=== PATIENT | female | born 1940 | race Caucasian/White ===

== ENCOUNTER → 2016-08-15 | Outpatient (CLI) | payer BC ==
[~2016-08-15] MED LIST: ASPI81TA28 PO; ATOR10TA82 PO; LEVO50TA PO; MAGN400T6 PO; MULT-190 PO; MULT-208 PO; OXYC-106 PO; RANI150T3 PO; SPIR50TA PO
--- NOTE | 2016-08-16 08:27 | MAMMOGRAPHY REPORT ---
BILATERAL DIGITAL SCREENING MAMMOGRAM WITH CAD: 08/15/2016 CLINICAL HISTORY: Routine screening. Patient has no complaints. TECHNIQUE: Bilateral CC and MLO views were obtained. Current study was also evaluated with a Comput er Aided Detection (CAD) system. COMPARISON: Comparison is made to exams dated: 08/10/2015 mammogram, 08/20/2014 ultrasound, 08/20/2014 m ammogram, 08/04/2014 mammogram, 07/30/2013 mammogram, and 07/29/2012 mammogram - [facility]. BREAST COMPOSITION: There are scattered areas of fibroglandular density in both breasts. FINDINGS: There are scattered and grouped stable round and punctate microcalcifications in the breas ts. Mild vascular calcification bilaterally. No new suspicious mass, architectural distortion or c luster of microcalcifications is seen. IMPRESSION: ACR BI-RADS CATEGORY 1: NEGATIVE There is no mammographic evidence of malignancy. A 1 year screening mammogram is recommended. The p atient will receive written notification of the results. Approximately 10% of breast cancers are not detected with mammography. A negative mammographic repor t should not delay biopsy if a clinically suggestive mass is present. Roxana Conklin M.D. ay/:08/15/2016 15:22:59 Company Driver: Heavenly DAMON(R)(M), [facility] letter sent: Normal 1/2 BI-RADS Code: ACR BI-RADS Category 1: Negative
== END | disposition home or self-care (01) ==
LOC: C.MAMM 09:59
PROVIDERS: ATTEND Internal Medicine Pulmonary Disease
DX: Z12.31 Encounter for screening mammogram for malignant neoplasm of breast (principal)

== ENCOUNTER → 2016-09-06 | Outpatient (CLI) | payer BC ==
[2016-09-06 16:01] LABS: URINE APPEARANCE CLEAR (CLEAR); URINE BILIRUBIN NEG (NEG); URINE COLOR YELLOW; URINE EPITHELIAL CELL AUTO >30 /lpf (0-5); URINE NITRITE NEG (NEG); URINE SPECIFIC GRAVITY 1.012 (1.000-1.030); UROBILINOGEN NEG (NEG); ZZUR CULT IF INDIC CLEAN CATCH YES
[2016-09-06 16:04] LABS: MANUAL MICROSCOPIC REQUIRED? NO; REVIEW REQ? NO
== END | disposition home or self-care (01) ==
LOC: C.LABSPEC 14:50
PROVIDERS: ATTEND Obstetrics & Gynecology
DX: R39.15 Urgency of urination (principal)

== ENCOUNTER → 2016-09-26 | Outpatient (CLI) | payer BC ==
[2016-09-26 12:44] LABS: URINE APPEARANCE CLEAR (CLEAR); URINE BILIRUBIN NEG (NEG); URINE COLOR YELLOW; URINE EPITHELIAL CELL AUTO >30 /lpf (0-5); URINE NITRITE NEG (NEG); URINE PH 7.5 (4.5-7.5); URINE SPECIFIC GRAVITY 1.007 (1.000-1.030); UROBILINOGEN NEG (NEG)
[2016-09-26 12:45] LABS: MANUAL MICROSCOPIC REQUIRED? NO; REVIEW REQ? YES
== END | disposition home or self-care (01) ==
LOC: C.LABBFT 10:01
PROVIDERS: ATTEND Obstetrics & Gynecology
DX: R39.15 Urgency of urination (principal)

== ENCOUNTER → 2016-12-07 | Outpatient (CLI) | payer BC ==
[~2016-12-07] MED LIST changes: -ATOR10TA82 PO; +ATOR10TA88 PO
--- NOTE | 2016-12-07 10:23 | DIAGNOSTIC IMAGING REPORT ---
CHEST 2 VIEWS ROUTINE HISTORY: 76 years-old Female R05 Cough COMPARISON: None available TECHNIQUE: Frontal and lateral views of the chest FINDINGS: Cardiac silhouette is within normal limits. There is atherosclerosis of the aorta. There is no pneumothorax. There is mild blunting of the bilateral posterior costophrenic angles. No focal airspace consolidation identified. Bones are grossly intact. IMPRESSION: Mild blunting of the bilateral posterior costophrenic angles suggests atelectasis or scarring versus trace pleural effusions. Lung alford are clear. The above report was generated using voice recognition software. It may contain grammatical, syntax or spelling errors. Electronically signed by: Young Gaitan M.D. 12/07/2016 10:22 AM Dictated Date/Time: 12/07/2016 10:21 AM
== END ==
LOC: C.RAD1850 10:09
PROVIDERS: ATTEND Physician Assistant Medical
DX: R05 Cough (principal)

== ENCOUNTER → 2017-01-16 | Outpatient (CLI) | payer BC ==
[2017-01-16 12:27] LABS: BASO % 1.5 %; BASO ABS # 0.07 K/uL (0-0.2); COMPLETE YES; EOS % 7.6 %; HEMATOCRIT 41.5 % (37-47); LYMPH % 41.5 %; LYMPH ABS # 1.92 K/uL (1.2-3.4); MEAN CELL VOLUME 98.6 fL (80-100); MEAN CORPUSCULAR HEMOGLOBIN 32.3 pg (25-34); MEAN CORPUSCULAR HGB CONC 32.8 g/dl (32-36); MONO % 11.9 %; NEUT % 37.5 %; PLATELET COUNT 296 K/uL (130-400); RED BLOOD COUNT 4.21 M/uL (4.2-5.4); WHITE BLOOD COUNT 4.63 K/uL (4.8-10.8)
[2017-01-16 12:50] LABS: ALT/SGPT 18 U/L (12-78); AST/SGOT 16 U/L (15-37); BLOOD UREA NITROGEN 10 mg/dl (7-18); BUN/CREATININE RATIO 9.9 (10-20); CALCIUM 9.6 mg/dl (8.5-10.1); CARBON DIOXIDE 29 mmol/L (21-32); CHLORIDE 99 mmol/L (98-107); CHOLESTEROL 205 mg/dl (0-200); GLUCOSE 99 mg/dl (70-99); POTASSIUM 4.3 mmol/L (3.5-5.1); SODIUM 135 mmol/L (136-145); TRIGLYCERIDES 99 mg/dl (0-150); VERY LOW DENSITY LIPOPROT CALC 20 mg/dl
[2017-01-16 13:00] LABS: ALKALINE PHOSPHATASE 87 U/L (45-117); CHOLESTEROL/HDL RATIO 2.9; HDL CHOLESTEROL 71 mg/dl; LDL CHOLESTEROL CALCULATED 114 mg/dl
== END | disposition home or self-care (01) ==
LOC: C.LABBFT 08:58
PROVIDERS: ATTEND Internal Medicine Pulmonary Disease
DX: E78.5 Hyperlipidemia, unspecified (principal); I10 Essential (primary) hypertension; R35.1 Nocturia; R73.9 Hyperglycemia, unspecified; I65.29 Occlusion and stenosis of unspecified carotid artery

== ENCOUNTER 2017-06-24 10:59 | Inpatient (IN) | payer BC, OTHER ==
[~2017-06-24] VITALS: Ht 153.7 cm; Wt 90.7 kg
[~2017-06-24 10:59] MED LIST changes: +ATOR10TA82 PO; -ATOR10TA88 PO
[2017-06-24] MEDS ORDERED: ASPIRIN 324 MG CHEW ONE (11:14)
[2017-06-24] MEDS ORDERED: COEN30CA8 PO (11:33)
[2017-06-24] MEDS ORDERED: SODIUM CHLORIDE 0.9% 1000ML 1,000 ML IV STA ×2 (11:51→18:08)
[2017-06-24 12:00] LABS: BASO % 1.3 %; BASO ABS # 0.08 K/uL (0-0.2); EOS % 2.6 %; EOS ABS # 0.16 K/uL (0-0.5); HEMATOCRIT 42.5 % (37-47); HEMOGLOBIN 14.4 g/dL (12.0-16.0); IG# 0.01 K/uL (0.00-0.02); LYMPH % 47.9 %; LYMPH ABS # 2.92 K/uL (1.2-3.4); MEAN CELL VOLUME 97.9 fL (80-100); MEAN CORPUSCULAR HEMOGLOBIN 33.2 pg (25-34); MEAN CORPUSCULAR HGB CONC 33.9 g/dl (32-36); MEAN PLATELET VOLUME 9.6 fL (7.4-10.4); MONO % 12.3 %; MONO ABS # 0.75 K/uL (0.11-0.59); NEUT % 35.7 %; NEUT ABS # 2.17 K/uL (1.4-6.5); PLATELET COUNT 275 K/uL (130-400); RED CELL DISTRIBUTION WIDTH CV 12.1 % (11.5-14.5); RED CELL DISTRIBUTION WIDTH SD 43.7 fL (36.4-46.3); WHITE BLOOD COUNT 6.09 K/uL (4.8-10.8)
--- NOTE | 2017-06-24 12:07 | EMERGENCY ROOM VISIT NOTE ---
History Report prepared by Micheal: Pratima Cortes Under the Supervision of: Dr. Darryl Haley M.D. First contact with patient: 11:28 Chief Complaint: CHEST PAIN Stated Complaint: DIZZINESS/CHEST PAIN/BLURRED VISION Nursing Triage Summary: Patient arrived via EMS. EMS reports pt had eaten breakfast at [facility] and she experienced blurred vision, lightheadedness and chest pressure in center of chest 1/10. Pt reports she was sitting having a cup of coffee and she looked up and felt vision get blurry, when she went to pick pack worker her her coffee her right arm started to shake and she had to use two hands to pick pack worker her coffee. She felt "Lightheaded" and "I started to get up and I couldn't, I couldn't keep my balance, my legs didn't want to work for me. The Right leg." Pt reports she was always able to move her right arm and leg but they felt very week. Pt was taking Lisinopril daily but it was making her have a cough, so they changed her to something else 5 months ago, has appt in August. BP 219/148 For EMS at it's highest EMS administered 324 of ASA and 2 sprays of Nitro. Pt reports chest pressure is "like someone sitting on my chest, it seems like it come and goes." Rates pain 0.5/10. Pt denies weakness on arrival to ED, denies dizziness, blurry vision, c/o only of 0.5/10 chest pressure in center of chest and has felt similar pressure on and off throughout the past week. History of Present Illness The patient is a 77 year old female who presents to the Emergency Room with complaints of an episode of lightheadedness occurring just prior to arrival. The patient states she was eating breakfast when she started to feel lightheaded and her hands started to shake. She also reports some chest tightness mild in nature but denies any headache, nausea, vomiting, diarrhea, dark or bloody stool, shortness of breath, or cough. The patient states she did not loose consciousness, did not fall or hit her head. The patient has a history of hypertension and high cholesterol. She denies any recent travel. The patient is not on any blood thinners. Source of History: patient Onset: just prior to arrival Position: other (generalized) Quality: other (lightheadedness) Timing: other (episode) Associated Symptoms: + chest pain, No LOC, No headache, No SOB, No nausea, No vomiting Review of Systems See HPI for pertinent positives and negatives. A total of ten systems were reviewed and were otherwise negative. Past Medical & Surgical Medical Problems: (1) High cholesterol (2) Hypertension Family History Patient reports no known family medical history. Social History Smoking Status: Former Smoker Marital Status: Housing Status: lives with significant other Current/Historical Medications Scheduled Aspirin (Aspirin Ec), 81 MG PO DAILY Atorvastatin (Lipitor), 10 MG PO DAILY Levothyroxine Sodium (Synthroid), 50 MCG PO DAILY Magnesium Oxide (Mag-Ox), 400 MG PO DAILY Multiple Vitamins W/ Minerals (Daily Multi), 1 TAB PO DAILY Ocuvite Preservision (Ocuvite Preservision), 1 TAB PO DAILY Ranitidine Hcl (Zantac), 150 MG PO BID Scheduled PRN Hctz/Spironolactone 25MG/25MG (Aldactazide 25MG/25MG), 1 TAB PO DAILY PRN for URINARY RETENTION Miscellaneous Medications Coenzyme Q10 (Ubidecarenone) (Coq-10) Allergies Coded Allergies: Codeine (Verified Adverse Reaction, Mild, HALLUCINATIONS, 06/24/17) Physical Exam Vital Signs Date Time Temp Pulse Resp B/P (MAP) Pulse Ox O2 Delivery O2 Flow Rate FiO2 06/24/17 16:18 108 18 176/74 95 Room Air 06/24/17 14:54 113 18 180/84 94 Room Air 06/24/17 14:00 114 06/24/17 13:14 107 17 171/77 97 Room Air 06/24/17 12:23 107 21 149/73 98 Room Air 06/24/17 11:50 115 19 162/76 98 Room Air 06/24/17 11:23 112 18 176/92 96 Room Air 06/24/17 11:08 122 06/24/17 11:00 95 Room Air 06/24/17 11:00 95 Room Air 06/24/17 11:00 36.7 115 21 179/79 96 Room Air Physical Exam Physical Exam GENERAL: She is oriented to person, place, and time. She appears well- developed and well-nourished. She does not appear distressed. ____ HENT: Exam performed. Head: Normocephalic and atraumatic. Right Ear: External ear normal. No mastoid tenderness. Left Ear: External ear normal. No mastoid tenderness. Mouth/Throat: The oropharynx is clear and moist. No trismus in the jaw. No dental abscesses or uvula swelling. No oropharyngeal exudate or tonsillar abscesses. ____ EYES: Conjunctivae and EOM are normal. Pupils are equal, round, and reactive to light. Right eye exhibits no discharge. Left eye exhibits no discharge. No scleral icterus. ____ NECK: Normal range of motion. Neck supple. No JVD present. No spinous process tenderness present. No carotid bruit present. No rigidity. No tracheal deviation and normal range of motion present. No Brudzinski's sign and no Kernig 's sign noted. ____ CV: Tachycardic rate, regular rhythm, normal heart sounds and intact distal pulses. There is no peripheral edema. Palpable radial pulses bue. ____ PULM/CHEST: Effort normal and breath sounds normal. No respiratory distress. No stridor. She has no wheezes. She has no rales. Chest Wall: She exhibits no tenderness. ____ ABD: The abdomen is soft. Bowel sounds are normal. She has no distension. No mass is present. There is no tenderness. There is no rebound, no guarding, no Chin's sign and no tenderness at McBurney's point. Rovsig negative MUSC/SKEL: Normal range of motion. There is no peripheral edema, tenderness or deformity. LYMPH: No cervical adenopathy. ____ NEURO: She is alert and oriented to person, place, and time. She has normal strength. No cranial nerve deficit or sensory deficit. Coordination and gait normal. GCS eye subscore is 4. GCS verbal subscore is 5. GCS motor subscore is 6. Cerebellar tests wnl. ____ SKIN: Skin is warm and dry. She is not diaphoretic. ____ PSYCH: She has a normal mood and affect. Her behavior is normal. Judgment and thought content normal. ____ Medical Decision & Procedures ER Provider Diagnostic Interpretation: Radiology results as stated below per my review and radiologist interpretation: CT ANGIOGRAM OF THE CHEST FINDINGS: No pathologically enlarged axillary mediastinal or hilar lymph nodes were visualized. There was no evidence of thoracic aortic dilatation. There were no pulmonary artery filling defects to indicate acute pulmonary embolism. No pleural effusions are visualized. There are mild dependent atelectatic changes. There is no focal pulmonary consolidation. There are few scattered tiny calcified and noncalcified pulmonary nodules. IMPRESSION: 1. Scattered tiny calcified and noncalcified pulmonary nodules statistically postinflammatory 2. No evidence of focal pulmonary consolidation 3. No evidence of acute pulmonary embolism Electronically signed by: Bill Lui M.D. Laboratory Results 06/24/17 10:50 Red Blood Count 4.34, Mean Corpuscular Volume 97.9, Mean Corpuscular Hemoglobin 33.2, Mean Corpuscular Hemoglobin Concent 33.9, Mean Platelet Volume 9.6, Neutrophils (%) (Auto) 35.7, Lymphocytes (%) (Auto) 47.9, Monocytes (%) (Auto) 12.3, Eosinophils (%) (Auto) 2.6, Basophils (%) (Auto) 1.3, Neutrophils # (Auto ) 2.17, Lymphocytes # (Auto) 2.92, Monocytes # (Auto) 0.75, Eosinophils # (Auto ) 0.16, Basophils # (Auto) 0.08 06/24/17 10:50 Test 06/24/17 10:50 White Blood Count 6.09 K/uL (4.8-10.8) Red Blood Count 4.34 M/uL (4.2-5.4) Hemoglobin 14.4 g/dL (12.0-16.0) Hematocrit 42.5 % (37-47) Mean Corpuscular Volume 97.9 fL (80-100) Mean Corpuscular Hemoglobin 33.2 pg (25-34) Mean Corpuscular Hemoglobin Concent 33.9 g/dl (32-36) Platelet Count 275 K/uL (130-400) Mean Platelet Volume 9.6 fL (7.4-10.4) Neutrophils (%) (Auto) 35.7 % Lymphocytes (%) (Auto) 47.9 % Monocytes (%) (Auto) 12.3 % Eosinophils (%) (Auto) 2.6 % Basophils (%) (Auto) 1.3 % Neutrophils # (Auto) 2.17 K/uL (1.4-6.5) Lymphocytes # (Auto) 2.92 K/uL (1.2-3.4) Monocytes # (Auto) 0.75 K/uL (0.11-0.59) Eosinophils # (Auto) 0.16 K/uL (0-0.5) Basophils # (Auto) 0.08 K/uL (0-0.2) RDW Standard Deviation 43.7 fL (36.4-46.3) RDW Coefficient of Variation 12.1 % (11.5-14.5) Immature Granulocyte % (Auto) 0.2 % Immature Granulocyte # (Auto) 0.01 K/uL (0.00-0.02) Prothrombin Time 10.3 SECONDS (9.0-12.0) Prothromb Time International Ratio 1.0 (0.9-1.1) Activated Partial Thromboplast Time 25.3 SECONDS (21.0-31.0) Partial Thromboplastin Ratio 1.0 D-Dimer 1000 ug/L FEU (0-500) Anion Gap 10.0 mmol/L (3-11) Est Creatinine Clear Calc Drug Dose 49.6 ml/min Estimated GFR () 60.9 Estimated GFR (Non- 52.5 BUN/Creatinine Ratio 11.7 (10-20) Calcium Level 9.3 mg/dl (8.5-10.1) Troponin I < 0.015 ng/ml (0-0.045) Laboratory results reviewed by me Medications Administered Medications (Trade) Dose Ordered Sig/João Route Start Time Stop Time Status Last Admin Dose Admin Sodium Chloride 1,000 ml @ 999 mls/hr Q1H1M STAT IV 06/24/17 11:51 06/24/17 12:51 DC 06/24/17 12:22 999 MLS/HR ECG Per My Interpretation Indication: chest pain Rate (beats per minute): 124 Rhythm: sinus tachycardia Findings: other (UT,QRS, QTC within normal limits, no ST elevation or ST depression) ED Course 1150: The patient was evaluated in room C6. A complete history and physical exam was performed. 1151: Ordered Sodium Chloride 1000 ml @ 999 mls/hr IV. 1623: Patient remains tachycardic. Labs within normal limits with the exception of positive d-dimer. CT of the chest negative. I discussed with the patient that we could repeat troponin and if negative she could follow-up outpatient with cardiology for stress test. She was also given the option to be admitted to the hospital for chest pain rule out ACS and possible stress test in the a.m. 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 She opted to stay for inpatient observation for rule out ACS. discussed the patient's case with Dr. Larissa Tom. The patient will be evaluated for further treatment and disposition. Medical Decision Patient remains tachycardic. Labs within normal limits with the exception of positive d-dimer. CT of the chest negative. I discussed with the patient that we could repeat troponin and if negative she could follow-up outpatient with cardiology for stress test. She was also given the option to be admitted to the hospital for chest pain rule out ACS and possible stress test in the a.m. 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 She opted to stay for inpatient observation for rule out ACS. discussed the patient' s case with Dr. Larissa Tom. The patient will be evaluated for further treatment and disposition. Medication Reconcilliation Current Medication List: was personally reviewed by me Blood Pressure Screening Patient's blood pressure: Elevated blood pressure Blood pressure disposition: Referred to PCP (referred to hospitalist) Consults Time Called: 1600 Consulting Physician: Dr. Larissa Tom Returned Call: 1623 Discussed the patient's case with Dr. Larissa Tom. The patient will be evaluated for further treatment and disposition. Impression Primary Impression: Chest pain Additional Impression: Hypertension Scribe Attestation The scribe's documentation has been prepared under my direction and personally reviewed by me in its entirety. I confirm that the note above accurately reflects all work, treatment, procedures, and medical decision making performed by me. Departure Information Dispostion Being Evaluated By Hospitalist Stanislav Duarte M.D. (PCP) Patient Instructions My [facility] Problem Qualifiers Primary Impression: Chest pain Chest pain type: unspecified Qualified Codes: R07.9 - Chest pain, unspecified Additional Impression: Hypertension Hypertension type: unspecified Qualified Codes: I10 - Essential (primary) hypertension
[2017-06-24 12:08] LABS: BLOOD UREA NITROGEN 12 mg/dl (7-18); CALCIUM 9.3 mg/dl (8.5-10.1); CARBON DIOXIDE 25 mmol/L (21-32); CREATININE 1.04 mg/dl (0.60-1.20); GLUCOSE 144 mg/dl (70-99); POTASSIUM 4.2 mmol/L (3.5-5.1); SODIUM 133 mmol/L (136-145)
[2017-06-24 12:14] LABS: PTT PATIENT 25.3 SECONDS (21.0-31.0)
[2017-06-24] MEDS ORDERED: OPTIRAY 320 IV PRN (12:30)
--- NOTE | 2017-06-24 13:42 | DIAGNOSTIC IMAGING REPORT ---
CT ANGIOGRAM OF THE CHEST CLINICAL HISTORY: Atypical chest pain. Dizziness. Blurred vision. COMPARISON STUDY: No previous studies for comparison. TECHNIQUE: Following the IV administration of 91 mL of Optiray-320, CT angiogram of the thorax was performed from the thoracic inlet to the lung bases utilizing the pulmonary embolus protocol. Images are reviewed in the axial, sagittal, and coronal planes. IV contrast was administered without complication. MIP imaging was performed. A dose lowering technique was utilized adhering to the principles of ALARA. CT DOSE: 573.36 mGy.cm FINDINGS: No pathologically enlarged axillary mediastinal or hilar lymph nodes were visualized. There was no evidence of thoracic aortic dilatation. There were no pulmonary artery filling defects to indicate acute pulmonary embolism. No pleural effusions are visualized. There are mild dependent atelectatic changes. There is no focal pulmonary consolidation. There are few scattered tiny calcified and noncalcified pulmonary nodules. IMPRESSION: 1. Scattered tiny calcified and noncalcified pulmonary nodules statistically postinflammatory 2. No evidence of focal pulmonary consolidation 3. No evidence of acute pulmonary embolism Electronically signed by: Bill Lui M.D. 06/24/2017 1:41 PM Dictated Date/Time: 06/24/2017 1:37 PM
[2017-06-24] MEDS ORDERED: NITROGLYCERIN 0.4 MG SL PER TAB CHARGE SL STA (18:08)
[2017-06-24] MEDS ORDERED: ACETAMINOPHEN 500 MG TAB PO STA (18:08)
[2017-06-24] MEDS ORDERED: ONDANSETRON INJ 2 MG/ML 2 ML VIAL IV PRN (20:00)
[2017-06-24] MEDS ORDERED: PHARMACIST DISCHARGE MED REC CONSULT PRN (20:00)
[2017-06-24] MEDS ORDERED: MAGNESIUM HYDROXIDE SUSP 30 ML UDC PO PRN (20:00)
[2017-06-24] MEDS ORDERED: ZOLPIDEM TARTRATE 5 MG TAB PO PRN ×2 (20:00)
[2017-06-24] MEDS ORDERED: POLYETHYLENE (MIRALAX) 17 GM PACK PO PRN (20:00)
[2017-06-24] MEDS ORDERED: ACETAMINOPHEN 325 MG TAB PO PRN (20:00)
[2017-06-24] MEDS ORDERED: NITROGLYCERIN 0.4 MG SL PER TAB CHARGE SL PRN (20:00)
[2017-06-24] MEDS ORDERED: ALUMINUM/MAGNESIUM/SIMETH (MAALOX MAX) 30 ML UDC PO PRN (20:00)
[2017-06-24] MEDS ORDERED: ATORVASTATIN 40 MG TAB PO STA (20:08)
--- NOTE | 2017-06-24 20:28 | DIAGNOSTIC IMAGING REPORT ---
CT HEAD WITHOUT CONTRAST (CT) CLINICAL HISTORY: Stroke DIZZINESS, BLURRED VISION COMPARISON STUDY: No previous studies for comparison. TECHNIQUE: Axial CT of the brain is performed from the vertex to the skull base. IV contrast was not administered for this examination. A dose lowering technique was utilized adhering to the principles of ALARA. CT DOSE: 537.48 mGy.cm FINDINGS: No intra or extra-axial mass lesions are visualized. There is no CT evidence of acute cortical infarction. There is no evidence of midline shift. There is no acute hemorrhage. No calvarial fractures are visualized. There are patchy white minimal hypodensities likely on a small vessel basis. There is a tiny right frontal cortical calcification. There is no evidence of pathologic ventricular dilatation. There is no evidence of acute sinusitis IMPRESSION: No acute intracranial findings Electronically signed by: Bill Lui M.D. 06/24/2017 8:27 PM Dictated Date/Time: 06/24/2017 8:26 PM
[2017-06-24] MEDS ORDERED: IV FLUIDS COMPLETED PRN (20:45)
[2017-06-24] MEDS ORDERED: CLOPIDOGREL BISULFATE 75 MG TAB PO STA (20:49)
[2017-06-24 20:56] VITALS: BP 197/83; PULSE 115; TEMP 37.1; O2SAT 96; Ht 153.7 cm; Wt 90.7 kg
--- NOTE | 2017-06-24 21:07 | History and Physical ---
History & Physical Date & Time of Service: Jun 24, 2017 at 21:01 Chief Complaint: Tia (Transient Ischemic Attack) Primary Care Physician: Stanislav Velez M.D. History of Present Illness Source: patient, family 77-year-old female with past medical history of hypothyroidism, glaucoma, hypertension, dyslipidemia and morbid obesity presented to the ED with right- sided weakness and chest tightness. Patient was in her regular state of health until this morning when she was having breakfast with her . Patient said that suddenly she got blurry vision and she put her head down to rest. She raised her head and try to reach for a cup of coffee but she could not move her hand her right hand was weak. She was scared and told her that she may need to go to the hospital and she tried to stand up she could not move her right lower extremity. Patient stayed like this for a few minutes her called paramedics. When paramedics arrived patient said that she remembers trying to think to answer their question. She also experienced substernal chest pressure that lasted for a few minutes referred to the left side of the chest. Said that she gets this pain on and off and it is very mild. Currently all her symptoms resolved. Upon arrival to ED they ordered a d-dimer which was mildly elevated, they did a CT angiogram ruled out pulmonary embolism. Family History Patient reports no known family medical history. Social History Smoking Status: Former Smoker Marital Status: Allergies Coded Allergies: Codeine (Verified Adverse Reaction, Mild, HALLUCINATIONS, 06/24/17) Home Medications Scheduled Aspirin (Aspirin Ec), 81 MG PO DAILY Atorvastatin (Lipitor), 10 MG PO DAILY Levothyroxine Sodium (Synthroid), 50 MCG PO DAILY Magnesium Oxide (Mag-Ox), 400 MG PO DAILY Multiple Vitamins W/ Minerals (Daily Multi), 1 TAB PO DAILY Ocuvite Preservision (Ocuvite Preservision), 1 TAB PO DAILY Ranitidine Hcl (Zantac), 150 MG PO BID Scheduled PRN Hctz/Spironolactone 25MG/25MG (Aldactazide 25MG/25MG), 1 TAB PO DAILY PRN for URINARY RETENTION Miscellaneous Medications Coenzyme Q10 (Ubidecarenone) (Coq-10) Review of Systems Review of system Constitutional: No fever / no chills / no sweats / no weakness / no fatigue Eyes: no blurring of vision / no eye pain / no discharge / no redness ENT: no hearing loss / no epistaxis /no swallowing problems Respiratory: no cough / no wheezing / no SOB / no hemoptysis Cardiovascular: Substernal tightness as mentioned in HPI/ no lower extremity edema / no palpitation Abdomen: no pain / no nausea / no vomiting / no constipation Musculoskeletal: no joint pain / no muscle pain / no joint swelling Genitourinary: no dysuria / no incontinence / no urinary retention Neurologic: As mentioned in HPI Psychiatric: no depression symptoms / no anxiety / no insomnia Endocrine: no excessive thirst / no excessive urination Hematologic: no abnormal bleeding / no bruising / no LN swelling Skin: No rash / no pallor Physical Exam Vital Signs Date Time Temp Pulse Resp B/P (MAP) Pulse Ox O2 Delivery O2 Flow Rate FiO2 06/24/17 20:36 106 18 174/100 95 06/24/17 20:13 106 18 174/100 95 Room Air 06/24/17 19:50 112 18 181/88 95 Room Air 06/24/17 19:10 115 18 180/93 94 Room Air 06/24/17 19:02 119 18 198/91 95 Room Air 06/24/17 18:57 110 18 94 Room Air 06/24/17 18:31 128 21 150/86 95 Room Air 06/24/17 18:20 116 22 194/122 95 Room Air 06/24/17 18:04 117 12 198/109 95 Room Air 06/24/17 18:01 112 06/24/17 16:18 108 18 176/74 95 Room Air 06/24/17 14:54 113 18 180/84 94 Room Air 06/24/17 14:00 114 06/24/17 13:14 107 17 171/77 97 Room Air 06/24/17 12:23 107 21 149/73 98 Room Air 06/24/17 11:50 115 19 162/76 98 Room Air 06/24/17 11:23 112 18 176/92 96 Room Air 06/24/17 11:08 122 06/24/17 11:00 95 Room Air 06/24/17 11:00 95 Room Air 06/24/17 11:00 36.7 115 21 179/79 96 Room Air Physical examination General patient appears to be comfortable, not in acute distress HEENT: Atraumatic , normocephalic /no jaundice /no pallor /anicteric /no dry mucous membrane /normal external ear inspection Neck: Supple /no swelling /central trach Heart: S1/S2 normal/regular rate and rhythm/no gallop /no rub /no murmur Lungs: Clear to auscultation bilaterally/normal chest with expansion/no rhonchi/ no rales/no wheezing/no use of accessory muscles of respiration Abdomen: Soft/nontender/no guarding/no rebound/no organomegaly/no pulsatile mass Musculoskeletal: No swelling/no edema/no tenderness/normal range of motion Neuro exam: Awake alert oriented 3/cranial nerves II through XII appear to be intact/sensation intact/moves all extremities/no abnormal movements Psychiatric evaluation: No depressed mood/normal affect Skin: No rash on exposed skin area/no erythema Extremity: Normal pulse/no pitting edema/no clubbing or cyanosis Endocrine/lymphatic: No obvious lymphadenopathy /no lymphedema Diagnostics Laboratory Results Results Past 24 Hours Test 06/24/17 10:50 Range/Units White Blood Count 6.09 4.8-10.8 K/uL Red Blood Count 4.34 4.2-5.4 M/uL Hemoglobin 14.4 12.0-16.0 g/dL Hematocrit 42.5 37-47 % Mean Corpuscular Volume 97.9 80-100 fL Mean Corpuscular Hemoglobin 33.2 25-34 pg Mean Corpuscular Hemoglobin Concent 33.9 32-36 g/dl Platelet Count 275 130-400 K/uL Mean Platelet Volume 9.6 7.4-10.4 fL Neutrophils (%) (Auto) 35.7 % Lymphocytes (%) (Auto) 47.9 % Monocytes (%) (Auto) 12.3 % Eosinophils (%) (Auto) 2.6 % Basophils (%) (Auto) 1.3 % Neutrophils # (Auto) 2.17 1.4-6.5 K/uL Lymphocytes # (Auto) 2.92 1.2-3.4 K/uL Monocytes # (Auto) 0.75 0.11-0.59 K/uL Eosinophils # (Auto) 0.16 0-0.5 K/uL Basophils # (Auto) 0.08 0-0.2 K/uL RDW Standard Deviation 43.7 36.4-46.3 fL RDW Coefficient of Variation 12.1 11.5-14.5 % Immature Granulocyte % (Auto) 0.2 % Immature Granulocyte # (Auto) 0.01 0.00-0.02 K/uL Prothrombin Time 10.3 9.0-12.0 SECONDS Prothromb Time International Ratio 1.0 0.9-1.1 Activated Partial Thromboplast Time 25.3 21.0-31.0 SECONDS Partial Thromboplastin Ratio 1.0 D-Dimer 1000 0-500 ug/L FEU Sodium Level 133 136-145 mmol/L Potassium Level 4.2 3.5-5.1 mmol/L Chloride Level 98 98-107 mmol/L Carbon Dioxide Level 25 21-32 mmol/L Anion Gap 10.0 3-11 mmol/L Blood Urea Nitrogen 12 7-18 mg/dl Creatinine 1.04 0.60-1.20 mg/dl Est Creatinine Clear Calc Drug Dose 49.6 ml/min Estimated GFR () 60.9 Estimated GFR (Non- 52.5 BUN/Creatinine Ratio 11.7 10-20 Random Glucose 144 70-99 mg/dl Calcium Level 9.3 8.5-10.1 mg/dl Troponin I < 0.015 0-0.045 ng/ml Thyroid Stimulating Hormone (TSH) 2.040 0.300-4.500 uIu/ml Diagnostic Radiology EKG showed sinus tachycardia no significant ST-T wave changes indicative of ischemia Impression Assessment and Plan 77-year-old female with past medical history of hypothyroidism, glaucoma, hypertension, dyslipidemia and morbid obesity presented to the ED with right- sided weakness and chest tightness. Presented to the ED with transient right- sided weakness and substernal chest tightness. Assessment Right-sided weakness in both upper and lower extremities, currently resolved, most likely TIA Substernal chest tightness rule out ACS Hypertension Dyslipidemia Glaucoma Hypothyroidism Morbid obesity Clinically suspected obstructive sleep apnea Plan Admit patient to telemetry Continue home meds except blood pressure medications for permissive hypertension , hold blood pressure medications Ultrasound carotid 2D echo with bubble study Empiric increase of statin dose and switch it to Lipitor CT head showed no bleed, discussed case with who recommended switching the aspirin to Plavix MRI/MRA of the brain Consult photogrammetric technician for her chest pain, trend cardiac enzymes We will also check sed rate and CRP to rule out giant cell arteritis/vasculitis Heparin for DVT prophylaxis Resuscitation Status VTE Prophylaxis Will order VTE Prophylaxis: Yes
[2017-06-24] MEDS: RANITIDINE HCL 150 MG TAB PO SCH (21:24)
[2017-06-24] MEDS: SODIUM CHLORIDE 0.9% 1000ML 1,000 ML IV SCH (21:25)
[2017-06-24] MEDS: HEPARIN SOD 5000 UNIT/0.5 ML CARP SQ SCH (21:28)
[2017-06-24] MEDS ORDERED: NURSING VERBAL MED ORDER ONE ×2 (22:00→22:30)
[2017-06-24 22:15] VITALS: BP 192/100
[2017-06-24] MEDS ORDERED: HydrALAZINE HCL 20 MG/ML VIAL IV. PRN (22:45)
[2017-06-24 23:59] VITALS: O2SAT 95
[2017-06-25] VITALS (8 sets, daily range): BP systolic 144–182; BP diastolic 72–89; PULSE 67–107; TEMP 36.6–37.1; O2SAT 94–97
[2017-06-25] MEDS ORDERED: GADAVIST IV PRN
[2017-06-25 02:50] LABS: BASO % 1.2 %; BASO ABS # 0.06 K/uL (0-0.2); EOS % 0.2 %; EOS ABS # 0.01 K/uL (0-0.5); HEMATOCRIT 36.3 % (37-47); HEMOGLOBIN 12.7 g/dL (12.0-16.0); IG# 0.01 K/uL (0.00-0.02); LYMPH % 13.3 %; LYMPH ABS # 0.65 K/uL (1.2-3.4); MEAN CELL VOLUME 96.5 fL (80-100); MEAN CORPUSCULAR HEMOGLOBIN 33.8 pg (25-34); MEAN PLATELET VOLUME 9.1 fL (7.4-10.4); MONO % 12.9 %; MONO ABS # 0.63 K/uL (0.11-0.59); NEUT % 72.2 %; NEUT ABS # 3.51 K/uL (1.4-6.5); PLATELET COUNT 238 K/uL (130-400); RED CELL DISTRIBUTION WIDTH CV 12.5 % (11.5-14.5); RED CELL DISTRIBUTION WIDTH SD 43.7 fL (36.4-46.3); WHITE BLOOD COUNT 4.87 K/uL (4.8-10.8)
[2017-06-25 03:09] LABS: CALCIUM 8.5 mg/dl (8.5-10.1); CREATININE 0.93 mg/dl (0.60-1.20); POTASSIUM 3.8 mmol/L (3.5-5.1)
[2017-06-25] MEDS: LEVOTHYROXINE 50 MCG TAB PO SCH (06:00)
[2017-06-25] MEDS: HEPARIN SOD 5000 UNIT/0.5 ML CARP SQ SCH ×3 (06:18→21:02)
--- NOTE | 2017-06-25 06:42 | DIAGNOSTIC IMAGING REPORT ---
MRA NECK COMBO HISTORY: Stroke Stroke TECHNIQUE: [id number] and gadolinium-enhanced MRA of the neck was performed both before and after the intravenous administration of contrast. All measurements were calculated based on NASCET criteria. COMPARISON STUDY: None. FINDINGS: Very limited study technically due to severe patient motion. The study is near nondiagnostic. The right vertebral artery appears unremarkable. Is dominant. 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 Potential significant stenosis right carotid bifurcation and origin right internal carotid artery. No major stenosis of the left carotid system.. IMPRESSION: 1. Essentially nondiagnostic study. 2. Suspicion of a significant stenosis of the right carotid bifurcation and/or internal right carotid artery. 3. Carotid Doppler ultrasound is suggested as follow-up. 4. 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 The above report was generated using voice recognition software. It may contain grammatical, syntax or spelling errors. Electronically signed by: Mateus Goetz M.D. 06/25/2017 6:41 AM Dictated Date/Time: 06/25/2017 6:38 AM
--- NOTE | 2017-06-25 07:08 | DIAGNOSTIC IMAGING REPORT ---
MR ANGIOGRAM OF THE BRAIN CLINICAL HISTORY: Strokelike symptoms. COMPARISON STUDY: MRI of the brain performed concurrently on 06/24/2017. TECHNIQUE: 3-D [id number] MR angiography of the intracranial circulation is performed. 3-D tumble views are created and assessed. IV contrast was not administered for this examination. The examination is modestly degraded by motion artifact. FINDINGS: The internal carotid arteries are widely patent bilaterally, as are the anterior and middle cerebral arteries. The vertebrobasilar system and posterior cerebral arteries are widely patent. The right vertebral artery is dominant. There is no aneurysm, high-grade stenosis, or focal vessel cutoff seen throughout the intracranial circulation. The brain parenchyma is normal as visualized. IMPRESSION: Unremarkable MR angiogram of the brain. Electronically signed by: Jack Romero M.D. 06/25/2017 7:06 AM Dictated Date/Time: 06/25/2017 7:04 AM
--- NOTE | 2017-06-25 07:27 | DIAGNOSTIC IMAGING REPORT ---
MRI OF THE BRAIN WITHOUT CONTRAST CLINICAL HISTORY: Stroke. Blurred vision. Right hand and right leg weakness. COMPARISON STUDY: Head CT June 24, 2017. TECHNIQUE: Utilizing a 1.5 Jewels magnet and dedicated coil, multiplanar, multiecho imaging of the brain was performed without IV contrast. FINDINGS: Note is made of a linear 1.4 x 0.2 cm focus of restricted diffusion within the posterior left nichols radiata shown on axial diffusion-weighted sequence image 14 of 48. There is no associated mass effect. There may be subtle corresponding increased T2 signal on the T2-weighted sequence. No additional sites of restricted diffusion are present. Ventricular system is normal. Basilar cisterns are patent. There are no extra-axial collections. Flow-voids for the major intracranial vessels are present. Calvarial signal is maintained. Additional matter T2 hyperintense foci suggest small vessel disease. IMPRESSION: 1.4 x 0.2 cm linear focus of restricted diffusion within the posterior left nichols radiata which is suggestive of a small acute infarct. Minimal corresponding T2 signal abnormality. No mass effect. No hemorrhage. Electronically signed by: Sean Schulte M.D. 06/25/2017 7:25 AM Dictated Date/Time: 06/25/2017 7:20 AM
[2017-06-25 07:50] LABS: HEMOGLOBIN A1C 5.4 % (4.5-5.6)
--- NOTE | 2017-06-25 08:59 | Neurology Consultation ---
Neurology Consultation Date of Consultation: Jun 25, 2017. Attending Physician: Johana Han MD Primary Care Physician: Stanislav Velez M.D. Reason for Consultation: Stroke History of Present Illness Source: patient, hospital records The patient is a 77-year-old female with a chief complaint of [id number] right-sided weakness that began acutely yesterday morning while eating breakfast. She was sitting up at the time of symptom onset and recalls experiencing a feeling of lightheadedness, chest pressure, and some blurry vision. She began to notice that her right arm and leg felt heavy or weak. She has some difficulty holding a cup of coffee and standing to walk at that time and noted that her balance was poor. She continues to report some mild right-sided weakness at this time. She denies headache, vision loss, vertigo, change in speech, or difficulty swallowing. Electrocardiogram revealed sinus tachycardia 124 beats per minute. A CT angiogram of the chest was unremarkable. A CT of the head was unremarkable as well as an MRA of the head. An MRI of the brain did reveal a small acute infarct measuring 1.4 x 0.2 cm within the posterior left nichols radiata. I reviewed the images as well as a radiologist's interpretation of this test and agree. An MRA of the neck was nondiagnostic. A follow-up carotid ultrasound has been recommended. The patient had been taking daily aspirin although this medication was switched to Plavix during this hospitalization. Past medical history also notable for hypertension and hyperlipidemia. She is also prescribed a statin. Past Medical/Surgical History Medical Problems: (1) Chest pain Status: Acute (2) Hypertension Status: Chronic (3) Lumbar radiculopathy Status: Acute Family History Family history is noncontributory Social History Marital Status: Housing Status: lives with significant other Allergies Coded Allergies: Codeine (Verified Adverse Reaction, Mild, HALLUCINATIONS, 06/24/17) Current Inpatient Medications Current Inpatient Medications Medications (Trade) Dose Ordered Sig/João Route Start Time Stop Time Status Last Admin Dose Admin Ioversol (Optiray 320) 100 ml UD PRN IV 06/24/17 12:30 06/28/17 12:29 Heparin Sodium (Porcine) (Heparin Sq 5000 Unit/0.5ml) 5,000 unit Q8 SQ 06/24/17 22:00 07/24/17 21:59 06/25/17 06:18 5,000 UNIT Sodium Chloride 1,000 ml @ 50 mls/hr Q20H IV 06/24/17 21:04 07/24/17 21:03 06/24/17 21:25 50 MLS/HR Acetaminophen (Tylenol Tab) 650 mg Q4H PRN PO 06/24/17 20:00 07/24/17 19:59 Al Hydrox/Mg Hydrox/Simethicone (Maalox Max Susp) 15 ml Q4H PRN PO 06/24/17 20:00 07/24/17 19:59 Magnesium Hydroxide (Milk Of Magnesia Susp) 30 ml Q12H PRN PO 06/24/17 20:00 07/24/17 19:59 Zolpidem Tartrate (Ambien Tab) 5 mg HSZ PRN PO 06/24/17 20:00 07/24/17 19:59 Ondansetron HCl (Zofran Inj) 4 mg Q6H PRN IV 06/24/17 20:00 07/24/17 19:59 Nitroglycerin (Nitrostat Tab) 0.4 mg UD PRN SL 06/24/17 20:00 07/24/17 19:59 Polyethylene (Miralax Powder Packet) 17 gm DAILY PRN PO 06/24/17 20:00 07/24/17 19:59 Atorvastatin Calcium (Lipitor Tab) 80 mg QAM PO 06/25/17 09:00 07/25/17 08:59 Miscellaneous Information (Pharmacist Discharge Med Rec Consult) 1 ea UD PRN N/A 06/24/17 20:00 07/24/17 19:59 Levothyroxine Sodium (Synthroid Tab) 50 mcg DAILYBB PO 06/25/17 06:00 07/25/17 06:59 Magnesium Oxide (Mag-Ox Tab) 400 mg DAILY PO 06/25/17 09:00 07/25/17 08:59 Multivitamins/ Minerals (Multivitamin W/ Minerals Tab) 1 tab DAILY PO 06/25/17 09:00 07/25/17 08:59 Ranitidine HCl (zANTac TAB) 150 mg BID PO 06/24/17 21:00 07/24/17 20:59 06/24/17 21:24 150 MG Miscellaneous (Iv Fluids Completed) 1 ea PRN PRN N/A 06/24/17 20:45 06/24/18 20:44 Clopidogrel Bisulfate (plAVix TAB) 75 mg DAILY PO 06/25/17 09:00 07/25/17 08:59 Hydralazine HCl (HydrALAZINE INJ) 10 mg Q6H PRN IV. 06/24/17 22:45 07/24/17 22:44 06/24/17 22:50 10 MG Gadobutrol (Gadavist) 9.3 mmol UD PRN IV 06/25/17 00:00 06/29/17 00:00 Review of Systems Constitutional: No fever chills Eyes: No vision loss or diplopia ENT: No hearing loss or vertigo Cardiovascular: See history of present illness Respiratory: No coughing wheezing or shortness of breath Neurological: See history of present illness Psychiatric: No depression or anxiety Hematologic: No bruising bleeding or swollen glands A full 10 point review of systems was obtained from this patient with pertinent positives and negatives described in the history of present illness and otherwise listed above. All remaining systems were reviewed and are negative Physical Exam Vital Signs (Past 24 Hrs): Date Time Temp Pulse Resp B/P (MAP) Pulse Ox O2 Delivery O2 Flow Rate FiO2 06/25/17 07:50 37.1 107 20 159/82 (107) 97 06/25/17 04:00 96 Room Air 06/25/17 03:31 36.9 106 18 182/89 (120) 96 06/25/17 00:30 36.6 100 20 155/72 (99) 95 Room Air 06/24/17 23:59 95 Room Air 06/24/17 22:15 192/100 (130) 06/24/17 20:56 37.1 115 20 197/83 96 Room Air 06/24/17 20:36 106 18 174/100 95 06/24/17 20:13 106 18 174/100 95 Room Air 06/24/17 19:50 112 18 181/88 95 Room Air 06/24/17 19:10 115 18 180/93 94 Room Air 06/24/17 19:02 119 18 198/91 95 Room Air 06/24/17 18:57 110 18 94 Room Air 06/24/17 18:31 128 21 150/86 95 Room Air 06/24/17 18:20 116 22 194/122 95 Room Air 06/24/17 18:04 117 12 198/109 95 Room Air 06/24/17 18:01 112 06/24/17 16:18 108 18 176/74 95 Room Air 06/24/17 14:54 113 18 180/84 94 Room Air 06/24/17 14:00 114 06/24/17 13:14 107 17 171/77 97 Room Air 06/24/17 12:23 107 21 149/73 98 Room Air 06/24/17 11:50 115 19 162/76 98 Room Air 06/24/17 11:23 112 18 176/92 96 Room Air 06/24/17 11:08 122 06/24/17 11:00 95 Room Air 06/24/17 11:00 95 Room Air 06/24/17 11:00 36.7 115 21 179/79 96 Room Air The patient is a well-developed, well-nourished elderly female. She is lying comfortably in bed. The patient is alert and fully oriented. Recent and remote memory intact. Attention and concentration normal. Patient is able to name objects and repeat phrases and exhibits a normal spontaneous speech pattern. Patient exhibits an age-appropriate fund of knowledge a normal vocabulary. Visual alford full to confrontation. Visual acuity normal. Pupils equal round react to light and accommodation. Eye movements normal. Facial sensation intact. There is mild flattening of the right nasolabial fold although no gross facial droop. Hearing intact to finger rub bilaterally. Palate elevates to midline. Shoulder shrug intact. Tongue protrudes to midline. Sensation intact to light touch, temperature, vibration, and proprioception for all 4 limbs. Deep tendon reflexes are intact and symmetrical for the arms and legs. Plantar responses downgoing bilaterally. There is mild dysmetria with finger to nose and heel to cat on the right. Ophthalmoscopic examination reveals normal-appearing optic nerves and posterior segments. No papilledema or hemorrhages. Carotid pulses normal bilaterally, no bruits to auscultation. Gait and station not tested due to safety concerns. Muscle strength is grossly normal for the arms and legs. There is a slight pronator drift for the right upper extremity. Muscle tone normal throughout. No atrophy. No abnormal movements observed. Laboratory Results Past 24 Hours: 06/25/17 02:23 Red Blood Count 3.76, Mean Corpuscular Volume 96.5, Mean Corpuscular Hemoglobin 33.8, Mean Corpuscular Hemoglobin Concent 35.0, Mean Platelet Volume 9.1, Neutrophils (%) (Auto) 72.2, Lymphocytes (%) (Auto) 13.3, Monocytes (%) (Auto) 12.9, Eosinophils (%) (Auto) 0.2, Basophils (%) (Auto) 1.2, Neutrophils # (Auto ) 3.51, Lymphocytes # (Auto) 0.65, Monocytes # (Auto) 0.63, Eosinophils # (Auto ) 0.01, Basophils # (Auto) 0.06 06/25/17 02:23 Test 06/24/17 10:50 06/25/17 02:23 Erythrocyte Sedimentation Rate 22 mm/hr (0-21) Prothrombin Time 10.3 SECONDS (9.0-12.0) Prothromb Time International Ratio 1.0 (0.9-1.1) Activated Partial Thromboplast Time 25.3 SECONDS (21.0-31.0) Partial Thromboplastin Ratio 1.0 D-Dimer 1000 ug/L FEU (0-500) Estimated Average Glucose 108 mg/dl Hemoglobin A1c 5.4 % (4.5-5.6) C-Reactive Protein < 0.29 mg/dl (0-0.29) Thyroid Stimulating Hormone (TSH) 2.040 uIu/ml (0.300-4.500) White Blood Count 4.87 K/uL (4.8-10.8) Red Blood Count 3.76 M/uL (4.2-5.4) Hemoglobin 12.7 g/dL (12.0-16.0) Hematocrit 36.3 % (37-47) Mean Corpuscular Volume 96.5 fL (80-100) Mean Corpuscular Hemoglobin 33.8 pg (25-34) Mean Corpuscular Hemoglobin Concent 35.0 g/dl (32-36) Platelet Count 238 K/uL (130-400) Mean Platelet Volume 9.1 fL (7.4-10.4) Neutrophils (%) (Auto) 72.2 % Lymphocytes (%) (Auto) 13.3 % Monocytes (%) (Auto) 12.9 % Eosinophils (%) (Auto) 0.2 % Basophils (%) (Auto) 1.2 % Neutrophils # (Auto) 3.51 K/uL (1.4-6.5) Lymphocytes # (Auto) 0.65 K/uL (1.2-3.4) Monocytes # (Auto) 0.63 K/uL (0.11-0.59) Eosinophils # (Auto) 0.01 K/uL (0-0.5) Basophils # (Auto) 0.06 K/uL (0-0.2) RDW Standard Deviation 43.7 fL (36.4-46.3) RDW Coefficient of Variation 12.5 % (11.5-14.5) Immature Granulocyte % (Auto) 0.2 % Immature Granulocyte # (Auto) 0.01 K/uL (0.00-0.02) Anion Gap 8.0 mmol/L (3-11) Est Creatinine Clear Calc Drug Dose 54.0 ml/min Estimated GFR () 69.7 Estimated GFR (Non- 60.1 BUN/Creatinine Ratio 13.0 (10-20) Calcium Level 8.5 mg/dl (8.5-10.1) Total Creatine Kinase 81 U/L (26-192) Troponin I 0.017 ng/ml (0-0.045) Triglycerides Level 62 mg/dl (0-150) Cholesterol Level 177 mg/dl (0-200) HDL Cholesterol 80 mg/dl LDL Cholesterol, Calculated 85 mg/dl VLDL Cholesterol, Calculated 12 mg/dl Cholesterol/HDL Ratio 2.2 Impression Small acute ischemic stroke within the subcortical left cerebral hemisphere resulting in a very mild right hemiparesis, without aphasia, vision loss, or sensory dysfunction. Stroke etiology presumed small vessel ischemic based on infarct size and location. Risk factors include age, hypertension, and hyperlipidemia.Patient's blood pressure has been significantly elevated during this hospitalization. Plan Agree with Plavix 75 mg per day Agree with statin therapy Gradually reduce patient's blood pressure as medically appropriate. Reasonable goal for systolic blood pressure today 140-160. Patient will need a follow-up carotid ultrasound given that her MRA of the neck was nondiagnostic. PT/OT/speech therapy No further immediate recommendations
[2017-06-25] MEDS ORDERED: CEROVITE ADV FORMULA TAB PO SCH (09:00)
[2017-06-25] MEDS: CEROVITE ADV FORMULA TAB PO SCH (09:45)
[2017-06-25] MEDS: RANITIDINE HCL 150 MG TAB PO SCH ×2 (09:45→20:57)
[2017-06-25] MEDS: MAGNESIUM OXIDE 400 MG TAB PO SCH (09:45)
[2017-06-25] MEDS: ATORVASTATIN 40 MG TAB PO SCH (09:46)
--- NOTE | 2017-06-25 12:06 | DIAGNOSTIC IMAGING REPORT ---
CAROTID DOPPLER NECK ART HISTORY: Stroke stroke COMPARISON: MRA of the neck 06/24/2017 carotid Doppler 01/16/2013 TECHNIQUE: Real-time, grayscale, and color Doppler sonography of the carotid arteries was performed. Imaging reviewed in the transverse and longitudinal planes. All measurements were calculated based on NASCET criteria. FINDINGS: Antegrade flow is seen in the bilateral vertebral arteries. The brachial pressures are hemodynamically similar. Moderate plaque formation bilaterally antegrade flow right vertebral artery. Retrograde flow left vertebral artery. This is unchanged from the prior study. The peak systolic velocity within the right ICA is 161. The right systolic ratio is 1.6. The peak systolic velocity within the left ICA is 208. The left systolic ratio is 1.8. IMPRESSION: 1. Moderate to significant plaque formation bilaterally. 2. 50-60% stenosis right internal carotid artery. 3. 60-70% stenosis left internal carotid artery. 4. High-grade stenosis of the external carotid arteries bilaterally. 5. A retrograde flow within the left vertebral artery suggestive of a left subclavian steal. This is unchanged from the prior study as well. The above report was generated using voice recognition software. It may contain grammatical, syntax or spelling errors. Electronically signed by: Mateus Goetz M.D. 06/25/2017 12:05 PM Dictated Date/Time: 06/25/2017 12:00 PM
[2017-06-25] MEDS: CLOPIDOGREL BISULFATE 75 MG TAB PO SCH (12:10)
--- NOTE | 2017-06-25 14:24 | Cardiology Consultation ---
Cardiology Consultation Date of Consultation: Jun 25, 2017. Requesting Physician: Dr. Camargo Reason for Consultation: Chest pain Pt evaluation today including: conversation w/ patient, conversation w/ family , physical exam, lab review, review of studies, review of inpatient medication list History of Present Illness This is a very pleasant 77-year-old woman who has a history of hypothyroidism, hypertension and hyperlipidemia as well as obesity who presented with right sided weakness and chest discomfort. The weakness affected her arm and her leg , evaluation so far I believe is consistent with a left cerebral CVA. This was felt to be due to small vessel ischemic disease rather than embolization. Her weakness has essentially resolved now. She also had symptoms of substernal chest discomfort, she had never had that discomfort before. She describes it as though it felt like someone sitting on her chest. Her and her think it lasted about 10 minutes before her presentation to the emergency room on June 24, 2017, and then last evening she had another episode lasting several minutes. She has had none today. She is not very active due to knee discomfort, she says that she cannot walk on a treadmill. She does not have significant dyspnea on exertion or shortness of breath and no orthopnea or PND. She denies palpitations. Past Medical/Surgical History (1) Hypertension (2) High cholesterol (3) Lumbar radiculopathy Family History Patient reports no known family medical history. Social History Smoking Status: Never Smoker History of Alcohol Use: Yes (1 beer/day) Review of Systems Constitutional: No fever, No weight loss, No weakness Respiratory: No cough, No wheezing, No shortness of breath, No dyspnea on exertion Cardiac: + see HPI, + chest pain, No orthopnea, No PND, No edema, No palpitations Abdomen: No pain, No nausea, No vomiting, No diarrhea, No GI bleeding Female : No problem reported Neurologic: + see HPI, + weakness, No paralysis, No numbness/tingling, No balance problems Heme: No abnormal bleeding/bruising, No clotting problems Endo: No fatigue Skin: No problem reported All Other Systems: Reviewed and Negative Allergies Coded Allergies: Codeine (Verified Adverse Reaction, Mild, HALLUCINATIONS, 06/24/17) Medications Current Inpatient Medications Medications (Trade) Dose Ordered Sig/João Route Start Time Stop Time Status Last Admin Dose Admin Ioversol (Optiray 320) 100 ml UD PRN IV 06/24/17 12:30 06/28/17 12:29 Heparin Sodium (Porcine) (Heparin Sq 5000 Unit/0.5ml) 5,000 unit Q8 SQ 06/24/17 22:00 07/24/17 21:59 06/25/17 06:18 5,000 UNIT Sodium Chloride 1,000 ml @ 50 mls/hr Q20H IV 06/24/17 21:04 07/24/17 21:03 06/24/17 21:25 50 MLS/HR Acetaminophen (Tylenol Tab) 650 mg Q4H PRN PO 06/24/17 20:00 07/24/17 19:59 Al Hydrox/Mg Hydrox/Simethicone (Maalox Max Susp) 15 ml Q4H PRN PO 06/24/17 20:00 07/24/17 19:59 Magnesium Hydroxide (Milk Of Magnesia Susp) 30 ml Q12H PRN PO 06/24/17 20:00 07/24/17 19:59 Zolpidem Tartrate (Ambien Tab) 5 mg HSZ PRN PO 06/24/17 20:00 07/24/17 19:59 Ondansetron HCl (Zofran Inj) 4 mg Q6H PRN IV 06/24/17 20:00 07/24/17 19:59 Nitroglycerin (Nitrostat Tab) 0.4 mg UD PRN SL 06/24/17 20:00 07/24/17 19:59 Polyethylene (Miralax Powder Packet) 17 gm DAILY PRN PO 06/24/17 20:00 07/24/17 19:59 Atorvastatin Calcium (Lipitor Tab) 80 mg QAM PO 06/25/17 09:00 07/25/17 08:59 06/25/17 09:46 80 MG Miscellaneous Information (Pharmacist Discharge Med Rec Consult) 1 ea UD PRN N/A 06/24/17 20:00 07/24/17 19:59 Levothyroxine Sodium (Synthroid Tab) 50 mcg DAILYBB PO 06/25/17 06:00 07/25/17 06:59 Magnesium Oxide (Mag-Ox Tab) 400 mg DAILY PO 06/25/17 09:00 07/25/17 08:59 06/25/17 09:45 400 MG Multivitamins/ Minerals (Multivitamin W/ Minerals Tab) 1 tab DAILY PO 06/25/17 09:00 07/25/17 08:59 06/25/17 09:45 1 TAB Ranitidine HCl (zANTac TAB) 150 mg BID PO 06/24/17 21:00 07/24/17 20:59 06/25/17 09:45 150 MG Miscellaneous (Iv Fluids Completed) 1 ea PRN PRN N/A 06/24/17 20:45 06/24/18 20:44 Clopidogrel Bisulfate (plAVix TAB) 75 mg DAILY PO 06/25/17 09:00 07/25/17 08:59 Hydralazine HCl (HydrALAZINE INJ) 10 mg Q6H PRN IV. 06/24/17 22:45 07/24/17 22:44 06/24/17 22:50 10 MG Gadobutrol (Gadavist) 9.3 mmol UD PRN IV 06/25/17 00:00 06/29/17 00:00 Physical Exam Vital Signs Past 12 Hours Date Time Temp Pulse Resp B/P (MAP) Pulse Ox O2 Delivery O2 Flow Rate FiO2 06/25/17 07:50 37.1 107 20 159/82 (107) 97 06/25/17 04:00 96 Room Air 06/25/17 03:31 36.9 106 18 182/89 (120) 96 06/25/17 00:30 36.6 100 20 155/72 (99) 95 Room Air 06/24/17 23:59 95 Room Air Constitutional: General Apperance: heathly-appearing Level of Distress: NAD Psychiatric: Mental Status: active & alert Head: normocephalic Eyes: EOM: EOMI ENMT: normal ENT inspection, hearing grossly normal Neck: supple, no masses Lungs: Respiratory effort: no dyspnea, good air movement Auscultation: breath sounds normal, no wheezing Cardiovascular: Heart Auscultation: RRR, no murmurs, no rubs, no gallops Peripheral Pulses: Bruits: none appreciated Abdomen: Bowel Sounds: normal Inspection & Palpation: soft, no tenderness, guarding & rebound, no masses Musculoskeletal: normal strength (5/5 throughout) Extremities: no edema Neurologic: Cranial Nerves: grossly intact Sensation: grossly intact Data Laboratory Results: Last 24 Hours Test 06/24/17 10:50 06/25/17 02:23 06/25/17 09:56 White Blood Count 6.09 K/uL 4.87 K/uL Red Blood Count 4.34 M/uL 3.76 M/uL Hemoglobin 14.4 g/dL 12.7 g/dL Hematocrit 42.5 % 36.3 % Mean Corpuscular Volume 97.9 fL 96.5 fL Mean Corpuscular Hemoglobin 33.2 pg 33.8 pg Mean Corpuscular Hemoglobin Concent 33.9 g/dl 35.0 g/dl Platelet Count 275 K/uL 238 K/uL Mean Platelet Volume 9.6 fL 9.1 fL Neutrophils (%) (Auto) 35.7 % 72.2 % Lymphocytes (%) (Auto) 47.9 % 13.3 % Monocytes (%) (Auto) 12.3 % 12.9 % Eosinophils (%) (Auto) 2.6 % 0.2 % Basophils (%) (Auto) 1.3 % 1.2 % Neutrophils # (Auto) 2.17 K/uL 3.51 K/uL Lymphocytes # (Auto) 2.92 K/uL 0.65 K/uL Monocytes # (Auto) 0.75 K/uL 0.63 K/uL Eosinophils # (Auto) 0.16 K/uL 0.01 K/uL Basophils # (Auto) 0.08 K/uL 0.06 K/uL RDW Standard Deviation 43.7 fL 43.7 fL RDW Coefficient of Variation 12.1 % 12.5 % Immature Granulocyte % (Auto) 0.2 % 0.2 % Immature Granulocyte # (Auto) 0.01 K/uL 0.01 K/uL Erythrocyte Sedimentation Rate 22 mm/hr Prothrombin Time 10.3 SECONDS Prothromb Time International Ratio 1.0 Activated Partial Thromboplast Time 25.3 SECONDS Partial Thromboplastin Ratio 1.0 D-Dimer 1000 ug/L FEU Sodium Level 133 mmol/L 137 mmol/L Potassium Level 4.2 mmol/L 3.8 mmol/L Chloride Level 98 mmol/L 105 mmol/L Carbon Dioxide Level 25 mmol/L 24 mmol/L Anion Gap 10.0 mmol/L 8.0 mmol/L Blood Urea Nitrogen 12 mg/dl 12 mg/dl Creatinine 1.04 mg/dl 0.93 mg/dl Est Creatinine Clear Calc Drug Dose 49.6 ml/min 54.0 ml/min Estimated GFR () 60.9 69.7 Estimated GFR (Non- 52.5 60.1 BUN/Creatinine Ratio 11.7 13.0 Random Glucose 144 mg/dl 114 mg/dl Estimated Average Glucose 108 mg/dl Hemoglobin A1c 5.4 % Calcium Level 9.3 mg/dl 8.5 mg/dl Troponin I < 0.015 ng/ml 0.017 ng/ml C-Reactive Protein < 0.29 mg/dl Thyroid Stimulating Hormone (TSH) 2.040 uIu/ml Total Creatine Kinase 81 U/L Triglycerides Level 62 mg/dl Cholesterol Level 177 mg/dl HDL Cholesterol 80 mg/dl LDL Cholesterol, Calculated 85 mg/dl VLDL Cholesterol, Calculated 12 mg/dl Cholesterol/HDL Ratio 2.2 Imaging: MRI showed a small CVA. Carotid ultrasound does show bilateral carotid disease. EKG: Her admission electrocardiogram shows sinus tachycardia at 124 bpm. Telemetry reviewed: Sinus rhythm and sinus tach in the low 100 bpm range. Assessment & Plan 1. Chest discomfort: There are no objective findings to suggest that this is myocardial ischemia but she does have risk factors. Her cardiac enzymes are negative, her initial electrocardiogram did not show acute changes and she has not had exertional symptoms in the past. The description however is consistent with angina (chest pressure of a few minutes duration) and with brief duration may not show up as enzyme or electrocardiographic abnormalities. She has other vascular disease and certainly could have coronary disease. I think we need to pursue this further, I would like to do a stress test. She tells me that she cannot walk on a treadmill so I will schedule her for a pharmacologic echo tomorrow. 2. CVA: I believe this is felt to be due to small vessel disease and not embolization, if it is felt to be due to embolization (possibly from atrial fibrillation) further monitoring may be necessary. She does not feel palpitations and it would not be uncommon to have unrecognized atrial fibrillation but diagnosis can be difficult and may require long-term monitoring. I do not think I would do that unless there is no other explanation for the CVA. 3. Hypertension: Her blood pressure is significantly elevated, agree with gradual control of her blood pressure. Since she is also tachycardic I think a beta-cassius would be a good choice. I will start low-dose metoprolol today but leave titration of her blood pressure medication up to the primary service. 4. Tachycardia: Her heart rate has been higher than normal since admission, this may be due to the stress of the situation but she may also have an abnormally fast heart rate. Beta-blockade may help with this and also help control her blood pressure. Thank you for allowing me to participate in her care.
[2017-06-25] MEDS ORDERED: METOPROLOL TARTRATE 25 MG TAB PO STA (14:27)
--- NOTE | 2017-06-25 16:23 | Hospitalist Progress Note ---
Hospitalist Progress Note Date of Service Jun 25, 2017. (Elise Marie .TOBI) Subjective Pt evaluation today including: conversation w/ patient, physical exam, chart review, lab review, review of inpatient medication list Voiding: no voiding problems Ms. Lehman reports feeling "off" and a bit dizzy with standing but otherwise has no further stroke like symptoms. She had some chest tightness earlier in the day but it was gone at the time of my examination. ROS Constitutional: no chills, aches, sweats or fever Respiratory: no sob,cough, sputum, or wheezing Cardiac: see HPI GI: no abdominal pain, nausea, vomiting, diarrhea or constipation : no dysuria or hesitancy Extremities: no joint pain or weakness Skin: no rash All other systems reviewed and negative (Elise Marie CRNP) Medications Medications Administered Medications (Trade) Dose Ordered Sig/João Route Start Time Stop Time Status Last Admin Dose Admin Sodium Chloride 1,000 ml @ 999 mls/hr Q1H1M STAT IV 06/24/17 11:51 06/24/17 12:51 DC 06/24/17 12:22 999 MLS/HR Nitroglycerin (Nitrostat Tab) 0.4 mg ONE STAT SL 06/24/17 18:08 06/24/17 18:10 DC 06/24/17 18:25 0.4 MG Acetaminophen (Tylenol Tab) 1,000 mg NOW STAT PO 06/24/17 18:08 06/24/17 18:10 DC 06/24/17 18:25 1,000 MG Sodium Chloride 1,000 ml @ 125 mls/hr Q8H STAT IV 06/24/17 18:08 06/24/17 20:41 DC 06/24/17 18:25 125 MLS/HR Heparin Sodium (Porcine) (Heparin Sq 5000 Unit/0.5ml) 5,000 unit Q8 SQ 06/24/17 22:00 07/24/17 21:59 06/25/17 14:38 5,000 UNIT Sodium Chloride 1,000 ml @ 50 mls/hr Q20H IV 06/24/17 21:04 07/24/17 21:03 06/24/17 21:25 50 MLS/HR Acetaminophen (Tylenol Tab) 650 mg Q4H PRN PO 06/24/17 20:00 07/24/17 19:59 06/25/17 14:38 650 MG Atorvastatin Calcium (Lipitor Tab) 80 mg QAM PO 06/25/17 09:00 07/25/17 08:59 06/25/17 09:46 80 MG Magnesium Oxide (Mag-Ox Tab) 400 mg DAILY PO 06/25/17 09:00 07/25/17 08:59 06/25/17 09:45 400 MG Multivitamins/ Minerals (Multivitamin W/ Minerals Tab) 1 tab DAILY PO 06/25/17 09:00 07/25/17 08:59 06/25/17 09:45 1 TAB Ranitidine HCl (zANTac TAB) 150 mg BID PO 06/24/17 21:00 07/24/17 20:59 06/25/17 09:45 150 MG Atorvastatin Calcium (Lipitor Tab) 80 mg ONE STAT PO 06/24/17 20:08 06/24/17 20:09 DC 06/24/17 20:40 80 MG Clopidogrel Bisulfate (plAVix TAB) 75 mg DAILY PO 06/25/17 09:00 07/25/17 08:59 06/25/17 12:10 75 MG Clopidogrel Bisulfate (plAVix TAB) 75 mg ONE STAT PO 06/24/17 20:49 06/24/17 20:50 DC 06/24/17 21:24 75 MG Hydralazine HCl (HydrALAZINE INJ) 10 mg Q6H PRN IV. 06/24/17 22:45 07/24/17 22:44 06/24/17 22:50 10 MG Metoprolol Tartrate (Lopressor Tab) 25 mg NOW STAT PO 06/25/17 14:27 06/25/17 14:36 DC 06/25/17 15:21 25 MG (Elise Marie, TOBI) Objective Vital Signs Date Time Temp Pulse Resp B/P (MAP) Pulse Ox O2 Delivery O2 Flow Rate FiO2 06/25/17 15:22 36.9 101 20 150/85 (106) 96 Room Air 06/25/17 12:53 37.1 98 17 173/80 (111) 94 Room Air 06/25/17 12:00 Room Air 06/25/17 08:00 Room Air 06/25/17 07:50 37.1 107 20 159/82 (107) 97 06/25/17 04:00 96 Room Air 06/25/17 03:31 36.9 106 18 182/89 (120) 96 06/25/17 00:30 36.6 100 20 155/72 (99) 95 Room Air 06/24/17 23:59 95 Room Air 06/24/17 22:15 192/100 (130) 06/24/17 20:56 37.1 115 20 197/83 96 Room Air 06/24/17 20:36 106 18 174/100 95 06/24/17 20:13 106 18 174/100 95 Room Air 06/24/17 19:50 112 18 181/88 95 Room Air 06/24/17 19:10 115 18 180/93 94 Room Air 06/24/17 19:02 119 18 198/91 95 Room Air 06/24/17 18:57 110 18 94 Room Air 06/24/17 18:31 128 21 150/86 95 Room Air 06/24/17 18:20 116 22 194/122 95 Room Air 06/24/17 18:04 117 12 198/109 95 Room Air 06/24/17 18:01 112 06/24/17 16:18 108 18 176/74 95 Room Air (Elise Marie, TOBI) Physical Exam Notes: General: no distress Eyes: normal inspection, PERLL Respiratory: chest non tender, clear to auscultation, normal breath sounds, no respiratory distress, no accessory muscle use Cardiac: regular rate and rhythm, no rub or gallop, no murmur, no edema, no jvd GI/: active bowel sounds, no abd pain or tenderness, soft, non distended Extremities: normal range of motion, normal strength, non tender Neuro/Psych: alert and oriented x 3, normal mood and affect Skin: normal color, dry (Elise Marie, [employer]) Laboratory Results Last 24 Hours Test 06/25/17 02:23 06/25/17 12:04 White Blood Count 4.87 K/uL Red Blood Count 3.76 M/uL Hemoglobin 12.7 g/dL Hematocrit 36.3 % Mean Corpuscular Volume 96.5 fL Mean Corpuscular Hemoglobin 33.8 pg Mean Corpuscular Hemoglobin Concent 35.0 g/dl Platelet Count 238 K/uL Mean Platelet Volume 9.1 fL Neutrophils (%) (Auto) 72.2 % Lymphocytes (%) (Auto) 13.3 % Monocytes (%) (Auto) 12.9 % Eosinophils (%) (Auto) 0.2 % Basophils (%) (Auto) 1.2 % Neutrophils # (Auto) 3.51 K/uL Lymphocytes # (Auto) 0.65 K/uL Monocytes # (Auto) 0.63 K/uL Eosinophils # (Auto) 0.01 K/uL Basophils # (Auto) 0.06 K/uL RDW Standard Deviation 43.7 fL RDW Coefficient of Variation 12.5 % Immature Granulocyte % (Auto) 0.2 % Immature Granulocyte # (Auto) 0.01 K/uL Sodium Level 137 mmol/L Potassium Level 3.8 mmol/L Chloride Level 105 mmol/L Carbon Dioxide Level 24 mmol/L Anion Gap 8.0 mmol/L Blood Urea Nitrogen 12 mg/dl Creatinine 0.93 mg/dl Est Creatinine Clear Calc Drug Dose 54.0 ml/min Estimated GFR () 69.7 Estimated GFR (Non- 60.1 BUN/Creatinine Ratio 13.0 Random Glucose 114 mg/dl Calcium Level 8.5 mg/dl Total Creatine Kinase 81 U/L 102 U/L Troponin I 0.017 ng/ml 0.017 ng/ml Triglycerides Level 62 mg/dl Cholesterol Level 177 mg/dl HDL Cholesterol 80 mg/dl LDL Cholesterol, Calculated 85 mg/dl VLDL Cholesterol, Calculated 12 mg/dl Cholesterol/HDL Ratio 2.2 (Elise Marie ., TOBI) Assessment and Plan 77-year-old female with past medical history of hypothyroidism, glaucoma, hypertension, dyslipidemia and morbid obesity presented to the ED with right- sided weakness and chest tightness. Presented to the ED with transient right- sided weakness and substernal chest tightness. Stroke - continue telemetry monitoring - MRI/MRA showed small left side acute infarct - Carotid ultrasound showed significant external carotid stenosis and left subclavian steal - consulted vascular surgery - PT/OT, speech evaluation - awaiting echo - neurology consulted - continue aspirin, plavix and statin Chest pain - cardiology consulted - stress test tomorrow. - EKG with chest pain - troponins normal HTN - metoprolol started by cardiology - restarted home losartan and chlorthalidone - per neurology ok to lower bp HLD - started high dose atorvastatin Glaucoma - unsure what kind of drops she takes, asked nursing to have her family bring them in Hypothyroidism - continue levothyroxine 50 mcg Full code Heparin subq (Elise Marie ., TOBI) Supervising Note Dr. Farris I performed a history and physical examination on the patient. I reviewed above note and agree with it. I discussed plan with APC and patient. During my face to face encounter with the patient, I answered all of the patient's questions. Patient is diagnosed with stroke. Thankfully she does not have significant residual weakness and appears to be back to baseline. Will continue to monitor. Awaiting input from vascular surgery. (Nish Farris M.D.)
--- NOTE | 2017-06-25 18:05 | ECHOCARDIOGRAM REPORT ---
*NOTICE TO RECEIVING DEMOCRAT AGENCY This information is strictly Confidential and protected under [place] law. [place] law prohibits you from making any further disclosure of this information unless further disclosure is expressly permitted by the written consent of the person to whom it pertains or is authorized by law. A general authorization for the release of medical or other information is not sufficient for this purpose. Hospital accepts no responsibility if the information is made available to any other person, INCLUDING THE PATIENT. Interpretation Summary * Conclusions -- * There is borderline concentric left ventricular hypertrophy. * Left ventricular systolic function is normal. * Grade I diastolic dysfunction, (abnormal relaxation pattern). * Borderline left atrial enlargement. * Injection of contrast documented no interatrial shunt. Procedure Details * A complete two-dimensional transthoracic echocardiogram was performed (2D, M-mode, Doppler and color flow Doppler). * A saline contrast injection was performed to assess for cardiac shunting. * The injection was performed through an intravenous line in the left arm. * The attending nurse who injected the saline contrast was Madonna Mattson RN. * A total of 20 cc of agitated saline was given. Left Ventricle * The left ventricle is normal in size. * There is borderline concentric left ventricular hypertrophy. * Ejection Fraction = 55-60%. * Left ventricular systolic function is normal. * Grade I diastolic dysfunction, (abnormal relaxation pattern). * The left ventricular wall motion is normal. Right Ventricle * The right ventricle is normal in size and function. * The right ventricular systolic function is normal as assessed by tricuspid annular plane systolic excursion (TAPSE) (normal >1.5 cm). Atria * Borderline left atrial enlargement. * Right atrial size is normal. * Injection of contrast documented no interatrial shunt. Mitral Valve * The mitral valve is grossly normal. * Significant mitral regurgitation is absent. Tricuspid Valve * The tricuspid valve anatomy is normal. * Significant tricuspid regurgitation is absent. Aortic Valve * The aortic valve is not well visualized. * No hemodynamically significant valvular aortic stenosis. * There is no significant aortic regurgitation. Great Vessels * The aortic root is normal size. Pericardium/Pleural * There is no pericardial effusion. Great Vessels * Normal inferior vena cava diameter and respiratory variation suggests normal central venous pressure. MMode 2D Measurements and Calculations IVSd 1.1 cm IVSs 1.5 cm LVIDd 3.9 cm LVIDs 2.7 cm LVPWd 1.5 cm LVPWs 1.6 cm IVS/LVPW 0.73 FS 31.0 % EDV(Teich) 65.7 ml ESV(Teich) 26.7 ml EF(Teich) 59.4 % EDV(cubed) 59.1 ml ESV(cubed) 19.4 ml EF(cubed) 67.2 % % IVS thick 37.1 % % LVPW thick 10.3 % LV mass(C)d 172.9 grams LV mass(C)dI 90.3 grams/m\S\2 LV mass(C)s 144.5 grams LV mass(C)sI 75.5 grams/m\S\2 SV(Teich) 39.0 ml SI(Teich) 20.4 ml/m\S\2 SV(cubed) 39.7 ml SI(cubed) 20.8 ml/m\S\2 Ao root diam 3.1 cm Ao root area 7.6 cm\S\2 ACS 1.4 cm LA dimension 4.0 cm LA/Ao 1.3 LVAd ap4 21.4 cm\S\2 LVLd ap4 7.0 cm EDV(MOD-sp4) 57.1 ml EDV(sp4-el) 54.9 ml LVAs ap4 12.9 cm\S\2 LVLs ap4 6.3 cm ESV(MOD-sp4) 25.1 ml ESV(sp4-el) 22.4 ml EF(MOD-sp4) 56.0 % EF(sp4-el) 59.1 % LVAd ap2 19.8 cm\S\2 LVLd ap2 7.2 cm EDV(MOD-sp2) 48.2 ml EDV(sp2-el) 46.4 ml LVAs ap2 9.9 cm\S\2 LVLs ap2 5.5 cm ESV(MOD-sp2) 16.1 ml ESV(sp2-el) 14.9 ml EF(MOD-sp2) 66.5 % EF(sp2-el) 67.8 % LVLd %diff 1.6 % EDV(MOD-bp) 52.1 ml LVLs %diff -13.86 % ESV(MOD-bp) 21.5 ml EF(MOD-bp) 58.8 % SV(MOD-sp4) 32.0 ml SI(MOD-sp4) 16.7 ml/m\S\2 SV(MOD-sp2) 32.0 ml SI(MOD-sp2) 16.7 ml/m\S\2 SV(MOD-bp) 30.6 ml SI(MOD-bp) 16.0 ml/m\S\2 SV(sp4-el) 32.5 ml SI(sp4-el) 17.0 ml/m\S\2 SV(sp2-el) 31.5 ml SI(sp2-el) 16.5 ml/m\S\2 Doppler Measurements and Calculations MV E max kitty 52.7 cm/sec MV A max kitty 102.4 cm/sec MV E/A 0.51 MV dec time 0.28 sec Ao V2 max 147.5 cm/sec Ao max PG 8.7 mmHg Ao max PG (full) -0.41 mmHg LV V1 max PG 9.1 mmHg LV V1 max 151.0 cm/sec PA V2 max 119.9 cm/sec PA max PG 5.8 mmHg
[2017-06-25] MEDS: METOPROLOL TARTRATE 25 MG TAB PO SCH (20:57)
[2017-06-25] MEDS ORDERED: METOPROLOL TARTRATE 25 MG TAB PO SCH (21:00)
[2017-06-25] MEDS: SODIUM CHLORIDE 0.9% 1000ML 1,000 ML IV SCH (21:02)
[2017-06-26 03:54] VITALS: BP_SYST 176; BP_SYST 177; BP_DIAS 69; BP_DIAS 78; PULSE 79; TEMP 36.7; O2SAT 96
[2017-06-26] MEDS: LEVOTHYROXINE 50 MCG TAB PO SCH (05:38)
[2017-06-26] MEDS: HEPARIN SOD 5000 UNIT/0.5 ML CARP SQ SCH ×2 (05:42→13:08)
[2017-06-26 06:45] LABS: BASO % 2.1 %; BASO ABS # 0.08 K/uL (0-0.2); EOS % 6.4 %; EOS ABS # 0.25 K/uL (0-0.5); HEMATOCRIT 37.9 % (37-47); LYMPH ABS # 1.71 K/uL (1.2-3.4); MEAN CELL VOLUME 97.9 fL (80-100); MEAN CORPUSCULAR HEMOGLOBIN 33.6 pg (25-34); MEAN CORPUSCULAR HGB CONC 34.3 g/dl (32-36); MEAN PLATELET VOLUME 9.2 fL (7.4-10.4); MONO % 15.2 %; MONO ABS # 0.59 K/uL (0.11-0.59); NEUT % 32.3 %; NEUT ABS # 1.26 K/uL (1.4-6.5); PLATELET COUNT 234 K/uL (130-400); RED CELL DISTRIBUTION WIDTH CV 12.6 % (11.5-14.5); RED CELL DISTRIBUTION WIDTH SD 45.2 fL (36.4-46.3); WHITE BLOOD COUNT 3.89 K/uL (4.8-10.8)
[2017-06-26 07:10] VITALS: BP 133/84; PULSE 67; TEMP 36.8; O2SAT 96
[2017-06-26 07:15] LABS: CALCIUM 8.7 mg/dl (8.5-10.1); CREATININE 0.91 mg/dl (0.60-1.20); POTASSIUM 3.8 mmol/L (3.5-5.1)
[2017-06-26] MEDS: ATORVASTATIN 40 MG TAB PO SCH (08:24)
[2017-06-26] MEDS: CLOPIDOGREL BISULFATE 75 MG TAB PO SCH (08:24)
[2017-06-26] MEDS: RANITIDINE HCL 150 MG TAB PO SCH (08:24)
[2017-06-26] MEDS: CEROVITE ADV FORMULA TAB PO SCH (08:24)
[2017-06-26] MEDS: METOPROLOL TARTRATE 25 MG TAB PO SCH (08:25)
[2017-06-26] MEDS: MAGNESIUM OXIDE 400 MG TAB PO SCH (08:25)
[2017-06-26] MEDS ORDERED: ATROPINE SULFATE 0.1 MG/ML 5ML SYR ONE ×2 (08:26)
[2017-06-26] MEDS ORDERED: DOBUTamine HCL 12.5 MG/ML 20 ML VIAL ONE (08:26)
[2017-06-26] MEDS ORDERED: METOPROLOL TARTRATE 1 MG/ML VIAL ONE ×2 (08:26)
[2017-06-26] MEDS ORDERED: LOSARTAN POTASSIUM 50 MG TAB PO SCH (09:00)
[2017-06-26] MEDS ORDERED: CHLORTHALIDONE 25 MG TAB PO SCH (09:00)
[2017-06-26] MEDS ORDERED: PERFLUTREN LIPID MICROSPHERE (DEFINITY) IV ONE (10:18)
[2017-06-26 11:13] VITALS: BP 127/81; PULSE 74; TEMP 36.9; O2SAT 94
--- NOTE | 2017-06-26 11:50 | DOBUTAMINE ECHO ---
*NOTICE TO RECEIVING REPUBLICAN AGENCY This information is strictly Confidential and protected under [place] law. [place] law prohibits you from making any further disclosure of this information unless further disclosure is expressly permitted by the written consent of the person to whom it pertains or is authorized by law. A general authorization for the release of medical or other information is not sufficient for this purpose. Hospital accepts no responsibility if the information is made available to any other person, INCLUDING THE PATIENT. Interpretation Summary * Name: KIMBERLEE DUVAL Study Date: 06/26/2017 07:34 AM BP: 153/74 mmHg * Patient Location: C.2T\S\S242\S\1 HR: 66 * : 1940 (M/d/yyyy) Gender: Female Height: 61 in * Age: 77 yrs Ethnicity: CA Weight: 204 lb * Ordering Physician: Johana Han * Referring Physician: Self, Referred * Performed By: rKisti Rodas RDCS * * Reason For Study: CHEST PAIN * BSA: 1.9 m2 * -- Conclusions -- * Normal dobutamine echocardiogram without evidence of inducible ischemia Procedure Details * DOBUTAMINE ECHO, CPT#01111 * A contrast injection of Definity was performed to improve assessment of LV function. * Contrast was injected into an intravenous site in the left arm. * One vial of Definity ultrasound contrast was diluted in normal saline to a total volume of 10 ml. A total of '5' ml of solution was administered during imaging. * Lot # [id number] of Definity utilized for procedure. * Expiration date JUN 04. * The attending nurse who injected the contrast agent was HARSHAL CLIFFORD CPL, RN. Left Ventricular Findings with Stress * Normal dobutamine echocardiogram without evidence of inducible ischemia Stress Parameters * Normal baseline electrocardiogram. * The stress ECG response was normal * The stress portion of this study was personally supervised by the undersigned interpreting physician. * Rest heart rate was '66' BPM. * Rest blood pressure was '153/74' * Maximum heart rate achieved was 123 bpm. * Maximum heart rate was 84 % of maximum age-predicted heart rate. * Maximum blood pressure was '174/87' * Maximum Dobutamine infusion rate was '50' mcg/kg/min. * A total of 0.5 mg of intravenous Atropine was used to supplement Dobutamine for heart rate response. * Dobutamine infusion was terminated due to end of protocol/maximum medication doses * A total of 5 mg of IV Metoprolol was administered to reverse Dobutamine-induced tachycardia. Left Ventricular Findings with Stress * Baseline echocardiogram demonstrated normal LV systolic function without wall motion abnormalities At peak dobutamine infusion there was normal augmentation of all segments without development of regional wall motion abnormalities Baseline EKG was normal There were no significant EKG changes during dobutamine infusion No symptoms reported during the test
[2017-06-26] MEDS ORDERED: LPR25 PO ×2 (14:04→16:58)
[2017-06-26] MEDS ORDERED: PLV75 PO ×2 (14:04→16:58)
[2017-06-26] MEDS ORDERED: LPT40 PO ×2 (14:04→16:58)
[2017-06-26] MEDS ORDERED: CZR50 PO (14:04)
--- NOTE | 2017-06-26 14:22 | Discharge Instructions ---
Discharge Instructions Date of Service Jun 26, 2017. Admission Reason for Admission: Tia (Transient Ischemic Attack) Discharge Discharge Diagnosis / Problem: Stroke Discharge Goals Goal(s): Improve disease control Activity Recommendations Activity Limitations: resume your previous activity . Instructions / Follow-Up Instructions / Follow-Up Please follow up with your primary care provider, neurology, cardiology, and vascular surgery within about a week Risk Factors for Stroke: You can reduce your chances of stroke by working with your medical provider to adopt a healthy lifestyle. Some specific ways to lower your chance of stroke are: * If you are a smoker, now is the time to stop smoking cigarettes * If you are diabetic, improve the control of your blood sugars * Avoid excessive amounts of alcohol * Control high blood pressure * Lose weight if you are overweight * Be sure to lead an active lifestyle * Eat a healthy diet low in salt, cholesterol and fat You should know about other risk factors for stroke that you are unable to control. These include: * Age 55 years or older * Male gender * Certain racial groups: , or / * Family History of Stroke, Mini stroke or Heart Attack * Sickle Cell Disease Follow Up: It is important for you to keep your follow up appointments with your medical provider. Current Hospital Diet Patient's current hospital diet: AHA Diet (Heart Healthy) Discharge Diet Recommended Diet: Regular Diet Procedures Procedures Performed: Brain MRI/MRA Neck MRA Carotid ultrasound Chest CT Pending Studies Studies pending at discharge: no Laboratory Results Hemoglobin A1c Test 06/24/17 10:50 Range/Units Estimated Average Glucose 108 mg/dl Hemoglobin A1c 5.4 4.5-5.6 % Lipid Panel Test 06/25/17 02:23 Range/Units Triglycerides Level 62 0-150 mg/dl Cholesterol Level 177 0-200 mg/dl HDL Cholesterol 80 mg/dl Cholesterol/HDL Ratio 2.2 LDL Cholesterol, Calculated 85 mg/dl Medical Emergencies . Who to Call and When: Medical Emergencies: Call 911 immediately if you experience any of the following warning signs and symptoms of Stroke: * Sudden numbness or weakness of the face, arm or leg, especially on one side of the body * Sudden confusion, trouble speaking or understanding * Sudden trouble seeing in one or both eyes * Sudden trouble walking, dizziness, loss of balance or coordination * Sudden severe headache with no cause Do not delay calling 911 if you experience any warning signs or symptoms of a stroke. Delay in seeking medical attention may affect what treatments can be given to you. . Non-Emergent Contact Non-Emergency issues call your: Primary Care Provider Call Non-Emergent contact if: you have any medication questions . . "Provider Documentation" section prepared by Elise Marie. . Stroke Core Measures Reason no t-PA for Stroke: Treatment not indicated Reason no antithrom by day 2: Treatment not indicated Reason no antithrom at D/C: Treatment not indicated Reason no statin at D/C: Treatment provided - N/A Reason no anticoag w/a fib: Treatment not indicated
--- NOTE | 2017-06-26 14:35 | Surgery Consultation ---
Consultation Date of Service Jun 26, 2017. Chief Complaint LICAS, L hemispheric CVA History of Present Illness The patient is a 77 year old female with hx of HTN, hypothyroidism, hypercholesterolemia, admitted with L hemispheric TIA vs CVA after noting R hand and leg weakness yesterday lasting approximately 10 minutes, seen in consultation today for LICAS noted on MRA and US. Pt states sx completely resolved. Was sitting at table eating breakfast when sx occurred, she asked to call 911. Denies RUSSO, fever, chills, chest pain, SOB recent illness , abd pain, N/V, rest pain, claudication, other complaints. MRA demonstrates 60-70% LICAS, US demonstrates velocities consistent with this range. MRI brain demonstrates small L hemispheric CVA. Vitals Vital Signs Past 12 Hours Date Time Temp Pulse Resp B/P (MAP) Pulse Ox O2 Delivery O2 Flow Rate FiO2 06/26/17 12:00 Room Air 06/26/17 11:13 36.9 74 16 127/81 (96) 94 Room Air 06/26/17 08:00 Room Air 06/26/17 07:10 36.8 67 18 133/84 (100) 96 Room Air 06/26/17 04:00 Room Air 06/26/17 03:54 36.7 79 18 176/78 (110) 96 177/69 (105) Allergies Coded Allergies: Codeine (Verified Adverse Reaction, Mild, HALLUCINATIONS, 06/24/17) Home Medications Scheduled Aspirin (Aspirin Ec), 81 MG PO DAILY Atorvastatin (Lipitor), 10 MG PO DAILY Atorvastatin (Lipitor), 80 MG PO QAM Clopidogrel Bisulfate (Clopidogrel), 75 MG PO DAILY Levothyroxine Sodium (Synthroid), 50 MCG PO DAILY Losartan Potassium (Losartan Potassium), 50 MG PO QAM Magnesium Oxide (Mag-Ox), 400 MG PO DAILY Metoprolol Tartrate (Lopressor), 25 MG PO BID Multiple Vitamins W/ Minerals (Daily Multi), 1 TAB PO DAILY Ocuvite Preservision (Ocuvite Preservision), 1 TAB PO DAILY Ranitidine Hcl (Zantac), 150 MG PO BID Scheduled PRN Hctz/Spironolactone 25MG/25MG (Aldactazide 25MG/25MG), 1 TAB PO DAILY PRN for URINARY RETENTION Miscellaneous Medications Coenzyme Q10 (Ubidecarenone) (Coq-10) Problem List Medical Problems: (1) High cholesterol (2) Hypertension (3) Lumbar radiculopathy (4) Stroke (5) TIA (transient ischemic attack) Surgical / Medical History Hx Cardiac Surgery: No Hx Abdominal Surgery: Yes (tubal ligation) Hx Cancer Surgery: No Hx Thoracic Surgery: No Hx Orthopedic: No Hx Urinary Tract Surgery: Yes (bladder tacking) HX Other Surgery: No Past Medical/Surgical History: Hypertension Family History Patient reports no known family medical history. + HTN, CAD Social History Smoking Status: Never Smoker Hx Tobacco Use In Past Year?: No Hx Alcohol Use - Type & Amnt: Yes (1 beer/day) Hx Substance Use -Type & Amnt: No Review of Systems Constitutional: No chills, No fever, No malaise Skin: No change in color Eyes: + blurred vision (yestrerday, resolved) ENMT: No sore throat Respiratory: No cough, No DOYLE, No hemoptysis, No short of breath Cardiovascular: No chest pain, No palpitations, No syncope, No edema, No intermittent claudication Gastrointestinal: No abdominal pain, No nausea, No vomiting Genitourinary - Female: No dysuria, No hematuria Physical Exam Constitutional: General Apperance: heathly-appearing Level of Distress: NAD Ambulation: ambulating normally Psychiatric: Mental Status: active & alert, normal mood, normal affect Orientation: oriented except where noted, to time, to place, to person Memory: recent memory normal, remote memory normal Head: normocephalic, atraumatic Eyes: EOM: EOMI ENMT: normal ENT inspection, hearing grossly normal Neck: supple, trachea midline Lungs: Respiratory effort: no dyspnea, good air movement Auscultation: breath sounds normal, no wheezing Cardiovascular: Apical Impulse: not displaced Heart Auscultation: RRR, no murmurs, no rubs, no gallops Peripheral Pulses: Pulses: full and equal, in all extremities except if noted Bruits: none appreciated Carotid Pulse: normal on the left, normal on the right Brachial Pulses: normal on the left, normal on the right Radial Pulse: normal on the left, normal on the right Femoral Pulse: normal on the left, normal on the right Posterior Tibialis Pulse: decreased on the left, decreased on the right Dorsalis Pedis Pulse: decreased on the left, decreased on the right Abdomen: Bowel Sounds: normal Inspection & Palpation: soft, non-distended Musculoskeletal: normal strength (5/5 throughout), normal tone Extremities: Upper Right: no cyanosis, no edema, no varicosities Upper Left: no cyanosis, no edema, no varicosities Lower Right: no cyanosis, no edema, no varicosities Lower Left: no cyanosis, no edema, no varicosities Neurologic: Cranial Nerves: grossly intact Sensation: grossly intact Assessment and Plan ASSESSMENT and PLAN: LICAS, symptomatic L hemispheric CVA Pt sx resolved. Discussed with Dr Rojas, recommends pt undergo CTA eval and reeval in office in 2 weeks to discuss possible L CEA. Pt and family aware. Please call if needed.
--- NOTE | 2017-06-26 14:42 | Discharge Summary ---
Discharge Summary Date of Service Jun 26, 2017. Discharge Summary Admission Date: Jun 25, 2017 at 15:46 Discharge Date: Jun 26, 2017 Discharge Disposition: Home Principal Diagnosis: Stroke Problems/Secondary Diagnoses: Chest pain, HTN, HLD, Glaucoma, Hypothyroidism Procedures: CAROTID DOPPLER NECK ART HISTORY: Stroke stroke COMPARISON: MRA of the neck 06/24/2017 carotid Doppler 01/16/2013 TECHNIQUE: Real-time, grayscale, and color Doppler sonography of the carotid arteries was performed. Imaging reviewed in the transverse and longitudinal planes. All measurements were calculated based on NASCET criteria. FINDINGS: Antegrade flow is seen in the bilateral vertebral arteries. The brachial pressures are hemodynamically similar. Moderate plaque formation bilaterally antegrade flow right vertebral artery. Retrograde flow left vertebral artery. This is unchanged from the prior study. The peak systolic velocity within the right ICA is 161. The right systolic ratio is 1.6. The peak systolic velocity within the left ICA is 208. The left systolic ratio is 1.8. IMPRESSION: 1. Moderate to significant plaque formation bilaterally. 2. 50-60% stenosis right internal carotid artery. 3. 60-70% stenosis left internal carotid artery. 4. High-grade stenosis of the external carotid arteries bilaterally. 5. A retrograde flow within the left vertebral artery suggestive of a left subclavian steal. This is unchanged from the prior study as well. MRA NECK COMBO HISTORY: Stroke Stroke TECHNIQUE: Nuai-fe-gwamtn and gadolinium-enhanced MRA of the neck was performed both before and after the intravenous administration of contrast. All measurements were calculated based on NASCET criteria. COMPARISON STUDY: None. FINDINGS: Very limited study technically due to severe patient motion. The study is near nondiagnostic. The right vertebral artery appears unremarkable. Is dominant. 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 Potential significant stenosis right carotid bifurcation and origin right internal carotid artery. No major stenosis of the left carotid system.. IMPRESSION: 1. Essentially nondiagnostic study. 2. Suspicion of a significant stenosis of the right carotid bifurcation and/or internal right carotid artery. 3. Carotid Doppler ultrasound is suggested as follow-up. 4. 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 Electronically signed by: Mateus Goetz M.D. 06/25/2017 6:41 AM MRI OF THE BRAIN WITHOUT CONTRAST CLINICAL HISTORY: Stroke. Blurred vision. Right hand and right leg weakness. COMPARISON STUDY: Head CT June 24, 2017. TECHNIQUE: Utilizing a 1.5 Jewels magnet and dedicated coil, multiplanar, multiecho imaging of the brain was performed without IV contrast. FINDINGS: Note is made of a linear 1.4 x 0.2 cm focus of restricted diffusion within the posterior left nichols radiata shown on axial diffusion-weighted sequence image 14 of 48. There is no associated mass effect. There may be subtle corresponding increased T2 signal on the T2-weighted sequence. No additional sites of restricted diffusion are present. Ventricular system is normal. Basilar cisterns are patent. There are no extra-axial collections. Flow-voids for the major intracranial vessels are present. Calvarial signal is maintained. Additional matter T2 hyperintense foci suggest small vessel disease. IMPRESSION: 1.4 x 0.2 cm linear focus of restricted diffusion within the posterior left nichols radiata which is suggestive of a small acute infarct. Minimal corresponding T2 signal abnormality. No mass effect. No hemorrhage. Electronically signed by: Sean Schulte M.D. 06/25/2017 7:[address] HEAD WITHOUT CONTRAST (CT) CLINICAL HISTORY: Stroke DIZZINESS, BLURRED VISION COMPARISON STUDY: No previous studies for comparison. TECHNIQUE: Axial CT of the brain is performed from the vertex to the skull base. IV contrast was not administered for this examination. A dose lowering technique was utilized adhering to the principles of ALARA. CT DOSE: 537.48 mGy.cm FINDINGS: No intra or extra-axial mass lesions are visualized. There is no CT evidence of acute cortical infarction. There is no evidence of midline shift. There is no acute hemorrhage. No calvarial fractures are visualized. There are patchy white minimal hypodensities likely on a small vessel basis. There is a tiny right frontal cortical calcification. There is no evidence of pathologic ventricular dilatation. There is no evidence of acute sinusitis IMPRESSION: No acute intracranial findings Electronically signed by: Bill Lui M.D. 06/24/2017 8:27 PM MR ANGIOGRAM OF THE BRAIN CLINICAL HISTORY: Strokelike symptoms. COMPARISON STUDY: MRI of the brain performed concurrently on 06/24/2017. TECHNIQUE: 3-D [id number] MR angiography of the intracranial circulation is performed. 3-D tumble views are created and assessed. IV contrast was not administered for this examination. The examination is modestly degraded by motion artifact. FINDINGS: The internal carotid arteries are widely patent bilaterally, as are the anterior and middle cerebral arteries. The vertebrobasilar system and posterior cerebral arteries are widely patent. The right vertebral artery is dominant. There is no aneurysm, high-grade stenosis, or focal vessel cutoff seen throughout the intracranial circulation. The brain parenchyma is normal as visualized. IMPRESSION: Unremarkable MR angiogram of the brain. Electronically signed by: Jack Romero M.D. 06/25/2017 7:[address] ANGIOGRAM OF THE CHEST CLINICAL HISTORY: Atypical chest pain. Dizziness. Blurred vision. COMPARISON STUDY: No previous studies for comparison. TECHNIQUE: Following the IV administration of 91 mL of Optiray-320, CT angiogram of the thorax was performed from the thoracic inlet to the lung bases utilizing the pulmonary embolus protocol. Images are reviewed in the axial, sagittal, and coronal planes. IV contrast was administered without complication. MIP imaging was performed. A dose lowering technique was utilized adhering to the principles of ALARA. CT DOSE: 573.36 mGy.cm FINDINGS: No pathologically enlarged axillary mediastinal or hilar lymph nodes were visualized. There was no evidence of thoracic aortic dilatation. There were no pulmonary artery filling defects to indicate acute pulmonary embolism. No pleural effusions are visualized. There are mild dependent atelectatic changes. There is no focal pulmonary consolidation. There are few scattered tiny calcified and noncalcified pulmonary nodules. IMPRESSION: 1. Scattered tiny calcified and noncalcified pulmonary nodules statistically postinflammatory 2. No evidence of focal pulmonary consolidation 3. No evidence of acute pulmonary embolism Electronically signed by: Bill Lui M.D. 06/24/2017 1:41 PM Consultations: Dr. Gonzales neurology Dr. Michaud cardiology Dr. Zepeda vascular surgery Medication Reconciliation New Medications: Atorvastatin (Lipitor) 40 Mg Tab 80 MG PO QAM for 30 Days, #60 TAB Clopidogrel Bisulfate (Clopidogrel) 75 Mg Tab 75 MG PO DAILY for 30 Days, #30 TAB Losartan Potassium (Losartan Potassium) 50 Mg Tab 50 MG PO QAM for 30 Days, #30 TAB Metoprolol Tartrate (Lopressor) 25 Mg Tab 25 MG PO BID for 30 Days, #60 TAB Continued Medications: Coenzyme Q10 (Ubidecarenone) (Coq-10) 30 Mg Cap Hctz/Spironolactone 25MG/25MG (Aldactazide 25MG/25MG) 1 Tab Tab 1 TAB PO DAILY PRN for URINARY RETENTION, TAB Levothyroxine Sodium (Synthroid) 50 Mcg Tab 50 MCG PO DAILY, TAB Magnesium Oxide (Mag-Ox) 400 Mg Tab 400 MG PO DAILY, TAB Multiple Vitamins W/ Minerals (Daily Multi) 1 Tab Tab 1 TAB PO DAILY Ocuvite Preservision (Ocuvite Preservision) 1 Tab Tab 1 TAB PO DAILY, TAB Ranitidine Hcl (Zantac) 150 Mg Tab 150 MG PO BID, TAB Discontinued Medications: Aspirin (Aspirin Ec) 81 Mg Tab 81 MG PO DAILY Atorvastatin (Lipitor) 10 Mg Tab 10 MG PO DAILY, TAB Discharge Exam ROS Constitutional: no chills, aches, sweats or fever Respiratory: no sob,cough, sputum, or wheezing Cardiac: no chest pain, palpitations, edema, orthopnea or lightheadedness GI: no abdominal pain, nausea, vomiting, diarrhea or constipation : no dysuria or hesitancy Extremities: no joint pain or weakness Skin: no rash All other systems reviewed and negative PE General: no distress Eyes: normal inspection, PERLL Respiratory: chest non tender, clear to auscultation, normal breath sounds, no respiratory distress, no accessory muscle use Cardiac: regular rate and rhythm, no rub or gallop, systolic murmur, no edema, no jvd GI/: active bowel sounds, no abd pain or tenderness, soft, non distended Extremities: normal range of motion, normal strength, non tender Neuro/Psych: alert and oriented x 3, normal mood and affect Skin: normal color, dry Hospital Course 77-year-old female with past medical history of hypothyroidism, glaucoma, hypertension, dyslipidemia and morbid obesity presented to the ED with right- sided weakness and chest tightness. Patient was in her regular state of health until the morning of admission when she was having breakfast with her . Patient said that suddenly she got blurry vision and she put her head down to rest. She raised her head and try to reach for a cup of coffee but she could not move her hand her right hand was weak. She was scared and told her that she may need to go to the hospital and she tried to stand up she could not move her right lower extremity. Patient stayed like this for a few minutes her called paramedics. When paramedics arrived patient said that she remembers trying to think to answer their question. She also experienced substernal chest pressure that lasted for a few minutes referred to the left side of the chest. Said that she gets this pain on and off and it is very mild. Currently all her symptoms resolved. Upon arrival to ED they ordered a d-dimer which was mildly elevated, they did a CT angiogram ruled out pulmonary embolism. Stroke - MRI/MRA showed small left side acute infarct - Carotid ultrasound showed significant external carotid stenosis and left subclavian steal - consulted vascular surgery - patient will follow up outpatient - PT/OT, speech evaluation - echo showed grade I diastolic dysfunction and EF 55% - neurology consulted - continue plavix and statin - symptoms resolved, PT recommended patient return home Chest pain - cardiology consulted - stress test did not show inducible ischemia - troponins normal - no further chest pain today - patient did have two brief runs of asymptomatic SVT overnight that broke on their own - no further events on telemetry - electrolytes wnl - cardiology aware HTN - metoprolol started by cardiology - continue losartan and spironolactone/chlorthalidone for home - per neurology ok to lower bp HLD - started high dose atorvastatin Glaucoma - continue home glaucoma drops Supervising Note Dr. Farris I performed a history and physical examination on the patient. I reviewed above note and agree with it. I discussed plan with APC and patient. During my face to face encounter with the patient, I answered all of the patient's questions. MRI confirmed stroke. Patient however improved and had no lingering symptoms and patient was able to be discharged home after seeing Physical therapy. Total Time Spent: Greater than 30 minutes This includes examination of the patient, discharge planning, medication reconciliation, and communication with other providers. Discharge Instructions Please refer to the electronic Patient Visit Report (Discharge Instructions) for additional information. Follow-Up primary care physician gisselle reddy on Sundayjuly 03 at 10:00 AM neurology appointment with Dr. gonzales on Sundayjuly 11 at 10:00AM. cardiology appointment with Alton Montano on sundayJuly 16 at 2:15PM. vascular surgeon Dr. Zepeda on SundayJuly 10 at 2:15. Additional Copies To Stanislav Velez M.D.
[2017-06-26 15:50] VITALS: BP 132/85; PULSE 76; TEMP 36.8; O2SAT 98
--- NOTE | 2017-06-26 16:47 | Pharmacy Progress Note ---
Pharmacist Stroke Counseling Date of Service Jun 26, 2017. Scope Pharmacy has been consulted to provide medication discharge counseling for this patient admitted with ischemic stroke as per the Pharmacist Discharge Counseling for Stroke Patients Protocol. Medications on Discharge New Medications: Potassium Chloride (K-Tabs) 10 Meq Tab 2 TAB PO DAILY for 30 Days, #30 TABS 1 Refill Solifenacin Succinate (Vesicare) 5 Mg Tab 1 TAB PO DAILY for 30 Days, #30 TAB 11 Refills Atorvastatin (Lipitor) 40 Mg Tab 80 MG PO QAM for 30 Days, #60 TAB Try this dose. If muscle aches occur, then take one half tablet daily Clopidogrel Bisulfate (Clopidogrel) 75 Mg Tab 75 MG PO DAILY for 30 Days, #30 TAB Losartan Potassium (Losartan Potassium) 50 Mg Tab 50 MG PO QAM for 30 Days, #30 TAB Metoprolol Tartrate (Lopressor) 25 Mg Tab 25 MG PO BID for 30 Days, #60 TAB Continued Medications: Coenzyme Q10 (Ubidecarenone) (Coq-10) 30 Mg Cap Hctz/Spironolactone 25MG/25MG (Aldactazide 25MG/25MG) 1 Tab Tab 1 TAB PO DAILY PRN for URINARY RETENTION, TAB Multiple Vitamins W/ Minerals (Daily Multi) 1 Tab Tab 1 TAB PO DAILY Ocuvite Preservision (Ocuvite Preservision) 1 Tab Tab 1 TAB PO DAILY, TAB Discontinued Medications: Aspirin (Aspirin Ec) 81 Mg Tab 81 MG PO DAILY Atorvastatin (Lipitor) 10 Mg Tab 10 MG PO DAILY, TAB Levothyroxine Sodium (Synthroid) 50 Mcg Tab 50 MCG PO DAILY, TAB Magnesium Oxide (Mag-Ox) 400 Mg Tab 400 MG PO DAILY, TAB Ranitidine Hcl (Zantac) 150 Mg Tab 150 MG PO BID, TAB Action The above medications, specifically ones for stroke treatment/prophylaxis, have been reviewed in detail with the patient and/or patient sales representative publications(s) prior to discharge. This includes indication, common adverse reactions, drug interactions, and medication administration. Medication counseling has been employed using the teach-back method to ensure understanding. Outcome The patient and/or patient sales representative publications(s) have demonstrated understanding of the medications. Please note, they are aware that the pharmacist will call them within 72 hours post-discharge to confirm that the appropriate medications are being taken and answer any further medication related questions the patient might have at that time. Contact information Individual to be contacted: Patient Relationship to patient (if applicable): Phone number: [phone] Best time to call: anytime Additional comments: * Spoke with patient and at the bedside today * We reviewed her med list extensively and discovered that her home med list had multiple errors versus what she reported to be on at home * These were all clarified and updated after I spoke with Dr. Farris - the only one he did not add to the list is Xalatan eye drops, which the patient reports taking at home but he did not see on her outpatient med list * Patient was already taking losartan, even though this is listed as something new on her med list - patient is aware * When reviewing her statin, she reports that she took atorvastatin in the past but had issues with some elbow/muscle pain and was switched to Crestor 2x/wk a few months ago. She will try the atorvastatin again and f/u with her PCP next week regarding which statin to continue. * New prescriptions were sent to [facility], which will not be ready for a few days so patient asked that these be sent to [facility] in [place]. I had Dr. Farris send these there. * Of note, over an hour was spent between counseling the patient and updating her med list Thank you for allowing pharmacy to be involved in the care of this patient. Please call [phone] or [phone] with any additional questions Discharge Information Xalatan eye drops were not added to your medication list because the discharging doctor did not see this on your outpatient list. Please check with your primary care physician to see if this needs to be on your list.
[2017-06-26] MEDS ORDERED: SOLI5TAB2 PO (16:50)
[2017-06-26] MEDS ORDERED: POTA10TA PO (16:53)
--- NOTE | 2017-06-28 14:43 | Pharmacy Progress Note ---
Pharmacist Post D/C Phone Note Date of phone call: Jun 28, 2017. Individual with whom pharmacist spoke to: Patient The following questions were reviewed during the phone call with responses listed below each: Can you tell me the medications that you are currently taking as well as when and how you take each medication? - Patient was able to tell me how she takes all of her medications, including keeping them in her kitchen. She does want to discuss Lipitor with her PCP, as she feels that she may have had a muscle ache reaction to it previously, but will continue taking until her appointment on Sunday. When have you missed any doses of your medications? - No What side effects are you having from your medications? - None - reviewed common side effects of statins What questions do you have about your medications? - No questions What problems are you having obtaining your medications? - No problems When is your next appointment with your primary care doctor? - Sunday with Dr Velez's PA Additional comments: - Patient was concerned that Xalatan was not on her medication list here at the hospital, she is taking it again at home, and states shes been using the eye drops for years for glaucoma. As per the Pharmacist Discharge Counseling for Stroke Patients Protocol, this phone call has been completed within 72 hours of discharge. Thank you for allowing us to be involved in the care of this patient.
[2017-07-12] MEDS ORDERED: LOSA100T65 PO (10:37)
[2017-07-12] MEDS ORDERED: CLOP1TAB15 PO (10:37)
[2017-07-12] MEDS ORDERED: POTA10TA PO (10:37)
[2017-07-12] MEDS ORDERED: ATOR-26 PO (10:37)
[2017-07-12] MEDS ORDERED: AMLO-110 PO (10:37)
[2017-07-12] MEDS ORDERED: VSC/5 PO (10:37)
[2017-07-12] MEDS ORDERED: METO25TA56 PO (10:37)
[2017-07-25] MEDS ORDERED: OXYC-57 PO (13:20)
== END 2017-06-26 17:33 | disposition home or self-care (01) | DRG 66 ==
LOC: EDBD 10:59 → C.EDC 11:00 → C.2T 20:06 → ENRESERV 20:22 → OBSVTOIN 06-25 15:46
PROVIDERS: ADMIT Internal Medicine; ATTEND Internal Medicine Sports Medicine
DX: I63.8 Other cerebral infarction (principal); I10 Essential (primary) hypertension; E78.00 Pure hypercholesterolemia, unspecified; H40.9 Unspecified glaucoma; R00.0 Tachycardia, unspecified; E66.01 Morbid (severe) obesity due to excess calories; E03.9 Hypothyroidism, unspecified; Z68.38 Body mass index [BMI] 38.0-38.9, adult; Z87.891 Personal history of nicotine dependence; Z79.82 Long term (current) use of aspirin; Z88.5 Allergy status to narcotic agent

== ENCOUNTER → 2017-07-05 | Outpatient (CLI) | payer BC ==
[~2017-07-05] MED LIST changes: +AMLO-110 PO; -ASPI81TA28 PO; +ATOR-26 PO; -ATOR10TA82 PO; +CLOP1TAB15 PO; +COEN30CA8 PO; +CZR50 PO; -LEVO50TA PO; +LOSA100T65 PO; +LPR25 PO; +LPT40 PO; -MAGN400T6 PO; +METO25TA56 PO; +OPTIRAY 320 IV PRN; -OXYC-106 PO; +PLV75 PO; +POTA10TA PO; -RANI150T3 PO; +SOLI5TAB2 PO; +VSC/5 PO
--- NOTE | 2017-07-05 16:05 | DIAGNOSTIC IMAGING REPORT ---
NECK ANGIO WITH CONTRAST CLINICAL HISTORY: 77 years-old Female presents with left internal carotid artery stenosis COMPARISON STUDY: Carotid Doppler 06/25/2017, MRA of the neck 06/24/2017 TECHNIQUE: Following the IV administration of 116 of Optiray 320, CT angiogram of the neck was performed from the aortic arch to the skull base. Images are reviewed in the axial, sagittal, and coronal planes. 3-D MIPS images are created and assessed. IV contrast was administered without complication. All measurements were calculated based on NASCET criteria. A dose lowering technique was utilized adhering to the principles of ALARA. CT DOSE: 552.63 mGy.cm FINDINGS: Moderate atherosclerosis of the thoracic aortic arch. Three-vessel arch morphology is noted. There is approximately 70% luminal narrowing of the proximal left subclavian artery secondary to atheromatous plaquing, nicely seen on image 129 of series 2 which is proximal to the left vertebral artery origin. No high-grade stenosis identified involving the right subclavian artery. Moderate atherosclerosis of the common carotid artery on the left. There is prominent mixed plaquing of the left carotid bulb which results in less than 50% luminal narrowing. Moderate atherosclerotic plaquing involves the distal petrous, cavernous and clinoid portions of the left internal carotid artery without high-grade stenosis. There is moderate atherosclerosis of the right common carotid artery, notably within the distal portion of the vessel causing less than 50% luminal narrowing. Prominent Atherosclerotic plaquing of the left carotid bulb results in 70% luminal narrowing, image 227 series 2. Moderate atherosclerotic plaquing involves the cavernous and clinoid portions of the right internal carotid artery without high-grade narrowing identified. The middle and anterior cerebral arteries appear widely patent. 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 Anterior communicating artery is unremarkable. 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 Areas of high-grade luminal narrowing are seen within several places throughout the vessel with no flow appreciated. The V3 portion demonstrates increased luminal caliber with diminutive the 4 segment. Prominent mixed plaquing the origin of the right vertebral artery without high-grade narrowing. The right vertebral artery is dominant. The basilar artery is patent and within normal limits. The imaged bilateral posterior cerebral arteries appear unremarkable. The imaged pulmonary arterial tree is unremarkable. Mild emphysema of the imaged lung apices. 2 mm solid nodule of the right lung apex. Mild bilateral bronchial wall thickening suggests bronchitis. Thyroid and soft tissues are unremarkable. No pathologic adenopathy identified. Orbits appear symmetric. No acute intracranial abnormality identified. Bones appear intact. Mastoid air cells and middle ear cavities are clear. Mild mucosal thickening of the maxillary sinuses and ethmoid air cells. Multilevel degenerative changes about the cervical spine. IMPRESSION: 1. Mixed plaquing of the bilateral carotid bulbs results in 70% stenosis of the proximal right internal carotid artery and 50% stenosis within the proximal left internal carotid artery. 2. 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 Additionally, there are multiple areas of diminished to no flow throughout the V2 segment on the left. 3. 70% luminal narrowing involves the proximal left subclavian artery secondary to atheromatous plaquing, proximal to the origin of the left vertebral artery. 4. Additional findings as above. The above report was generated using voice recognition software. It may contain grammatical, syntax or spelling errors. Electronically signed by: Young Gaitan M.D. 07/05/2017 4:04 PM Dictated Date/Time: 07/05/2017 3:50 PM
== END | disposition home or self-care (01) ==
LOC: C.CTS 15:27
PROVIDERS: ATTEND Physician Assistant
DX: I65.23 Occlusion and stenosis of bilateral carotid arteries (principal); I65.02 Occlusion and stenosis of left vertebral artery; I70.8 Atherosclerosis of other arteries

== ENCOUNTER 2017-07-24 06:07 | Inpatient (IN) | payer BC, OTHER ==
[2017-07-12 10:38] VITALS: BMI 39.0
[2017-07-24] VITALS (9 sets, daily range): BP systolic 111–182; BP diastolic 51–81; PULSE 59–94; TEMP 36.4–37; O2SAT 92–100; Ht 152.4 cm; Wt 92.8 kg
[~2017-07-24] VITALS: Ht 152.4 cm; Wt 92.8 kg
--- NOTE | 2017-07-24 05:41 | History and Physical ---
History & Physical Date of Service Jul 24, 2017. History & Physical Jun 26, 2017. Chief Complaint LICAS, L hemispheric CVA History of Present Illness The patient is a 77 year old female with hx of HTN, hypothyroidism, hypercholesterolemia, admitted with L hemispheric TIA vs CVA after noting R hand and leg weakness yesterday lasting approximately 10 minutes, seen in consultation today for LICAS noted on MRA and US. Pt states sx completely resolved. Was sitting at table eating breakfast when sx occurred, she asked to call 911. Denies RUSSO, fever, chills, chest pain, SOB recent illness , abd pain, N/V, rest pain, claudication, other complaints. MRA demonstrates 60-70% LICAS, US demonstrates velocities consistent with this range. MRI brain demonstrates small L hemispheric CVA. Allergies Coded Allergies: Codeine (Verified Adverse Reaction, Mild, HALLUCINATIONS, 06/24/17) Home Medications Scheduled Aspirin (Aspirin Ec), 81 MG PO DAILY Atorvastatin (Lipitor), 10 MG PO DAILY Atorvastatin (Lipitor), 80 MG PO QAM Clopidogrel Bisulfate (Clopidogrel), 75 MG PO DAILY Levothyroxine Sodium (Synthroid), 50 MCG PO DAILY Losartan Potassium (Losartan Potassium), 50 MG PO QAM Magnesium Oxide (Mag-Ox), 400 MG PO DAILY Metoprolol Tartrate (Lopressor), 25 MG PO BID Multiple Vitamins W/ Minerals (Daily Multi), 1 TAB PO DAILY Ocuvite Preservision (Ocuvite Preservision), 1 TAB PO DAILY Ranitidine Hcl (Zantac), 150 MG PO BID Scheduled PRN Hctz/Spironolactone 25MG/25MG (Aldactazide 25MG/25MG), 1 TAB PO DAILY PRN for URINARY RETENTION Miscellaneous Medications Coenzyme Q10 (Ubidecarenone) (Coq-10) Problem List Medical Problems: (1) High cholesterol (2) Hypertension (3) Lumbar radiculopathy (4) Stroke (5) TIA (transient ischemic attack) Surgical / Medical History Hx Cardiac Surgery: No Hx Abdominal Surgery: Yes (tubal ligation) Hx Cancer Surgery: No Hx Thoracic Surgery: No Hx Orthopedic: No Hx Urinary Tract Surgery: Yes (bladder tacking) HX Other Surgery: No Past Medical/Surgical History: Hypertension Family History Patient reports no known family medical history. + HTN, CAD Social History Smoking Status: Never Smoker Hx Tobacco Use In Past Year?: No Hx Alcohol Use - Type & Amnt: Yes (1 beer/day) Hx Substance Use -Type & Amnt: No ROS: Vascular Con v2 Review of Systems Constitutional: No chills, No fever, No malaise Skin: No change in color Eyes: + blurred vision (yestrerday, resolved) ENMT: No sore throat Respiratory: No cough, No DOYLE, No hemoptysis, No short of breath Cardiovascular: No chest pain, No palpitations, No syncope, No edema, No intermittent claudication Gastrointestinal: No abdominal pain, No nausea, No vomiting Genitourinary - Female: No dysuria, No hematuria Exam: Vascular Con v2 Physical Exam Constitutional: General Apperance: heathly-appearing Level of Distress: NAD Ambulation: ambulating normally Psychiatric: Mental Status: active & alert, normal mood, normal affect Orientation: oriented except where noted, to time, to place, to person Memory: recent memory normal, remote memory normal Head: normocephalic, atraumatic Eyes: EOM: EOMI ENMT: normal ENT inspection, hearing grossly normal Neck: supple, trachea midline Lungs: Respiratory effort: no dyspnea, good air movement Auscultation: breath sounds normal, no wheezing Cardiovascular: Apical Impulse: not displaced Heart Auscultation: RRR, no murmurs, no rubs, no gallops Peripheral Pulses: Pulses: full and equal, in all extremities except if noted Bruits: none appreciated Carotid Pulse: normal on the left, normal on the right Brachial Pulses: normal on the left, normal on the right Radial Pulse: normal on the left, normal on the right Femoral Pulse: normal on the left, normal on the right Posterior Tibialis Pulse: decreased on the left, decreased on the right Dorsalis Pedis Pulse: decreased on the left, decreased on the right Abdomen: Bowel Sounds: normal Inspection & Palpation: soft, non-distended Musculoskeletal: normal strength (5/5 throughout), normal tone Extremities: Upper Right: no cyanosis, no edema, no varicosities Upper Left: no cyanosis, no edema, no varicosities Lower Right: no cyanosis, no edema, no varicosities Lower Left: no cyanosis, no edema, no varicosities Neurologic: Cranial Nerves: grossly intact Sensation: grossly intact A&P: Vascular Con v2 Assessment and Plan ASSESSMENT and PLAN: LICAS, symptomatic L hemispheric CVA Pt sx resolved. Discussed with Dr Rojas, recommends pt undergo CTA eval and reeval in office in 2 weeks to discuss possible L CEA. Pt and family aware. Please call if needed. H&P by Yocasta Carballo,TAMAR Patient with symptomatic LICAS confirmed by CTA. Admitted at this time for Left CEA. I have discussed the risks options and benefits of the procedure with the patient. The patient understands the risks options and benefits and agrees to the procedure.
[~2017-07-24 06:07] MED LIST changes: +CEFAZOLIN 2000MG IV PUSH 15 ML IV SCH; -CZR50 PO; +LACTATED RINGER'S 1000ML 1,000 ML IV SCH; -LPR25 PO; -LPT40 PO; -MULT-190 PO; -OPTIRAY 320 IV PRN; -PLV75 PO; +SODIUM CHLORIDE 0.9% 1000ML 1,000 ML IV SCH; -SOLI5TAB2 PO; -SPIR50TA PO
[2017-07-24] MEDS ORDERED: CRS/10 PO (06:51)
[2017-07-24] MEDS ORDERED: LATA0.5S OP (06:53)
--- NOTE | 2017-07-24 07:20 | History & Physical Bridge Note ---
H&P Re-Evaluation Bridge Note: I have examined the patient, reviewed the History & Physical and in the interval since the performance of the History & Physical I have noted the following changes of clinical significance: No changes noted
[2017-07-24 07:31] LABS: CALCIUM 9.7 mg/dl (8.5-10.1); CREATININE 1.05 mg/dl (0.60-1.20)
[2017-07-24] MEDS ORDERED: MIDAZOLAM HCL 1 MG/ML 2ML VIAL ONE (08:08)
[2017-07-24] MEDS ORDERED: FENTANYL CITRATE INJ 50 MCG/1 ML 2 ML VIAL ONE ×2 (08:08→08:34)
[2017-07-24] MEDS ORDERED: LABETALOL HCL IV 5 MG/ML 20ML IV ONE (08:14)
[2017-07-24] MEDS ORDERED: PHENYLEPHRINE HCL INJ 10 MG/ML VIAL ONE ×2 (08:14→09:58)
[2017-07-24] MEDS ORDERED: PROTAMINE SULFATE 10 MG/ML 5 ML VIAL IV ONE (08:14)
[2017-07-24] MEDS ORDERED: LARYING-O-JET KIT (LTA) ONE (08:14)
[2017-07-24] MEDS ORDERED: EpHEDrine SULFATE 50MG/5ML SYR ONE ×2 (08:14→09:58)
[2017-07-24] MEDS ORDERED: ROCURONIUM BROMIDE 10 MG/ML 5 ML VIAL IV ONE (08:14)
[2017-07-24] MEDS ORDERED: LIDOCAINE HCL 2% 2 ML VIAL (20MG/ML) ONE (08:14)
[2017-07-24] MEDS ORDERED: HEPARIN SOD (PORCINE) 1000 UNIT/ML 10 ML VIAL ONE ×2 (08:14→08:48)
[2017-07-24] MEDS ORDERED: PROPOFOL IV EMULSION 10 MG/ML 20 ML VIAL IV ONE (08:14)
[2017-07-24] MEDS ORDERED: ONDANSETRON INJ 2 MG/ML 2 ML VIAL ONE (08:14)
[2017-07-24] MEDS ORDERED: DEXAMETHASONE SOD INJ 4 MG/ML VIAL ONE (08:14)
[2017-07-24] MEDS ORDERED: GLYCOPYRROLATE INJ 0.2 MG/ML VIAL ONE (08:14)
[2017-07-24] MEDS ORDERED: NEOSTIGMINE METHYLSULFATE 5 MG/5 ML SYR ONE (08:14)
[2017-07-24] MEDS ORDERED: GELATIN SPONGE SZ 100 ONE (08:47)
[2017-07-24] MEDS ORDERED: CEFAZOLIN SOD 1 GM VIAL ONE (08:48)
[2017-07-24] MEDS ORDERED: THROMBIN FOR SOLN 20000 UNIT KIT ONE (08:48)
[2017-07-24] MEDS ORDERED: LIDOCAINE HCL 1% 20 ML VIAL ONE (08:48)
[2017-07-24] MEDS ORDERED: BUPIVACAINE/EPINEPHRINE 0.5% MPF 1:200,000 30 ML VIAL ONE (08:48)
[2017-07-24] MEDS ORDERED: ONDANSETRON INJ 2 MG/ML 2 ML VIAL IV PRN ×2 (09:45→10:45)
[2017-07-24] MEDS ORDERED: PHENYLEPHRINE 100MCG/ML 5ML SYR IV PRN (09:45)
[2017-07-24] MEDS ORDERED: EpHEDrine SULFATE INJ 50 MG/ML AMP IV PRN (09:45)
[2017-07-24] MEDS ORDERED: ATROPINE SULFATE 0.1 MG/ML 5ML SYR IV PRN (09:45)
[2017-07-24] MEDS ORDERED: HYDROmorphone INJ 2 MG/ML SYR/VIAL IV PRN (09:45)
--- NOTE | 2017-07-24 10:42 | [facility] Operative Report ---
Operative Report Operative Date Jul 24, 2017. Pre-Operative Diagnosis Symptomatic Left Internal Catotid Artery Stenosis Post-Operative Diagnosis Symptomatic Left Internal Catotid Artery Stenosis Procedure(s) Performed Left Carotid Endarterectomy with Patch Surgeon Dr. Yobani Zepeda Construction Person Surgeon(s) Yocasta Carballo PA-c Estimated Blood Loss 120 ml Findings Severe plaque of internal carotid artery origin Specimens A: Left cervical lymph node B: left carotid artery plaque Drains None Anesthesia Type General Disposition no Recovery Room / PACU Indications This is a 77 y/o female with a symptomatic left internal carotid artery stenosis. CEA was recommended. I have discussed the risks options and benefits of the procedure with the patient. The patient understands the risks options and benefits and agrees to the procedure. Description of Procedure The patient was taken to the operating room and placed in supine position. After general anesthesia was accomplished the left-side of the neck was prepped and draped in a sterile manner. A longitudinal neck incision was then made coursing along the medial border of the sternocleidomastoid muscle. The incision was taken down through the platysmal layer. Several lymph nodes were seen and one sent for pathology. The facial vein was identified, ligated, and divided. The common carotid artery was then seen. It was dissected free down to the omohyoid muscle. The dissection was carried upward until the external carotid artery and superior thyroid artery was seen. The superior thyroid artery was slung with a 2-0 silk suture. The external carotid was slung with a red rubber vessel loop. Next the dissection was carried up along the internal carotid artery. This was carried upward to beyond the area of narrowing. The hypoglossal nerve was seen and preserved. The patient was heparinized. After adequate heparinization was accomplished, the internal, external, and common carotid arteries were clamped. A longitudinal arteriotomy was started on the common carotid artery and extended upward along the internal carotid artery to a point beyond the area of narrowing. There was calcified plaque of the internal carotid artery origin causing approximately 90% narrowing. A Doppler shunt was then placed in the internal, followed by the common carotid artery and held in place with Tonny clamps. There was good back bleeding seen from the internal carotid artery. The endarterectomy was then started in the appropriate plane on the common carotid artery. This was carried upward and the external carotid was everted and endarterectomized. The endarterectomy was then carried up along the internal carotid artery till a nice feathering breakoff point was accomplished beyond the end of the plaque. The endarterectomy was then carried down further on the common carotid artery. At end of the arteriotomy, the plaque was then transected. Under loop magnification, all loose debris and flaps were removed. There is no distal flap seen at the end of the endarterectomy site. The arteriotomy then closed using an Accuseal patch and a running CV 6 Danielson-Zion suture. This was done in the usual vascular fashion. Prior to completing the closure, the doppler shunt was removed and the internal and common carotid arteries were reclamped. Backbleeding and forward bleeding was allowed to occur. The flow surface was irrigated with heparinized saline. The final few sutures were then placed and securely tied. Clamps were then removed off the external and common carotid arteries. The clamp was then removed the internal carotid artery. Good distal flow was seen. Adequate hemostasis was obtained of the patch with three interrupted 6-0 prolene sutures. The wound was inspected and adequate hemostasis was obtained. The wound was irrigated with antibiotic solution. It was then closed with a running 3-0 Vicryl suture for the platysmal layer and a 4 -0 subcuticular Vicryl suture for the skin edges. Dermabond was used for dressing. The patient left the operating room in satisfactory condition and tolerated the procedure well. Yocasta Carballo Pac assisted due to lack of resident availability and was necessary for prepping, draping, retraction, wound closure defects, subQ and skin closure and was necessary for the case. I attest to the content of the Intraoperative Record and any orders documented therein. Any exceptions are noted below.
[2017-07-24] MEDS ORDERED: MoRPHine SULFATE 4 MG/ML 1 ML CARP\\VIAL IV PRN (10:45)
[2017-07-24] MEDS ORDERED: OXYCODONE/ACETAMINOPHEN 5-325 TAB PO PRN (10:45)
--- NOTE | 2017-07-24 11:51 | Progress Note ---
Progress Note Date of Service Jul 24, 2017. Progress Note I assisted Dr Zepeda with Marlin Fallon' Left Carotid Endarterectomy with Patch on 07/24/17, d/t lack of resident availability.
--- NOTE | 2017-07-24 13:38 | Anesthesiology Progress Note ---
Anesthesia Post Op Note Date & Time Jul 24, 2017 at 13:35 Vital Signs Pain Intensity: 0.0 Vital Signs Past 12 Hours Date Time Temp Pulse Resp B/P (MAP) Pulse Ox O2 Delivery O2 Flow Rate FiO2 07/24/17 12:30 Nasal Cannula 2.0 07/24/17 12:30 36.4 62 14 123/54 (77) 100 Nasal Cannula 2.0 07/24/17 12:15 58 14 110/55 100 Nasal Cannula 3 07/24/17 12:00 59 16 117/69 100 Nasal Cannula 3 Arterial Line 07/24/17 11:50 36.4 60 16 107/54 97 Nasal Cannula 3 96/49 (60) 07/24/17 11:40 60 16 103/67 99 Nasal Cannula 3 108/42 (62) 07/24/17 11:30 63 16 118/59 99 Oxymask 3 107/58 (70) 07/24/17 11:20 60 16 106/60 99 Oxymask 5 99/56 (67) 07/24/17 11:10 74 18 97/59 97 Oxymask 5 86/42 (58) 07/24/17 11:04 36.4 83 18 114/83 95 Oxymask 5 99/43 07/24/17 06:56 36.6 69 20 182/81 98 Room Air Notes Mental Status: alert / awake / arousable, participated in evaluation Pt Amnestic to Procedure: Yes Nausea / Vomiting: adequately controlled Pain: adequately controlled Airway Patency, RR, SpO2: stable & adequate BP & HR: stable & adequate Hydration State: stable & adequate Anesthetic Complications: no major complications apparent The patient was discharged with a systolic blood pressure of 120. Dr. Zepeda was ok with that.
[2017-07-24] MEDS: CEFAZOLIN IV 2,000 MG in SYRINGE 0 ML IV SCH ×2 (14:00→21:37)
[2017-07-24] MEDS: D5W AND 1/2NSS 1,000 ML IV SCH ×2 (14:40→22:03)
[2017-07-24] MEDS ORDERED: LATANOPROST 0.005% OP SOLN 2.5 ML BTL OP SCH (21:00)
[2017-07-24] MEDS: METOPROLOL TARTRATE 25 MG TAB PO SCH (21:36)
[2017-07-25 03:11] VITALS: BP 146/70; PULSE 78; TEMP 37.1; O2SAT 95
[2017-07-25] MEDS: D5W AND 1/2NSS 1,000 ML IV SCH (03:50)
[2017-07-25 06:58] VITALS: BP 156/72; PULSE 81; TEMP 36.5; O2SAT 95
[2017-07-25] MEDS: METOPROLOL TARTRATE 25 MG TAB PO SCH (08:27)
[2017-07-25] MEDS ORDERED: NURSING VERBAL MED ORDER ONE (08:30)
[2017-07-25] MEDS ORDERED: AMLODIPINE BESYLATE 5 MG TAB PO SCH (09:00)
[2017-07-25] MEDS ORDERED: NON-FORMULARY MEDICATION (Coenzyme Q10 (Ubidecarenone) (Coq-10) 1 CAP) PO SCH (09:00)
[2017-07-25] MEDS ORDERED: LOSARTAN POTASSIUM 50 MG TAB PO SCH (09:00)
[2017-07-25] MEDS ORDERED: CLOPIDOGREL BISULFATE 75 MG TAB PO SCH (09:00)
[2017-07-25] MEDS ORDERED: POTASSIUM CHLORIDE 10 MEQ TABCR PO SCH (09:00)
[2017-07-25] MEDS ORDERED: ROSUVASTATIN CALCIUM 10 MG TAB PO SCH (09:00)
[2017-07-25] MEDS ORDERED: ENOXAPARIN 30 MG/0.3 ML SYR SQ SCH (09:00)
[2017-07-25] MEDS ORDERED: CEROVITE ADV FORMULA TAB PO SCH (09:00)
--- NOTE | 2017-07-25 10:41 | Anesthesiology Progress Note ---
Anesthesia Post Op Note Date & Time Jul 25, 2017 at 10:41 Vital Signs Pain Intensity: 0.0 Vital Signs Past 12 Hours Date Time Temp Pulse Resp B/P (MAP) Pulse Ox O2 Delivery O2 Flow Rate FiO2 07/25/17 08:00 Room Air 07/25/17 06:58 36.5 81 20 156/72 (100) 95 Room Air 07/25/17 04:00 Room Air 07/25/17 03:11 37.1 78 18 146/70 (95) 95 Room Air 07/25/17 00:01 Room Air 07/24/17 23:39 36.6 91 18 149/79 (102) 92 Room Air Notes Mental Status: alert / awake / arousable, participated in evaluation Pt Amnestic to Procedure: Yes Nausea / Vomiting: adequately controlled Pain: adequately controlled Airway Patency, RR, SpO2: stable & adequate BP & HR: stable & adequate Hydration State: stable & adequate Anesthetic Complications: no major complications apparent
[2017-07-25 11:24] VITALS: BP 125/74; PULSE 68; TEMP 36.7; O2SAT 95
--- NOTE | 2017-07-25 13:18 | Progress Note ---
Progress Note Date of Service: Jul 25, 2017. Subjective No complaints. No pain. No problems with swallowing Problem List Medical Problems: (1) Chest pain Status: Acute Objective Vital Signs Vital Signs Past 12 Hours Date Time Temp Pulse Resp B/P (MAP) Pulse Ox O2 Delivery O2 Flow Rate FiO2 07/25/17 12:00 Room Air 07/25/17 11:24 36.7 68 20 125/74 (91) 95 Room Air 07/25/17 08:00 Room Air 07/25/17 06:58 36.5 81 20 156/72 (100) 95 Room Air 07/25/17 04:00 Room Air 07/25/17 03:11 37.1 78 18 146/70 (95) 95 Room Air Exam VSS Afebrile Awake and alert Incision dry and clean No neuro deficits. Imp: Post CEA Plan: D/C today
[2017-07-25] MEDS ORDERED: OXYC-57 PO (13:20)
--- NOTE | 2017-07-25 13:23 | Discharge Instructions ---
Discharge Instructions Date of Service Jul 25, 2017. Admission Reason for Admission: Left Internal Carotid Artery Stenosis W/Cva Discharge Discharge Diagnosis / Problem: Left carotid endarterectomy Discharge Goals Goal(s): Therapeutic intervention Activity Recommendations Activity Limitations: per Instructions/Follow-up section . Instructions / Follow-Up Instructions / Follow-Up Call [phone] to schedule a follow up appointment if one not already scheduled. SPECIAL CARE INSTRUCTIONS: Medications: * Continue to take Aspirin as directed. Incision Care: * You may shower, but do not rub incision. You may let the warm soapy water run over it. Be sure to dry the incision well after bathing. * Do not shave directly over the incision until it is healed. * DO NOT IMMERSE THE INCISION IN A TUB/POOL/etc. UNTIL HEALED. Restrictions: * Do not drive for at least one week or if you are still taking any narcotic pain medication. * Do not lift anything heavier than a gallon of milk for one week after going home. Possible Complications: * Numbness - It is normal to have some numbness around the incision. Numbness can extend beyond the incision to areas of the neck, ear and face. The numbness is due to bruising of nerves during the surgery and will gradually improve over a period of months. * Hoarseness/Difficulty Speaking and Swallowing - The bruising of nerves in the neck can also cause a hoarse voice, difficulty speaking or swallowing. This may improve over time, HOWEVER, if it continues for more than a few days please contact our office ([phone]). * Excessive Swelling - There will be some swelling immediately after surgery which usually resolves within one week. If you notice that the swelling is getting worse, notify your surgeon ([phone]). * Drainage/Bleeding - If there is any drainage or bleeding, it should be a very small amount (less than a teaspoon per day). If you have excessive bleeding or drainage from the incision, call your surgeon ([phone]) right away. ACTIVATION OF EMERGENCY MEDICAL SYSTEM: Call [phone], immediately, if you experience any of the following: Warning Signs and Symptoms of Stroke: * Sudden numbness or weakness of the face, arm or leg, especially on one side of the body * Sudden confusion, trouble speaking or understanding * Sudden trouble seeing in one or both eyes * Sudden trouble walking, dizziness, loss of balance or coordination * Sudden severe headache with no cause Do not delay calling 911 if you experience any warning signs or symptoms of a stroke. Delay in seeking medical attention may affect what treatments can be given to you. Risk Factors for Stroke: You can reduce your chances of stroke by working with your medical provider to adopt a healthy lifestyle. Some specific ways to lower your chance of stroke are: * If you are a smoker, now is the time to stop smoking cigarettes * If you are diabetic, improve the control of your blood sugars * Avoid excessive amounts of alcohol * Control high blood pressure * Lose weight if you are overweight * Be sure to lead an active lifestyle * Eat a healthy diet low in salt, cholesterol and fat You should know about other risk factors for stroke that you are unable to control. These include: * Age 55 years or older * Male gender * Certain racial groups: , or / * Family History of Stroke, Mini stroke or Heart Attack * Sickle Cell Disease You will be receiving a call from the Vascular Surgery Nurse after you are discharged. FOLLOW UP VISIT: It is important for you to keep your follow up appointments with your medical provider. Keep any scheduled doctor appointments. Current Hospital Diet Patient's current hospital diet: AHA Diet (Heart Healthy) Discharge Diet Recommended Diet: AHA Diet (Heart Healthy) Procedures Procedures Performed: Left Carotid Endarterectomy with Patch Pending Studies Studies pending at discharge: no Laboratory Results Hemoglobin A1c Test 06/24/17 10:50 Range/Units Estimated Average Glucose 108 mg/dl Hemoglobin A1c 5.4 4.5-5.6 % Lipid Panel Test 06/25/17 02:23 Range/Units Triglycerides Level 62 0-150 mg/dl Cholesterol Level 177 0-200 mg/dl HDL Cholesterol 80 mg/dl Cholesterol/HDL Ratio 2.2 LDL Cholesterol, Calculated 85 mg/dl Medical Emergencies . Who to Call and When: Medical Emergencies: If at any time you feel your situation is an emergency, please call 911 immediately. . Non-Emergent Contact Non-Emergency issues call your: Surgeon . "Provider Documentation" section prepared by Yobani Zepeda. . [place] Drug Monitoring Program Search Results: no issues identified
[2017-07-25 13:32] VITALS: BP 125/74; PULSE 68; TEMP 36.7; O2SAT 95
--- NOTE | 2017-07-27 13:20 | DISCHARGE SUMMARY ---
ADMISSION DIAGNOSES: Left internal carotid artery stenosis with left hemispheric cerebrovascular accident. DISCHARGE DIAGNOSES: 1. Status post left internal carotid artery endarterectomy with patch. 2. Left internal carotid artery stenosis with left hemispheric cerebrovascular accident. DISCHARGE CONDITION: Stable. CONSULTATIONS IN THE HOSPITAL: Included none. PROCEDURES WHILE IN THE HOSPITAL: Included her left carotid endarterectomy with patch which was performed on 07/24/2017 with an EBL of 120 mL and no significant complication. HISTORY OF PRESENT ILLNESS: Ms. Lehman is a 77-year-old female who was initially seen by Dr. Zepeda and myself during a recent hospital stay where she had the symptoms of right hand and leg weakness that lasted approximately 10 minutes. Patient was admitted to the hospital and evaluated and found to have had a left hemispheric completed CVA. She was also noted to have approximately 70% stenosis of her left internal carotid artery which was concerning for possible future events. Patient was recommended to consider undergoing a left carotid endarterectomy due to her CVA and degree of stenosis and the risks, benefits and alternatives of the procedure were discussed with the patient by Dr. Zepeda and patient expressed understanding and agreement to proceed. HOSPITAL COURSE: Patient was admitted after undergoing her left carotid endarterectomy with patch. The procedure was performed without significant complication. She did have an EBL of 120 mL, but no other complications. Patient did very well postoperatively. She remained stable and was ambulating, talking, eating and moving around without significant difficulty. Her pain is under good control. Vital signs and labs remained stable. She was felt to be stable enough for discharge on postop day 1. PHYSICAL EXAMINATION: VITAL SIGNS: On day of discharge, her vital signs were as follows: A temperature of 36.7, pulse of 68, respiratory rate was 20 and blood pressure 125/74, pulse oximetry of 95% on room air. CONSTITUTIONAL: In general, patient is a healthy for age appearing, well-nourished, well-developed elderly female in no acute distress. She ambulated without assistance and is active, alert and oriented x4 with normal recent and remote memory. HEAD: Normocephalic and atraumatic. EYES: EOMI. ENT: Demonstrates no hearing loss, rhinorrhea or pharyngeal erythema. NECK: Right neck is supple, nontender. Her left neck surgical incision is well approximated and healing appropriately. There is some mild edema and ecchymosis and tenderness. However, there is no large firm hematoma. Her trachea remains midline. HEART: Demonstrates a regular rate and rhythm. LUNGS: Decreased but clear. EXTREMITIES: Peripheral pulses are full and equal in all extremities unless otherwise noted, specifically they are normal in her carotid, brachial, radial and femoral pulses. Lower extremity distal pulses are +2. She has brisk capillary refill and no sign of distal ischemia. ABDOMEN: Soft, nontender with normoactive bowel sounds in all 4 quadrants. No guarding, rebound. There is no flank or CVA tenderness. MUSCULOSKELETAL: Demonstrates normal tone and strength for age. Bilateral upper extremities demonstrate no cyanosis, edema, clubbing, varicosities or ulcers. Bilateral lower extremities demonstrate no cyanosis, edema, clubbing, varicosities or ulcers. NEUROLOGIC: Patient has grossly intact cranial nerves and grossly intact sensation and is without any new focal deficits. DIET UPON DISCHARGE: Should be a low-cholesterol AHA diet. MEDICATIONS UPON DISCHARGE: Were reconciled in the chart and are as per her discharge instructions. FOLLOWUP: Should be with Dr. Zepeda or his PA Yocasta Carballo within 2 weeks for reevaluation. She was advised to call the office with any other questions or concerns.
== END 2017-07-25 13:50 | disposition home or self-care (01) | DRG 39 ==
LOC: C.ACU 06:07 → C.2E 10:46 → ENRESERV 11:50
PROVIDERS: ADMIT Surgery Vascular Surgery; ATTEND Surgery Vascular Surgery
PROC: 03UJ0JZ Supplement Left Common Carotid Artery with Synthetic Substitute, Open Approach (ICD-10-PCS; principal; 2017-07-24 08:30)
PROC: 03CJ0ZZ Extirpation of Matter from Left Common Carotid Artery, Open Approach (ICD-10-PCS; principal; 2017-07-24 08:30)
DX: I63.232 Cerebral infarction due to unspecified occlusion or stenosis of left carotid arteries (principal); I10 Essential (primary) hypertension; E03.9 Hypothyroidism, unspecified; E78.5 Hyperlipidemia, unspecified; Z82.49 Family history of ischemic heart disease and other diseases of the circulatory system

== ENCOUNTER → 2017-08-17 | Outpatient (CLI) | payer BC ==
[~2017-08-17] MED LIST changes: -ATOR-26 PO; -CEFAZOLIN 2000MG IV PUSH 15 ML IV SCH; +CRS/10 PO; -LACTATED RINGER'S 1000ML 1,000 ML IV SCH; +LATA0.5S OP; +OXYC-57 PO; -SODIUM CHLORIDE 0.9% 1000ML 1,000 ML IV SCH
--- NOTE | 2017-08-17 14:20 | MAMMOGRAPHY REPORT ---
BILATERAL DIGITAL SCREENING MAMMOGRAM TOMOSYNTHESIS WITH CAD: 08/17/2017 CLINICAL HISTORY: Routine screening. Patient has no complaints. TECHNIQUE: Breast tomosynthesis in addition to standard 2D mammography was performed. Current study was also evaluated with a Computer Aided Detection (CAD) system. COMPARISON: Comparison is made to exams dated: 08/15/2016 mammogram, 08/10/2015 mammogram, 08/20/2014 ult rasound, 08/20/2014 mammogram, 08/04/2014 mammogram, and 07/30/2013 mammogram - [facility]. BREAST COMPOSITION: There are scattered areas of fibroglandular density in both breasts. FINDINGS: No suspicious masses, calcifications, or areas of architectural distortion are noted in ei ther breast. There has been no significant interval change compared to prior exams. Scattered bilater al benign-appearing calcifications are not significantly changed. IMPRESSION: ACR BI-RADS CATEGORY 2: BENIGN There is no mammographic evidence of malignancy. A 1 year screening mammogram is recommended. The pa tient will receive written notification of the results. Approximately 10% of breast cancers are not detected with mammography. A negative mammographic report should not delay biopsy if a clinically suggestive mass is present. Alisia Montanez M.D. /:08/17/2017 12:16:50 Signal Repairer: Katiana Sanchez, [facility] letter sent: Normal 1/2 BI-RADS Code: ACR BI-RADS Category 2: Benign
== END | disposition home or self-care (01) ==
LOC: C.MAMM 09:00
PROVIDERS: ATTEND Obstetrics & Gynecology
DX: Z12.31 Encounter for screening mammogram for malignant neoplasm of breast (principal)

== ENCOUNTER 2017-10-23 05:21 | Inpatient (IN) | payer BC, OTHER ==
[2017-10-03 14:36] VITALS: BMI 39.0
--- NOTE | 2017-10-04 15:00 | PAT Medication Instructions ---
Service Date Oct 04, 2017. Current Home Medication List Clopidogrel (Plavix), 75 MG PO QAM Coenzyme Q10 (Ubidecarenone) (Coq-10), 1 CAP PO QAM Indapamide (Lozol), 1.25 MG PO QAM Latanoprost (Xalatan 0.005% Oph Rachelle), 1 DROPS OP HS Losartan Potassium (Cozaar), 100 MG PO QAM Metoprolol Tartrate (Lopressor) (Lopressor), 25 MG PO HS Metoprolol Tartrate (Lopressor) (Lopressor), 50 MG PO QAM Multiple Vitamins W/ Minerals (Daily Multi), 1 TAB PO QDL Rosuvastatin Calcium (Crestor), 1 TAB PO HS Solifenacin (Vesicare), 5 MG PO QAM Medication Instructions For Your Scheduled Surgery - Hold the following medications 2 weeks prior to surgery: Coenzyme Q10 (Ubidecarenone) (Coq-10), 1 CAP PO QAM - Hold the following medications the morning of surgery: Indapamide (Lozol), 1.25 MG PO QAM Losartan Potassium (Cozaar), 100 MG PO QAM Multiple Vitamins W/ Minerals (Daily Multi), 1 TAB PO QDL Solifenacin (Vesicare), 5 MG PO QAM - Take the following medications the morning of surgery with a sip of water: Clopidogrel (Plavix), 75 MG PO QAM (per surgeon) Metoprolol Tartrate (Lopressor) (Lopressor), 50 MG PO QAM - Take the following medications as scheduled the night before surgery: Latanoprost (Xalatan 0.005% Oph Rachelle), 1 DROPS OP HS Metoprolol Tartrate (Lopressor) (Lopressor), 25 MG PO HS Rosuvastatin Calcium (Crestor), 1 TAB PO HS If you have any questions please call us at [phone] or [phone] or [phone]
[2017-10-04 15:33] LABS: BASO % 0.8 %; BASO ABS # 0.04 K/uL (0-0.2); EOS % 2.9 %; EOS ABS # 0.14 K/uL (0-0.5); HEMATOCRIT 37.1 % (37-47); HEMOGLOBIN 12.8 g/dL (12.0-16.0); LYMPH % 47.4 %; LYMPH ABS # 2.25 K/uL (1.2-3.4); MEAN CELL VOLUME 98.4 fL (80-100); MEAN CORPUSCULAR HGB CONC 34.5 g/dl (32-36); MEAN PLATELET VOLUME 9.6 fL (7.4-10.4); MONO % 17.9 %; MONO ABS # 0.85 K/uL (0.11-0.59); NEUT ABS # 1.47 K/uL (1.4-6.5); PLATELET COUNT 226 K/uL (130-400); RED CELL DISTRIBUTION WIDTH CV 12.9 % (11.5-14.5); RED CELL DISTRIBUTION WIDTH SD 46.1 fL (36.4-46.3); WHITE BLOOD COUNT 4.75 K/uL (4.8-10.8)
[2017-10-04 15:39] LABS: CALCIUM 9.1 mg/dl (8.5-10.1); CREATININE 1.17 mg/dl (0.60-1.20); POTASSIUM 4.4 mmol/L (3.5-5.1)
[2017-10-04 15:44] LABS: PTT PATIENT 24.5 SECONDS (21.0-31.0)
[2017-10-23] VITALS (15 sets, daily range): BP systolic 103–214; BP diastolic 35–91; PULSE 52–67; TEMP 36.5–36.7; O2SAT 93–100; Ht 152.4 cm; Wt 94.8 kg
[~2017-10-23] VITALS: Ht 152.4 cm; Wt 94.8 kg
[~2017-10-23 05:21] MED LIST changes: -AMLO-110 PO; +INDA1TAB3 PO; +METO50TA16 PO; -OXYC-57 PO; -POTA10TA PO
[2017-10-23] MEDS ORDERED: LACTATED RINGER'S 1000ML 1,000 ML IV SCH (06:00)
[2017-10-23] MEDS ORDERED: CEFAZOLIN 2000MG IV PUSH 15 ML IV SCH (06:00)
[2017-10-23] MEDS ORDERED: SODIUM CHLORIDE 0.9% 1000ML 1,000 ML IV SCH (06:00)
--- NOTE | 2017-10-23 06:02 | History and Physical ---
History & Physical Date of Service Oct 23, 2017. History & Physical Chief Complaint Right internal carotid artery stenosis History of Present Illness The patient is a 77 year old female with hx of HTN, hypothyroidism, hypercholesterolemia, admitted with L hemispheric TIA vs CVA after noting R hand and leg weakness. She was found to have bilateral severe ICA stenosis. She underwent an uneventful left CEA about 3 months ago. She is now admitted for a right CEA. Denies RUSSO, fever, chills, chest pain, SOB recent illness, abd pain, N/V, rest pain, claudication, other complaints. Allergies Coded Allergies: Codeine (Verified Adverse Reaction, Mild, HALLUCINATIONS, 06/24/17) Home Medications Scheduled Aspirin (Aspirin Ec), 81 MG PO DAILY Atorvastatin (Lipitor), 10 MG PO DAILY Atorvastatin (Lipitor), 80 MG PO QAM Clopidogrel Bisulfate (Clopidogrel), 75 MG PO DAILY Levothyroxine Sodium (Synthroid), 50 MCG PO DAILY Losartan Potassium (Losartan Potassium), 50 MG PO QAM Magnesium Oxide (Mag-Ox), 400 MG PO DAILY Metoprolol Tartrate (Lopressor), 25 MG PO BID Multiple Vitamins W/ Minerals (Daily Multi), 1 TAB PO DAILY Ocuvite Preservision (Ocuvite Preservision), 1 TAB PO DAILY Ranitidine Hcl (Zantac), 150 MG PO BID Scheduled PRN Hctz/Spironolactone 25MG/25MG (Aldactazide 25MG/25MG), 1 TAB PO DAILY PRN for URINARY RETENTION Miscellaneous Medications Coenzyme Q10 (Ubidecarenone) (Coq-10) Problem List Medical Problems: (1) High cholesterol (2) Hypertension (3) Lumbar radiculopathy (4) Stroke (5) TIA (transient ischemic attack) Surgical / Medical History Hx Cardiac Surgery: No Hx Abdominal Surgery: Yes (tubal ligation) Hx Cancer Surgery: No Hx Thoracic Surgery: No Hx Orthopedic: No Hx Urinary Tract Surgery: Yes (bladder tacking) HX Other Surgery: No Past Medical/Surgical History: Hypertension Family History Patient reports no known family medical history. + HTN, CAD Social History Smoking Status: Never Smoker Hx Tobacco Use In Past Year?: No Hx Alcohol Use - Type & Amnt: Yes (1 beer/day) Hx Substance Use -Type & Amnt: No Review of Systems Constitutional: No chills, No fever, No malaise Skin: No change in color Eyes: + blurred vision (yestrerday, resolved) ENMT: No sore throat Respiratory: No cough, No DOYLE, No hemoptysis, No short of breath Cardiovascular: No chest pain, No palpitations, No syncope, No edema, No intermittent claudication Gastrointestinal: No abdominal pain, No nausea, No vomiting Genitourinary - Female: No dysuria, No hematuria Physical Exam Constitutional: General Apperance: heathly-appearing Level of Distress: NAD Ambulation: ambulating normally Psychiatric: Mental Status: active & alert, normal mood, normal affect Orientation: oriented except where noted, to time, to place, to person Memory: recent memory normal, remote memory normal Head: normocephalic, atraumatic Eyes: EOM: EOMI ENMT: normal ENT inspection, hearing grossly normal Neck: supple, trachea midline, healed left cea incision Lungs: Respiratory effort: no dyspnea, good air movement Auscultation: breath sounds normal, no wheezing Cardiovascular: Apical Impulse: not displaced Heart Auscultation: RRR, no murmurs, no rubs, no gallops Peripheral Pulses: Pulses: full and equal, in all extremities except if noted Bruits: none appreciated Carotid Pulse: normal on the left, normal on the right Brachial Pulses: normal on the left, normal on the right Radial Pulse: normal on the left, normal on the right Femoral Pulse: normal on the left, normal on the right Posterior Tibialis Pulse: decreased on the left, decreased on the right Dorsalis Pedis Pulse: decreased on the left, decreased on the right Abdomen: Bowel Sounds: normal Inspection & Palpation: soft, non-distended Musculoskeletal: normal strength (5/5 throughout), normal tone Extremities: Upper Right: no cyanosis, no edema, no varicosities Upper Left: no cyanosis, no edema, no varicosities Lower Right: no cyanosis, no edema, no varicosities Lower Left: no cyanosis, no edema, no varicosities Neurologic: Cranial Nerves: grossly intact Sensation: grossly intact Assessment and Plan ASSESSMENT and PLAN: Right internal carotid artery stenosis, severe Plan: Patient is admitted for a right CEA. I have discussed the risks options and benefits of the procedure with the patient. The patient understands the risks options and benefits and agrees to the procedure.
[2017-10-23] MEDS ORDERED: FENTANYL CITRATE INJ 50 MCG/1 ML 2 ML VIAL ONE ×2 (06:39→11:20)
[2017-10-23] MEDS ORDERED: LIDOCAINE HCL 2% 2 ML VIAL (20MG/ML) ONE ×3 (06:39→10:31)
[2017-10-23] MEDS ORDERED: PROPOFOL IV EMULSION 10 MG/ML 20 ML VIAL ONE (06:39)
[2017-10-23] MEDS ORDERED: ROCURONIUM BROMIDE 10 MG/ML 5 ML VIAL ONE ×2 (06:39→10:40)
[2017-10-23] MEDS ORDERED: DEXAMETHASONE SOD INJ 4 MG/ML VIAL ONE (06:39)
[2017-10-23] MEDS ORDERED: MIDAZOLAM HCL 1 MG/ML 2ML VIAL ONE (06:39)
[2017-10-23] MEDS ORDERED: ONDANSETRON INJ 2 MG/ML 2 ML VIAL ONE ×2 (06:39→11:06)
[2017-10-23] MEDS ORDERED: GELATIN SPONGE SZ 100 ONE ×3 (07:04→10:48)
[2017-10-23] MEDS ORDERED: LIDOCAINE HCL 1% 20 ML VIAL ONE (07:04)
[2017-10-23] MEDS ORDERED: BUPIVACAINE/EPINEPHRINE 0.5% MPF 1:200,000 30 ML VIAL ONE (07:04)
[2017-10-23] MEDS ORDERED: THROMBIN FOR SOLN 20000 UNIT KIT ONE ×3 (07:04→10:48)
[2017-10-23] MEDS ORDERED: HEPARIN SOD (PORCINE) 1000 UNIT/ML 10 ML VIAL ONE ×2 (07:05→09:08)
[2017-10-23] MEDS ORDERED: CEFAZOLIN SOD 1 GM VIAL ONE ×3 (07:05→10:41)
[2017-10-23] MEDS ORDERED: EpHEDrine SULFATE INJ 50 MG/ML AMP IV PRN (08:30)
[2017-10-23] MEDS ORDERED: FENTANYL CITRATE INJ 50 MCG/1 ML 2 ML VIAL IV PRN (08:30)
[2017-10-23] MEDS ORDERED: ONDANSETRON INJ 2 MG/ML 2 ML VIAL IV PRN ×2 (08:30→11:30)
[2017-10-23] MEDS ORDERED: ATROPINE SULFATE 0.1 MG/ML 5ML SYR IV PRN (08:30)
[2017-10-23] MEDS ORDERED: PROMETHAZINE HCL INJ 6.25 MG in SODIUM CHLORIDE 0.9% 50ML 50 ML IV PRN (08:30)
[2017-10-23] MEDS ORDERED: EpHEDrine SULFATE 50MG/5ML SYR ONE (09:16)
[2017-10-23] MEDS ORDERED: NITROGLYCERIN/D5W 100 MCG/ML BTL ONE (09:43)
[2017-10-23 10:19] LABS: HEMATOCRIT 32.4 % (37-47); HEMOGLOBIN 10.7 g/dL (12.0-16.0)
[2017-10-23] MEDS ORDERED: ALBUMIN HUMAN 5% 12.5 GM/250 ML VIAL IV ONE (10:20)
[2017-10-23] MEDS ORDERED: PROTAMINE SULFATE 10 MG/ML 5 ML VIAL IV ONE (10:25)
[2017-10-23] MEDS ORDERED: EpHEDrine SULFATE INJ 50 MG/ML AMP ONE (10:31)
--- NOTE | 2017-10-23 11:19 | [facility] Post Operative Brief Note ---
Immediate Operative Summary Operative Date Oct 23, 2017. Pre-Operative Diagnosis Right internal carotid artery stenosis Post-Operative Diagnosis Right internal carotid artery stenosis Procedure(s) Performed Right carotid endarterectomy with patch Surgeon Dr. Yobani Zepeda MD Auto Body Service Mechanic Surgeon(s) Earlene Oseguera MD, Yocasta Carballo PA-c Estimated Blood Loss 250ml Findings Consistent with Post-Op Diagnosis Specimens A. Plaque from right carotid Drains None Anesthesia Type General Complication(s) none Disposition Accompanied Pt To Recover: no Disposition: Recovery Room / PACU
--- NOTE | 2017-10-23 11:23 | [facility] Operative Report ---
Operative Report Operative Date Oct 23, 2017. Pre-Operative Diagnosis Right internal carotid artery stenosis Post-Operative Diagnosis Right internal carotid artery stenosis Procedure(s) Performed Right carotid endarterectomy with patch Surgeon Dr. Yobani Zepeda MD Tank Operator Surgeon(s) Earlene Oseguera MD, Yocasta Carballo PA-c Estimated Blood Loss 250ml Specimens A. Plaque from right carotid Drains None Anesthesia Type General Complication(s) none Disposition no Recovery Room / PACU Indications Patient is a 77yo white female with right internal carotid stenosis which was severe. RCEA was recommended. I have discussed the risks options and benefits of the procedure with the patient. The patient understands the risks options and benefits and agrees to the procedure. Description of Procedure The patient was taken to the operating room and placed in supine position. After general anesthesia was accomplished the right-side of the neck was prepped and draped in a sterile manner. A longitudinal neck incision was then made coursing along the medial border of the sternocleidomastoid muscle. The incision was taken down through the platysmal layer. The facial vein was identified, ligated, and divided. The common carotid artery was then seen. It was dissected free down to the omohyoid muscle. The dissection was carried upward until the external carotid artery and superior thyroid artery was seen. The superior thyroid artery was slung with a 2-0 silk suture. The external carotid was slung with a red rubber vessel loop. Next the dissection was carried up along the internal carotid artery. This was carried upward to beyond the area of narrowing. The hypoglossal nerve was seen and preserved as well as a large branch which coarsed medially over the carotid bifurcation. The patient was heparinized. After adequate heparinization was accomplished, the internal, external, and common carotid arteries were clamped. A longitudinal arteriotomy was started on the common carotid artery and extended upward along the internal carotid artery to a point beyond the area of narrowing. There was calcified plaque of the internal carotid artery origin causing approximately 85-90% narrowing. A Doppler shunt was then placed in the internal, followed by the common carotid artery and held in place with Tonny clamps. There was good back bleeding seen from the internal carotid artery. The endarterectomy was then started in the appropriate plane on the common carotid artery. This was carried upward and the external carotid was everted and endarterectomized. The endarterectomy was then carried up along the internal carotid artery till a nice feathering breakoff point was accomplished beyond the end of the plaque. The endarterectomy was then carried down further on the common carotid artery. At end of the arteriotomy, the plaque was then transected. Under loop magnification, all loose debris and flaps werer removed. There is no distal flap seen at the end of the endarterectomy site. The arteriotomy then closed using an Accuseal patch and a running CV 6 [place] suture. This was done in the usual vascular fashion. Prior to completing the closure, the doppler shunt was removed and the internal and common carotid arteries were reclamped. Backbleeding and forward bleeding was allowed to occur. The flow surface was irrigated with heparinized saline. The final few sutures were then placed and securely tied. Clamps were then removed off the external and common carotid arteries. The clamp was then removed the internal carotid artery. Good distal flow was seen. Bleeding sites were controlled with interrupted prolene sutures. Adequate hemostasis was seen of the patch. The wound was inspected and adequate hemostasis was obtained. The wound was irrigated with antibiotic solution. It was then closed with a running 3-0 Vicryl suture for the platysmal layer and a 4-0 subcuticular Vicryl suture for the skin edges. Dermabond was used for dressing. The patient left the operating room in satisfactory condition and tolerated the procedure well. I attest to the content of the Intraoperative Record and any orders documented therein. Any exceptions are noted below.
[2017-10-23] MEDS ORDERED: OXYCODONE/ACETAMINOPHEN 5-325 TAB PO PRN (11:30)
[2017-10-23] MEDS ORDERED: MoRPHine SULFATE 4 MG/ML 1 ML CARP\\VIAL IV PRN (11:30)
[2017-10-23] MEDS ORDERED: PHENYLEPHRINE HCL INJ 20 MG in DEXTROSE 5% 500ML 500 ML IV PRN ×2 (12:00→15:12)
[2017-10-23] MEDS ORDERED: NURSING VERBAL MED ORDER ONE ×2 (12:00→13:45)
[2017-10-23 12:11] LABS: ISTAT CREATININE 0.8 mg/dl (0.6-1.3); ISTAT IONIZED CALCIUM 1.19 mmol/l (1.12-1.32); ISTAT POTASSIUM 4.1 mEq/L (3.3-5.0)
[2017-10-23 12:22] LABS: HEMOGLOBIN 8.8 g/dL (12.0-16.0)
[2017-10-23] MEDS ORDERED: CEFAZOLIN SOD 1000MG/7.5 ML IV PUSH ONE (12:32)
--- NOTE | 2017-10-23 13:38 | Anesthesiology Progress Note ---
Anesthesia Post Op Note Date & Time Oct 23, 2017 at 13:35 Vital Signs Pain Intensity: 3 Vital Signs Past 12 Hours Date Time Temp Pulse Resp B/P (MAP) Pulse Ox O2 Delivery O2 Flow Rate FiO2 10/23/17 13:07 36.8 100 Nasal Cannula 2 10/23/17 13:03 51 20 10/23/17 13:03 51 20 134/44 99 10/23/17 13:01 136/56 10/23/17 12:58 50 19 149/49 100 10/23/17 12:58 50 19 10/23/17 12:56 139/61 10/23/17 12:53 46 14 10/23/17 12:53 46 14 155/50 100 10/23/17 12:51 125/59 10/23/17 12:48 55 14 10/23/17 12:48 55 14 115/41 100 10/23/17 12:46 108/49 10/23/17 12:43 51 19 10/23/17 12:43 51 19 128/41 100 10/23/17 12:41 107/66 10/23/17 12:38 50 18 142/46 100 10/23/17 12:38 50 18 10/23/17 12:37 49 17 10/23/17 12:37 49 17 143/45 100 10/23/17 12:36 138/55 10/23/17 12:32 49 19 144/46 100 10/23/17 12:32 49 19 10/23/17 12:31 138/51 10/23/17 12:27 49 13 148/47 100 10/23/17 12:27 49 13 10/23/17 12:26 147/60 10/23/17 12:22 49 16 10/23/17 12:22 49 16 152/49 100 10/23/17 12:21 149/61 10/23/17 12:19 50 13 10/23/17 12:19 49 13 133/45 100 10/23/17 12:16 116/51 10/23/17 12:14 51 24 112/41 100 10/23/17 12:14 51 24 10/23/17 12:11 109/50 10/23/17 12:09 57 17 10/23/17 12:09 57 17 100 10/23/17 12:06 104/46 10/23/17 12:04 54 21 125/44 99 10/23/17 12:04 54 21 10/23/17 12:01 115/52 10/23/17 11:59 54 18 127/43 100 10/23/17 11:59 55 18 10/23/17 11:56 106/49 10/23/17 11:54 59 19 10/23/17 11:54 60 19 119/49 100 10/23/17 11:51 60/36 10/23/17 11:50 51/35 10/23/17 11:49 68 20 10/23/17 11:49 68 20 100 10/23/17 11:49 36.0 68 20 121/32 99 Oxymask 10 10/23/17 05:54 97 Room Air 10/23/17 05:46 36.5 64 20 214/91 Notes Mental Status: alert / awake / arousable, participated in evaluation Pt Amnestic to Procedure: Yes Nausea / Vomiting: adequately controlled Pain: adequately controlled Airway Patency, RR, SpO2: stable & adequate BP & HR: stable & adequate Hydration State: stable & adequate Anesthetic Complications: no major complications apparent Patient had some intraoperative blood loss d/t dual antiplatelet therapy after removing carotid cross clamp. She remained hemodynamically stable with fluid replacement via crystalloid and albumin. In recovery, patient MAP sagging to the high 50s, low 60s, although she was neurologically intact. H/H checked during procedure was ~10, and in recovery was 8.8. She was treated with additional crystalloid and a phenylephrine drip which improved her BP transiently, but again began to sag when these were weaned. Her phenylephrine at the time of pacu discharge to ICU was at a modest 0.4mg/kg/min to keep map > 70. This can be weaned in the ICU as her fluid status is optimized more slowly. I have given full report to the ICU team.
[2017-10-23] MEDS: D5W AND 1/2NSS 1,000 ML IV SCH ×2 (13:59→21:53)
[2017-10-23] MEDS ORDERED: CEFAZOLIN IV 1,000 MG in SYRINGE 0 ML IV SCH (19:00)
[2017-10-23] MEDS: METOPROLOL TARTRATE 25 MG TAB PO SCH (21:00)
[2017-10-23] MEDS: LATANOPROST 0.005% OP SOLN 2.5 ML BTL OP SCH (21:03)
[2017-10-23] MEDS: ROSUVASTATIN CALCIUM 10 MG TAB PO SCH (21:04)
[2017-10-23] MEDS: ACETAMINOPHEN 325 MG TAB PO PRN (23:55)
[2017-10-24] VITALS (21 sets, daily range): BP systolic 97–139; BP diastolic 32–79; PULSE 54–76; TEMP 36.7–37; O2SAT 94–99
[2017-10-24 04:53] LABS: HEMATOCRIT 21.1 % (37-47); HEMOGLOBIN 7.2 g/dL (12.0-16.0)
[2017-10-24] MEDS: D5W AND 1/2NSS 1,000 ML IV SCH (05:29)
[2017-10-24] MEDS: METOPROLOL TARTRATE 25 MG TAB PO SCH (07:52)
[2017-10-24] MEDS: LOSARTAN POTASSIUM 50 MG TAB PO SCH (07:52)
[2017-10-24] MEDS: METOPROLOL TARTRATE 50 MG TAB PO SCH (07:53)
[2017-10-24] MEDS: INDAPAMIDE 1.25 MG TAB PO SCH (07:53)
--- NOTE | 2017-10-24 08:13 | Anesthesiology Progress Note ---
Anesthesia Post Op Note Date & Time Oct 24, 2017 at 08:11 Vital Signs Pain Intensity: 5.0 Vital Signs Past 12 Hours Date Time Temp Pulse Resp B/P (MAP) Pulse Ox O2 Delivery O2 Flow Rate FiO2 10/24/17 07:09 36.8 71 15 116/32 97 10/24/17 06:49 36.9 72 20 131/35 97 10/24/17 04:01 36.9 63 20 136/49 (78) 96 Room Air 10/24/17 03:00 63 17 128/35 (66) 94 Room Air 10/24/17 02:01 60 19 123/32 (62) 96 Room Air 10/24/17 01:00 59 19 122/33 (62) 96 Room Air 10/24/17 00:00 36.9 58 14 109/48 (68) 98 Room Air 10/23/17 23:00 57 16 121/35 (63) 98 Room Air 10/23/17 22:00 52 18 147/43 (77) 98 Room Air 10/23/17 21:42 60 23 138/56 (83) 10/23/17 21:00 67 21 107/42 (63) 100 Room Air Notes Mental Status: alert / awake / arousable, participated in evaluation Pt Amnestic to Procedure: Yes Nausea / Vomiting: adequately controlled Pain: adequately controlled, improving with treatment Airway Patency, RR, SpO2: stable & adequate BP & HR: stable & adequate (Arterial line in place, receiving blood) Hydration State: stable & adequate Anesthetic Complications: no major complications apparent
[2017-10-24] MEDS: VESICARE 5 MG PO SCH (08:49)
[2017-10-24] MEDS: ENOXAPARIN 30 MG/0.3 ML SYR SQ SCH ×2 (08:50→20:51)
[2017-10-24] MEDS ORDERED: NURSING VERBAL MED ORDER ONE ×2 (09:00→13:30)
[2017-10-24] MEDS ORDERED: NON-FORMULARY MEDICATION (Coenzyme Q10 (Ubidecarenone) (Coq-10) 1 CAP) PO SCH (09:00)
[2017-10-24] MEDS: ACETAMINOPHEN 325 MG TAB PO PRN ×2 (09:31→20:48)
[2017-10-24] MEDS: CEROVITE ADV FORMULA TAB PO SCH (11:29)
--- NOTE | 2017-10-24 14:04 | Progress Note ---
Progress Note Date of Service: Oct 24, 2017. Subjective 77 yo f with hx of HTN and CVA, POD #1 after R cea, seen in f/u today. Pt admits fatigue. Hgb 7.2 today, administered 2 U PRBC. Pt admits R lower lip lag. Denies any other complaints. Problem List Medical Problems: (1) Chest pain Status: Acute Objective Vital Signs Vital Signs Past 12 Hours Date Time Temp Pulse Resp B/P (MAP) Pulse Ox O2 Delivery O2 Flow Rate FiO2 10/24/17 13:20 55 22 117/49 (71) 98 Room Air 10/24/17 12:00 37.0 60 20 121/51 (74) 97 Room Air 10/24/17 10:34 58 22 127/54 98 10/24/17 10:02 56 18 135/53 99 10/24/17 09:35 59 18 139/54 98 10/24/17 09:25 36.7 10/24/17 09:24 58 18 130/61 99 10/24/17 08:58 36.7 67 20 121/50 97 10/24/17 08:00 71 18 120/56 96 10/24/17 08:00 Room Air 10/24/17 08:00 37.0 73 20 120/56 (77) 97 Room Air 128/37 (67) 10/24/17 07:30 76 18 120/44 96 10/24/17 07:16 73 20 97/79 96 10/24/17 07:09 36.8 71 15 116/32 97 10/24/17 06:49 36.9 72 20 131/35 97 10/24/17 04:01 36.9 63 20 136/49 (78) 96 Room Air 10/24/17 03:00 63 17 128/35 (66) 94 Room Air 10/24/17 02:01 60 19 123/32 (62) 96 Room Air Exam CONST: A&O x3, NAD, mildly chronically ill appearing femlae NECK: R neck wiht moderate soft hematoma and ecchymosis and tnederness. trachea mid line CHEST: RRR lungs decreased but ctab ABD: soft, nontender, + bs x 4 quad EXT: SANCHEZ, no focal deficits Intake & Output 8-Hour Column 10/24/17 10/25/17 10/25/17 16:00 00:00 08:00 Intake Total 620 ml Balance 620 ml 24-Hour Column 10/25/17 08:00 Intake Total 620 ml Balance 620 ml Laboratory and Microbiology Results Past 24 Hours Test 10/23/17 16:41 10/23/17 21:00 10/24/17 04:15 10/24/17 06:22 Range/Units Bedside Glucose 185 172 162 70-90 mg/dl Hemoglobin 7.2 12.0-16.0 g/dL Hematocrit 21.1 37-47 % ASSESSMENT and PLAN: s/p R CEA Expected post op anemia Pt doing generally well post op. Will observe another night postop. Transfer to floor. Probable D/C home tomorrow if continues to improve.
--- NOTE | 2017-10-24 17:30 | Critical Care Consultation ---
Critical Care Consultation Date of Consultation: Oct 24, 2017. Attending Physician: Yobani Zepeda M.D. Reason for Consultation: Postop carotid endarterectomy. History of Present Illness Dear Dr. Zepeda: Thank you for your kind referral of Mrs. wells to critical care service. This is a 77-year-old female with a history of peripheral arterial disease, status post carotid endarterectomy on the left done 3 months ago, history of hypertension hyperlipidemia in addition to spinal stenosis, the patient presented to the hospital for elective right-sided carotid endarterectomy. The patient underwent the procedure uneventful and was transferred to the ICU for further management. Due to the drop in her blood pressure the patient started briefly on Mateus-Synephrine and tolerated well. Today in the morning, the patient was off the pressors and she has been doing well. The patient denies any weakness or numbness in her upper or lower extremities. Minimal ecchymosis at the surgical site, tolerating oral intake, blood pressure has been well maintained off Mateus-Synephrine, a line has been discontinued. Family History Patient reports no known family medical history. Social History Smoking Status: Former Smoker Marital Status: Housing Status: lives with significant other Allergies Coded Allergies: Codeine (Verified Adverse Reaction, Mild, HALLUCINATIONS, 10/23/17) Home Medications Scheduled Clopidogrel (Plavix), 75 MG PO QAM Coenzyme Q10 (Ubidecarenone) (Coq-10), 1 CAP PO QAM Indapamide (Lozol), 1.25 MG PO QAM Latanoprost (Xalatan 0.005% Oph Rachelle), 1 DROPS OP HS Losartan Potassium (Cozaar), 100 MG PO QAM Metoprolol Tartrate (Lopressor) (Lopressor), 25 MG PO HS Metoprolol Tartrate (Lopressor) (Lopressor), 50 MG PO QAM Multiple Vitamins W/ Minerals (Daily Multi), 1 TAB PO QDL Rosuvastatin Calcium (Crestor), 1 TAB PO HS Solifenacin (Vesicare), 5 MG PO QAM Current Inpatient Medications Current Inpatient Medications Medications (Trade) Dose Ordered Sig/João Route Start Time Stop Time Status Last Admin Dose Admin Acetaminophen (Tylenol Tab) 650 mg Q4H PRN PO 10/23/17 11:30 11/22/17 11:29 10/24/17 09:31 650 MG Oxycodone/ Acetaminophen (Percocet 5-325mg Tab) FOR MODERATE PAIN ... Q4H PRN PO 10/23/17 11:30 11/06/17 11:29 Ondansetron HCl (Zofran Inj) 4 mg Q6H PRN IV 10/23/17 11:30 11/22/17 11:29 Enoxaparin Sodium (Lovenox Inj) 30 mg Q12H SQ 10/24/17 09:00 11/23/17 08:59 Indapamide (Lozol Tab) 1.25 mg QAM PO 10/24/17 09:00 11/23/17 08:59 10/24/17 07:53 1.25 MG Latanoprost (Xalatan Oph Soln) 1 drops HS OP 10/23/17 21:00 11/22/17 20:59 10/23/17 21:03 1 DROPS Losartan Potassium (coZAAR TAB) 100 mg QAM PO 10/24/17 09:00 11/23/17 08:59 10/24/17 07:52 100 MG Metoprolol Tartrate (Lopressor Tab) 25 mg HS PO 10/23/17 21:00 11/22/17 20:59 10/24/17 07:52 25 MG Metoprolol Tartrate (Lopressor Tab) 50 mg QAM PO 10/24/17 09:00 11/23/17 08:59 10/24/17 07:53 50 MG Multivitamins/ Minerals (Multivitamin W/ Minerals Tab) 1 tab QDL PO 10/24/17 11:30 11/23/17 11:29 10/24/17 11:29 1 TAB Rosuvastatin Calcium (Crestor Tab) 10 mg HS PO 10/23/17 21:00 11/22/17 20:59 10/23/17 21:04 10 MG Solifenacin (Vesicare) 5 mg QAM PO 10/24/17 09:00 11/23/17 08:59 10/24/17 08:49 5 MG Review of Systems Constitutional: No fever, No chills, No sweats, No weight loss, No weakness, No fatigue, No problem reported Eyes: No worsening of vision, No eye pain, No redness, No discharge, No diplopia, No problem reported ENT: + sore throat Respiratory: No cough, No sputum, No wheezing, No shortness of breath, No dyspnea on exertion, No dyspnea at rest, No hemoptysis, No problem reported Cardiovascular: No chest pain, No orthopnea, No PND, No edema, No claudication , No palpitations, No problem reported Abdomen: No pain, No nausea, No vomiting, No diarrhea, No constipation, No GI bleeding, No problem reported Musculoskeletal: No joint pain, No muscle pain, No swelling, No calf pain, No problem reported Neurologic: No memory loss, No paralysis, No weakness, No numbness/tingling, No vertigo, No balance problems, No problem reported Hematologic / Lymphatic: No abnormal bleeding/bruising, No clotting problems, No swollen lymph nodes, No night sweats, No problem reported Integumentary: No rash, No itch, No new/changing skin lesions, No color change , No bleeding, No problem reported Allergic / Immunologic: No environmental allergies, No seasonal allergies, No pet sensitivities, No food allergies, No hives, No frequent infections, No poor healing, No prolonged convalescence, No problem reported Physical Exam Date Time Temp Pulse Resp B/P (MAP) Pulse Ox O2 Delivery O2 Flow Rate FiO2 10/24/17 16:30 Room Air 10/24/17 15:02 37.0 54 16 121/66 (84) 97 Room Air 10/24/17 14:37 37.0 55 22 98 10/24/17 13:20 55 22 117/49 (71) 98 Room Air 10/24/17 12:00 37.0 60 20 121/51 (74) 97 Room Air 10/24/17 10:34 58 22 127/54 98 10/24/17 10:02 56 18 135/53 99 10/24/17 09:35 59 18 139/54 98 10/24/17 09:25 36.7 10/24/17 09:24 58 18 130/61 99 10/24/17 08:58 36.7 67 20 121/50 97 10/24/17 08:00 71 18 120/56 96 10/24/17 08:00 Room Air 10/24/17 08:00 37.0 73 20 120/56 (77) 97 Room Air 128/37 (67) 10/24/17 07:30 76 18 120/44 96 10/24/17 07:16 73 20 97/79 96 10/24/17 07:09 36.8 71 15 116/32 97 10/24/17 06:49 36.9 72 20 131/35 97 10/24/17 04:01 36.9 63 20 136/49 (78) 96 Room Air 10/24/17 03:00 63 17 128/35 (66) 94 Room Air 10/24/17 02:01 60 19 123/32 (62) 96 Room Air 10/24/17 01:00 59 19 122/33 (62) 96 Room Air 10/24/17 00:00 36.9 58 14 109/48 (68) 98 Room Air 10/23/17 23:00 57 16 121/35 (63) 98 Room Air 10/23/17 22:00 52 18 147/43 (77) 98 Room Air 10/23/17 21:42 60 23 138/56 (83) 10/23/17 21:00 67 21 107/42 (63) 100 Room Air 10/23/17 20:01 58 22 138/44 (75) 93 Room Air 10/23/17 20:00 Nasal Cannula 3.0 10/23/17 19:00 67 10 110/46 (67) 98 Nasal Cannula 3.0 10/23/17 18:00 62 16 136/45 (75) 100 Nasal Cannula 3.0 General Appearance: WD/WN Eyes: no discharge ENT: normal throat exam Neck: no tenderness (Surgical site appeared to be well maintained. Minimal ecchymotic area.), trachea midline Respiratory: breath sounds normal, clear to auscultation, clear to percussion Cardiovasular: regular rate/rhythm, normal S1S2, no M/G/R, no murmur Abdomen: no masses, no guarding Upper Extremities: no edema Lower Extremities: no edema Neuro: alert, oriented x 3, normal motor exam, normal sensation Psychiatric: normal affect Laboratory Results Last 24 Hours Test 10/23/17 21:00 10/24/17 04:15 10/24/17 06:22 Bedside Glucose 172 mg/dl 162 mg/dl Hemoglobin 7.2 g/dL Hematocrit 21.1 % Diagnostic Results Labs were reviewed, the patient received 2 units of blood transfusion, hematocrit is 21 and improving. Assessment & Plan 1. Peripheral arterial disease, carotid stenosis, status post right carotid endarterectomy. 2. Hypertension, currently well maintained off medications and has been off pressors as well. Blood pressure has been stable. 3. Hyperlipidemia. 4. History of smoking in the past quit 12 years ago. 5. Anemia, responding to blood transfusion. Plan: 1. Agree with blood transfusion. 2. Check hematocrit later. 3. Discontinue A-line. 4. Agree with disposition plan to the telemetry floor. 5. Oral intake. 6. Venodyne boots. 7. Discussed with the staff on rounds and details. CCT 35 minutes.
[2017-10-24] MEDS: ROSUVASTATIN CALCIUM 10 MG TAB PO SCH (20:49)
[2017-10-24] MEDS: LATANOPROST 0.005% OP SOLN 2.5 ML BTL OP SCH (20:49)
[2017-10-25 07:26] VITALS: BP 115/70; PULSE 57; TEMP 36.6; O2SAT 100
[2017-10-25 08:43] VITALS: BP 122/69; PULSE 60
[2017-10-25] MEDS: LOSARTAN POTASSIUM 50 MG TAB PO SCH (08:44)
[2017-10-25] MEDS: METOPROLOL TARTRATE 50 MG TAB PO SCH (08:44)
[2017-10-25] MEDS: INDAPAMIDE 1.25 MG TAB PO SCH (08:45)
[2017-10-25] MEDS: VESICARE 5 MG PO SCH (08:45)
[2017-10-25] MEDS: ENOXAPARIN 30 MG/0.3 ML SYR SQ SCH (08:45)
--- NOTE | 2017-10-25 11:37 | Clinical Documentation Query ---
CLINICAL DOCUMENTATION QUERY Dr. BAZZI, In your clinical opinion is this patient being managed for: ( x ) Acute blood loss anemia or postoperative anemia due to blood loss ( ) Not Agree ( ) Other explanation of clinical findings (No explanation is considered a No Response) ( ) Unable to determine ( ) Need to Discuss (Phone CDS or qliq) (No discussion is considered a No Response) The medical record reflects the following clinical findings, treatment, and risk factors. Clinical Indicators: Baseline Hgb 12.8/Hct 37.1, dropping to 7.2/21.1. EBL of 300 cc. Documentation in the progress note of 10/24 indicates expected post op anemia. Treatment: 2 U PRBC, monitor CBC Risk Factors: expected surgical blood loss Please clarify and document your clinical opinion in the progress notes and discharge summary. Terms such as "probable", "suspected", "likely", "questionable", "possible", or "still to be ruled out" are acceptable. IF IN AGREEMENT, YOU MUST DOCUMENT ABOVE DIAGNOSTIC STATEMENT IN DAILY PROGRESS NOTES AND DISCHARGE SUMMARY. This document is not part of the patient's record. Thank You, Modesta Arroyo, RN [phone]
[2017-10-25] MEDS: CEROVITE ADV FORMULA TAB PO SCH (12:03)
--- NOTE | 2017-10-25 13:36 | Discharge Instructions ---
Discharge Instructions Date of Service Oct 25, 2017. Admission Reason for Admission: Right Internal Carotid Artery Stenosis Discharge Discharge Diagnosis / Problem: Post Right Carotid Endarterectomy Discharge Goals Goal(s): Therapeutic intervention Activity Recommendations Activity Limitations: per Instructions/Follow-up section . Instructions / Follow-Up Instructions / Follow-Up SPECIAL CARE INSTRUCTIONS: Medications: * Continue to take Aspirin as directed. Incision Care: * You may shower, but do not rub incision. You may let the warm soapy water run over it. Be sure to dry the incision well after bathing. * Do not shave directly over the incision until it is healed. * DO NOT IMMERSE THE INCISION IN A TUB/POOL/etc. UNTIL HEALED. Restrictions: * Do not drive for at least one week or if you are still taking any narcotic pain medication. * Do not lift anything heavier than a gallon of milk for one week after going home. Possible Complications: * Numbness - It is normal to have some numbness around the incision. Numbness can extend beyond the incision to areas of the neck, ear and face. The numbness is due to bruising of nerves during the surgery and will gradually improve over a period of months. * Hoarseness/Difficulty Speaking and Swallowing - The bruising of nerves in the neck can also cause a hoarse voice, difficulty speaking or swallowing. This may improve over time, HOWEVER, if it continues for more than a few days please contact our office ([phone]). * Excessive Swelling - There will be some swelling immediately after surgery which usually resolves within one week. If you notice that the swelling is getting worse, notify your surgeon ([phone]). * Drainage/Bleeding - If there is any drainage or bleeding, it should be a very small amount (less than a teaspoon per day). If you have excessive bleeding or drainage from the incision, call your surgeon ([phone]) right away. ACTIVATION OF EMERGENCY MEDICAL SYSTEM: Call 911, immediately, if you experience any of the following: Warning Signs and Symptoms of Stroke: * Sudden numbness or weakness of the face, arm or leg, especially on one side of the body * Sudden confusion, trouble speaking or understanding * Sudden trouble seeing in one or both eyes * Sudden trouble walking, dizziness, loss of balance or coordination * Sudden severe headache with no cause Do not delay calling 911 if you experience any warning signs or symptoms of a stroke. Delay in seeking medical attention may affect what treatments can be given to you. Risk Factors for Stroke: You can reduce your chances of stroke by working with your medical provider to adopt a healthy lifestyle. Some specific ways to lower your chance of stroke are: * If you are a smoker, now is the time to stop smoking cigarettes * If you are diabetic, improve the control of your blood sugars * Avoid excessive amounts of alcohol * Control high blood pressure * Lose weight if you are overweight * Be sure to lead an active lifestyle * Eat a healthy diet low in salt, cholesterol and fat You should know about other risk factors for stroke that you are unable to control. These include: * Age 55 years or older * Male gender * Certain racial groups: , or / * Family History of Stroke, Mini stroke or Heart Attack * Sickle Cell Disease You will be receiving a call from the Vascular Surgery Nurse after you are discharged. FOLLOW UP VISIT: It is important for you to keep your follow up appointments with your medical provider. Keep any scheduled doctor appointments. Current Hospital Diet Patient's current hospital diet: AHA Diet (Heart Healthy) Discharge Diet Recommended Diet: AHA Diet (Heart Healthy) Procedures Procedures Performed: Right carotid endarterectomy with patch Pending Studies Studies pending at discharge: no Medical Emergencies . Who to Call and When: Medical Emergencies: If at any time you feel your situation is an emergency, please call 911 immediately. . Non-Emergent Contact Non-Emergency issues call your: Primary Care Provider, Surgeon . "Provider Documentation" section prepared by Yocasta Carballo. .
--- NOTE | 2017-10-25 13:50 | Progress Note ---
Progress Note Date of Service: Oct 25, 2017. Subjective 77 yo f POD #2 after R CEA, seen in f/u today. Pt doing well and wishes to go home. Denies any new complaints. R lower lip still lagging. Problem List Medical Problems: (1) Chest pain Status: Acute Objective Vital Signs Vital Signs Past 12 Hours Date Time Temp Pulse Resp B/P (MAP) Pulse Ox O2 Delivery O2 Flow Rate FiO2 10/25/17 08:43 60 122/69 (86) 10/25/17 08:10 Room Air 10/25/17 07:26 36.6 57 17 115/70 (85) 100 Room Air Exam CONST: A&O x3, NAD, obese, generally healthy appearing female NECK: R neck incision C/D/I. + local tenderness, edema, and soft ecchymosis. trachea midline CHEST: RRR lungs decreased but ctab ABD: soft nontender, + bs x 4 quad EXT: SANCHEZ NEURO: R lower lip lag consistent with marginal mandibular nerve dysfunction. Otherwise no focal deficits. Intake & Output 8-Hour Column 10/25/17 10/26/17 10/26/17 16:00 00:00 08:00 Intake Total 100 ml Balance 100 ml 24-Hour Column 10/26/17 08:00 Intake Total 100 ml Balance 100 ml ASSESSMENT and PLAN: s/p R CEA RICAS Pt doing well post op. D/C home today.
[2017-10-25 13:56] VITALS: BP 122/69; PULSE 60; TEMP 36.6; O2SAT 100
--- NOTE | 2017-10-31 12:24 | EDITING REQUIRED CODING QUERY ---
ANEMIA To promote full compliance with coding requirements relating to patient care, physician participation is requested in all cases of recreation therapy teacher uncertainty. Please assist us with the question(s) below: Coding Question(s): Anemia was documented in the consult and 10/24 PN; please clarify below to the best of your knowledge. Thank you so much for your help! Have a great day! ( ) Acute blood loss anemia, present on admission ( ) Acute blood loss anemia, NOT present on admission ( ) Anemia, unspecified or other, present on admission ( ) Anemia, unspecified, NOT present on admission ( ) Other: (please specify) ( ) Unable to determine Thank you! Raquel Jara
--- NOTE | 2017-11-02 08:45 | DISCHARGE SUMMARY ---
ADMISSION DIAGNOSIS: Severe right internal carotid artery stenosis. DISCHARGE DIAGNOSES: 1. Status post right carotid endarterectomy with patch. 2. Severe right internal carotid artery stenosis. DISCHARGE CONDITION: Stable. CONSULTATIONS IN THE HOSPITAL: Included critical care during her ICU stay. HISTORY OF PRESENT ILLNESS: Ms. Lehman is a 77-year-old female who was initially seen by Dr. Zepeda approximately 4 months ago when she was admitted to the hospital with a left hemispheric CVA. Due to her significant left internal carotid artery stenosis, the patient eventually underwent a left carotid endarterectomy to prevent future events. Her right internal carotid artery was also noted to be stenosed. However, she was asymptomatic on the right at that time. During one of her followup visits from her left carotid endarterectomy, she complained of some left-sided facial tingling which would last for a few minutes and go away. Due to her symptoms and over 80% stenosis noted on her neck CTA, she was recommended to undergo a right carotid endarterectomy for a CVA risk reduction. The procedure, risks, benefits, and alternatives were discussed with the patient by Dr. Zepeda. The patient expressed understanding and agreement to proceed. HOSPITAL COURSE: The patient was admitted on 10/23/2009, had undergone her right carotid endarterectomy. During the procedure, the patient's EBL was 250 mL She did generally well postoperatively. She did have a moderate right marginal mandibular nerve dysfunction which did improve somewhat prior to discharge. Additionally, she was noted to be significantly anemic with a hemoglobin of 7.2. On postop day 1, she was transfused 2 units due to her fatigue and concerns for her blood pressure, patient was kept in the hospital for 1 more night. Patient's right neck had a small hematoma without any tracheal deviation and some mild local ecchymosis as well. She was felt to be stable for discharge on postop day #2. PHYSICAL EXAMINATION: VITAL SIGNS: On day of discharge, her vital signs are as follows: Temperature of 36.6, pulse of 60, respiratory rate of 17 and blood pressure of 122/69, her pulse oximetry was 100% on room air. CONSTITUTIONAL/GENERAL: Patient is a mildly chronically ill appearing elderly female in no acute distress. She ambulated without assistance and was active, alert and oriented x4 with normal recent and remote memory. HEAD: Normocephalic and atraumatic. NECK: Her right neck surgical incision is well approximated and healing appropriately. There is tenderness and a small local hematoma. There was no tracheal deviation, should have some mild local ecchymosis as well. There was no erythema or drainage noted. Her old surgical incision in her left neck is well healed. Her carotid did demonstrate a slight bruit. HEART: Her heart is regular. LUNGS: Her lungs were clear but decreased somewhat throughout. NEUROLOGIC: She had no focal neurological deficits aside from the right lower lip marginal mandibular dysfunction. ABDOMEN: Soft, nontender with normal active bowel sounds in all 4 quadrants. EXTREMITIES: She moves all extremities equally. Her distal pulses are +1 in the lower extremities and +3 in her uppers. DIET UPON DISCHARGE: A low-cholesterol AHA diet. MEDICATIONS: Reconciled in the chart and are as per her discharge instructions. FOLLOWUP: Should be with Dr. Zepeda or his PA, Yocasta Carballo within 2 weeks for reevaluation. She is advised to call the office if any other questions.
== END 2017-10-25 14:15 | disposition home or self-care (01) | DRG 38 ==
LOC: C.ACU 05:21 → UNDOADMIN 07:09 → C.MSICU 07:09 → ENRESERV 12:32 → C.MSN 10-24 15:05
PROVIDERS: ADMIT Surgery Vascular Surgery; ATTEND Surgery Vascular Surgery
PROC: 03UK0JZ Supplement Right Internal Carotid Artery with Synthetic Substitute, Open Approach (ICD-10-PCS; principal; 2017-10-23 07:30)
PROC: 03CK0ZZ Extirpation of Matter from Right Internal Carotid Artery, Open Approach (ICD-10-PCS; principal; 2017-10-23 07:30)
DX: I65.21 Occlusion and stenosis of right carotid artery (principal); D64.9 Anemia, unspecified; E66.9 Obesity, unspecified; Z68.41 Body mass index [BMI] 40.0-44.9, adult; I10 Essential (primary) hypertension; E03.9 Hypothyroidism, unspecified; E78.00 Pure hypercholesterolemia, unspecified; Z79.02 Long term (current) use of antithrombotics/antiplatelets; Z79.82 Long term (current) use of aspirin; Z79.899 Other long term (current) drug therapy

== ENCOUNTER 2020-01-27 06:08 | Observation (INO) ==
[2020-01-27 06:37] LABS: Hematocrit (blood only) 37.6 % (37-47); Hemoglobin 13.3 g/dL (12.0-16.0); Mean Corpuscular Hemoglobin 35.7 pg (25-34); Mean Corpuscular Hgb Conc 35.4 g/dL (32-36); Mean Corpuscular Volume 100.8 fL (80-100); Mean Platelet Volume 9.6 fL (7.4-10.4); Platelet Count 239 K/uL (130-400); RDW Coefficient of Variation 12.4 % (11.5-14.5); Red Blood Count 3.73 M/uL (4.2-5.4); White Blood Count 5.78 K/uL (4.8-10.8)
--- NOTE | 2020-01-27 06:54 | XRay Report ---
XR chest 1V portable CLINICAL HISTORY: Atypical chest pain COMPARISON STUDY: December 07, 2016 FINDINGS: The cardiac and mediastinal contours remain stable. There is no focal pulmonary consolidati on. There is no failure. There are no pleural effusions. Slight increased density left lung base is f elt to be related to technical factors.[ IMPRESSION: No active disease in the chest. ACT 112: Negative or not required by law. Electronically signed by: Bill Lui M.D. 01/27/2020 6:53 AM
[2020-01-27 06:57] LABS: Alanine Aminotransferase 22 U/L (12-78); Albumin Level 3.9 gm/dl (3.4-5.0); Aspartate Aminotransferase 23 U/L (15-37); BUN Creatinine Ratio 13.6 (10-20); Blood Urea Nitrogen 12 mg/dl (7-18); Calcium 9.2 mg/dl (8.5-10.1); Carbon Dioxide 29 mmol/L (21-32); Chloride 94 mmol/L (98-107); Est GFR (African American) 73.5; Est GFR (Non-African American) 63.4; Glucose 140 mg/dl (70-99); Sodium 130 mmol/L (136-145)
[2020-01-27 06:59] LABS: Albumin Globulin Ratio 0.9 (0.9-2); Alkaline Phosphatase 141 U/L (45-117); Bilirubin,Total 0.5 mg/dl (0.2-1); Globulin 4.4 gm/dl (2.5-4.0); Total Protein 8.3 gm/dl (6.4-8.2); Troponin I < 0.015 ng/ml (0-0.045)
[2020-01-27] MEDS ORDERED: LOSARTAN POTASSIUM 50 MG TAB PO STA (07:08)
[2020-01-27] MEDS ORDERED: METOPROLOL TARTRATE 50 MG TAB PO STA (07:08)
[2020-01-27] MEDS ORDERED: CLOPIDOGREL BISULFATE 75 MG TAB PO ONE (07:08)
--- NOTE | 2020-01-27 07:08 | Emergency Department Note ---
History of Present Illness General Chief Complaint: Chest Pain Stated Complaint: CHEST PAIN/SHORT OF BREATH Time Seen by Provider: 01/27/20 06:34 Source: patient Mode of arrival: EMS Limitations: no limitations History of Present Illness Provider Complaint: chest pain Maximum Pain Intensity: 0 This is a 79-year-old female who presents to the ED with a chief complaint of chest pain. She reports it as a retrosternal pressure that radiates into her back that awoke her from sleep around 230 this morning associated with shortness of breath. She has not had recent exertional symptoms. She did not take her morning medications yet. She has not had any fevers or recent illness. She states that she had a similar episode last week. She does have history of carotid artery surgery in the past and peripheral artery disease. EMS provided 2 nitroglycerin sublingual and aspirin with resolution of her symptoms. Home Medications Home Medications Medication Instructions Recorded Confirmed Type latanoprost 0.005 % eye drops 1 drops OP DAILY ml 01/14/19 12/04/19 History solifenacin 5 mg tablet 5 mg PO DAILY #90 tab 02/10/19 12/04/19 Rx metoprolol tartrate 50 mg tablet See Rx Instructions PO .COMPLEX 03/26/19 Rx #135 tab clopidogrel 75 mg tablet 75 mg PO DAILY #90 tab 08/07/19 12/04/19 Rx losartan 100 mg tablet 100 mg PO DAILY #90 tab 08/19/19 12/04/19 Rx rosuvastatin 10 mg tablet 10 mg PO DAILY #90 tab 11/04/19 12/04/19 Rx indapamide 1.25 mg tablet 1.25 mg PO DAILY #90 tab 01/23/20 Rx Allergies Allergy/AdvReac Type Severity Reaction Status Date / Time atorvastatin Allergy Verified 09/05/19 08:49 codeine AdvReac Mild HALLUCINATI Verified 09/05/19 08:49 ONS Past Med/Surg History Medical History Left carotid artery stenosis Stenosis of right internal carotid artery Stroke TIA (transient ischemic attack) Surgical History History of bilateral carotid endarterectomy (2017) History of cataract surgery History of colonoscopy (2013) History of vaginal hysterectomy History of vaginal surgery Anterior colporrhaphy, repair of cystocele Family History Other Family history of deafness or hearing loss Hyperlipidemia Hypertension Social History Smoking Status: Never smoker Hx Alcohol Use: Yes marital status: Current Living Situation: Spouse current occupational status: retired Feels Safe at Home: Yes Review of Systems A total of 10 systems reviewed and were otherwise negative Physical Exam Vital Signs Vital Signs - 24 hr 01/27/20 06:16 01/27/20 06:22 01/27/20 06:45 Temperature 36.8 C Temperature Source Oral Pulse Rate 91 H Pulse Rate [Bilateral Apical] 77 Respiratory Rate 20 20 Respiratory Effort / Characteristics Non-Labored Non-Labored Respiratory Depth Normal Normal Blood Pressure 186/86 H Blood Pressure [Right Arm] 174/66 H Blood Pressure Mean 119 Blood Pressure Mean [Right Arm] 102 Pulse Oximetry 96 96 97 Oxygen Delivery Method Room Air Room Air Room Air Sepsis Recent Fever Within 48 Hours No Sepsis New/Unexplained Change in Mental Status N/A Sepsis Action Taken by Nursing No Action Required CONSTITUTIONAL/VITAL SIGNS: Reviewed / noted above. GENERAL: Non-toxic in appearance. INTEGUMENTARY: Warm, dry, and [place]. HEAD: Normocephalic. EYES: without scleral icterus or trauma. ENT/OROPHARYNX: clear and moist. LYMPHADENOPATHY/NECK: Is supple without lymphadenopathy or meningismus. RESPIRATORY: Lungs clear and equal. CARDIOVASCULAR: Regular rate and rhythm. GI/ABDOMEN: Soft and nontender. No organomegaly or pulsatile mass. No rebound or guarding. Normal bowel sounds. EXTREMITIES: Warm and well perfused. BACK: No CVA tenderness. NEUROLOGICAL: Intact without focal deficits. PSYCHIATRIC: normal affect. MUSCULOSKELETAL: Normally developed with good muscle tone. TRIAGE NURSING DOCUMENTATION REVIEWED. Medical Decision Making Differential Diagnosis The differential that was considered includes acute myocardial infarction, acute coronary syndrome, myocarditis, pericarditis, pericardial effusions /tamponade, esophageal perforation, thoracic aortic dissection, pulmonary embolism, pneumo marcia, pneumothorax, pancreatitis, shingles, acute cholecystitis, perforated abdominal viscus. Medical Records Attestation: I reviewed the patient's medical records. Home Medications Current Medication List: was personally reviewed by me Laboratory Data Attestation: I reviewed the patient's lab results. Result diagrams: 01/27/20 05:44 01/27/20 05:44 Labs: Lab Results 01/27/20 01/27/20 01/27/20 Range/Units 05:44 05:44 05:44 WBC 5.78 (4.8-10.8) K/uL RBC 3.73 L (4.2-5.4) M/uL Hgb 13.3 (12.0-16.0) g/dL Hct 37.6 (37-47) % MCV 100.8 H (80-100) fL MCH 35.7 H (25-34) pg MCHC 35.4 (32-36) g/dL RDW Std Deviation 45.0 (36.4-46.3) fL RDW Coeff of Denis 12.4 (11.5-14.5) % Plt Count 239 (130-400) K/uL MPV 9.6 (7.4-10.4) fL PT Cancelled INR Cancelled APTT Cancelled PTT Ratio Cancelled Sodium 130 L (136-145) mmol/L Potassium 4.0 (3.5-5.1) mmol/L Chloride 94 L (98-107) mmol/L Carbon Dioxide 29 (21-32) mmol/L Anion Gap 7.0 (3-11) BUN 12 (7-18) mg/dl Creatinine 0.88 (0.6-1.2) mg/dl Est Cr Clr Drug Dosing 56.0 ml/min Est GFR ( Amer) 73.5 Est GFR (Non-Af Amer) 63.4 BUN/Creatinine Ratio 13.6 (10-20) Glucose 140 H (70-99) mg/dl Calcium 9.2 (8.5-10.1) mg/dl Total Bilirubin 0.5 (0.2-1) mg/dl AST 23 (15-37) U/L ALT 22 (12-78) U/L Alkaline Phosphatase 141 H (45-117) U/L Troponin I < 0.015 (0-0.045) ng/ml Total Protein 8.3 H (6.4-8.2) gm/dl Albumin 3.9 (3.4-5.0) gm/dl Globulin 4.4 H (2.5-4.0) gm/dl Albumin/Globulin Ratio 0.9 (0.9-2) Specimen Hemolysis Imaging Data Chest x-ray: Radiologist's impression: XR chest 1V portable CLINICAL HISTORY: Atypical chest pain COMPARISON STUDY: December 07, 2016 FINDINGS: The cardiac and mediastinal contours remain stable. There is no focal pulmonary consolidation. There is no failure. There are no pleural effusions. Slight increased density left lung base is felt to be related to technical factors.[ IMPRESSION: No active disease in the chest ECG Data Attestation: I personally reviewed and interpreted this ECG as follows: Indication: chest pain Rate (beats per minute): 82 Rhythm: normal sinus Findings: no PVC and no ST elevation Prescription Drug Monitoring Prescription Drug Findings: XR chest 1V portable CLINICAL HISTORY: Atypical chest pain COMPARISON STUDY: December 07, 2016 FINDINGS: The cardiac and mediastinal contours remain stable. There is no focal pulmonary consolidation. There is no failure. There are no pleural effusions. Slight increased density left lung base is felt to be related to technical factors.[ IMPRESSION: No active disease in the chest MDM Narrative The patient presents with a chief complaint of chest pain that resolved after 2 nitroglycerin aspirin the provided by EMS. Her chest x-ray was clear. Her troponin is normal. Her EKG did not show any acute ischemic changes. Her exam was unremarkable. She was hypertensive. She was ordered her morning medication as she has not yet taken them. She will be seen by the hospitalist for further inpatient evaluation and care. Impression & Plan Retrosternal chest pain Discharge Plan Visit Data Chief Complaint: Chest Pain Stated Complaint: CHEST PAIN/SHORT OF BREATH ED Provider: David Morton Problem: Retrosternal chest pain Forms Stand Alone Forms: My [facility] [place] Prescriptions Prescriptions: No Action metoprolol tartrate 50 mg tablet See Rx Instructions PO .COMPLEX Qty: 135 RF: 3 clopidogrel 75 mg tablet 75 mg PO DAILY Qty: 90 RF: 3 losartan 100 mg tablet 100 mg PO DAILY Qty: 90 RF: 3 rosuvastatin 10 mg tablet 10 mg PO DAILY Qty: 90 RF: 3 indapamide 1.25 mg tablet 1.25 mg PO DAILY Qty: 90 RF: 3 latanoprost 0.005 % drops 1 drops OP DAILY RF: 0 solifenacin 5 mg tablet 5 mg PO DAILY Qty: 90 RF: 3 Referrals Referrals: Stanislav Velez MD [Primary Care Provider] -
[2020-01-27 07:24] LABS: ALC (manual) 3.64 K/uL (1.2-3.4); ANC (manual) 1.28 K/uL (1.4-6.5); Eosinophils # (manual) 0.36 K/uL (0-0.5); Eosinophils % (manual) 6.2 %; Large Granular Lymph # (manua 2.56 K/uL; Large Granular Lymph % (manual) 44.3 %; Lymphocytes # (manual) 1.08 K/uL (1.2-3.4); Lymphocytes % (manual) 18.6 %; Monocytes # (manual) 0.51 K/uL (0.11-0.59); Monocytes % (manual) 8.8 %; Neutrophils # (manual) 1.28 K/uL (1.4-6.5); Neutrophils % (manual) 22.1 %; RBC Morphology Unremarkable
[2020-01-27 07:43] LABS: Partial Thromboplastin Ratio 0.9; Prothrombin Time 10.6 Seconds (9.0-12.0)
[2020-01-27] MEDS ORDERED: LATANOPROST 0.005% OP SOLN 2.5 ML BTL OP SCH (09:37)
[2020-01-27] MEDS ORDERED: ACETAMINOPHEN 325 MG TAB PO PRN (09:37)
[2020-01-27] MEDS ORDERED: ONDANSETRON INJ 2 MG/ML 2 ML VIAL IV PRN (09:37)
[2020-01-27] MEDS ORDERED: NITROGLYCERIN SL 0.4 MG/TAB TAB SL PRN (09:37)
[2020-01-27] MEDS: CLOPIDOGREL BISULFATE 75 MG TAB PO SCH (09:50)
[2020-01-27] MEDS: ROSUVASTATIN CALCIUM 10 MG TAB PO SCH (10:18)
[2020-01-27] MEDS: INDAPAMIDE 1.25 MG TAB PO SCH (10:18)
--- NOTE | 2020-01-27 13:07 | History & Physical Report ---
Date of Service January 27, 2020 Assessment & Plan (1) Retrosternal chest pain: pain occurring at rest, started at 2am on 01/26 negative troponin initially, 2nd and 3rd troponin also negative EKG with NSR, no ischemic changes CXR normal discussed stress test with patient, she agrees plan for dobutamine stress echo tomorrow with [facility] cardiology (2) Hypertension: BP markedly elevated despite her Losartan and metoprolol this morning add Norvasc 5mg qAM with first dose this afternoon (3) PAD (peripheral artery disease): known h/o carotid atheroslcerosis on Plavix chronically (4) Dyslipidemia: continue Crestor Admission and Anticipated Discharge Date Admission Date: January 27, 2020 History of Present Illness Primary Care Provider: Stanislav Velez MD 79 yo female with history of stroke and carotid artery stenosis s/p bilateral CEA, presented to the ED this morning with complaints of chest pressure that started in the morning around 2am. The pain was substernal and constant, rated as 6 out of 10. It was relieved with baby aspirin and a dose of Nitro SL in the ambulance. She reports having this pain once last week. 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 The pain did not radiate to her shoulder or jaw, no diaphoresis, no dyspnea, no nausea. Her bloo d pressure was markedly elevated in the ED, she says this is unusual. Initial EKG did not show ischemia and troponin was negative. CXR was normal. Admission requested for chest pain. Patient says she had a dobutamine stress echo three years ago that was negative, she had this as pre-operative clearance prior to her carotid endarterectomy. She has no personal history of coronary disease. No significant family history, both parents lived into their 90's with no serious problems. She has a sister who has hypertension but no heart disease. Discussed getting a stress test tomorrow, she agrees with tentative plan. Allergies Allergy/AdvReac Type Severity Reaction Status Date / Time atorvastatin Allergy Verified 01/27/20 07:22 codeine AdvReac Mild HALLUCINATI Verified 01/27/20 07:22 ONS Home Medications Home Medications Medication Instructions Recorded Confirmed Type latanoprost 0.005 % eye drops 1 drops OP HS ml 01/14/19 01/27/20 History metoprolol tartrate 50 mg tablet See Rx Instructions PO .COMPLEX 03/26/19 01/27/20 Rx #135 tab clopidogrel 75 mg PO QAM 01/27/20 01/27/20 History coQ10 (ubiquinol) 400 mg PO QAM 01/27/20 01/27/20 History indapamide 1.25 mg PO QAM 01/27/20 01/27/20 History losartan 100 mg PO QAM 01/27/20 01/27/20 History multivitamin 1 tab PO QAM 01/27/20 01/27/20 History rosuvastatin 10 mg PO HS 01/27/20 01/27/20 History solifenacin 5 mg PO QAM 01/27/20 01/27/20 History timolol maleate 1 drp OPB QAM 01/27/20 01/27/20 History Past Med/Surg History Medical History Left carotid artery stenosis Stenosis of right internal carotid artery Stroke TIA (transient ischemic attack) Surgical History History of bilateral carotid endarterectomy (2017) History of cataract surgery History of colonoscopy (2013) History of vaginal hysterectomy History of vaginal surgery Anterior colporrhaphy, repair of cystocele Family History Other Family history of deafness or hearing loss Hyperlipidemia Hypertension Social History Smoking Status: Former smoker Smoking End Date: 1989; Second Hand Exposure: No; Do You Dip or Chew Tobacco: No; Tobacco Cessation Education Requested by Patient: No Hx Alcohol Use: Yes Hx Substance Use: No Preferred Language: Swazi Communication Ability: Effective Business Project Manager Required: No Beliefs That Will Affect Care: None marital status: Current Living Situation: Spouse current occupational status: retired Other Information That Helps Us Care for You: No Feels Safe at Home: Yes Safety Concerns: Feels Safe At This Time Assistive Devices: None Review of Systems Review of Systems: All systems reviewed & are unremarkable except as noted in Subjective Physical Exam Constitutional: WD/WN, vitals as above Eyes: PERRL, conjunctivae normal, anicteric sclerae ENMT: external ear and nose normal, oropharynx normal Neck: trachea midline, no thyromegaly Respiratory: normal respiratory effort, lungs clear to auscultation Cardiovascular: RRR, no murmur, no edema Gastrointestinal (Abdomen): normal bowel sounds, soft, nontender, no hepatosplenomegaly Musculoskeletal: no cyanosis or clubbing, extremities motor strength 5/5 Skin: no rashes, warm and dry Neurologic: patellar DTR's 2+ bilat, sensation intact and PERRL, EOMI, accommodation nl, no face palsy, no dysarthria Psychiatric: A+Ox3, euthymic affect Lymphatic: no cervical or axillary lymphadenopathy Results & Data Results & Data ([facility]) Vital Signs (Past 12 Hours) Vital Signs Temp Pulse Pulse Resp BP BP Pulse Ox 01/27/20 11:57 37.0 C 65 18 194/78 H 97 01/27/20 11:10 36.8 C 70 18 190/88 H 96 01/27/20 11:00 36.8 C 70 18 190/88 H 96 01/27/20 10:30 69 21 196/81 H 96 01/27/20 10:18 71 19 209/84 H 96 01/27/20 10:00 71 21 202/99 H 96 01/27/20 09:47 70 23 97 01/27/20 09:46 36.8 C 71 71 19 223/88 H 223/88 H 97 01/27/20 09:44 72 21 01/27/20 08:30 66 24 182/83 H 96 01/27/20 08:00 66 24 154/80 H 96 01/27/20 07:32 71 24 140/78 96 01/27/20 07:14 76 22 168/87 H 96 01/27/20 06:45 75 77 22 174/66 H 174/66 H 97 01/27/20 06:22 96 01/27/20 06:16 36.8 C 91 H 20 186/86 H 96 01/27/20 06:15 91 H 22 186/86 H 96 Pulse Ox 01/27/20 11:57 01/27/20 11:10 01/27/20 11:00 01/27/20 10:30 01/27/20 10:18 01/27/20 10:00 01/27/20 09:47 01/27/20 09:46 97 01/27/20 09:44 01/27/20 08:30 01/27/20 08:00 01/27/20 07:32 01/27/20 07:14 01/27/20 06:45 01/27/20 06:22 01/27/20 06:16 01/27/20 06:15 Laboratory Results Laboratory Results - last 24 hr 01/27/20 01/27/20 01/27/20 05:44 05:44 05:44 WBC 5.78 RBC 3.73 L Hgb 13.3 Hct 37.6 MCV 100.8 H MCH 35.7 H MCHC 35.4 RDW Std Deviation 45.0 RDW Coeff of Denis 12.4 Plt Count 239 MPV 9.6 Neutrophils % (Manual) 22.1 Lymphocytes % (Manual) 18.6 Monocytes % (Manual) 8.8 Eosinophils % (Manual) 6.2 Neutrophils # (Manual) 1.28 L Total Absolute Neuts 1.28 L Lymphocytes # (Manual) 1.08 L Total Abs Lymphocytes 3.64 H Monocytes # (Manual) 0.51 Eosinophils # (Manual) 0.36 Large Granular Lymphs 44.3 # Lrg Granular Lymphs 2.56 RBC Morphology Unremarkable PT Cancelled INR Cancelled APTT Cancelled PTT Ratio Cancelled Sodium 130 L Potassium 4.0 Chloride 94 L Carbon Dioxide 29 Anion Gap 7.0 BUN 12 Creatinine 0.88 Est Cr Clr Drug Dosing 56.0 Est GFR ( Amer) 73.5 Est GFR (Non-Af Amer) 63.4 BUN/Creatinine Ratio 13.6 Glucose 140 H Calcium 9.2 Total Bilirubin 0.5 AST 23 ALT 22 Alkaline Phosphatase 141 H Troponin I < 0.015 Total Protein 8.3 H Albumin 3.9 Globulin 4.4 H Albumin/Globulin Ratio 0.9 Specimen Hemolysis 01/27/20 01/27/20 01/27/20 07:15 11:48 17:39 WBC RBC Hgb Hct MCV MCH MCHC RDW Std Deviation RDW Coeff of Denis Plt Count MPV Neutrophils % (Manual) Lymphocytes % (Manual) Monocytes % (Manual) Eosinophils % (Manual) Neutrophils # (Manual) Total Absolute Neuts Lymphocytes # (Manual) Total Abs Lymphocytes Monocytes # (Manual) Eosinophils # (Manual) Large Granular Lymphs # Lrg Granular Lymphs RBC Morphology PT 10.6 INR 1.0 APTT 25.0 PTT Ratio 0.9 Sodium Potassium Chloride Carbon Dioxide Anion Gap BUN Creatinine Est Cr Clr Drug Dosing Est GFR ( Amer) Est GFR (Non-Af Amer) BUN/Creatinine Ratio Glucose Calcium Total Bilirubin AST ALT Alkaline Phosphatase Troponin I < 0.015 < 0.015 Total Protein Albumin Globulin Albumin/Globulin Ratio Specimen Hemolysis Diagnostic Findings XR chest 1V portable CLINICAL HISTORY: Atypical chest pain COMPARISON STUDY: December 07, 2016 FINDINGS: The cardiac and mediastinal contours remain stable. There is no focal pulmonary consolidation. There is no failure. There are no pleural effusions. Slight increased density left lung base is felt to be related to technical factors.[ IMPRESSION: No active disease in the chest. ECG Indication: chest pain Rhythm: normal sinus Findings: no ST depression, no T-wave inversion and no ST elevation Code Status & VTE Plan VTE Prophylaxis Plan VTE Prophylaxis will be ordered: Yes PG Care Time/CCT Total # of Minutes Spent Total Time Spent with Patient: Total time spent is greater than 50% in coordination of care (as documented) at patient's floor/unit and/or counseling patient: Coding Level of Care Code 65041 OBS Care - Level 3 Diagnoses Retrosternal chest pain R07.2 Hypertension I10 PAD (peripheral artery disease) I73.9 Dyslipidemia E78.5
--- NOTE | 2020-01-27 14:10 | Electrocardiogram Report ---
Test Reason : Blood Pressure : / mmHG Vent. Rate : 082 BPM Atrial Rate : 082 BPM P-R Int : 124 ms QRS Dur : 082 ms QT Int : 350 ms P-R-T Axes : 046 075 050 degrees QTc Int : 408 ms Normal sinus rhythm Normal ECG When compared with ECG of 25-JUN-2017 15:28, No significant change was found Confirmed by Heber Martinez ([id number]) on 01/27/2020 2:09:37 PM Referred By: REFERRED SELF Confirmed By:Heber Martinez
[2020-01-27] MEDS: HEPARIN SOD 5,000 UNIT/0.5 ML VIAL SQ SCH ×2 (14:22→21:17)
[2020-01-27] MEDS ORDERED: AMLODIPINE BESYLATE 5 MG TAB PO SCH (14:45)
[2020-01-27] MEDS ORDERED: ALBUT/IPRATROP 3MG/0.5MG NEB 3 ML VIAL NEB PRN (20:19)
[2020-01-27] MEDS: LATANOPROST 0.005% OP SOLN 2.5 ML BTL OP SCH (21:18)
[2020-01-28] MEDS: HEPARIN SOD 5,000 UNIT/0.5 ML VIAL SQ SCH ×3 (06:20→21:37)
[2020-01-28] MEDS: ROSUVASTATIN CALCIUM 10 MG TAB PO SCH (08:07)
[2020-01-28] MEDS: CLOPIDOGREL BISULFATE 75 MG TAB PO SCH (08:07)
[2020-01-28] MEDS: INDAPAMIDE 1.25 MG TAB PO SCH (08:07)
[2020-01-28] MEDS: AMLODIPINE BESYLATE 5 MG TAB PO SCH (08:14)
[2020-01-28] MEDS ORDERED: METOPROLOL TARTRATE 50 MG TAB PO SCH (09:00)
[2020-01-28] MEDS: LOSARTAN POTASSIUM 50 MG TAB PO SCH (11:31)
[2020-01-28] MEDS: TIMOLOL MALEATE 0.5% OP SOLN 5 ML BTL OPB SCH (11:31)
--- NOTE | 2020-01-28 12:26 | XCELERA ---
[id number] \\[id number]
[2020-01-28] MEDS ORDERED: DOBUTamine HCL 12.5 MG/ML 20 ML VIAL IV ONE (13:02)
[2020-01-28] MEDS ORDERED: ATROPINE SULFATE 0.1 MG/ML 10ML SYR IV ONE (13:02)
[2020-01-28] MEDS ORDERED: METOPROLOL TARTRATE 1 MG/ML VIAL IV ONE (13:02)
--- NOTE | 2020-01-28 13:18 | Electrocardiogram Report ---
Test Reason : Blood Pressure : / mmHG Vent. Rate : 085 BPM Atrial Rate : 085 BPM P-R Int : 132 ms QRS Dur : 080 ms QT Int : 366 ms P-R-T Axes : 079 073 063 degrees QTc Int : 435 ms Normal sinus rhythm Nonspecific ST abnormality Abnormal ECG When compared with ECG of 27-JAN-2020 06:13, No significant change was found Confirmed by Heber Martinez ([id number]) on 01/28/2020 1:18:04 PM Referred By: REFERRED SELF Confirmed By:Heber Martinez
--- NOTE | 2020-01-28 14:48 | XCELERA ---
[id number] \\[id number]
--- NOTE | 2020-01-28 17:26 | Hospitalist Progress Note ---
Date of Service January 28, 2020 Assessment & Plan (1) Retrosternal chest pain: pain occurring at rest, started at 2am on 01/26 negative troponin initially, 2nd and 3rd troponin also negative EKG with NSR, no ischemic changes CXR normal dobutamine stress echo on 01/27 negative for ischemia at 90% max HR LV is hyperdynamic, EF 70%, no wall motion changes no further chest pain today (2) Hypertension: would classify her as having hypertensive urgency today all her systolic pressures in 190's for past 24 hours increased norvasc to 10mg daily continue Losartan 100mg increase lopressor to 50mg BID NPO after midnight, plan for renal artery doppler tomorrow (3) PAD (peripheral artery disease): known h/o carotid atheroslcerosis on Plavix chronically (4) Dyslipidemia: continue Crestor Admission and Anticipated Discharge Date Admission Date: January 27, 2020 Subjective BP elevated this morning and all last night, 190's systolic no chest pain today, no nausea, no dyspnea BP improved to 150's systolic this afternoon after she got Norvasc 10mg, metoprolol 50mg and Losartan 100mg dobutamine stress echo showed no signs of ischemia at 90% max heart rate echo with EF of 70%, hyperdynamic, no wall motion changes, normal valves patient very concerned about her BP in the 190's systolic she says in the office her BP is typically 140's systolic she is nervous, discussed working up BP in 190's with renal artery duplex, she agreed Review of Systems Review of Systems: All systems reviewed & are unremarkable except as noted in Subjective Constitutional: no fever, no fatigue and no weakness Respiratory: no cough and no dyspnea Cardiovascular: no chest pain, no palpitations, no syncope and no edema Gastrointestinal: no abdominal pain, no nausea, no vomiting, no constipation and no diarrhea/loose stools Psychiatric: + anxiety Physical Exam Constitutional: WD/WN, vitals as above Eyes: PERRL, conjunctivae normal, anicteric sclerae ENMT: external ear and nose normal, oropharynx normal Neck: trachea midline, no thyromegaly Respiratory: normal respiratory effort, lungs clear to auscultation Cardiovascular: RRR, no murmur, no edema Gastrointestinal (Abdomen): normal bowel sounds, soft, nontender, no hepatosplenomegaly Musculoskeletal: no cyanosis or clubbing, extremities motor strength 5/5 Skin: no rashes, warm and dry Neurologic: patellar DTR's 2+ bilat, sensation intact and PERRL, EOMI, accommodation nl, no face palsy, no dysarthria Psychiatric: A+Ox3, euthymic affect Lymphatic: no cervical or axillary lymphadenopathy Results & Data Results & Data ([facility]) Vital Signs (Past 12 Hours) Vital Signs Temp Pulse Pulse Resp BP Pulse Ox 01/28/20 15:44 36.6 C 75 18 158/79 H 99 01/28/20 12:37 154/77 H 01/28/20 11:21 36.8 C 68 18 152/74 H 95 01/28/20 08:00 75 01/28/20 07:47 36.6 C 92 H 18 193/79 H 95 Medications Administered Current Inpatient Medications Acetaminophen (Acetaminophen 325 Mg Tab) 650 mg PO Q4H PRN PRN Reason: Pain or Fever Stop: 02/26/20 09:36 Albuterol (Albut/Ipratrop 3mg/0.5mg Neb 3 Ml Vial) 3 ml NEB Q4R PRN PRN Reason: shortness of breath Stop: 02/26/20 22:59 Amlodipine Besylate (Amlodipine Besylate 5 Mg Tab) 10 mg PO QAM TERRY Stop: 02/27/20 08:59 Last Admin: 01/28/20 08:14 Dose: 10 mg Documented by: Clopidogrel Bisulfate (Clopidogrel Bisulfate 75 Mg Tab) 75 mg PO DAILY TERRY Stop: 02/26/20 09:36 Last Admin: 01/28/20 08:07 Dose: 75 mg Documented by: Heparin Sodium (Porcine) (Heparin Sod 5,000 Unit/0.5 Ml Vial) 7,500 units SQ Q8 TERRY Stop: 02/26/20 13:59 Last Admin: 01/28/20 21:37 Dose: Not Given Documented by: Indapamide (Indapamide 1.25 Mg Tab) 1.25 mg PO DAILY TERRY Stop: 02/26/20 09:36 Last Admin: 01/28/20 08:07 Dose: 1.25 mg Documented by: Latanoprost (Latanoprost 0.005% Op Soln 2.5 Ml Btl) 1 drops OP HS TERRY Stop: 02/26/20 20:59 Last Admin: 01/28/20 20:24 Dose: 1 drops Documented by: Losartan Potassium (Losartan Potassium 50 Mg Tab) 100 mg PO QAM [facility] Stop: 02/27/20 10:29 Last Admin: 01/28/20 11:31 Dose: 100 mg Documented by: Metoprolol Tartrate (Metoprolol Tartrate 50 Mg Tab) 50 mg PO BID [facility] Stop: 02/27/20 20:59 Last Admin: 01/28/20 20:22 Dose: 50 mg Documented by: Nitroglycerin (Nitroglycerin Sl 0.4 Mg/Tab Tab) 0.4 mg SL UD PRN PRN Reason: Chest Pain Stop: 02/26/20 09:36 Ondansetron HCl (Ondansetron Inj 2 Mg/Ml 2 Ml Vial) 4 mg IV Q6H PRN PRN Reason: Nausea Stop: 02/26/20 09:36 Rosuvastatin Calcium (Rosuvastatin Calcium 10 Mg Tab) 10 mg PO DAILY [facility] Stop: 02/26/20 09:36 Last Admin: 01/28/20 08:07 Dose: 10 mg Documented by: Timolol Maleate (Timolol Maleate 0.5% Op Soln 5 Ml Btl) 1 drops OPB QAM [facility] Stop: 02/27/20 10:29 Last Admin: 01/28/20 11:31 Dose: 1 drops Documented by: PG Care Time/CCT Total # of Minutes Spent Total Time Spent with Patient: Total time spent is greater than 50% in coordination of care (as documented) at patient's floor/unit and/or counseling patient: Coding Level of Care Code 79983 Subseq Obs Care Lvl 2 Diagnoses Retrosternal chest pain R07.2 Hypertension I10 PAD (peripheral artery disease) I73.9 Dyslipidemia E78.5
[2020-01-28] MEDS: METOPROLOL TARTRATE 50 MG TAB PO SCH (20:22)
[2020-01-28] MEDS: LATANOPROST 0.005% OP SOLN 2.5 ML BTL OP SCH (20:24)
[2020-01-29] MEDS: HEPARIN SOD 5,000 UNIT/0.5 ML VIAL SQ SCH (05:57)
[2020-01-29] MEDS: AMLODIPINE BESYLATE 5 MG TAB PO SCH (08:33)
[2020-01-29] MEDS: LOSARTAN POTASSIUM 50 MG TAB PO SCH (08:33)
[2020-01-29] MEDS: ROSUVASTATIN CALCIUM 10 MG TAB PO SCH (08:33)
[2020-01-29] MEDS: METOPROLOL TARTRATE 50 MG TAB PO SCH (08:33)
[2020-01-29] MEDS: INDAPAMIDE 1.25 MG TAB PO SCH (08:33)
[2020-01-29] MEDS: TIMOLOL MALEATE 0.5% OP SOLN 5 ML BTL OPB SCH (08:34)
[2020-01-29] MEDS: CLOPIDOGREL BISULFATE 75 MG TAB PO SCH (08:34)
--- NOTE | 2020-01-29 08:35 | Ultrasound Report ---
US duplex renal artery HISTORY: 79 years-old Female Hypertensive urgency COMPARISON: None TECHNIQUE: Multiple real-time sonographic images of the bilateral renal vascular structures were obta ined assessing grayscale appearance, color and spectral flow FINDINGS: Study is limited secondary to patient body habitus and obscuring bowel gas. Normal plug flow is noted within the aorta, peak systolic velocity measuring up to 103 cm/s. The right kidney measures 9.2 cm in length. Patent right renal vein. Proximal right renal artery is s uboptimally visualized, peak systolic velocity measuring up to 93.5 cm/s. Peak systolic velocities me asure up to 118.3 cm/s within the distal right renal artery. The left kidney measures 9.8 cm in length. Patent left renal vein. Proximal left renal artery is subo ptimally visualized, peak systolic velocity measuring up to 9.5 cm/s. Peak systolic velocities measur e up to 109.2 cm/s within the mid left renal artery. IMPRESSION: No evidence of renal artery stenosis. ACT 112: Negative or not required by law. The above report was generated using voice recognition software. It may contain grammatical, syntax o r spelling errors. Electronically signed by: Young Gaitan M.D. 01/29/2020 8:34 AM
--- NOTE | 2020-01-29 09:59 | Discharge Summary ---
Date of Service January 29, 2020 Admission HPI Per Admitting Provider 79 yo female with history of stroke and carotid artery stenosis s/p bilateral CEA, presented to the ED this morning with complaints of chest pressure that started in the morning around 2am. The pain was substernal and constant, rated as 6 out of 10. It was relieved with baby aspirin and a dose of Nitro SL in the ambulance. She reports having this pain once last week. 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 The pain did not radiate to her shoulder or jaw, no diaphoresis, no dyspnea, no nausea. Her blood pressure was markedly elevated in the ED, she says this is unusual. Initial EKG did not show ischemia and troponin was negative. CXR was normal. Admission requested for chest pain. Patient says she had a dobutamine stress echo three years ago that was negative, she had this as pre-operative clearance prior to her carotid endarterectomy. She has no personal history of coronary disease. No significant family history, both parents lived into their 90's with no serious problems. She has a sister who has hypertension but no heart disease. Discussed getting a stress test to [facility], she agrees with tentative plan. Discharge Exam Constitutional WD/WN, vitals as above Eyes PERRL, conjunctivae normal, anicteric sclerae ENMT external ear and nose normal, oropharynx normal Neck trachea midline, no thyromegaly Respiratory normal respiratory effort, lungs clear to auscultation Cardiovascular RRR, no murmur, no edema Gastrointestinal (Abdomen) normal bowel sounds, soft, nontender, no hepatosplenomegaly Musculoskeletal no cyanosis or clubbing, extremities motor strength 5/5 Skin no rashes, warm and dry Neurologic patellar DTR's 2+ bilat, sensation intact and PERRL, EOMI, accommodation nl, no face palsy, no dysarthria Psychiatric A+Ox3, euthymic affect Lymphatic no cervical or axillary lymphadenopathy Discharge Data Allergies Allergy/AdvReac Type Severity Reaction Status Date / Time atorvastatin Allergy Verified 01/27/20 07:22 codeine AdvReac Mild HALLUCINATI Verified 01/27/20 07:22 ONS Consultations 01/27/20 07:12 ED Decision to Admit Stat Ordered Studies 01/29/20 08:00 duplex renal artery Routine Hospital Course (1) Retrosternal chest pain: pain occurring at rest, started at 2am on 01/26 negative troponin initially, 2nd and 3rd troponin also negative EKG with NSR, no ischemic changes CXR normal dobutamine stress echo on 01/27 negative for ischemia at 90% max HR LV is hyperdynamic, EF 70%, no wall motion changes no further chest pain today (2) Hypertension: would classify her as having hypertensive urgency today all her systolic pressures in 190's for past 24 hours increased norvasc to 10mg daily continue Losartan 100mg increase lopressor to 50mg BID NPO after midnight, plan for renal artery doppler tomorrow (3) PAD (peripheral artery disease): known h/o carotid atheroslcerosis on Plavix chronically (4) Dyslipidemia: continue Crestor Discharge Plan Discharge Items Patient Disposition: Home - Self-Care Reason For Visit: CHEST PAIN, HYPERTENSIVE URGENCY Discharge Diagnosis: Chest pain Hypertensive urgency Condition on Discharge: Good Activity: Resume your previous activity Non-emergency contact: Primary Care Provider Call non-emergency contact if: you have any medication questions Follow-up/Referrals: Stanislav Velez MD [Primary Care Provider] - (one week for blood pressure check) Diet: Heart Healthy and Low Sodium (2gm) Addtl Attending Provider Instructions: Medications: note the changes/additions below - METOPROLOL: changed to 50mg both morning and evening, this is change from 50mg in morning and 25mg in evening - NORVASC: 10mg every morning, new blood pressure medication added due to pressures in 190's systolic Chest pain: no evidence of heart attack or ischemia, heart enzymes and EKG normal resting echocardiogram was normal, EF of 70%, no valve disease, no wall motion abnormalities no ischemic changes at 90% max heart rate Hypertensive urgency: pressures markedly elevated on admission, greater than 200 systolic this could have been cause of chest pain pressures improved with addition of Norvasc and increasing Lopressor to 50mg twice a day please follow a low sodium diet, less than 2gm a day please follow up with Dr. Velez in one week for blood pressure check due to your history of vascular disease, renal artery doppler was checked - NEGATIVE for renal artery stenosis Pending Studies at Discharge: No Stand-Alone Forms: My [place], Smoking Cessation Medications and DC Order Prescriptions: New amlodipine 10 mg tablet 10 mg PO QAM 30 Days Qty: 30 RF: 3 metoprolol tartrate 50 mg Tablet 50 mg PO BID 30 Days Qty: 60 RF: 3 Continued latanoprost 0.005 % drops 1 drops OP HS RF: 0 multivitamin Tablet 1 tab PO QAM RF: 0 timolol maleate 0.5 % drops 1 drp OPB QAM RF: 0 coQ10 (ubiquinol) 200 mg Capsule 400 mg PO QAM RF: 0 clopidogrel 75 mg tablet 75 mg PO QAM RF: 0 indapamide 1.25 mg tablet 1.25 mg PO QAM RF: 0 losartan 100 mg tablet 100 mg PO QAM RF: 0 rosuvastatin 10 mg tablet 10 mg PO HS RF: 0 solifenacin 5 mg tablet 5 mg PO QAM RF: 0 Discontinued metoprolol tartrate 50 mg tablet See Rx Instructions PO .COMPLEX Qty: 135 RF: 3 Discharge Orders: Discharge Order (Routine); Ordered 01/29/20 Ordered By: Dino Cueto Admission Data Admit Date/Time: 01/28/20 23:09 Attending Provider: Dino Cueto Admit Provider: Dino Cueto Primary Care Provider: Stanislav Velez Other Providers: Dino Cueto Coding Diagnoses Retrosternal chest pain R07.2 Hypertension I10 PAD (peripheral artery disease) I73.9 Dyslipidemia E78.5
--- NOTE | 2020-01-29 23:40 | Electrocardiogram Report ---
Test Reason : Blood Pressure : / mmHG Vent. Rate : 066 BPM Atrial Rate : 066 BPM P-R Int : 146 ms QRS Dur : 076 ms QT Int : 400 ms P-R-T Axes : 047 064 059 degrees QTc Int : 419 ms Normal sinus rhythm Normal ECG When compared with ECG of 28-JAN-2020 07:06, No significant change was found Confirmed by Eris Fernandez ([id number]) on 01/29/2020 11:40:19 PM Referred By: REFERRED SELF Confirmed By:Eris Fernandez
== END 2020-01-29 10:44 | disposition home or self-care (01) ==
LOC: EDINP 06:08 → ED 06:08 → 2N 10:28

== ENCOUNTER 2022-07-07 10:28 | Inpatient (IN) ==
[2022-07-07] MEDS ORDERED: SODIUM CHLORIDE 0.9% 500 ML IV ONE (11:11)
[2022-07-07] MEDS ORDERED: NITROGLYCERIN SL 0.4 MG/TAB TAB SL STA (12:00)
[2022-07-07] MEDS ORDERED: methylPREDNISolone 125 MG/2 ML VIAL IV STA (12:00)
[2022-07-07] MEDS ORDERED: guaiFENesin 600 MG TABCR PO STA (12:00)
[2022-07-07] MEDS ORDERED: ALBUT/IPRATROP 3MG/0.5MG NEB 3 ML VIAL NEB STA (12:00)
--- NOTE | 2022-07-07 12:27 | XRay Report ---
XR chest 1V portable HISTORY: Chest pain, nonspecific COMPARISON: Chest 01/27/2020. FINDINGS: There are low lung volumes. No pneumothorax. No pleural effusions. The heart remains border line enlarged. There are calcifications within the aortic knob. Mild chronic interstitial thickening persists. No new focal lung consolidations to suggest a pneumonia. No evidence for pulmonary edema. IMPRESSION: No significant change compared to the prior study. No acute process. ACT 112: Negative or not required by law. Electronically signed by: Jose Shaikh M.D. 07/07/2022 12:26 PM
[2022-07-07 12:35] LABS: Basophils # (auto) 0.04 K/uL (0-0.2); Basophils % (auto) 1.4 %; Eosinophils # (auto) 0.02 K/uL (0-0.50); Eosinophils % (auto) 0.7 %; Hematocrit (blood only) 37.9 % (37.0-47.0); Hemoglobin 13.6 g/dl (12.0-16.0); Immature Granulocytes # (auto) 0.01 K/uL (0.01-0.20); Immature Granulocytes % (auto) 0.4 %; Lymphocytes # (auto) 0.92 K/uL (1.2-3.4); Lymphocytes % (auto) 32.7 %; Mean Corpuscular Hgb Conc 35.9 g/dL (32.0-36.0); Mean Corpuscular Volume 100.3 fL (80.0-100.0); Mean Platelet Volume 10.1 fL (9.4-12.4); Monocytes # (auto) 0.51 K/uL (0.11-0.59); Monocytes % (auto) 18.1 %; Neutrophils # (auto) 1.31 K/uL (1.40-6.50); Neutrophils % (auto) 46.7 %; Platelet Count 192 K/uL (130-400); RDW Coefficient of Variation 11.6 % (11.5-14.5); RDW Standard Deviation 42.2 fL (36.4-46.3); Red Blood Count 3.78 M/uL (4.20-5.40); White Blood Count 2.81 K/ul (4.8-10.8)
[2022-07-07 12:41] LABS: Albumin Globulin Ratio 1.2 (0.9-2); Albumin Level 4.5 gm/dl (3.4-5.0); BUN Creatinine Ratio 15.2 (10-20); Bilirubin,Total 1.1 mg/dl (0.2-1.0); Creatinine Clr Calc Pharmacy 40.6 ml/min; Est GFR (African American) 62.4 ml/min; Est GFR (Non-African American) 53.8 ml/min; Globulin 3.8 gm/dl (2.5-4.0); Magnesium 1.3 mg/dl (1.7-2.4); Potassium 3.7 mmol/L (3.5-5.1); Total Protein 8.3 gm/dl (6.0-8.3)
[2022-07-07 12:45] LABS: Troponin I High Sensitivity 25.3 pg/ml (0-14)
[2022-07-07 12:59] LABS: Prothrombin Time 10.9 Seconds (9.0-12.0)
[2022-07-07 13:06] LABS: Adenovirus PCR Not Detected (NotDetected); Bordetella parapertussis PCR Not Detected (NotDetected); Bordetella pertussis PCR Not Detected (NotDetected); Chlamydia pneumoniae PCR Not Detected (NotDetected); Coronavirus 229E PCR Not Detected (NotDetected); Coronavirus CoV-2 (COVID19)PCR Not Detected (NotDetected); Coronavirus HKU1 PCR Not Detected (NotDetected); Coronavirus NL63 PCR Not Detected (NotDetected); Coronavirus OC43PCR Not Detected (NotDetected); Human Metapneumovirus PCR Not Detected (NotDetected); Influenza A PCR Not Detected (NotDetected); Influenza B PCR Not Detected (NotDetected); Mycoplasma pneumoniae PCR Not Detected (NotDetected); Parainfluenza Virus 1 PCR Not Detected (NotDetected); Parainfluenza Virus 2 PCR Not Detected (NotDetected); Parainfluenza Virus 4 PCR Not Detected (NotDetected); Respiratory Syncytial VirusPCR Not Detected (NotDetected); Rhinovirus/Enterovirus PCR Not Detected (NotDetected)
[2022-07-07 14:13] LABS: Parainfluenza Virus 3 PCR DETECTED (NotDetected)
[2022-07-07] MEDS ORDERED: OPTIRAY 320 500ml IV ONE (14:52)
[2022-07-07] MEDS: MAGNESIUM SULFATE / D5W 1 GM/100 ML BAG IV SCH ×2 (15:00→16:00)
--- NOTE | 2022-07-07 15:33 | CT Scan Report ---
CHEST CTA for PULMONARY ARTERIES CT DOSE: 553.89 mGy.cm HISTORY: Shortness of breath, elevated troponin, r/o PE TECHNIQUE: Multiaxial CT images of the chest were performed following the intravenous administration of contrast to evaluate the pulmonary arteries. Maximal intensity projection images were also obtaine d. A dose lowering technique was utilized adhering to the principles of ALARA. COMPARISON STUDY: Chest CTA 06/24/2017. FINDINGS: Limited views of the upper abdomen demonstrate normal liver, spleen, and adrenal glands. No rmal thyroid gland. Postoperative changes noted within the left breast. No pleural or pericardial eff usions. The heart is borderline enlarged. Normal esophagus. No mediastinal or hilar lymphadenopathy. Moderate calcified plaque within the coronary arteries. Normal caliber thoracic aorta with no evidenc e for a dissection. Mild to moderate calcified plaque within the thoracic aorta and proximal great ve ssels. 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 This is similar to the prior study. No filling defects within the pulmonary arteries to suggest a pulmonary embolus. No suspicious lytic or blastic osseous lesions. No pneumothorax. Diffuse bronchial wall thickening h as progressed. Mild emphysema. Scattered subcentimeter pulmonary nodules are not significantly change d. There is a punctate calcified granuloma within the right middle lobe. Patchy groundglass and nodul ar airspace opacities within the base of the right lower lobe are new from the prior study. This favo rs a pneumonia and could be due to prior aspiration. The dominant nodular density within the right lo wer lobe measures 5 mm. This is best seen image 83. IMPRESSION: 1. No evidence for a pulmonary embolus. 2. Patchy groundglass and nodular airspace opacities within the base of the right lower lobe consiste nt with a pneumonia. This could be due to prior aspiration. 3. A dominant nodular density within the base of the right lower lobe measures 5 mm[address] follow-up recommended to ensure resolution of the suspected inflammatory/infectious change. 4. Bronchial wall thickening which has progressed. 5. Mild emphysema. 6. Additional findings as described above. ACT 112: Negative or not required by law. Electronically signed by: Jose Shaikh M.D. 07/07/2022 3:31 PM
[2022-07-07] MEDS ORDERED: FUROSEMIDE INJ 20 MG/2 ML VIAL IV ONE (16:53)
--- NOTE | 2022-07-07 17:21 | History & Physical Report ---
Date of Service July 07, 2022 Assessment & Plan (1) Acute respiratory failure with hypoxia: Plan: -Admit to the PCU on tele -The patient is currently afebrile, hemodynamically stable, and stable on 3L NC -At this time her acute hypoxic resp failure is likely due to viral pneumonia from acute Parainfluenza virus infection -CT of the chest with PE protocol was negative for PE, did show a possible RLL consolidation but her procal is negative, will hold abx for now -S/P 125 mg IV Solu-medrol, hour long Duon-Neb, 500 mL NSS bolus, and 20 mg IV lasix in the ED -Will hold additional systemic steroids at this time, continue DuoNebs QID, incentive spirometer, flutter therapy, prn O2 to keep SpO2 at or above 95%, scheduled robitussin -BL SCD's and Sub-Q Lovenox for DVT PPX -AM CBC, BMP, Mag (2) Hypertensive urgency: Plan: -Initial found to be hypertensive with BP of 229/133 in the ED -BP now stable S/P 20 mg IV lasix and 0.4 mg SL Nitro -Likely due to her acute respiratory failure and stress from her acute illness -Continue home Losartan, indapamide, and metoprolol -Continue to monitor on tele (3) Elevated troponin: Plan: -Initial high sen trop elevated at 25.3 -Patient is asymptomatic and without acute ST segment or T-wave changes -Likely due to demand from hypoxic and HTN -Repeat 2 hour trop in process -Continue to monitor on tele for now (4) Hypomagnesemia: Plan: -Noted to be 1.3 in the ED -Likely due to poor oral intake over the past week and continued diuretic use -S/P 2 bags 1gm IV mag in the ED -Monitor AM mag and replete as needed (5) PAD (peripheral artery disease): Plan: -Continue plavix (6) Hypertension: Plan: -See hypertensive urgency (7) Hyperlipidemia: Plan: -Conitnue statin (8) Malignant neoplasm of lower-inner quadrant of left breast in female, estrogen receptor positive: Plan: -Continue letrozole Plan The patient was discussed with Dr. Asher at the time of the admission History of Present Illness Chief Complaint: Hypoxia Primary Care Provider: Stanislav Velez MD Marlin is an 82 year old female with a PMH significant for TN, HLD, glaucoma, carotid stenosis/peripheral vascular disease s/p bilateral carotid endarterectomies, DJD, GI reflux, hyperglycemia, anemia, and breast CA s/p left lumpectomy w/sentinel lymph node biopsy and XRT now on treatment w/Letrozole x10 yrs who was sent to the [facility] ED today, from her PCP's office due to acute hypoxic respiratory failure. Per chart review, the patient presented to her PCP's office earlier today for approximately 5 days of URI symptoms and DOYLE. While at the office her SpO2 was noted to be in the low 80's on RA, she is not typically on oxygen therapy. In the ED today she was found to be afebrile hypertensive at 229/133, and hypoxic in the mid 80's on RA. Labs were remarkable for a WBC of 2.81, stable Hgb and platelets, neutrophil count of 1.31 with lymphocyte count of 0.92, stable Cr, glucose of 123, chloride of 95, sodium of 134, mag of 1.3, total bili of 1.1 otherwise LFT's WNL, BNP of 372 with initial high sen trop of 25.3, procal < 0.05, and full respiratory biofire positive for parainfluenza virus. Chest xray was read as "No significant change compared to the prior study. No acute process.". CTA of the chest with PE protocol was read as "1. No evidence for a pulmonary embolus. 2. Patchy groundglass and nodular airspace opacities within the base of the right lower lobe consistent with a pneumonia. This could be due to prior aspiration. 3. A dominant nodular density within the base of the right lower lobe measures 5 mm[address] follow- up recommended to ensure resolution of the suspected inflammatory/infectious change. 4. Bronchial wall thickening which has progressed. 5. Mild emphysema. 6. Additional findings as described above." Prior to admission the patient was given a 500 mL NSS bolus, 20 mg IV lasix and 0.4 mg SL nitroglycerine, 2 bags of IV magnesium, a DuoNeb treatment, and 125 mg IV Solu-Medrol. At the time of the exam the patient was resting in bed in no acute distress, currently saturating at 97% on 3L NC with her sitting bedside, history was obtained from both. They state that she started to develop URI symptoms at the beginning of the week. She has been having congestion, runny nose, a productive cough with yellow sputum, and DOYLE. She denies recent fevers or chills and had one episode of non-bloody emesis 2 days ago. When asked, she states that she did not choke or aspirate on her vomit. Her symptoms continued to progress so she went to her PCP today. She confirmed that she took all of her am medications prior to her arrival in the ED. At her PCP's office she was found to be hypoxic and was sent to the ED. She and her state that she has a long history of HTN, she states that it can rise quickly for unknown reasons. They did confirm that she was having significant SOB and respiratory distress when she was hypertensive earlier in the ED. She currently feels much improved prior to arrival in the ED. She denies any recent chest pain, abd pain, nausea/vomiting today, dysuria, hematuria, diarrhea, melena, LE swelling and recent trauma. We discussed code status, she wishes to be a full code and for her to make medical decisions for her if she cannot make them herself. Please refer to Dr. Asher's attestation for any changes to the treatment plan Allergies Allergy/AdvReac Type Severity Reaction Status Date / Time atorvastatin Allergy Unknown MUSCLE Verified 07/07/22 17:09 ACHES codeine AdvReac Mild HALLUCINATI Verified 07/07/22 17:09 ONS Home Medications Medication Instructions Recorded Confirmed Type latanoprost 0.005 % eye drops 1 drops ophthalmic (eye) HS 01/14/19 07/07/22 History multivitamin 1 tab PO QAM 01/27/20 07/07/22 History timolol maleate 0.5 % eye drops 1 drp OPB QAM 01/27/20 07/07/22 History ascorbic acid (vitamin C) 500 mg 1,000 mg PO DAILY 05/04/20 07/07/22 History capsule cholecalciferol (vitamin D3) 25 25 mcg PO DAILY 05/04/20 07/07/22 History mcg (1,000 unit) capsule letrozole 2.5 mg tablet 2.5 mg PO DAILY 10/12/20 07/07/22 History calcium carbonate 600 mg-vitamin 1 tab PO DAILY 06/10/21 07/07/22 History D3 20 mcg (800 unit) chewable tablet (Caltrate 600 plus D) clopidogrel 75 mg tablet 75 mg PO QAM #90 tabs 08/08/21 07/07/22 Rx losartan 100 mg tablet 100 mg PO QAM #90 tabs 08/08/21 07/07/22 Rx rosuvastatin 10 mg tablet 10 mg PO HS #90 tabs 10/28/21 07/07/22 Rx metoprolol tartrate 50 mg tablet 50 mg PO BID #180 tabs 02/23/22 07/07/22 Rx mecobalamin (vitamin B12) 1,000 1,000 mcg PO .3 times/week 03/23/22 07/07/22 History mcg chewable tablet indapamide 2.5 mg tablet 2.5 mg PO QAM #90 tabs 05/11/22 07/07/22 Rx Past Med/Surg History Medical History Arthritis Carotid artery stenosis s/p bilateral CEA (2017) GERD (gastroesophageal reflux disease) Glaucoma Hyperglycemia Hyperlipidemia Hypertension ADMITTED [facility] FOR CARDIAC WORK UP-01/2020 DUE TO ELEVATED BP- HTN MED ADJUSTMENTS MADE Hyponatremia Mammogram abnormal PAD (peripheral artery disease) Retrosternal chest pain Admitted to [facility] 01/27/20-01/29/20- had full work up that was negative Stress incontinence in female Stroke CVA per vascular note in 2018- found to have bilateral carotid stenosis - subsequently had bilateral CEAs Subclavian artery stenosis, left Surgical History History of bilateral carotid endarterectomy (2017) Dr. Zepeda History of cataract surgery (2011) History of colonoscopy (2013) History of left breast biopsy (02/04/20) History of vaginal hysterectomy (1984) History of vaginal surgery (1994) Anterior colporrhaphy, repair of cystocele S/P lumpectomy, left breast (03/17/20) Left Breast Lumpectomy with Maricel Senior Sales Director Localization and Left [place] Lymph Node Biopsy Dr. Dickinson 03/17/2020 Family History Mother , Passed age 93 of fall No problems noted. Father , Passed age 94 of natural causes No problems noted. Aunt Breast cancer, Onset Age: 70 Maternal Aunt - Alive and well Sister No problems noted. Son No problems noted. Daughter No problems noted. Daughter No problems noted. 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 [employer] How many Children do You have: 3 Other Information That Helps Us Care for You: No Feels Safe at Home: Yes Safety Concerns: Feels Safe At This Time Childhood Exposure to Second-Hand Smoke: Yes caffeine: Yes (2 cups of coffee/day ) during the past year weight has: remained stable Dental Care, Regularly: No Assistive Devices: Denture - Upper and Glasses Review of Systems Review of Systems: Physical Exam: General: In no acute distress, stated age, well-nourished, non-toxic lashawn earing HEENT: Normocephalic, atraumatic, no scleral icterus, pupils around round, symmetrical, and reactive to light, NC currently in place, moist mucus membranes, trachea midline, no thyromegaly Chest/Pulm: No respiratory distress, symmetrical chest expansion, expiratory wheezing and rhonchi noted throughout Cardiac: RRR, systolic murmur noted Abdomen: Negative for ascites and bruising, normoactive bowel sounds, soft, non-tender to palpation throughout Musculoskeletal: Symmetrical and without signs of acute trauma, upper and lower extremities with full ROM, no atrophy, spasticity, or flaccidity Extremities: Radial, dorsalis pedis, and posterior tibial pulses are intact and symmetrical, no edema noted in the BL LE's Skin: Warm, dry, no rashes , lesions, or scars noted Neuro: Alert and oriented to person, place, month, year, and president, no focal defects, CN II-XII tested and intact, no tremors noted Psych: No acute distress, calm and cooperative during the exam Results & Data Results & Data Vital Signs (Past 12 Hours) Vital Signs Temp Pulse Pulse Resp BP BP Pulse Ox 07/07/22 16:31 85 15 96 07/07/22 16:31 165/91 H 07/07/22 16:30 89 21 96 07/07/22 16:00 93 H 16 95 07/07/22 16:00 175/106 H 07/07/22 15:30 90 24 95 07/07/22 15:30 156/71 H 07/07/22 15:00 115 H 24 85 L 07/07/22 14:31 96 H 20 92 07/07/22 14:31 137/105 H 07/07/22 14:30 97 H 18 92 07/07/22 14:01 77 21 91 07/07/22 14:01 189/104 H 07/07/22 14:00 73 24 92 07/07/22 13:30 89 30 H 90 07/07/22 13:30 179/124 H 07/07/22 13:08 88 26 H 91 07/07/22 12:31 81 27 H 93 07/07/22 12:31 184/97 H 07/07/22 12:30 81 28 H 93 07/07/22 12:01 81 26 H 95 07/07/22 12:01 197/117 H 07/07/22 12:00 81 28 H 95 07/07/22 11:55 82 34 H 95 07/07/22 11:55 229/133 H 07/07/22 11:39 202/106 H 07/07/22 11:39 90 33 H 92 07/07/22 11:37 90 22 90 07/07/22 16:42 90 07/07/22 13:00 89 25 H 179/124 H 92 07/07/22 14:31 85 L 07/07/22 13:21 97 07/07/22 11:11 88 L 07/07/22 12:31 73 07/07/22 12:25 75 20 197/117 H 94 07/07/22 10:33 36.5 C 76 18 160/101 H 92 O2 Del Method O2 Flow Rate 07/07/22 16:31 07/07/22 16:31 07/07/22 16:30 07/07/22 16:00 07/07/22 16:00 07/07/22 15:30 07/07/22 15:30 07/07/22 15:00 07/07/22 14:31 07/07/22 14:31 07/07/22 14:30 07/07/22 14:01 07/07/22 14:01 07/07/22 14:00 07/07/22 13:30 07/07/22 13:30 07/07/22 13:08 07/07/22 12:31 07/07/22 12:31 07/07/22 12:30 07/07/22 12:01 07/07/22 12:01 07/07/22 12:00 07/07/22 11:55 07/07/22 11:55 07/07/22 11:39 07/07/22 11:39 07/07/22 11:37 07/07/22 16:42 07/07/22 13:00 Nasal Cannula 2 07/07/22 14:31 Nasal Cannula 0 07/07/22 13:21 Room Air 2 07/07/22 11:11 Room Air 07/07/22 12:31 07/07/22 12:25 Nasal Cannula 2 07/07/22 10:33 Room Air Laboratory Results Abnormal lab results 07/07/22 07/07/22 07/07/22 Range/Units 11:34 11:36 11:36 WBC 2.81 L (4.8-10.8) K/ul RBC 3.78 L (4.20-5.40) M/uL MCV 100.3 H (80.0-100.0) fL MCH 36.0 H (25.0-34.0) pg Neut # (Auto) 1.31 L (1.40-6.50) K/uL Lymph # (Auto) 0.92 L (1.2-3.4) K/uL Sodium 134 L (136-145) mmol/L Chloride 95 L (98-107) mmol/L Glucose 123 H (70-99(Fasting)) mg/dl Magnesium 1.3 L (1.7-2.4) mg/dl Total Bilirubin 1.1 H (0.2-1.0) mg/dl Troponin I High Sens 25.3 H (0-14) pg/ml B-Natriuretic Peptide (0-100) pg/ml Parainfluenza 3 (PCR) DETECTED A* (NotDetected) 07/07/22 Range/Units 15:58 WBC (4.8-10.8) K/ul RBC (4.20-5.40) M/uL MCV (80.0-100.0) fL MCH (25.0-34.0) pg Neut # (Auto) (1.40-6.50) K/uL Lymph # (Auto) (1.2-3.4) K/uL Sodium (136-145) mmol/L Chloride (98-107) mmol/L Glucose (70-99(Fasting)) mg/dl Magnesium (1.7-2.4) mg/dl Total Bilirubin (0.2-1.0) mg/dl Troponin I High Sens (0-14) pg/ml B-Natriuretic Peptide 372 H (0-100) pg/ml Parainfluenza 3 (PCR) (NotDetected) Diagnostic Findings Chest X-Ray 07/07/22 11:11 XR chest 1V portable HISTORY: Chest pain, nonspecific COMPARISON: Chest 01/27/2020. FINDINGS: There are low lung volumes. No pneumothorax. No pleural effusions. The heart remains borderline enlarged. There are calcifications within the aortic knob. Mild chronic interstitial thickening persists. No new focal lung consolidations to suggest a pneumonia. No evidence for pulmonary edema. IMPRESSION: No significant change compared to the prior study. No acute process. ACT 112: Negative or not required by law. Electronically signed by: Jose Shaikh M.D. 07/07/2022 12:26 PM Chest CTA 07/07/22 14:26 CHEST CTA for PULMONARY ARTERIES CT DOSE: 553.89 mGy.cm HISTORY: Shortness of breath, elevated troponin, r/o PE TECHNIQUE: Multiaxial CT images of the chest were performed following the intravenous administration of contrast to evaluate the pulmonary arteries. Maximal intensity projection images were also obtained. A dose lowering technique was utilized adhering to the principles of ALARA. COMPARISON STUDY: Chest CTA 06/24/2017. FINDINGS: Limited views of the upper abdomen demonstrate normal liver, spleen, and adrenal glands. Normal thyroid gland. Postoperative changes noted within the left breast. No pleural or pericardial effusions. The heart is borderline enlarged. Normal esophagus. No mediastinal or hilar lymphadenopathy. Moderate calcified plaque within the coronary arteries. Normal caliber thoracic aorta with no evidence for a dissection. Mild to moderate calcified plaque within the thoracic aorta and proximal great vessels. 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 This is similar to the prior study. No filling defects within the pulmonary arteries to suggest a pulmonary embolus. No suspicious lytic or blastic osseous lesions. No pneumothorax. Diffuse bronchial wall thickening has progressed. Mild emphysema. Scattered subcentimeter pulmonary nodules are not significantly changed. There is a punctate calcified granuloma within the right middle lobe. Patchy groundglass and nodular airspace opacities within the base of the right lower lobe are new from the prior study. This favors a pneumonia and could be due to prior aspira tion. The dominant nodular density within the right lower lobe measures 5 mm. This is best seen image 83. IMPRESSION: 1. No evidence for a pulmonary embolus. 2. Patchy groundglass and nodular airspace opacities within the base of the right lower lobe consistent with a pneumonia. This could be due to prior aspiration. 3. A dominant nodular density within the base of the right lower lobe measures 5 mm[address] follow-up recommended to ensure resolution of the suspected inflammatory/infectious change. 4. Bronchial wall thickening which has progressed. 5. Mild emphysema. 6. Additional findings as described above. ACT 112: Negative or not required by law. Electronically signed by: Jose Shaikh M.D. 07/07/2022 3:31 PM ECG Additional Comments: Poor data quality, interpretation may be adversely affected Normal sinus rhythm Nonspecific ST abnormality Abnormal ECG When compared with ECG of 29-JAN-2020 06:49, No significant change was found Code Status & VTE Plan Code Status FUll code VTE Prophylaxis Plan VTE Prophylaxis will be ordered: Yes Supervising Physician Co-Signing Physician Notes I personally saw and examined the patient. I verified all zaragoza points and agree with David Myers PA-C with the following exceptions and/or additions: 82 year old female presents with URI symptoms since the beginning of the week with nasal congestion and shortness of breath. O/E A&Ox3, HS RRR, no murmurs, Chest mild end expiratory wheeze, no crackles, Abdo SNT, trace pedal edema A/P Parainfluenza virus - procalcitonin negative, antibiotics deferred. Given subjective improvement with nebulizers will continue this. Aim O2 sats > 90%. PG Care Time/CCT Total # of Minutes Spent Total Time Spent with Patient: Total time spent is greater than 50% in coordination of care (as documented) at patient's floor/unit and/or counseling patient: Coding [place] [address] INT INP/OBS CARE 2/55MIN Patient Type Established Medical Decision Making Moderate Complexity Diagnoses Acute respiratory failure with hypoxia J96.01 Hypertensive urgency I16.0 Elevated troponin R77.8 Hypomagnesemia E83.42 PAD (peripheral artery disease) I73.9 Hypertension I10 Hyperlipidemia E78.5 Malignant neoplasm of lower-inner quadrant of left breast in female, estrogen receptor positive C50.312; Z17.0
[2022-07-07] MEDS ORDERED: COUGH DROP (SUGAR FREE) LOZ 24 LOZ/1 BOX BUCCAL PRN (17:38)
[2022-07-07] MEDS ORDERED: guaiFENesin SUGAR FREE 200 MG/10 ML UDC PO SCH (17:40)
[2022-07-07] MEDS ORDERED: ALBUTEROL 0.5% NEB SOLN 2.5 MG/0.5 ML VIAL NEB PRN (17:43)
[2022-07-07] MEDS: ALBUT/IPRATROP 3MG/0.5MG NEB 3 ML VIAL NEB SCH (19:03)
--- NOTE | 2022-07-07 20:15 | Electrocardiogram Report ---
Test Reason : Blood Pressure : / mmHG Vent. Rate : 087 BPM Atrial Rate : 087 BPM P-R Int : 156 ms QRS Dur : 070 ms QT Int : 352 ms P-R-T Axes : 086 073 054 degrees QTc Int : 423 ms Poor data quality, interpretation may be adversely affected Normal sinus rhythm Nonspecific ST abnormality Abnormal ECG When compared with ECG of 29-JAN-2020 06:49, No significant change was found Confirmed by Duke Billy ([id number]) on 07/07/2022 8:15:34 PM Referred By: REFERRED SELF Confirmed By:Freddy Billy
[2022-07-07] MEDS: METOPROLOL TARTRATE 50 MG TAB PO SCH (20:59)
[2022-07-07] MEDS: ROSUVASTATIN CALCIUM 10 MG TAB PO SCH (20:59)
--- NOTE | 2022-07-07 20:59 | Emergency Department Note ---
Impression & Plan Acute respiratory failure with hypoxia, Hypertensive urgency, Hypomagnesemia, Elevated troponin, Pneumonia due to parainfluenza virus ED Provider Note NAME: KIMBERLEE DUVAL AGE: 82 SEX: F ARRIVES VIA: Walk-In INFORMANT: Patient ED PROVIDER(S): Robert Motta MD CHIEF COMPLAINT: Cough, sob. PLAN: Disposition: Admit MEDICAL DECISION MAKING: The patient is a pleasant 82-year-old woman with a past medical history of hypertension, hyperlipidemia, PAD who presents emergency department via walk-in accompanied by her for evaluation of cough, congestion for the past several days which she reports worsened today. She was seen by her PCPs office and referred to the emergency department for evaluation. She denies nausea, vomiting, diarrhea or urinary symptoms. On arrival the patient is uncomfortable but no acute distress, afebrile with blood pressure initially 200/100s with respiratory rate in the mid 30s with O2 saturation down to 88% on room air with increased work of breathing. On exam the patient has wheezes and subtle rhonchi of bilateral lung alford. She appears mildly hypervolemic. EKG without overt acute ischemia. CXR negative for acute cardiopulmonary process. WBC 2.8K nonspecific. H/H and platelets within normal limits. Chemistry without metabolic acidosis. Magnesium 1.3 with repletion initiated. LFTs without significant abnormality. Initial high-sensitivity troponin 24 and BNP 372, nonspecific and suspected to be related to hypertensive urgency/emergency and hypervolemia. Lipase not elevated. Procalcitonin is undetectable. Respiratory viral panel was performed and was positive for parainfluenza 3. Given the patient's elevated troponin CT of the chest was performed. CTA of the chest was negative for PE. However note is made of patchy groundglass airspace opacities in the right lower lobe that is suggestive of pneumonia. Additional bronchial wall thickening is noted which has progressed. Incidental pulmonary nodules also seen. Upon reevaluation patient did report feeling improved following treatment with Solu-Medrol, guaifenesin, DuoNeb for component of bronchospasm in addition to sublingual nitroglycerin for afterload reduction for suspected component of hypertensive urgency/emergency. She was additionally given IV Lasix for diuresis. Patient and agree with plan for admission for further management of acute respiratory failure with hypoxia. Case was discussed with David Myers [facility] PAC with Dr. Asher [facility] hospitalist, who will evaluate the patient for admission. Further management per admitting team. Triage Nursing notes reviewed and agree them. Prior/outside medical records reviewed Vital Signs: reviewed Differential diagnosis: Reactive airway disease, pneumonia, pneumothorax, COPD, CHF, infections, cardiac ischemia, pulmonary embolism, musculoskeletal, gastrointestinal, as well as other pathologies. ER treatment provided: See below. Diagnostics interpreted by me: ECG: Normal sinus rhythm, 87 bpm, no ectopy, nonspecific ST abnormality, no overt ST ovation or depression, QTc 43, QRS 70. Cardiac Monitoring: An order for continuous cardiac monitoring was placed and demonstrated Normal sinus rhythm, 87 bpm, no ectopy. Laboratory studies: See below Imaging studies: See below Consultation(s): Case was discussed with David Myers [facility] with Dr. Asher [facility] hospitalist, who will evaluate the patient for admission. HPI: The patient is a pleasant 82-year-old woman with a past medical history of hypertension, hyperlipidemia, PAD who presents emergency department via walk-in accompanied by her for evaluation of cough, congestion for the past several days which she reports worsened today. She was seen by her PCPs office and referred to the emergency department for evaluation. She denies nausea, vomiting, diarrhea or urinary symptoms. ROS: See above HPI for pertinent positives & negatives. A total of 10 systems reviewed and were otherwise negative. VITALS:See Below PHYSICAL EXAMINATION: GENERAL: Awake, alert, uncomfortable-appearing, in no acute distress HENT: Normocephalic, atraumatic. Oropharynx unremarkable. EYES: Normal conjunctiva. Sclera non-icteric. NECK: Supple. No nuchal rigidity. FROM. No JVD. RESPIRATORY: Wheezes and subtle rhonchi of bilateral lung alford with mild increased WOB. CARDIAC: Regular rate, normal rhythm. Extremities warm and well perfused. Pulses equal. ABDOMEN: Soft, non-distended. No tenderness to palpation. No rebound or guarding. No masses. RECTAL: Deferred. MUSCULOSKELETAL: Chest examination reveals no tenderness. The back is symmetrical on inspection without obvious abnormality. There is no CVA tenderness to palpation. No joint edema. LOWER EXTREMITIES: Calves are equal size bilaterally and non-tender. Scant BLE edema. No discoloration. NEURO: Normal sensorium. No sensory or motor deficits noted. SKIN: No rash or jaundice noted. ED COURSE: Critical Care: I have personally spent greater than 45 minutes of critical care time in the direct management of this patient. This includes bedside care, interpretation of diagnostic studies, and testing, discussion with consultants, patient, and family members, and other required patient management activities. This 45 minutes is in excess of all separately billable procedures. Robert Motta MD Past Med/Surg History Medical History Arthritis Carotid artery stenosis s/p bilateral CEA (2017) GERD (gastroesophageal reflux disease) Glaucoma Hyperglycemia Hyperlipidemia Hypertension ADMITTED [facility] FOR CARDIAC WORK UP-01/2020 DUE TO ELEVATED BP- HTN MED ADJUSTMENTS MADE Hyponatremia Mammogram abnormal PAD (peripheral artery disease) Retrosternal chest pain Admitted to [facility] 01/27/20-01/29/20- had full work up that was negative Stress incontinence in female Stroke CVA per vascular note in 2018- found to have bilateral carotid stenosis - subsequently had bilateral CEAs Subclavian artery stenosis, left Surgical History History of bilateral carotid endarterectomy (2017) Dr. Zepeda History of cataract surgery (2011) History of colonoscopy (2013) History of left breast biopsy (02/04/20) History of vaginal hysterectomy (1984) History of vaginal surgery (1994) Anterior colporrhaphy, repair of cystocele S/P lumpectomy, left breast (03/17/20) Left Breast Lumpectomy with Maricel Floral Decorator Localization and Left [place] Lymph Node Biopsy Dr. Dickinson 03/17/2020 Family History Mother , Passed age 93 of fall No problems noted. Father , Passed age 94 of natural causes No problems noted. Aunt Breast cancer, Onset Age: 70 Maternal Aunt - Alive and well Sister No problems noted. Son No problems noted. Daughter No problems noted. Daughter No problems noted. 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 [employer] How many Children do You have: 3 Other Information That Helps Us Care for You: No Feels Safe at Home: Yes Safety Concerns: Feels Safe At This Time Childhood Exposure to Second-Hand Smoke: Yes caffeine: Yes (2 cups of coffee/day ) during the past year weight has: remained stable Dental Care, Regularly: No Assistive Devices: Denture - Upper and Glasses Allergies Allergies Allergy/AdvReac Type Severity Reaction Status Date / Time atorvastatin Allergy Unknown MUSCLE Verified 07/07/22 17:09 ACHES codeine AdvReac Mild HALLUCINATI Verified 07/07/22 17:09 ONS Home Meds Home Medications Medication Instructions Recorded Confirmed latanoprost 0.005 % eye drops 1 drops ophthalmic (eye) HS 01/14/19 07/07/22 multivitamin 1 tab PO QAM 01/27/20 07/07/22 timolol maleate 0.5 % eye drops 1 drp OPB QAM 01/27/20 07/07/22 ascorbic acid (vitamin C) 500 mg 1,000 mg PO DAILY 05/04/20 07/07/22 capsule cholecalciferol (vitamin D3) 25 25 mcg PO DAILY 05/04/20 07/07/22 mcg (1,000 unit) capsule letrozole 2.5 mg tablet 2.5 mg PO DAILY 10/12/20 07/07/22 calcium carbonate 600 mg-vitamin 1 tab PO DAILY 06/10/21 07/07/22 D3 20 mcg (800 unit) chewable tablet (Caltrate 600 plus D) mecobalamin (vitamin B12) 1,000 1,000 mcg PO .3 times/week 03/23/22 07/07/22 mcg chewable tablet Previous Rx's Medication Instructions Recorded clopidogrel 75 mg tablet 75 mg PO QAM #90 tabs 08/08/21 losartan 100 mg tablet 100 mg PO QAM #90 tabs 08/08/21 rosuvastatin 10 mg tablet 10 mg PO HS #90 tabs 10/28/21 metoprolol tartrate 50 mg tablet 50 mg PO BID #180 tabs 02/23/22 indapamide 2.5 mg tablet 2.5 mg PO QAM #90 tabs 05/11/22 Results & Data (ED) Vital Signs Vital Signs - 24 hr 07/07/22 10:33 07/07/22 12:25 07/07/22 12:31 Temperature 36.5 C Temperature Source Temporal Artery Scan Pulse Rate 76 73 Pulse Rate [Apical] 75 Pulse Rate from SpO2 Sensor Pulse Rhythm [Apical] Regular Respiratory Rate 18 20 Respiratory Effort / Characteristics Non-Labored Spontaneous Non-Labored Spontaneous Respiratory Depth Normal Respiratory Pattern Regular Blood Pressure 160/101 H Blood Pressure [Left Arm] 197/117 H Blood Pressure Mean 120 Blood Pressure Mean [Left Arm] 143 Blood Pressure Position Sitting Blood Pressure Position [Left Arm] Semi-fowlers Pulse Oximetry 92 94 Oxygen Delivery Method Room Air Nasal Cannula Oxygen Flow Rate 2 Sepsis Recent Fever Within 48 Hours No Sepsis New/Unexplained Change in Mental Status No Sepsis Action Taken by Nursing No Action Required Oxygen Flow Rate - Titration Pulse Oximetry Post Tiitration 07/07/22 11:11 07/07/22 13:21 07/07/22 14:31 Temperature Temperature Source Pulse Rate Pulse Rate [Apical] Pulse Rate from SpO2 Sensor Pulse Rhythm [Apical] Respiratory Rate Respiratory Effort / Characteristics Respiratory Depth Respiratory Pattern Blood Pressure Blood Pressure [Left Arm] Blood Pressure Mean Blood Pressure Mean [Left Arm] Blood Pressure Position Blood Pressure Position [Left Arm] Pulse Oximetry 88 L 97 85 L Oxygen Delivery Method Room Air Room Air Nasal Cannula Oxygen Flow Rate 2 0 Sepsis Recent Fever Within 48 Hours Sepsis New/Unexplained Change in Mental Status Sepsis Action Taken by Nursing Oxygen Flow Rate - Titration 0 2 Pulse Oximetry Post Tiitration 93 92 07/07/22 13:00 07/07/22 16:42 07/07/22 11:37 Temperature Temperature Source Pulse Rate 90 90 Pulse Rate [Apical] 89 Pulse Rate from SpO2 Sensor 90 Pulse Rhythm [Apical] Respiratory Rate 25 H 22 Respiratory Effort / Characteristics Non-Labored Spontaneous Respiratory Depth Normal Respiratory Pattern Blood Pressure Blood Pressure [Left Arm] 179/124 H Blood Pressure Mean Blood Pressure Mean [Left Arm] 142 Blood Pressure Position Blood Pressure Position [Left Arm] Pulse Oximetry 92 90 Oxygen Delivery Method Nasal Cannula Oxygen Flow Rate 2 Sepsis Recent Fever Within 48 Hours Sepsis New/Unexplained Change in Mental Status Sepsis Action Taken by Nursing Oxygen Flow Rate - Titration Pulse Oximetry Post Tiitration 07/07/22 11:39 07/07/22 11:39 07/07/22 11:55 Temperature Temperature Source Pulse Rate 90 Pulse Rate [Apical] Pulse Rate from SpO2 Sensor 89 Pulse Rhythm [Apical] Respiratory Rate 33 H Respiratory Effort / Characteristics Respiratory Depth Respiratory Pattern Blood Pressure 202/106 H 229/133 H Blood Pressure [Left Arm] Blood Pressure Mean 138 165 Blood Pressure Mean [Left Arm] Blood Pressure Position Blood Pressure Position [Left Arm] Pulse Oximetry 92 Oxygen Delivery Method Oxygen Flow Rate Sepsis Recent Fever Within 48 Hours Sepsis New/Unexplained Change in Mental Status Sepsis Action Taken by Nursing Oxygen Flow Rate - Titration Pulse Oximetry Post Tiitration 07/07/22 11:55 07/07/22 12:00 07/07/22 12:01 Temperature Temperature Source Pulse Rate 82 81 Pulse Rate [Apical] Pulse Rate from SpO2 Sensor 83 81 Pulse Rhythm [Apical] Respiratory Rate 34 H 28 H Respiratory Effort / Characteristics Respiratory Depth Respiratory Pattern Blood Pressure 197/117 H Blood Pressure [Left Arm] Blood Pressure Mean 143 Blood Pressure Mean [Left Arm] Blood Pressure Position Blood Pressure Position [Left Arm] Pulse Oximetry 95 95 Oxygen Delivery Method Oxygen Flow Rate Sepsis Recent Fever Within 48 Hours Sepsis New/Unexplained Change in Mental Status Sepsis Action Taken by Nursing Oxygen Flow Rate - Titration Pulse Oximetry Post Tiitration 07/07/22 12:01 07/07/22 12:30 07/07/22 12:31 Temperature Temperature Source Pulse Rate 81 81 Pulse Rate [Apical] Pulse Rate from SpO2 Sensor 81 81 Pulse Rhythm [Apical] Respiratory Rate 26 H 28 H Respiratory Effort / Characteristics Respiratory Depth Respiratory Pattern Blood Pressure 184/97 H Blood Pressure [Left Arm] Blood Pressure Mean 126 Blood Pressure Mean [Left Arm] Blood Pressure Position Blood Pressure Position [Left Arm] Pulse Oximetry 95 93 Oxygen Delivery Method Oxygen Flow Rate Sepsis Recent Fever Within 48 Hours Sepsis New/Unexplained Change in Mental Status Sepsis Action Taken by Nursing Oxygen Flow Rate - Titration Pulse Oximetry Post Tiitration 07/07/22 12:31 07/07/22 13:08 07/07/22 13:30 Temperature Temperature Source Pulse Rate 81 88 Pulse Rate [Apical] Pulse Rate from SpO2 Sensor 80 88 Pulse Rhythm [Apical] Respiratory Rate 27 H 26 H Respiratory Effort / Characteristics Respiratory Depth Respiratory Pattern Blood Pressure 179/124 H Blood Pressure [Left Arm] Blood Pressure Mean 142 Blood Pressure Mean [Left Arm] Blood Pressure Position Blood Pressure Position [Left Arm] Pulse Oximetry 93 91 Oxygen Delivery Method Oxygen Flow Rate Sepsis Recent Fever Within 48 Hours Sepsis New/Unexplained Change in Mental Status Sepsis Action Taken by Nursing Oxygen Flow Rate - Titration Pulse Oximetry Post Tiitration 07/07/22 13:30 07/07/22 14:00 07/07/22 14:01 Temperature Temperature Source Pulse Rate 89 73 Pulse Rate [Apical] Pulse Rate from SpO2 Sensor 90 74 Pulse Rhythm [Apical] Respiratory Rate 30 H 24 Respiratory Effort / Characteristics Respiratory Depth Respiratory Pattern Blood Pressure 189/104 H Blood Pressure [Left Arm] Blood Pressure Mean 132 Blood Pressure Mean [Left Arm] Blood Pressure Position Blood Pressure Position [Left Arm] Pulse Oximetry 90 92 Oxygen Delivery Method Oxygen Flow Rate Sepsis Recent Fever Within 48 Hours Sepsis New/Unexplained Change in Mental Status Sepsis Action Taken by Nursing Oxygen Flow Rate - Titration Pulse Oximetry Post Tiitration 07/07/22 14:01 07/07/22 14:30 07/07/22 14:31 Temperature Temperature Source Pulse Rate 77 97 H Pulse Rate [Apical] Pulse Rate from SpO2 Sensor 76 98 H Pulse Rhythm [Apical] Respiratory Rate 21 18 Respiratory Effort / Characteristics Respiratory Depth Respiratory Pattern Blood Pressure 137/105 H Blood Pressure [Left Arm] Blood Pressure Mean 115 Blood Pressure Mean [Left Arm] Blood Pressure Position Blood Pressure Position [Left Arm] Pulse Oximetry 91 92 Oxygen Delivery Method Oxygen Flow Rate Sepsis Recent Fever Within 48 Hours Sepsis New/Unexplained Change in Mental Status Sepsis Action Taken by Nursing Oxygen Flow Rate - Titration Pulse Oximetry Post Tiitration 07/07/22 14:31 07/07/22 15:00 07/07/22 15:30 Temperature Temperature Source Pulse Rate 96 H 115 H Pulse Rate [Apical] Pulse Rate from SpO2 Sensor 95 H 112 H Pulse Rhythm [Apical] Respiratory Rate 20 24 Respiratory Effort / Characteristics Respiratory Depth Respiratory Pattern Blood Pressure 156/71 H Blood Pressure [Left Arm] Blood Pressure Mean 99 Blood Pressure Mean [Left Arm] Blood Pressure Position Blood Pressure Position [Left Arm] Pulse Oximetry 92 85 L Oxygen Delivery Method Oxygen Flow Rate Sepsis Recent Fever Within 48 Hours Sepsis New/Unexplained Change in Mental Status Sepsis Action Taken by Nursing Oxygen Flow Rate - Titration Pulse Oximetry Post Tiitration 07/07/22 15:30 07/07/22 16:00 07/07/22 16:00 Temperature Temperature Source Pulse Rate 90 93 H Pulse Rate [Apical] Pulse Rate from SpO2 Sensor 90 94 H Pulse Rhythm [Apical] Respiratory Rate 24 16 Respiratory Effort / Characteristics Respiratory Depth Respiratory Pattern Blood Pressure 175/106 H Blood Pressure [Left Arm] Blood Pressure Mean 129 Blood Pressure Mean [Left Arm] Blood Pressure Position Blood Pressure Position [Left Arm] Pulse Oximetry 95 95 Oxygen Delivery Method Oxygen Flow Rate Sepsis Recent Fever Within 48 Hours Sepsis New/Unexplained Change in Mental Status Sepsis Action Taken by Nursing Oxygen Flow Rate - Titration Pulse Oximetry Post Tiitration 07/07/22 16:30 07/07/22 16:31 07/07/22 16:31 Temperature Temperature Source Pulse Rate 89 85 Pulse Rate [Apical] Pulse Rate from SpO2 Sensor 89 87 Pulse Rhythm [Apical] Respiratory Rate 21 15 Respiratory Effort / Characteristics Respiratory Depth Respiratory Pattern Blood Pressure 165/91 H Blood Pressure [Left Arm] Blood Pressure Mean 115 Blood Pressure Mean [Left Arm] Blood Pressure Position Blood Pressure Position [Left Arm] Pulse Oximetry 96 96 Oxygen Delivery Method Oxygen Flow Rate Sepsis Recent Fever Within 48 Hours Sepsis New/Unexplained Change in Mental Status Sepsis Action Taken by Nursing Oxygen Flow Rate - Titration Pulse Oximetry Post Tiitration 07/07/22 16:40 07/07/22 16:50 07/07/22 17:00 Temperature Temperature Source Pulse Rate 89 92 H 85 Pulse Rate [Apical] Pulse Rate from SpO2 Sensor 88 92 H 84 Pulse Rhythm [Apical] Respiratory Rate 17 18 26 H Respiratory Effort / Characteristics Respiratory Depth Respiratory Pattern Blood Pressure Blood Pressure [Left Arm] Blood Pressure Mean Blood Pressure Mean [Left Arm] Blood Pressure Position Blood Pressure Position [Left Arm] Pulse Oximetry 96 95 95 Oxygen Delivery Method Oxygen Flow Rate Sepsis Recent Fever Within 48 Hours Sepsis New/Unexplained Change in Mental Status Sepsis Action Taken by Nursing Oxygen Flow Rate - Titration Pulse Oximetry Post Tiitration 07/07/22 17:01 07/07/22 17:01 07/07/22 17:10 Temperature Temperature Source Pulse Rate 86 89 Pulse Rate [Apical] Pulse Rate from SpO2 Sensor 88 90 Pulse Rhythm [Apical] Respiratory Rate 18 24 Respiratory Effort / Characteristics Respiratory Depth Respiratory Pattern Blood Pressure 141/71 H Blood Pressure [Left Arm] Blood Pressure Mean 94 Blood Pressure Mean [Left Arm] Blood Pressure Position Blood Pressure Position [Left Arm] Pulse Oximetry 96 95 Oxygen Delivery Method Oxygen Flow Rate Sepsis Recent Fever Within 48 Hours Sepsis New/Unexplained Change in Mental Status Sepsis Action Taken by Nursing Oxygen Flow Rate - Titration Pulse Oximetry Post Tiitration 07/07/22 17:20 Temperature Temperature Source Pulse Rate 87 Pulse Rate [Apical] Pulse Rate from SpO2 Sensor 88 Pulse Rhythm [Apical] Respiratory Rate 21 Respiratory Effort / Characteristics Respiratory Depth Respiratory Pattern Blood Pressure Blood Pressure [Left Arm] Blood Pressure Mean Blood Pressure Mean [Left Arm] Blood Pressure Position Blood Pressure Position [Left Arm] Pulse Oximetry 96 Oxygen Delivery Method Oxygen Flow Rate Sepsis Recent Fever Within 48 Hours Sepsis New/Unexplained Change in Mental Status Sepsis Action Taken by Nursing Oxygen Flow Rate - Titration Pulse Oximetry Post Tiitration Laboratory Data Attestation: I reviewed the patient's lab results. 07/07/22 11:36 07/07/22 11:36 Lab Results 07/07/22 07/07/22 07/07/22 Range/Units 11:34 11:36 11:36 WBC 2.81 L (4.8-10.8) K/ul RBC 3.78 L (4.20-5.40) M/uL Hgb 13.6 (12.0-16.0) g/dl Hct 37.9 (37.0-47.0) % MCV 100.3 H (80.0-100.0) fL MCH 36.0 H (25.0-34.0) pg MCHC 35.9 (32.0-36.0) g/dL RDW Std Deviation 42.2 (36.4-46.3) fL RDW Coeff of Denis 11.6 (11.5-14.5) % Plt Count 192 (130-400) K/uL MPV 10.1 (9.4-12.4) fL Immature Gran % (Auto) 0.4 % Neut % (Auto) 46.7 % Lymph % (Auto) 32.7 % [place] % (Auto) 18.1 % Eos % (Auto) 0.7 % Baso % (Auto) 1.4 % Neut # (Auto) 1.31 L (1.40-6.50) K/uL Lymph # (Auto) 0.92 L (1.2-3.4) K/uL [place] # (Auto) 0.51 (0.11-0.59) K/uL Eos # (Auto) 0.02 (0-0.50) K/uL Baso # (Auto) 0.04 (0-0.2) K/uL Immature Gran # (Auto) 0.01 (0.01-0.20) K/uL PT 10.9 (9.0-12.0) Seconds INR 1.0 (0.9-1.1) Sodium (136-145) mmol/L Potassium (3.5-5.1) mmol/L Chloride (98-107) mmol/L Carbon Dioxide (21-32) mmol/L Anion Gap (3-11) BUN (6-23) mg/dl Creatinine (0.6-1.2) mg/dl Est Cr Clr Drug Dosing ml/min Est GFR ( Amer) ml/min Est GFR (Non-Af Amer) ml/min BUN/Creatinine Ratio (10-20) Glucose (70-99(Fasting)) mg/dl Calcium (8.6-10.3) mg/dl Magnesium (1.7-2.4) mg/dl Total Bilirubin (0.2-1.0) mg/dl AST (13-39) U/L ALT (7-52) U/L Alkaline Phosphatase (34-104) U/L Troponin I High Sens (0-14) pg/ml B-Natriuretic Peptide (0-100) pg/ml Total Protein (6.0-8.3) gm/dl Albumin (3.4-5.0) gm/dl Globulin (2.5-4.0) gm/dl Albumin/Globulin Ratio (0.9-2) Lipase (11-82) U/L Procalcitonin (0-0.5) ng/ml Adenovirus (PCR) Not Detected (NotDetected) B. pertussis DNA (PCR) Not Detected (NotDetected) B.parapertussis DNA PCR Not Detected (NotDetected) C. pneumoniae DNA (PCR) Not Detected (NotDetected) Coronavirus OC43 (PCR) Not Detected (NotDetected) Coronavirus HKU1 (PCR) Not Detected (NotDetected) Coronavirus 229E (PCR) Not Detected (NotDetected) SARS-CoV-2 (PCR) Not Detected (NotDetected) Coronavirus NL63 (PCR) Not Detected (NotDetected) Human Metapneumovir PCR Not Detected (NotDetected) Influenza Type A (PCR) Not Detected (NotDetected) Influenza Type B (PCR) Not Detected (NotDetected) M. pneumoniae (PCR) Not Detected (NotDetected) Parainfluenza 1 (PCR) Not Detected (NotDetected) Parainfluenza 2 (PCR) Not Detected (NotDetected) Parainfluenza 3 (PCR) DETECTED A* (NotDetected) Parainfluenza 4 (PCR) Not Detected (NotDetected) RSV (PCR) Not Detected (NotDetected) Entero/Rhino (PCR) Not Detected (NotDetected) 07/07/22 07/07/22 07/07/22 Range/Units 11:36 11:36 15:58 WBC (4.8-10.8) K/ul RBC (4.20-5.40) M/uL Hgb (12.0-16.0) g/dl Hct (37.0-47.0) % MCV (80.0-100.0) fL MCH (25.0-34.0) pg MCHC (32.0-36.0) g/dL RDW Std Deviation (36.4-46.3) fL RDW Coeff of Denis (11.5-14.5) % Plt Count (130-400) K/uL MPV (9.4-12.4) fL Immature Gran % (Auto) % Neut % (Auto) % Lymph % (Auto) % [place] % (Auto) % Eos % (Auto) % Baso % (Auto) % Neut # (Auto) (1.40-6.50) K/uL Lymph # (Auto) (1.2-3.4) K/uL [place] # (Auto) (0.11-0.59) K/uL Eos # (Auto) (0-0.50) K/uL Baso # (Auto) (0-0.2) K/uL Immature Gran # (Auto) (0.01-0.20) K/uL PT (9.0-12.0) Seconds INR (0.9-1.1) Sodium 134 L (136-145) mmol/L Potassium 3.7 (3.5-5.1) mmol/L Chloride 95 L (98-107) mmol/L Carbon Dioxide 30 (21-32) mmol/L Anion Gap 9 (3-11) BUN 15 (6-23) mg/dl Creatinine 0.99 (0.6-1.2) mg/dl Est Cr Clr Drug Dosing 40.6 ml/min Est GFR ( Amer) 62.4 ml/min Est GFR (Non-Af Amer) 53.8 ml/min BUN/Creatinine Ratio 15.2 (10-20) Glucose 123 H (70-99(Fasting)) mg/dl Calcium 10.0 (8.6-10.3) mg/dl Magnesium 1.3 L (1.7-2.4) mg/dl Total Bilirubin 1.1 H (0.2-1.0) mg/dl AST 31 (13-39) U/L ALT 18 (7-52) U/L Alkaline Phosphatase 80 (34-104) U/L Troponin I High Sens 25.3 H (0-14) pg/ml B-Natriuretic Peptide 372 H (0-100) pg/ml Total Protein 8.3 (6.0-8.3) gm/dl Albumin 4.5 (3.4-5.0) gm/dl Globulin 3.8 (2.5-4.0) gm/dl Albumin/Globulin Ratio 1.2 (0.9-2) Lipase 14 (11-82) U/L Procalcitonin < 0.05 (0-0.5) ng/ml Adenovirus (PCR) (NotDetected) B. pertussis DNA (PCR) (NotDetected) B.parapertussis DNA PCR (NotDetected) C. pneumoniae DNA (PCR) (NotDetected) Coronavirus OC43 (PCR) (NotDetected) Coronavirus HKU1 (PCR) (NotDetected) Coronavirus 229E (PCR) (NotDetected) SARS-CoV-2 (PCR) (NotDetected) Coronavirus NL63 (PCR) (NotDetected) Human Metapneumovir PCR (NotDetected) Influenza Type A (PCR) (NotDetected) Influenza Type B (PCR) (NotDetected) M. pneumoniae (PCR) (NotDetected) Parainfluenza 1 (PCR) (NotDetected) Parainfluenza 2 (PCR) (NotDetected) Parainfluenza 3 (PCR) (NotDetected) Parainfluenza 4 (PCR) (NotDetected) RSV (PCR) (NotDetected) Entero/Rhino (PCR) (NotDetected) Administered Medications Albuterol (Albut/Ipratrop 3mg/0.5mg Neb 3 Ml Vial) 3 ml NEB QIDR TERRY; Protocol Stop: 08/06/22 18:59 Last Admin: 07/07/22 19:03 Dose: 3 ml Documented By: DHIRAJ Enoxaparin Sodium (Enoxaparin Inj 40 Mg/0.4 Ml Syr) 40 mg SQ Q24H TERRY Stop: 08/06/22 19:29 Last Admin: 07/07/22 21:00 Dose: 40 mg Documented By: FLACA Latanoprost (Latanoprost 0.005% Op Soln 2.5 Ml Btl) 1 drops OP HS [facility] Stop: 08/06/22 20:59 Last Admin: 07/07/22 21:02 Dose: 1 drops Documented By: FLACA Metoprolol Tartrate (Metoprolol Tartrate 50 Mg Tab) 50 mg PO BID [facility] Stop: 08/06/22 20:59 Last Admin: 07/07/22 20:59 Dose: 50 mg Documented By: FLACA Miscellaneous (Letrozole 2.5 Mg Tablet - Order Awaiting Action) 1 each N/A QS [facility] Stop: 08/07/22 00:00 Last Admin: 07/08/22 00:13 Dose: Not Given Documented By: FLACA Rosuvastatin Calcium (Rosuvastatin Calcium 10 Mg Tab) 10 mg PO HS [facility] Stop: 08/06/22 20:59 Last Admin: 07/07/22 20:59 Dose: 10 mg Documented By: FLACA Discontinued Medications Albuterol (Albut/Ipratrop 3mg/0.5mg Neb 3 Ml Vial) 3 ml NEB NOW STA; Protocol Stop: 07/07/22 12:01 Last Admin: 07/07/22 12:27 Dose: 3 ml Documented By: AB Furosemide (Furosemide Inj 20 Mg/2 Ml Vial) 20 mg IV ONE ONE Stop: 07/07/22 16:54 Last Admin: 07/07/22 17:44 Dose: 20 mg Documented By: BRENDEN Guaifenesin (Guaifenesin 600 Mg Tabcr) 600 mg PO NOW STA Stop: 07/07/22 12:01 Last Admin: 07/07/22 12:26 Dose: 600 mg Documented By: Guaifenesin (Guaifenesin Sugar Free 200 Mg/10 Ml Udc) 200 mg PO Q6H TERRY Stop: 08/06/22 17:39 Last Admin: 07/07/22 20:59 Dose: 200 mg Documented By: FLACA Sodium Chloride (Nss) 500 mls @ 999 mls/hr IV .Q31M ONE Stop: 07/07/22 11:41 Last Admin: 07/07/22 11:58 Dose: Not Given Documented By: SUSAN Magnesium Sulfate/Dextrose (Magnesium Sulfate / D5w) 1 gm in 100 mls @ 100 mls/hr IV Q1H TERRY Stop: 07/07/22 16:26 Last Infusion: 07/07/22 18:00 Dose: 0 mls/hr Documented By: Admin: 07/07/22 16:00 Dose: 100 mls/hr Documented By: Infusion: 07/07/22 16:00 Dose: 100 mls/hr Documented By: Admin: 07/07/22 15:00 Dose: 100 mls/hr Documented By: Ioversol (Optiray 320 500ml) 107 ml IV ONCE ONE Stop: 07/07/22 14:53 Last Admin: 07/07/22 14:52 Dose: 107 ml Documented By: YENI Methylprednisolone (Methylprednisolone 125 Mg/2 Ml Vial) 125 mg IV NOW STA Stop: 07/07/22 12:01 Last Admin: 07/07/22 12:27 Dose: 125 mg Documented By: Nitroglycerin (Nitroglycerin Sl 0.4 Mg/Tab Tab) 0.4 mg SL NOW STA Stop: 07/07/22 12:01 Last Admin: 07/07/22 12:27 Dose: 0.4 mg Documented By: Imaging Data Radiologist's Impression: Chest CTA 07/07/22 14:26 CHEST CTA for PULMONARY ARTERIES CT DOSE: 553.89 mGy.cm HISTORY: Shortness of breath, elevated troponin, r/o PE TECHNIQUE: Multiaxial CT images of the chest were performed following the intravenous administration of contrast to evaluate the pulmonary arteries. Maxim al intensity projection images were also obtained. A dose lowering technique was utilized adhering to the principles of ALARA. COMPARISON STUDY: Chest CTA 06/24/2017. FINDINGS: Limited views of the upper abdomen demonstrate normal liver, spleen, and adrenal glands. Normal thyroid gland. Postoperative changes noted within the left breast. No pleural or pericardial effusions. The heart is borderline enlarged. Normal esophagus. No mediastinal or hilar lymphadenopathy. Moderate calcified plaque within the coronary arteries. Normal caliber thoracic aorta with no evidence for a dissection. Mild to moderate calcified plaque within the thoracic aorta and proximal great vessels. 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 This is similar to the prior study. No filling defects within the pulmonary arteries to suggest a pulmonary embolus. No suspicious lytic or blastic osseous lesions. No pneumothorax. Diffuse bronchial wall thickening has progressed. Mild emphysema. Scattered subcentimeter pulmonary nodules are not significantly changed. There is a punctate calcified granuloma within the right middle lobe. Patchy groundglass and nodular airspace opacities within the base of the right lower lobe are new f rom the prior study. This favors a pneumonia and could be due to prior aspiration. The dominant nodular density within the right lower lobe measures 5 mm. This is best seen image 83. IMPRESSION: 1. No evidence for a pulmonary embolus. 2. Patchy groundglass and nodular airspace opacities within the base of the right lower lobe consistent with a pneumonia. This could be due to prior aspiration. 3. A dominant nodular density within the base of the right lower lobe measures 5 mm[address] follow-up recommended to ensure resolution of the suspected inflammatory/infectious change. 4. Bronchial wall thickening which has progressed. 5. Mild emphysema. 6. Additional findings as described above. ACT 112: Negative or not required by law. Electronically signed by: Jose Shaikh M.D. 07/07/2022 3:31 PM Discharge Plan Visit Data Chief Complaint: Shortness of Breath/Dyspnea Stated Complaint: SOB,COUGH ED Provider: Robert Motta Discharge Problem: Acute respiratory failure with hypoxia, Hypertensive urgency, Hypomagnesemia, Elevated troponin, Pneumonia due to parainfluenza virus Patient Disposition: Admitted As Inpatient Discharge Instructions Interventions: ED Discharge Assessment Last Done: 07/07/22 18:53
[2022-07-07] MEDS: ENOXAPARIN INJ 40 MG/0.4 ML SYR SQ SCH (21:00)
[2022-07-07] MEDS: LATANOPROST 0.005% OP SOLN 2.5 ML BTL OP SCH (21:02)
[2022-07-07] MEDS ORDERED: DEXTROMETHORPHAN POLYMR COMPLX 30 MG/5 ML UDP PO PRN (21:40)
[2022-07-08 04:12] LABS: Hematocrit (blood only) 36.5 % (37.0-47.0); Hemoglobin 12.9 g/dl (12.0-16.0); Immature Granulocytes # (auto) 0.01 K/uL (0.01-0.20); Immature Granulocytes % (auto) 0.2 %; Lymphocytes # (auto) 1.07 K/uL (1.2-3.4); Lymphocytes % (auto) 17.7 %; Mean Corpuscular Hemoglobin 35.7 pg (25.0-34.0); Mean Corpuscular Hgb Conc 35.3 g/dL (32.0-36.0); Mean Corpuscular Volume 101.1 fL (80.0-100.0); Monocytes # (auto) 0.34 K/uL (0.11-0.59); Monocytes % (auto) 5.6 %; Neutrophils # (auto) 4.63 K/uL (1.40-6.50); Neutrophils % (auto) 76.5 %; Platelet Count 178 K/uL (130-400); RDW Coefficient of Variation 11.4 % (11.5-14.5); RDW Standard Deviation 42.5 fL (36.4-46.3); Red Blood Count 3.61 M/uL (4.20-5.40); White Blood Count 6.05 K/ul (4.8-10.8)
[2022-07-08 04:38] LABS: Albumin Globulin Ratio 1.2 (0.9-2); Albumin Level 4.2 gm/dl (3.4-5.0); BUN Creatinine Ratio 17.1 (10-20); Bilirubin,Total 0.8 mg/dl (0.2-1.0); Calcium 9.7 mg/dl (8.6-10.3); Creatinine Clr Calc Pharmacy 38.5 ml/min; Globulin 3.6 gm/dl (2.5-4.0); Magnesium 1.7 mg/dl (1.7-2.4); Potassium 3.3 mmol/L (3.5-5.1); Total Protein 7.8 gm/dl (6.0-8.3)
[2022-07-08] MEDS: ALBUT/IPRATROP 3MG/0.5MG NEB 3 ML VIAL NEB SCH ×4 (07:17→19:10)
[2022-07-08] MEDS: LOSARTAN POTASSIUM 50 MG TAB PO SCH (10:16)
[2022-07-08] MEDS: CLOPIDOGREL BISULFATE 75 MG TAB PO SCH (10:16)
[2022-07-08] MEDS: INDAPAMIDE 1.25 MG TAB PO SCH (10:17)
[2022-07-08] MEDS: METOPROLOL TARTRATE 50 MG TAB PO SCH ×2 (10:18→20:12)
[2022-07-08] MEDS: guaiFENesin 600 MG TABCR PO SCH ×2 (10:18→20:09)
[2022-07-08] MEDS: TIMOLOL MALEATE 0.5% OP SOLN 5 ML BTL OP SCH (10:19)
[2022-07-08] MEDS: ENOXAPARIN INJ 40 MG/0.4 ML SYR SQ SCH (20:08)
[2022-07-08] MEDS: LATANOPROST 0.005% OP SOLN 2.5 ML BTL OP SCH (20:09)
[2022-07-08] MEDS: ROSUVASTATIN CALCIUM 10 MG TAB PO SCH (20:10)
--- NOTE | 2022-07-08 23:00 | Hospitalist Progress Note ---
Date of Service July 08, 2022 Assessment & Plan (1) Acute respiratory failure with hypoxia: Plan: -Admit to the PCU on tele -The patient is currently afebrile, hemodynamically stable, and stable on 3L NC -At this time her acute hypoxic resp failure is likely due to viral pneumonia from acute Parainfluenza virus infection -CT of the chest with PE protocol was negative for PE, did show a possible RLL consolidation but her procal is negative, will hold abx for now -S/P 125 mg IV Solu-medrol, hour long Duon-Neb, 500 mL NSS bolus, and 20 mg IV lasix in the ED -Will hold additional systemic steroids at this time, continue DuoNebs QID, incentive spirometer, flutter therapy, prn O2 to keep SpO2 at or above 95%, scheduled robitussin -BL SCD's and Sub-Q Lovenox for DVT PPX -AM CBC, BMP, Mag On 07/08 Oxygen has been intermittently titrated off. Patient has shown signs of aspiration pneumonia given location of her consolidation. However, given that she is improving without antibiotics, will hold off in the mean time and monitor. If she remains on room air, we will discharge her. Given location and concern of aspiration, will consult speech. (2) Hypertensive urgency: Plan: -Initial found to be hypertensive with BP of 229/133 in the ED -BP now stable S/P 20 mg IV lasix and 0.4 mg SL Nitro -Likely due to her acute respiratory failure and stress from her acute illness -Continue home Losartan, indapamide, and metoprolol -Continue to monitor on tele (3) Elevated troponin: Plan: -Initial high sen trop elevated at 25.3 -Patient is asymptomatic and without acute ST segment or T-wave changes -Likely due to demand from hypoxic and HTN -peaked in the 60s, now downtrending. -Continue to monitor on tele for now (4) Hypomagnesemia: Plan: -Noted to be 1.3 in the ED -Likely due to poor oral intake over the past week and continued diuretic use -S/P 2 bags 1gm IV mag in the ED (5) PAD (peripheral artery disease): Plan: -Continue plavix (6) Hypertension: Plan: -See hypertensive urgency (7) Hyperlipidemia: Plan: -Conitnue statin (8) Malignant neoplasm of lower-inner quadrant of left breast in female, estrogen receptor positive: Plan: -Continue letrozole Admission and Anticipated Discharge Date Admission Date: July 07, 2022 Subjective 82 yo female reports feeling better. She is not at baseline. Review of Systems Review of Systems: All systems reviewed & are unremarkable except as noted in HPI & below Physical Exam Physical Exam: General: In no acute distress, stated age, well-nourished, non-toxic appearing HEENT: Normocephalic, atraumatic, no scleral icterus, pupils around round, symmetrical, and reactive to light\moist mucus membranes, trachea midline, no thyromegaly Chest/Pulm: No respiratory distress, symmetrical chest expansion, expiratory wheezing and rhonchi noted throughout Cardiac: RRR, systolic murmur noted Abdomen: Negative for ascites and bruising, normoactive bowel sounds, soft, non- tender to palpation throughout Musculoskeletal: Symmetrical and without signs of acute trauma, upper and lower extremities with full ROM, no atrophy, spasticity, or flaccidity Extremities: Radial, dorsalis pedis, and posterior tibial pulses are intact and symmetrical, no edema noted in the BL LE's Skin: Warm, dry, no rashes , lesions, or scars noted Neuro: Alert and oriented to person, place, month, year, and president, no focal defects, CN II-XII tested and intact, no tremors noted Psych: No acute distress, calm and cooperative during the exam Results & Data Results & Data Vital Signs (Past 12 Hours) Vital Signs Temp Pulse Resp BP Pulse Ox O2 Del Method 07/08/22 20:00 Room Air 07/08/22 22:26 37.3 C 75 18 130/58 L 92 Room Air 07/08/22 19:11 80 18 92 Room Air 07/08/22 18:58 36.9 C 86 18 119/58 L 92 Room Air 07/08/22 15:37 36.9 C 74 18 99/71 L 92 Room Air 07/08/22 15:18 78 16 94 Room Air 07/08/22 11:28 76 16 95 Room Air PG Care Time/CCT Total # of Minutes Spent Total Time Spent with Patient: Total time spent is greater than 50% in coordination of care (as documented) at patient's floor/unit and/or counseling patient: Coding Level of Care Code 30405 SUB INP/OBS CARE 2/35MIN Diagnoses Acute respiratory failure with hypoxia J96.01 Hypertensive urgency I16.0 Elevated troponin R77.8 Hypomagnesemia E83.42 PAD (peripheral artery disease) I73.9 Hypertension I10 Hyperlipidemia E78.5 Malignant neoplasm of lower-inner quadrant of left breast in female, estrogen receptor positive C50.312; Z17.0
[2022-07-09] MEDS ORDERED: ACETAMINOPHEN 325 MG TAB PO PRN (04:38)
[2022-07-09 06:35] LABS: Basophils # (auto) 0.01 K/uL (0-0.2); Basophils % (auto) 0.1 %; Hematocrit (blood only) 34.4 % (37.0-47.0); Hemoglobin 12.1 g/dl (12.0-16.0); Immature Granulocytes # (auto) 0.02 K/uL (0.01-0.20); Immature Granulocytes % (auto) 0.3 %; Lymphocytes # (auto) 1.43 K/uL (1.2-3.4); Lymphocytes % (auto) 19.1 %; Mean Corpuscular Hemoglobin 35.6 pg (25.0-34.0); Mean Corpuscular Hgb Conc 35.2 g/dL (32.0-36.0); Mean Corpuscular Volume 101.2 fL (80.0-100.0); Mean Platelet Volume 10.3 fL (9.4-12.4); Monocytes # (auto) 0.84 K/uL (0.11-0.59); Monocytes % (auto) 11.2 %; Neutrophils # (auto) 5.18 K/uL (1.40-6.50); Neutrophils % (auto) 69.3 %; Platelet Count 162 K/uL (130-400); RDW Coefficient of Variation 11.5 % (11.5-14.5); RDW Standard Deviation 42.3 fL (36.4-46.3); White Blood Count 7.48 K/ul (4.8-10.8)
[2022-07-09 06:48] LABS: Albumin Globulin Ratio 1.2 (0.9-2); Albumin Level 3.8 gm/dl (3.4-5.0); BUN Creatinine Ratio 25.4 (10-20); Bilirubin,Total 0.8 mg/dl (0.2-1.0); Calcium 9.1 mg/dl (8.6-10.3); Creatinine Clr Calc Pharmacy 37.1 ml/min; Est GFR (African American) 48.5 ml/min; Est GFR (Non-African American) 41.8 ml/min; Globulin 3.3 gm/dl (2.5-4.0); Magnesium 1.7 mg/dl (1.7-2.4); Potassium 3.2 mmol/L (3.5-5.1); Total Protein 7.1 gm/dl (6.0-8.3)
[2022-07-09] MEDS: ALBUT/IPRATROP 3MG/0.5MG NEB 3 ML VIAL NEB SCH ×3 (07:06→15:11)
[2022-07-09] MEDS: TIMOLOL MALEATE 0.5% OP SOLN 5 ML BTL OP SCH (08:22)
[2022-07-09] MEDS: METOPROLOL TARTRATE 50 MG TAB PO SCH (08:23)
[2022-07-09] MEDS: INDAPAMIDE 1.25 MG TAB PO SCH (08:23)
[2022-07-09] MEDS: guaiFENesin 600 MG TABCR PO SCH (08:24)
[2022-07-09] MEDS: CLOPIDOGREL BISULFATE 75 MG TAB PO SCH (08:24)
[2022-07-09] MEDS: LOSARTAN POTASSIUM 50 MG TAB PO SCH (08:24)
[2022-07-09] MEDS ORDERED: POTASSIUM CHLORIDE CRTAB 20 MEQ TABCR PO STA (10:26)
[2022-07-09 14:54] VITALS: TEMP 97.7
[2022-07-09 15:14] VITALS: O2SAT 94
--- NOTE | 2022-07-09 15:48 | Discharge Summary ---
Date of Service July 09, 2022 Admission HPI Per Admitting Provider Marlin is an 82 year old female with a PMH significant for TN, HLD, glaucoma, carotid stenosis/peripheral vascular disease s/p bilateral carotid endarterectomies, DJD, GI reflux, hyperglycemia, anemia, and breast CA s/p left lumpectomy w/sentinel lymph node biopsy and XRT now on treatment w/Letrozole x10 yrs who was sent to the [facility] ED today, from her PCP's office due to acute hypoxic respiratory failure. Per chart review, the patient presented to her PCP's office earlier today for approximately 5 days of URI symptoms and DOYLE. While at the office her SpO2 was noted to be in the low 80's on RA, she is not typically on oxygen therapy. In the ED today she was found to be afebrile hypertensive at 229/133, and hypoxic in the mid 80's on RA. Labs were remarkable for a WBC of 2.81, stable Hgb and platelets, neutrophil count of 1.31 with lymphocyte count of 0.92, stable Cr, glucose of 123, chloride of 95, sodium of 134, mag of 1.3, total bili of 1.1 otherwise LFT's WNL, BNP of 372 with initial high sen trop of 25.3, procal < 0.05, and full respiratory biofire positive for parainfluenza virus. Chest xray was read as "No significant change compared to the prior study. No acute process.". CTA of the chest with PE protocol was read as "1. No evidence for a pulmonary embolus. 2. Patchy groundglass and nodular airspace opacities within the base of the right lower lobe consistent with a pneumonia. This could be due to prior aspiration. 3. A dominant nodular density within the base of the right lower lobe measures 5 mm[address] follow- up recommended to ensure resolution of the suspected inflammatory/infectious change. 4. Bronchial wall thickening which has progressed. 5. Mild emphysema. 6. Additional findings as described above." Prior to admission the patient was given a 500 mL NSS bolus, 20 mg IV lasix and 0.4 mg SL nitroglycerine, 2 bags of IV magnesium, a DuoNeb treatment, and 125 mg IV Solu-Medrol. At the time of the exam the patient was resting in bed in no acute distress, currently saturating at 97% on 3L NC with her sitting bedside, history was obtained from both. They state that she started to develop URI symptoms at the beginning of the week. She has been having congestion, runny nose, a productive cough with yellow sputum, and DOYLE. She denies recent fevers or chills and had one episode of non-bloody emesis 2 days ago. When asked, she states that she did not choke or aspirate on her vomit. Her symptoms continued to progress so she went to her PCP today. She confirmed that she took all of her am medications prior to her arrival in the ED. At her PCP's office she was found to be hypoxic and was sent to the ED. She and her state that she has a long history of HTN, she states that it can rise quickly for unknown reasons. They did confirm that she was having significant SOB and respiratory distress when she was hypertensive earlier in the ED. She currently feels much improved prior to arrival in the ED. She denies any recent chest pain, abd pain, jose luis sea/vomiting today, dysuria, hematuria, diarrhea, melena, LE swelling and recent trauma. We discussed code status, she wishes to be a full code and for her to make medical decisions for her if she cannot make them herself. Please refer to Dr. Asher's attestation for any changes to the treatment plan Principal Diagnosis parainfluenza pneumonia Discharge Exam General: In no acute distress, stated age, well-nourished, non-toxic appearing HEENT: Normocephalic, atraumatic, no scleral icterus, pupils around round, symmetrical, and reactive to light\\moist mucus membranes, trachea midline, no thyromegaly Chest/Pulm: No respiratory distress, symmetrical chest expansion, decreased wheezing Cardiac: RRR, systolic murmur noted Abdomen: Negative for ascites and bruising, normoactive bowel sounds, soft, non- tender to palpation throughout Musculoskeletal: Symmetrical and without signs of acute trauma, upper and lower extremities with full ROM, no atrophy, spasticity, or flaccidity Extremities: Radial, dorsalis pedis, and posterior tibial pulses are intact and symmetrical, no edema noted in the BL LE's Skin: Warm, dry, no rashes , lesions, or scars noted Neuro: Alert and oriented to person, place, month, year, and president, no focal defects, CN II-XII tested and intact, no tremors noted Psych: No acute distress, calm and cooperative during the exam Discharge Data Allergies Allergy/AdvReac Type Severity Reaction Status Date / Time atorvastatin Allergy Unknown MUSCLE Verified 07/07/22 17:09 ACHES codeine AdvReac Mild HALLUCINATI Verified 07/07/22 17:09 ONS Consultations 07/07/22 16:53 ED Decision to Admit Stat Ordered Studies 07/07/22 14:26 CT angio chest PE protocol Stat Hospital Course (1) Acute respiratory failure with hypoxia: -Admit to the PCU on tele -The patient is currently afebrile, hemodynamically stable, and stable on 3L NC -At this time her acute hypoxic resp failure is likely due to viral pneumonia from acute Parainfluenza virus infection -CT of the chest with PE protocol was negative for PE, did show a possible RLL consolidation but her procal is negative, will hold abx for now -S/P 125 mg IV Solu-medrol, hour long Duon-Neb, 500 mL NSS bolus, and 20 mg IV lasix in the ED -Will hold additional systemic steroids at this time, continue DuoNebs QID, incentive spirometer, flutter therapy, prn O2 to keep SpO2 at or above 95%, scheduled robitussin -BL SCD's and Sub-Q Lovenox for DVT PPX -AM CBC, BMP, Mag Hospital course: Oxygen has been intermittently titrated off. Patient has shown signs of aspiration pneumonia given location of her consolidat ion. This could also be due tp the parainfluenza virus. Given that she is improving without antibiotics, will hold off in discharge plan. Patient will be discharged Given location and concern of aspiration, patient will require outpatient speech eval. (2) Hypertensive urgency: -Initial found to be hypertensive with BP of 229/133 in the ED -BP now stable S/P 20 mg IV lasix and 0.4 mg SL Nitro -Likely due to her acute respiratory failure and stress from her acute illness -Continue home Losartan, indapamide, and metoprolol (3) Elevated troponin: -Initial high sen trop elevated at 25.3 -Patient is asymptomatic and without acute ST segment or T-wave changes -Likely due to demand from hypoxic and HTN -peaked in the 60s, now downtrending. (4) Hypomagnesemia: -Noted to be 1.3 in the ED -Likely due to poor oral intake over the past week and continued diuretic use -S/P 2 bags 1gm IV mag in the ED (5) PAD (peripheral artery disease): -Continue plavix (6) Hypertension: -See hypertensive urgency (7) Hyperlipidemia: -Conitnue statin (8) Malignant neoplasm of lower-inner quadrant of left breast in female, estrogen receptor positive: -Continue letrozole Total Time Total Time Spent Total Time Spent (In Minutes): 32 Discharge Plan Discharge Items Patient Disposition: Home - Self-Care Reason For Visit: hypoxia Discharge Diagnosis: hypoxia Activity: Resume your previous activity Non-emergency contact: Primary Care Provider Call non-emergency contact if: you have any medication questions Follow-up/Referrals: Stanislav Velez MD [Primary Care Provider] - Diet: Heart Healthy Addtl Attending Provider Instructions: Good afternoon Mrs. Lehman, You appear to have a chemical pneumonitis as well as a parainfluenza pneumonia. Thankfully, you have been improving while off antibiotics. I will continue your treatment off antibiotics, however, if your symptoms worsen: worsening fever, worseneing Shortness of breath, worsening or foul smelling breath, please come back to the hospital. I will also recommend that you have a formal speech evaluation as an outpatient. We will schedule this for you. PLease followup with your PCP in 1-2 weeks. It was a pleasure taking care of you. Best regards, Nish Kamarakaterina Pending Studies at Discharge: No Stand-Alone Forms: My [facility] VDP, Smoking Cessation Medications and DC Order Prescriptions: New guaifenesin [Mucinex] 600 mg Tablet Extended Release 12hr 600 mg PO Q12 Qty: 20 0RF Continued cholecalciferol (vitamin D3) 25 mcg (1,000 unit) capsule 25 mcg PO DAILY ascorbic acid (vitamin C) 500 mg capsule 1,000 mg PO DAILY letrozole 2.5 mg tablet 2.5 mg PO DAILY mecobalamin (vitamin B12) 1,000 mcg tablet,chewable 1,000 mcg PO .3 times/week clopidogrel 75 mg tablet 75 mg PO QAM Qty: 90 3RF losartan 100 mg tablet 100 mg PO QAM Qty: 90 3RF rosuvastatin 10 mg tablet 10 mg PO HS Qty: 90 3RF metoprolol tartrate 50 mg tablet 50 mg PO BID Qty: 180 3RF indapamide 2.5 mg tablet 2.5 mg PO QAM Qty: 90 3RF latanoprost 0.005 % drops 1 drops OP HS Caltrate 600 plus D 600 mg-20 mcg (800 unit) tablet,chewable 1 tab PO DAILY multivitamin Tablet 1 tab PO QAM timolol maleate 0.5 % drops 1 drp OPB QAM Discharge Orders: Discharge Order (Routine); Ordered 07/09/22 Ordered By: Nish Farris Admission Data Admit Date/Time: 07/07/22 17:22 Attending Provider: Nish Farris Admit Provider: Joselo Asher Primary Care Provider: Stanislav Velez Other Providers: Joselo Asher Coding Level of Care Code 42471 INP/OBS DISCH >30 MIN Diagnoses Acute respiratory failure with hypoxia J96.01 Hypertensive urgency I16.0 Elevated troponin R77.8 Hypomagnesemia E83.42 PAD (peripheral artery disease) I73.9 Hypertension I10 Hyperlipidemia E78.5 Malignant neoplasm of lower-inner quadrant of left breast in female, estrogen receptor positive C50.312; Z17.0
[2022-07-09 16:10] VITALS: BP 106/72; PULSE 73
== END 2022-07-09 16:33 | disposition home or self-care (01) | DRG 193 ==
LOC: ED 10:28 → SUATTDRO 17:22 → 2E 17:22

== ENCOUNTER 2024-04-20 11:26 | Observation (INO) ==
--- NOTE | 2024-04-20 12:08 | Emergency Department Note ---
Impression & Plan SOB (shortness of breath), Wheezing, Infection due to human metapneumovirus (hMPV), Elevated troponin, Fall, Closed head injury, Scalp hematoma ED Provider Note CHIEF COMPLAINT: Shortness of breath HISTORY OF PRESENTING ILLNESS: This 83-year-old female patient presents to the emergency department with her for evaluation of a cough and shortness of breath. The patient developed a cough, runny nose, and sinus congestion in February. She saw her family doctor and was treated with Amoxicillin and Tessalon Perles. The patient states that she initially felt like she was getting better, but then developed symptoms again on New 's Trina. She now feels like she is getting short of breath with activity and is occasionally bringing up light yellow mucus with her cough. The patient states that she only has discomfort in her chest when she is coughing. Denies abdominal pain, nausea, or vomiting. Denies any fevers. No history of COPD or asthma. She is not a diabetic. She is on Plavix. Denies leg pain or swelling. At home she checked her pulse ox and it was 88% on room air. In triage her pulse ox is 94% on room air. As the patient was leaving after discharge, she states that she turned to look at her who dropped papers on the floor and she fell backwards hitting her head. Nursing staff advised me that the patient had refused a wheelchair at the time of discharge. The patient states that she believes it was a mechanical fall and just lost her balance, but she states she was also short of breath because of her coughing. The patient has a large area of swelling to the back of her head and has some mild discomfort in the back of her head. There was no loss of consciousness. She is on Plavix. She denies any nausea or vomiting. No dizziness or lightheadedness. No change in her mental status. She denies any neck or back pain. Denies any pain into her arms or legs. She denies any chest pain at this time. She states that her shortness of breath improved after that second DuoNeb treatment. However, she is still coughing. She denies any abdominal pain. REVIEW OF SYSTEMS: See HPI for pertinent positives and pertinent negatives. ALLERGIES: Atorvastatin, Codeine MEDICATIONS: See below PAST MEDICAL HISTORY: See below PHYSICAL EXAM: Vital Signs: Vitals are noted on the nurse's note and reviewed by myself. GENERAL: Non toxic in appearance and in no acute distress. SKIN: Capillary reflex less than 2 seconds. HEAD: Normocephalic, atraumatic. On repeat exam after the fall, the patient does have a large hematoma to the left occipital aspect of the scalp. No lacerations or abrasions noted. No obvious step-offs. The patient is tender to palpation in this area. EARS: Bilateral external auditory canals clear without tragus tenderness. Bilateral tympanic membranes pearly chavez without erythema or effusion. No mastoid tenderness bilaterally. EYES: Pupils equal round and reactive to light and accommodation. Conjunctivae without injection, sclerae without icterus. Extraocular movements intact. NOSE: Patent, turbinates inflamed with no discharge. No sinus tenderness. MOUTH: Mucous membranes moist. Airway patent, uvula midline. Pharynx is not erythematous and not edematous without exudate. Pharynx without postnasal drip. No evidence for peritonsillar abscess. NECK: Supple without nuchal rigidity. No lymphadenopathy. On repeat exam after the fall, the patient had no cervical spine or paraspinal muscle tenderness. Full range of motion of the neck without pain. HEART: Regular rate and rhythm without murmurs gallops or rubs. LUNGS: Clear to auscultation bilaterally with scattered wheezes, but no rales or rhonchi. No accessory muscle use or retractions. ABDOMEN: Positive bowel sounds x 4. Normal tympanic percussion. Soft, nontender to palpation. No masses or hepatosplenomegaly. No guarding, rigidity, or rebound tenderness. No CVA tenderness. No focal RLQ or LLQ tenderness. MUSCULOSKELETAL: On repeat exam after the fall, the patient had no tenderness to palpation of the thoracic or lumbar spine or paraspinal muscles. She had full range of motion of the bilateral upper and lower extremities without any tenderness to palpation or pain with range of motion. Peripheral pulses were 2+. NEURO: Patient was alert and oriented. Normal mental status exam. No focal neurological deficits. DIFFERENTIAL DIAGNOSIS: Differential diagnosis includes viral syndrome, RSV, Influenza, COVID, strep throat, pharyngitis/tonsillitis, mononucleosis, retropharyngeal abscess, peritonsillar abscess, otitis media, otitis externa, sinusitis, bronchitis, pneumonia, pneumothorax, hemothorax, PE, NC, pericarditis, myocarditis, airway obstruction, aspiration, pulmonary edema, asthma, COPD, CHF, pleurisy, metabolic acidosis, anemia, neoplasm, or others. ED COURSE AND MEDICAL DECISION MAKING: HISTORY FROM INDEPENDENT HISTORIAN: Additional history obtained from the patient's MEDICATIONS GIVEN: DuoNeb treatment x 2. 500 ml normal saline solution bolus. The patient was given an Augmentin home pack and albuterol inhaler spacer to go home at the time of her initial discharge. MONITOR: Continuous catering driver: Order was placed for continuous catering driver. Patient was placed on the catering driver and continuous pulse ox. Patient was noted to be in normal sinus rhythm at an initial rate of 80 bpm per my interpretation. EKG: EKG was interpreted by myself as sinus rhythm at 68 bpm with PACs, but no evidence for acute ST or T wave changes. INTERPRETATION OF LABS: I interpreted the labs with full lab results as below in the lab section of this note. Pertinent lab results discussed in the MDM section below. INTERPRETATION OF IMAGING: Imaging studies were interpreted by myself and read by radiology as per the imaging section of this note. Chest x-ray negative for pneumonia or other acute cardiopulmonary etiology. CT scan of the head without contrast showed the soft tissue scalp hematoma over the high left parietal region without underlying bony abnormality. No other acute intracranial abnormalities. CT scan of the cervical spine without contrast showed degenerative changes, but no acute fracture, subluxation, or acute traumatic abnormalities. CONSULTATIONS: On-call hospitalist MDM SUMMARY: The patient was seen during a time of extreme volume and extreme acuity. Nursing triage protocols were initiated with IV lock, labs, and/or imaging studies conducted by protocol in the triage area. The patient was initially evaluated in a triage room and then re-evaluated once they were taken back to an exam room. The patient started with URI symptoms and a cough in February. She was treated with amoxicillin and Tessalon Perles by her PCP with improvement of her symptoms, but not full resolution. She then developed worsening symptoms again on New 's Trina. She now has a yellow mucus that comes up sometimes when she coughs. She was concerned because her pulse ox at home was low. She denies any fevers. No history of wheezing, COPD, or asthma. She is on Plavix. She denies any chest pain. White blood cell count low at 4.49. Hemoglobin normal at 13.6. Platelet count normal at 153. Coags were normal. Sodium low at 132, but this appears relatively stable for the patient. BUN and creatinine are elevated at 26 and 1.28 respectively. However, it appears the patient has intermittent elevations of her renal functions. CMP otherwise without concerning abnormalities. Initial high-sensitivity troponin 14.2 with repeat high-sensitivity troponin of 15.1 which is less than a 20% increase. The elevated troponin may be secondary to ischemic demand from her respiratory illness. Respiratory BioFire was positive for human metapneumovirus. Chest x-ray negative for pneumonia or other acute cardiopulmonary etiology. The patient was given 500 ml normal saline solution bolus as well as a DuoNeb treatment. She states that her breathing improved after the first DuoNeb treatment and her wheezing improved as well as. The patient declined any medication for pain or nausea while in the emergency department. Prior to discharge the patient states that she felt a little wheezy again and she was given a second DuoNeb treatment with good improvement of her symptoms. I had a meaningful discussion about this patient with Dr. Escalante who agrees with my assessment and the treatment plan. The patient's symptoms are likely secondary to the human metapneumovirus infection. However, the patient has had longstanding nasal congestion with sinus congestion. Therefore, the patient will be treated with Augmentin for a possible developing sinus infection. I discussed admission versus discharge with the patient. The patient states that she felt much better after the DuoNeb treatments and the IV fluids. The patient wished to be discharged home to try outpatient treatment. The patient states that they live in a single story home and she feels that she will be able to take care of herself at home. The patient was given an Augmentin home pack and prescription. The patient was also given an albuterol inhaler to go home. The patient and her were educated on the treatment plan and the discharge instructions. The patient was discharged home in stable condition with her . As the patient was leaving after discharge, she states that she turned to look at her who dropped papers on the floor and she fell backwards hitting her head. Nursing staff advised me that the patient had refused a wheelchair at the time of discharge. The patient states that she believes it was a mechanical fall and just lost her balance, but she states she was also short of breath because of her coughing. The patient has a large area of swelling to the back of her head and has some mild discomfort in the back of her head. There was no loss of consciousness. She is on Plavix. She denies any nausea or vomiting. No dizziness or lightheadedness. No change in her mental status. She denies any neck or back pain. Denies any pain into her arms or legs. She denies any chest pain at this time. She states that her shortness of breath improved after that second DuoNeb treatment. However, she is still coughing. She denies any abdominal pain. The patient was placed back into the exam room and was reexamined. She does have tenderness and swelling to the left occipital aspect, but no lacerations or abrasions. No other tenderness to palpation on exam or obvious evidence for additional trauma. The patient denies any symptoms other than the discomfort in the area of the swelling to her scalp. CT scan of the head without contrast showed the soft tissue scalp hematoma over the high left parietal region without underlying bony abnormality. No other acute intracranial abnormalities. CT scan of the cervical spine without contrast showed degenerative changes, but no acute fracture, subluxation, or acute traumatic abnormalities. The patient is on Plavix and I am concerned about the size of her hematoma as well as concern for a repeat fall given her initial fall. Unclear whether it was truly only a mechanical fall or whether the patient's respiratory illness was contributing to the fall. I had another meaningful discussion about this patient with Dr. Escalante who agrees with my assessment and the treatment plan. We feel the patient would benefit from admission and observation due to her head injury, hematoma, Plavix use, and respiratory symptoms and concern for repeat fall/trauma. I spoke with the on-call hospitalist who agreed to admit the patient for further evaluation and treatment. Please refer to their dictation for further details. The patient's care was transferred in stable condition. DIAGNOSIS: Shortness of breath Wheezing Human metapneumovirus Elevated troponin Closed head injury with scalp hematoma Fall Plavix use INITIAL TREATMENT PLAN/DISCHARGE INSTRUCTIONS (discharge instructions given to the patient prior to the fall): You have been diagnosed with human metapneumovirus which is a viral infection. Viral infections do not require antibiotics for treatment. However, based on your symptoms as well as your length of symptoms, you will be started on Augmentin to treat for a possible bacterial component. Take Augmentin twice a day for 10 days. Take with food. You can take Ibuprofen 600 mg and/or Tylenol 1000 mg every 6 hours as needed for pain/fever (Maximum 4000 mg Tylenol in 24 hr period and take ibuprofen with food). You should increase your fluid intake and stay well rested. You can use Cepacol lozenges and/or saltwater gargles as needed for sore throat. Nasal saline spray/saline irrigation/Neti pot can be used as needed for nasal/sinus congestion. You can use a cool mist humidifier as well. Use Coricidin HBP type cold medications instead of the above medications if you have high blood pressure or other heart problems. You can use the albuterol inhaler 2 puffs every 4-6 hours while you are ill to help with your cough, shortness of breath, and wheezing. Avoid exposure to other people until you have been fever free off Ibuprofen/Tylenol for at least 24 hrs and your symptoms have started to improve. Wash your hands frequently and disinfect frequently touched surfaces often to help prevent the spread of infection. Contact your family doctor in the morning to schedule a follow-up appointment for recheck of your symptoms. You will also need to have your troponin levels monitored as an outpatient. It is very important that you return to the ER immediately if you develop any chest pain or symptoms concerning for a heart attack. However, your elevated troponin may just be secondary to your illness. Return to the ER if you are unable to swallow (not just painful), if you have difficulty breathing, if you continue with high fevers that are not affected by medication, if you develop significant neck pain/stiffness, if you develop confusion, if you have signs of dehydration, or for other significantly worsening symptoms. You were prescribed an antibiotic. All antibiotics have the potential to cause diarrhea - you can take an OTC probiotic if diarrhea develops. Stop this medication and contact a medical provider if you were to develop any significant adverse side effects including: wheezing, shortness of breath, passing out, significant vomiting, or a diffuse rash. Always take antibiotics as directed and COMPLETE the ENTIRE course regardless of the improvement of your symptoms. Past Med/Surg History Problem List (Updated 04/20/24 @ 18:44 by Queenie Bajwa PA-C) Scalp hematoma (Acute) Closed head injury (Acute) Fall (Acute) Fall Closed head injury without loss of consciousness Elevated troponin (Acute) Infection due to human metapneumovirus (hMPV) (Acute) Wheezing (Acute) SOB (shortness of breath) (Acute) Osteoporosis Glaucoma Carotid artery stenosis s/p bilateral CEA (2018) PAD (peripheral artery disease) Hypertension Hyperlipidemia Malignant neoplasm of lower-inner quadrant of left breast in female, estrogen receptor positive (Chronic 02/04/20) Medical History (Updated 04/20/24 @ 18:44 by Queenie Bajwa PA-C) GERD (gastroesophageal reflux disease) History of fracture of clavicle (11/16/21) Mildly displaced fracture of the distal left clavicle from a fall Hyponatremia Arthritis Stress incontinence in female Retrosternal chest pain Admitted to [facility] 01/27/20-01/29/20- had full work up that was negative Mammogram abnormal Subclavian artery stenosis, left Stroke CVA per vascular note in 2018- found to have bilateral carotid stenosis - subsequently had bilateral CEAs Surgical History History of left breast biopsy (02/04/20) S/P lumpectomy, left breast (03/17/20) Left Breast Lumpectomy with Maricel Saddle Maker Localization and Left [place] Lymph Node Biopsy Dr. Dickinson 03/17/2020 History of bilateral carotid endarterectomy (2017) Dr. Zepeda-2017 History of vaginal surgery (1994) Anterior colporrhaphy, repair of cystocele-1994 History of cataract surgery (2011) 2011 History of colonoscopy (2013) 2013 History of vaginal hysterectomy (1984) 1984 Family History Mother Hypertension Father No problems noted. Aunt Breast cancer, Onset Age: 70 Sister No problems noted. Son No problems noted. Daughter No problems noted. Daughter No problems noted. Other Family history of deafness or hearing loss Hyperlipidemia No family history of adverse response to anesthesia No family history of bleeding disorder Social History (Updated 03/12/24 @ 14:51 by MATEUS Salazar) Smoking Status: Former smoker Tobacco Type: Cigarettes Age Started Using Tobacco: 22; Age Quit Using Tobacco: 0; packs per day: 1; Second Hand Exposure: Yes (Mother and Father smoked in home ); Do You Dip or Chew Tobacco: No; Hx Alcohol Use: Yes Alcohol type: beer Alcohol Intake Frequency: 4 or More x per/Week Alcohol Intake Frequency Comment: 1 drink per day Hx Substance Use: No Preferred Language: Estonian Communication Ability: Effective Visual Impairment: Limited Hearing Ability: Normal Marble Cleaner Required: No Beliefs That Will Affect Care: None marital status: Current Living Situation: Spouse current occupational status: retired 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 [employer] How many Children do You have: 3 Feels Safe at Home: Yes Childhood Exposure to Second-Hand Smoke: Yes Diet: regular caffeine: Yes (2 cups of coffee/day ) during the past year weight has: remained stable Dental Care, Regularly: No Physical Activity Frequency: Other Physical Activity Frequency Comment: Active Lifestyle Seatbelt Use: always Sunscreen Use: Yes Assistive Devices: Denture - Upper and Glasses Allergies Allergies Allergy/AdvReac Type Severity Reaction Status Date / Time atorvastatin Allergy Unknown MUSCLE Verified 12/10/23 08:57 ACHES codeine AdvReac Mild HALLUCINATI Verified 12/10/23 08:57 ONS Home Meds Home Medications Medication Instructions Recorded Confirmed latanoprost 0.005 % eye drops 1 drops ophthalmic (eye) HS 01/14/19 04/20/24 timolol maleate 0.5 % eye drops 1 drp OPB QAM 01/27/20 04/20/24 ascorbic acid (vitamin C) 500 mg 1,000 mg PO DAILY 05/04/20 04/20/24 capsule cholecalciferol (vitamin D3) 25 25 mcg PO DAILY 05/04/20 04/20/24 mcg (1,000 unit) capsule letrozole 2.5 mg tablet 2.5 mg PO DAILY 10/12/20 04/20/24 mecobalamin (vitamin B12) 1,000 1,000 mcg PO .3 times/week 03/23/22 04/20/24 mcg chewable tablet losartan 100 mg tablet 100 mg PO DAILY 04/20/24 04/20/24 Previous Rx's Medication Instructions Recorded clopidogrel 75 mg tablet See Rx Instructions .Route 07/26/23 .COMPLEX #90 tabs azelastine 137 mcg (0.1 %) nasal See Rx Instructions .Route 08/20/23 spray .COMPLEX #30 mL alendronate 70 mg tablet (Fosamax) 70 mg PO .q7days 3 months #12 tabs 12/10/23 metoprolol tartrate 50 mg tablet 50 mg PO BID #180 tabs 02/25/24 benzonatate 100 mg capsule 100 mg PO .COMPLEX PRN cough #30 03/12/24 caps rosuvastatin 10 mg tablet See Rx Instructions .Route 04/01/24 .COMPLEX #90 tabs furosemide 20 mg tablet 20 mg PO DAILY #30 tabs 04/03/24 indapamide 2.5 mg tablet 2.5 mg PO QAM #90 tabs 04/16/24 amoxicillin 875 mg-potassium 1 tab PO BID 10 days #20 tabs 04/20/24 clavulanate 125 mg tablet Results & Data (ED) Vital Signs Vital Signs - 24 hr 04/20/24 11:40 04/20/24 11:48 04/20/24 11:48 Temperature 36.1 C L Temperature Source Temporal Artery Scan Pulse Rate 69 Pulse Rate [Finger] Pulse Rate from SpO2 Sensor Pulse Rhythm [Finger] Pulse Strength [Finger] Respiratory Rate 20 Respiratory Effort / Characteristics Non-Labored Spontaneous Non-Labored Spontaneous Respiratory Depth Normal Normal Respiratory Pattern Regular Regular Blood Pressure 181/75 H Blood Pressure [Right Arm] Blood Pressure Mean 110 Blood Pressure Mean [Right Arm] Blood Pressure Position [Right Arm] Pulse Oximetry 94 94 Oxygen Delivery Method Room Air Room Air Room Air Oxygen Flow Rate 0 Sepsis Recent Fever Within 48 Hours No Sepsis New/Unexplained Change in Mental Status N/A Sepsis Action Taken by Nursing No Action Required Oxygen Flow Rate - Titration 0 04/20/24 12:38 04/20/24 13:44 04/20/24 13:44 Temperature Temperature Source Pulse Rate 68 Pulse Rate [Finger] 66 Pulse Rate from SpO2 Sensor Pulse Rhythm [Finger] Regular Pulse Strength [Finger] Normal Respiratory Rate 20 22 Respiratory Effort / Characteristics Non-Labored Spontaneous Respiratory Depth Normal Respiratory Pattern Blood Pressure 161/74 H 161/74 H Blood Pressure [Right Arm] 169/78 H Blood Pressure Mean 116 116 Blood Pressure Mean [Right Arm] 108 Blood Pressure Position [Right Arm] Pulse Oximetry 100 90 Oxygen Delivery Method Nebulizer Oxygen Flow Rate Sepsis Recent Fever Within 48 Hours Sepsis New/Unexplained Change in Mental Status Sepsis Action Taken by Nursing Oxygen Flow Rate - Titration 04/20/24 13:50 04/20/24 13:50 04/20/24 14:00 Temperature Temperature Source Pulse Rate 65 Pulse Rate [Finger] Pulse Rate from SpO2 Sensor 64 Pulse Rhythm [Finger] Pulse Strength [Finger] Respiratory Rate 18 Respiratory Effort / Characteristics Respiratory Depth Respiratory Pattern Blood Pressure Blood Pressure [Right Arm] Blood Pressure Mean Blood Pressure Mean [Right Arm] Blood Pressure Position [Right Arm] Pulse Oximetry 90 90 95 Oxygen Delivery Method Room Air Room Air Oxygen Flow Rate Sepsis Recent Fever Within 48 Hours Sepsis New/Unexplained Change in Mental Status Sepsis Action Taken by Nursing Oxygen Flow Rate - Titration 04/20/24 14:00 04/20/24 15:00 04/20/24 16:00 Temperature Temperature Source Pulse Rate Pulse Rate [Finger] 71 72 Pulse Rate from SpO2 Sensor Pulse Rhythm [Finger] Pulse Strength [Finger] Respiratory Rate 18 18 Respiratory Effort / Characteristics Non-Labored Spontaneous Respiratory Depth Normal Respiratory Pattern Regular Blood Pressure 141/59 H Blood Pressure [Right Arm] 118/65 118/86 Blood Pressure Mean 83 Blood Pressure Mean [Right Arm] 82 96 Blood Pressure Position [Right Arm] Semi-fowlers Semi-fowlers Pulse Oximetry 96 93 Oxygen Delivery Method Room Air Oxygen Flow Rate Sepsis Recent Fever Within 48 Hours Sepsis New/Unexplained Change in Mental Status Sepsis Action Taken by Nursing Oxygen Flow Rate - Titration 04/20/24 16:23 04/20/24 17:37 Temperature Temperature Source Pulse Rate 73 Pulse Rate [Finger] 72 Pulse Rate from SpO2 Sensor Pulse Rhythm [Finger] Pulse Strength [Finger] Respiratory Rate 18 Respiratory Effort / Characteristics Respiratory Depth Respiratory Pattern Blood Pressure Blood Pressure [Right Arm] 165/71 H Blood Pressure Mean Blood Pressure Mean [Right Arm] 102 Blood Pressure Position [Right Arm] Semi-fowlers Pulse Oximetry 94 Oxygen Delivery Method Room Air Oxygen Flow Rate Sepsis Recent Fever Within 48 Hours Sepsis New/Unexplained Change in Mental Status Sepsis Action Taken by Nursing Oxygen Flow Rate - Titration Laboratory Data 04/20/24 11:59 04/20/24 11:59 Lab Results 04/20/24 04/20/24 04/20/24 Range/Units 11:52 11:59 14:05 WBC 4.49 L (4.8-10.8) K/ul RBC 3.94 L (4.20-5.40) M/uL Hgb 13.6 (12.0-16.0) g/dl Hct 38.8 (37.0-47.0) % MCV 98.5 (80.0-100.0) fL MCH 34.5 H (25.0-34.0) pg MCHC 35.1 (32.0-36.0) g/dL RDW Std Deviation 45.2 (36.4-46.3) fL RDW Coeff of Denis 12.6 (11.5-14.5) % Plt Count 153 (130-400) K/uL MPV 9.7 (9.4-12.4) fL Immature Gran % (Auto) 0.2 % Neut % (Auto) 42.1 % Lymph % (Auto) 36.3 % Pratt % (Auto) 18.9 % Eos % (Auto) 1.6 % Baso % (Auto) 0.9 % Neut # (Auto) 1.89 (1.40-6.50) K/uL Lymph # (Auto) 1.63 (1.20-3.40) K/uL Pratt # (Auto) 0.85 H (0.11-0.59) K/uL Eos # (Auto) 0.07 (0.00-0.50) K/uL Baso # (Auto) 0.04 (0.00-0.20) K/uL Immature Gran # (Auto) 0.01 (0.01-0.20) K/uL PT Cancelled 11.3 INR Cancelled 1.0 APTT Cancelled 24 PTT Ratio Cancelled 0.9 Sodium 132 L (136-145) mmol/L Potassium 3.9 (3.5-5.1) mmol/L Chloride 91 L (98-107) mmol/L Carbon Dioxide 31 (21-32) mmol/L Anion Gap 10 (3-11) BUN 26 H (6-23) mg/dl Creatinine 1.28 H (0.6-1.2) mg/dl Est Cr Clr Drug Dosing Not Reportable eGFR 42.09 BUN/Creatinine Ratio 20.3 H (10-20) Glucose 109 H (70-99(Fasting)) mg/dl Calcium 9.7 (8.6-10.3) mg/dl Total Bilirubin 0.7 (0.2-1.0) mg/dl AST 34 (13-39) U/L ALT 17 (7-52) U/L Alkaline Phosphatase 70 (34-104) U/L Troponin I High Sens 14.2 H 15.1 H (0-14) pg/ml Total Protein 8.4 H (6.0-8.3) gm/dl Albumin 4.5 (3.4-5.0) gm/dl Globulin 3.9 (2.5-4.0) gm/dl Albumin/Globulin Ratio 1.2 (0.9-2) Adenovirus (PCR) Not Detected (NotDetected) B. pertussis DNA (PCR) Not Detected (NotDetected) B.parapertussis DNA PCR Not Detected (NotDetected) C. pneumoniae DNA (PCR) Not Detected (NotDetected) Coronavirus OC43 (PCR) Not Detected (NotDetected) Coronavirus HKU1 (PCR) Not Detected (NotDetected) Coronavirus 229E (PCR) Not Detected (NotDetected) SARS-CoV-2 (PCR) Not Detected (NotDetected) Coronavirus NL63 (PCR) Not Detected (NotDetected) Human Metapneumovir PCR DETECTED A (NotDetected) Influenza Type A (PCR) Not Detected (NotDetected) Influenza Type B (PCR) Not Detected (NotDetected) M. pneumoniae (PCR) Not Detected (NotDetected) Parainfluenza 1 (PCR) Not Detected (NotDetected) Parainfluenza 2 (PCR) Not Detected (NotDetected) Parainfluenza 3 (PCR) Not Detected (NotDetected) Parainfluenza 4 (PCR) Not Detected (NotDetected) RSV (PCR) Not Detected (NotDetected) Entero/Rhino (PCR) Not Detected (NotDetected) Administered Medications Discontinued Medications Albuterol (Albut/Ipratrop 3mg/0.5mg Neb 3 Ml Vial) 3 ml NEB NOW STA; Protocol Stop: 04/20/24 12:17 Last Admin: 04/20/24 12:32 Dose: 3 ml Documented By: MARTÍNEZ Albuterol (Albuterol Hfa 8 Gm Inhaler) 2 puffs INH NOW ONE Stop: 04/20/24 15:10 Last Admin: 04/20/24 15:18 Dose: 2 puffs Documented By: YVROSE Albuterol (Albut/Ipratrop 3mg/0.5mg Neb 3 Ml Vial) 3 ml NEB NOW STA; Protocol Stop: 04/20/24 15:10 Last Admin: 04/20/24 15:18 Dose: 3 ml Documented By: YVROSE Amoxicillin/Clavulanate Potassium (Amoxicillin/Clavulanate 875mg Home Pack) 1 each PO ONE ONE Stop: 04/20/24 15:10 Last Admin: 04/20/24 15:18 Dose: 1 each Documented By: YVROSE Sodium Chloride (Nss) 500 mls @ 999 mls/hr IV .Q31M ONE Stop: 04/20/24 13:31 Last Infusion: 04/20/24 14:44 Dose: Infused Documented By: Admin: 04/20/24 13:45 Dose: 999 mls/hr Documented By: NICHOLAS Imaging Data Radiologist's Impression: Chest X-Ray 04/20/24 11:47 XR chest 1V not portable CLINICAL HISTORY: Chest pain, nonspecific COMPARISON STUDY: Chest CT August 01, 2022. Chest radiograph August 20, 2023. FINDINGS: Lung volumes are normal. Linear bibasilar densities represent atelectasis. There is no pneumothorax or pleural effusion. Cardiac size is normal. Mediastinal contours are normal. There is no evidence for pulmonary edema. IMPRESSION: No acute cardiopulmonary findings. ACT 112: Negative or not required by law. Electronically signed by: Sean Schulte M.D. 04/20/2024 12:[address] 04/20/24 16:30 CT cervical spine without IV contrast History: Pain Comparison: 11/16/2021 Technique: Using multidetector thin collimation helical acquisition technique, axial, coronal and sagittal CT images through the cervical spine were obtained without intravenous contrast. Dose reduction techniques were achieved by using automatic exposure control and/or adjustment of mA and/or kV according to patient size and/or use of iterative reconstruction technique. Findings: Degenerative related grade 1 anterolisthesis seen at C3 on C4, as well as C4 on C5. Straightened cervical lordosis. No acute fracture or subluxation. No prevertebral edema. Moderate discogenic degenerative change seen at C5-6, C6-7, and C7-8. Osteopenia. No abnormality of the paraspinous soft tissues. Impression: No acute fracture or traumatic subluxation. Electronically signed by Duke Gaytan 04-20-2024 5:[address] 04/20/24 16:30 CT head without contrast History: Trauma Comparison: 11/16/2021 Technique: Using multidetector thin collimation helical acquisition technique, axial, coronal and sagittal CT images from the skull base to the vertex were obtained without intravenous contrast. Dose reduction techniques were achieved by using automatic exposure control and/or adjustment of mA and/or kV according to patient size and/or use of iterative reconstruction technique. Findings: No intracranial hemorrhage, mass-effect, or midline shift. The ventricles are proportionate to the cerebral sulci. The chavez to white matter differentiation of the cerebral hemispheres is preserved. The basal cisterns are patent. There is mild age-related cerebral atrophy. The visualized paranasal sinuses are clear. Mastoid air cells are clear. Bilateral pseudophakia. Impression: No acute intracranial pathology. Soft tissue scalp hematoma over the high left parietal region without underlying bony abnormality. Electronically signed by Duke Gaytan 04-20-2024 5:08 PM Discharge Plan Visit Data Chief Complaint: Shortness of Breath/Dyspnea Stated Complaint: SOB/TROUBLE BREATHING ED Provider: Sammy Escalante ED Midlevel Provider: Queenie Bajwa Discharge Problem: SOB (shortness of breath), Wheezing, Infection due to human metapneumovirus (hMPV), Elevated troponin, Fall, Closed head injury, Scalp hematoma Patient Disposition: Admitted As Inpatient Condition: Good Discharge Instructions Erick/Other Patient Handouts: ED MDI Use Spacer or None, ED URI, Viral W/ Wheezing (Adult) Forms Stand Alone Forms: [facility], Important Visit Information Prescriptions Prescriptions: New amoxicillin-pot clavulanate 875-125 mg tablet 1 tab PO BID 10 Days Qty: 20 0RF No Action cholecalciferol (vitamin D3) 25 mcg (1,000 unit) capsule 25 mcg PO DAILY ascorbic acid (vitamin C) 500 mg capsule 1,000 mg PO DAILY letrozole 2.5 mg tablet 2.5 mg PO DAILY mecobalamin (vitamin B12) 1,000 mcg tablet,chewable 1,000 mcg PO .3 times/week clopidogrel 75 mg tablet See Rx Instructions .ROUTE .COMPLEX Qty: 90 3RF Dose Instruction: TAKE 1 TABLET BY MOUTH EVERY MORNING Rx Instructions: TAKE 1 TABLET BY MOUTH EVERY MORNING metoprolol tartrate 50 mg tablet 50 mg PO BID Qty: 180 3RF rosuvastatin 10 mg tablet See Rx Instructions .ROUTE .COMPLEX Qty: 90 0RF Dose Instruction: TAKE 1 TABLET BY MOUTH AT BEDTIME Rx Instructions: TAKE 1 TABLET BY MOUTH AT BEDTIME furosemide 20 mg tablet 20 mg PO DAILY Qty: 30 5RF indapamide 2.5 mg tablet 2.5 mg PO QAM Qty: 90 3RF latanoprost 0.005 % drops 1 drops OP HS alendronate [Fosamax] 70 mg tablet 70 mg PO .q7days 90 Days Qty: 12 4RF Rx Instructions: Take 1 tab once weekly with 8 oz. plain water; wait 45 minutes before eating/drinking anything else. benzonatate 100 mg capsule 100 mg PO .COMPLEX PRN (Reason: cough) Qty: 30 1RF Rx Instructions: 100 mg orally 1 or 2 capsules every 8 hours as needed for cough. PRN; azelastine 137 mcg (0.1 %) aerosol,spray See Rx Instructions .ROUTE .COMPLEX Qty: 30 5RF Rx Instructions: USE 1-2 SPRAYS EACH NOSTRIL 1-2 TIMES DAILY.; administer into each nostril timolol maleate 0.5 % drops 1 drp OPB QAM losartan 100 mg tablet 100 mg PO DAILY Rx Instructions: TAKE 1 TABLET BY MOUTH DAILY EVERY MORNING Referrals Referrals: Cherrie Burnham MD [Primary Care Provider] - Discharge Problem: Fall Qualifiers: Encounter type: initial encounter Qualified Code(s): W19.XXXA - Unspecified fall, initial encounter Closed head injury Qualifiers: Encounter type: initial encounter Qualified Code(s): S09.90XA - Unspecified injury of head, initial encounter Scalp hematoma Qualifiers: Encounter type: initial encounter Qualified Code(s): S00.03XA - Contusion of scalp, initial encounter
[2024-04-20 12:11] LABS: Basophils # (auto) 0.04 K/uL (0.00-0.20); Basophils % (auto) 0.9 %; Eosinophils # (auto) 0.07 K/uL (0.00-0.50); Eosinophils % (auto) 1.6 %; Hematocrit (blood only) 38.8 % (37.0-47.0); Hemoglobin 13.6 g/dl (12.0-16.0); Immature Granulocytes # (auto) 0.01 K/uL (0.01-0.20); Immature Granulocytes % (auto) 0.2 %; Lymphocytes # (auto) 1.63 K/uL (1.20-3.40); Lymphocytes % (auto) 36.3 %; Mean Corpuscular Hemoglobin 34.5 pg (25.0-34.0); Mean Corpuscular Hgb Conc 35.1 g/dL (32.0-36.0); Mean Corpuscular Volume 98.5 fL (80.0-100.0); Mean Platelet Volume 9.7 fL (9.4-12.4); Monocytes # (auto) 0.85 K/uL (0.11-0.59); Monocytes % (auto) 18.9 %; Neutrophils # (auto) 1.89 K/uL (1.40-6.50); Neutrophils % (auto) 42.1 %; Platelet Count 153 K/uL (130-400); RDW Coefficient of Variation 12.6 % (11.5-14.5); RDW Standard Deviation 45.2 fL (36.4-46.3); Red Blood Count 3.94 M/uL (4.20-5.40); White Blood Count 4.49 K/ul (4.8-10.8)
[2024-04-20] MEDS: ALBUT/IPRATROP 3MG/0.5MG NEB 3 ML VIAL NEB STA ×2 (12:32→15:18)
[2024-04-20 12:34] LABS: Alanine Aminotransferase 17 U/L (7-52); Albumin Globulin Ratio 1.2 (0.9-2); Albumin Level 4.5 gm/dl (3.4-5.0); Alkaline Phosphatase 70 U/L (34-104); Anion Gap 10 (3-11); Aspartate Aminotransferase 34 U/L (13-39); BUN Creatinine Ratio 20.3 (10-20); Bilirubin,Total 0.7 mg/dl (0.2-1.0); Blood Urea Nitrogen 26 mg/dl (6-23); Calcium 9.7 mg/dl (8.6-10.3); Carbon Dioxide 31 mmol/L (21-32); Chloride 91 mmol/L (98-107); Globulin 3.9 gm/dl (2.5-4.0); Glucose 109 mg/dl (70-99(Fasting)); Potassium 3.9 mmol/L (3.5-5.1); Sodium 132 mmol/L (136-145); Total Protein 8.4 gm/dl (6.0-8.3)
[2024-04-20 12:41] LABS: Troponin I High Sensitivity 14.2 pg/ml (0-14)
--- NOTE | 2024-04-20 12:41 | XRay Report ---
XR chest 1V not portable CLINICAL HISTORY: Chest pain, nonspecific COMPARISON STUDY: Chest CT August 01, 2022. Chest radiograph August 20, 2023. FINDINGS: Lung volumes are normal. Linear bibasilar densities represent atelectasis. There is no pneu mothorax or pleural effusion. Cardiac size is normal. Mediastinal contours are normal. There is no ev idence for pulmonary edema. IMPRESSION: No acute cardiopulmonary findings. ACT 112: Negative or not required by law. Electronically signed by: Sean Schulte M.D. 04/20/2024 12:40 PM
[2024-04-20 13:03] LABS: Adenovirus PCR Not Detected (NotDetected); Bordetella parapertussis PCR Not Detected (NotDetected); Bordetella pertussis PCR Not Detected (NotDetected); Chlamydia pneumoniae PCR Not Detected (NotDetected); Coronavirus 229E PCR Not Detected (NotDetected); Coronavirus CoV-2 (COVID19)PCR Not Detected (NotDetected); Coronavirus HKU1 PCR Not Detected (NotDetected); Coronavirus NL63 PCR Not Detected (NotDetected); Coronavirus OC43PCR Not Detected (NotDetected); Human Metapneumovirus PCR DETECTED (NotDetected); Influenza A PCR Not Detected (NotDetected); Influenza B PCR Not Detected (NotDetected); Mycoplasma pneumoniae PCR Not Detected (NotDetected); Parainfluenza Virus 1 PCR Not Detected (NotDetected); Parainfluenza Virus 2 PCR Not Detected (NotDetected); Parainfluenza Virus 3 PCR Not Detected (NotDetected); Parainfluenza Virus 4 PCR Not Detected (NotDetected); Respiratory Syncytial VirusPCR Not Detected (NotDetected); Rhinovirus/Enterovirus PCR Not Detected (NotDetected)
[2024-04-20] MEDS: SODIUM CHLORIDE 0.9% 500 ML IV ONE (13:45)
--- NOTE | 2024-04-20 13:47 | Emergency Department Note ---
ED Visit Note I was consulted by the Advanced Practice Provider. I personally made or approved the management plan for the patient. I performed a substantive portion of the visit. This includes the aspects of: MDM. .
[2024-04-20 14:34] LABS: Partial Thromboplastin Ratio 0.9; Partial Thromboplastin Time 24 Seconds (21-31); Prothrombin Time 11.3 Seconds (9.0-12.0)
[2024-04-20] MEDS: AMOXICILLIN/CLAVULANATE 875MG HOME PACK PO ONE (15:18)
[2024-04-20] MEDS: ALBUTEROL HFA 8 GM INHALER INH ONE (15:18)
--- NOTE | 2024-04-20 17:07 | CT Scan Report ---
CT cervical spine without IV contrast History: Pain Comparison: 11/16/2021 Technique: Using multidetector thin collimation helical acquisition technique, axial, coronal and sagittal CT images through the cervical spine were obtained without intravenous contrast. Dose reduction techniques were achieved by using automatic exposure control and/or adjustment of mA and/or kV according to patient size and/or use of iterative reconstruction technique. Findings: Degenerative related grade 1 anterolisthesis seen at C3 on C4, as well as C4 on C5. Straightened cervical lordosis. No acute fracture or subluxation. No prevertebral edema. Moderate discogenic degenerative change seen at C5-6, C6-7, and C7-8. Osteopenia. No abnormality of the paraspinous soft tissues. Impression: No acute fracture or traumatic subluxation. Electronically signed by Duke Gaytan 04-20-2024 5:07 PM
--- NOTE | 2024-04-20 17:08 | CT Scan Report ---
CT head without contrast History: Trauma Comparison: 11/16/2021 Technique: Using multidetector thin collimation helical acquisition technique, axial, coronal and sagittal CT images from the skull base to the vertex were obtained without intravenous contrast. Dose reduction techniques were achieved by using automatic exposure control and/or adjustment of mA and/or kV according to patient size and/or use of iterative reconstruction technique. Findings: No intracranial hemorrhage, mass-effect, or midline shift. The ventricles are proportionate to the cerebral sulci. The chavez to white matter differentiation of the cerebral hemispheres is preserved. The basal cisterns are patent. There is mild age-related cerebral atrophy. The visualized paranasal sinuses are clear. Mastoid air cells are clear. Bilateral pseudophakia. Impression: No acute intracranial pathology. Soft tissue scalp hematoma over the high left parietal region without underlying bony abnormality. Electronically signed by Duke Gaytan 04-20-2024 5:08 PM
--- NOTE | 2024-04-20 18:02 | History & Physical Report ---
Date of Service April 20, 2024 Assessment & Plan (1) Closed head injury without loss of consciousness: Plan: Attending: Dr. Walden 83-year-old female being discharged from the emergency department and had a mechanical fall on her way to [facility]. No loss of consciousness. Patient reports that she "tripped over her own feet". No lightheadedness, dizziness, visual changes, headache, chest pain, tachyarrhythmia, chest tightness prior to fall. CT of the head was completed and shows no intracranial abnormality. Patient does have a soft tissue hematoma over the high left parietal region. Patient is on clopidogrel (Plavix) but not on any anticoagulant Will admit the patient overnight for observation No indication for repeat imaging unless patient has symptomatic change Hopefully, we will be able to discharge patient home tomorrow after observation (2) Fall: Plan: Mechanical fall with no neurological deficits reported prior or after the fall See #1 above Fall precautions while inpatient (3) Infection due to human metapneumovirus (hMPV): Plan: Patient was in the emergency department on this date and found to have metapneumovirus Chest x-ray with no acute cardiopulmonary findings Patient was being discharged home on Augmentin and albuterol at time of mechanical fall Will continue with Augmentin 875 mg p.o. twice daily for total of 10 days of treatment While inpatient, due to patient's current bronchospasm, will treat with DuoNebs 4 times daily as needed for shortness of breath or wheezes Discharge home on albuterol HFA with instructions per ER (4) Glaucoma: Plan: Continue timolol drops (5) Hypertension: Plan: At time of discharge, patient's blood pressure was 141/59 At the time of my examination, patient's blood pressure was 191/90. Patient was fairly upset that she had fallen. No immediate intervention. Continue with usual home meds Plan Admit patient for observation overnight secondary to closed head injury while on clopidogrel DVT prophylaxis: Hold clopidogrel. No chemical prophylaxis. Will order SCDs and SCAR hose while inpatient Continue fall precautions while inpatient Diet: Heart healthy. Okay to feed dinner History of Present Illness Chief Complaint: Closed head injury status post mechanical fall Primary Care Provider: Cherrie Burnham MD Attending: Dr. Walden This is an 83-year-old female that presented earlier today for shortness of breath. She was found to have metapneumovirus and was being discharged home when she tripped and had a mechanical fall. She hit the left back of her head. Patient notes that she is on clopidogrel (Plavix). CT scan of the head was completed and revealed a soft tissue hematoma with no evidence of any other injury. On examination, patient does have some ecchymosis and tenderness over the left parietal region. There is no evidence of bleeding or drainage. No focal deficits on neurological exam. Patient has no other acute complaints at this time secondary to head pain at the site of the fall. For her shortness of breath and diagnosis of metapneumovirus, patient was being discharged on Augmentin as well as albuterol HFA. After discussion with the patient, we will continue with the Augmentin prophylactically as well as with DuoNebs as needed for shortness of breath and wheezing while she is here. Anticipate discharge tomorrow after observation as she was on Plavix. Patient denies any loss of consciousness, dizziness, lightheadedness, chest pain, tightness, visual disturbances prior to the fall. She remembers tripping over her foot resulting in the fall. Case discussed with Dr. Walden. Patient will be admitted for observation with hopeful discharge home in the morning Allergies Allergy/AdvReac Type Severity Reaction Status Date / Time atorvastatin Allergy Unknown MUSCLE Verified 12/10/23 08:57 ACHES codeine AdvReac Mild HALLUCINATI Verified 12/10/23 08:57 ONS Home Medications Medication Instructions Recorded Confirmed Type latanoprost 0.005 % eye drops 1 drops ophthalmic (eye) HS 01/14/19 03/12/24 History timolol maleate 0.5 % eye drops 1 drp OPB QAM 01/27/20 03/12/24 History ascorbic acid (vitamin C) 500 mg 1,000 mg PO DAILY 05/04/20 03/12/24 History capsule cholecalciferol (vitamin D3) 25 25 mcg PO DAILY 05/04/20 03/12/24 History mcg (1,000 unit) capsule letrozole 2.5 mg tablet 2.5 mg PO DAILY 10/12/20 03/12/24 History mecobalamin (vitamin B12) 1,000 1,000 mcg PO .3 times/week 03/23/22 03/12/24 History mcg chewable tablet benzonatate 200 mg capsule 200 mg PO TID PRN cough #30 caps 04/17/23 03/12/24 Rx clopidogrel 75 mg tablet See Rx Instructions .Route 07/26/23 03/12/24 Rx .COMPLEX #90 tabs losartan 100 mg tablet See Rx Instructions .Route 07/31/23 03/12/24 Rx .COMPLEX #90 tabs azelastine 137 mcg (0.1 %) nasal See Rx Instructions .Route 08/20/23 03/12/24 Rx spray .COMPLEX #30 mL furosemide 40 mg tablet (Lasix) 40 mg PO DAILY #30 tabs 08/20/23 03/12/24 Rx alendronate 70 mg tablet (Fosamax) 70 mg PO .q7days 3 months #12 tabs 12/10/23 03/12/24 Rx metoprolol tartrate 50 mg tablet 50 mg PO BID #180 tabs 02/25/24 03/12/24 Rx amoxicillin 875 mg tablet 875 mg PO BID 10 days #20 tabs 03/12/24 03/12/24 Rx benzonatate 100 mg capsule 100 mg PO .COMPLEX PRN cough #30 03/12/24 03/12/24 Rx caps rosuvastatin 10 mg tablet See Rx Instructions .Route 04/01/24 Rx .COMPLEX #90 tabs furosemide 20 mg tablet 20 mg PO DAILY #30 tabs 04/03/24 Rx indapamide 2.5 mg tablet 2.5 mg PO QAM #90 tabs 04/16/24 Rx amoxicillin 875 mg-potassium 1 tab PO BID 10 days #20 tabs 04/20/24 Rx clavulanate 125 mg tablet Past Med/Surg History Problem List (Updated 04/20/24 @ 18:11 by Jack Marroquin PA-C) Fall Closed head injury without loss of consciousness Elevated troponin (Acute) Infection due to human metapneumovirus (hMPV) (Acute) Wheezing (Acute) SOB (shortness of breath) (Acute) Osteoporosis Glaucoma Carotid artery stenosis s/p bilateral CEA (2018) PAD (peripheral artery disease) Hypertension Hyperlipidemia Malignant neoplasm of lower-inner quadrant of left breast in female, estrogen receptor positive (Chronic 02/04/20) Medical History (Updated 04/20/24 @ 18:11 by Jack Marroquin PA-C) GERD (gastroesophageal reflux disease) History of fracture of clavicle (11/16/21) Mildly displaced fracture of the distal left clavicle from a fall Hyponatremia Arthritis Stress incontinence in female Retrosternal chest pain Admitted to [facility] 01/27/20-01/29/20- had full work up that was negative Mammogram abnormal Subclavian artery stenosis, left Stroke CVA per vascular note in 2018- found to have bilateral carotid stenosis - subsequently had bilateral CEAs Surgical History History of left breast biopsy (02/04/20) S/P lumpectomy, left breast (03/17/20) Left Breast Lumpectomy with Mar[employer]el [employer] 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 Dickinson 03/17/2020 History of bilateral carotid endarterectomy (2017) Dr. Zepeda-2017 History of vaginal surgery (1994) Anterior colporrhaphy, repair of cystocele-1994 History of cataract surgery (2011) 2011 History of colonoscopy (2013) 2013 History of vaginal hysterectomy (1984) 1984 Family History Mother Hypertension Father No problems noted. Aunt Breast cancer, Onset Age: 70 Sister No problems noted. Son No problems noted. Daughter No problems noted. Daughter No problems noted. Other Family history of deafness or hearing loss Hyperlipidemia No family history of adverse response to anesthesia No family history of bleeding disorder Social History (Updated 03/12/24 @ 14:51 by MATEUS Salazar) Smoking Status: Former smoker Tobacco Type: Cigarettes Age Started Using Tobacco: 22; Age Quit Using Tobacco: 0; packs per day: 1; Second Hand Exposure: Yes (Mother and Father smoked in home ); Do You Dip or Chew Tobacco: No; Hx Alcohol Use: Yes Alcohol type: beer Alcohol Intake Frequency: 4 or More x per/Week Alcohol Intake Frequency Comment: 1 drink per day Hx Substance Use: No Preferred Language: Montserratian Communication Ability: Effective Visual Impairment: Limited Hearing Ability: Normal 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 Beliefs That Will Affect Care: None marital status: Current Living Situation: Spouse current occupational status: retired current occupation: Retired [place] at [employer] How many Children do You have: 3 Feels Safe at Home: Yes Childhood Exposure to Second-Hand Smoke: Yes Diet: regular caffeine: Yes (2 cups of coffee/day ) during the past year weight has: remained stable Dental Care, Regularly: No Physical Activity Frequency: Other Physical Activity Frequency Comment: Active Lifestyle Seatbelt Use: always Sunscreen Use: Yes Assistive Devices: Denture - Upper and Glasses Review of Systems 2 Review of Systems: A total of 10 systems was reviewed and is negative other than as listed in the HPI Physical Exam 2 Physical Exam: GENERAL : No acute distress HEAD: Small area of ecchymosis over the left parietal region. No evidence of bleeding or drainage. Tender to touch on examination EYES: No icterus, gaze conjugate. Pupils equal round and reactive to light NOSE: No evidence of epistaxis. MOUTH: No lesions or candidiasis. All teeth appear to be intact. Tongue is midline. No facial droop. NECK: Supple LUNGS: Bilateral upper field bronchospasm in the posterior. No appreciation of anterior bronchospasm. Breath sounds equal at the bilateral bases HEART: Regular, rate controlled ABDOMEN: Soft, NT, ND, BS Present EXTREMITIES: No LE edema, pedal pulses intact NEURO: A&OX3. Pupils equal round and react to light. All 4 extremities able to be moved spontaneously. Strength is equal and appropriate to upper and lower extremities. Tongue is midline. No facial droop. No slurred speech. No appreciation of any focal neurological deficits. Results & Data Results & Data Vital Signs (Past 12 Hours) Vital Signs Temp Pulse Pulse Resp BP BP Pulse Ox 04/20/24 17:37 73 04/20/24 16:23 72 18 165/71 H 94 04/20/24 16:00 72 18 118/86 93 04/20/24 15:00 71 18 118/65 96 04/20/24 14:00 141/59 H 04/20/24 14:00 65 18 95 04/20/24 13:50 90 04/20/24 13:50 90 04/20/24 13:44 161/74 H 04/20/24 13:44 68 22 161/74 H 90 04/20/24 12:38 66 20 169/78 H 100 04/20/24 11:48 94 04/20/24 11:48 04/20/24 11:40 36.1 C L 69 20 181/75 H 94 O2 Del Method O2 Flow Rate 04/20/24 17:37 04/20/24 16:23 Room Air 04/20/24 16:00 Room Air 04/20/24 15:00 04/20/24 14:00 04/20/24 14:00 04/20/24 13:50 Room Air 04/20/24 13:50 Room Air 04/20/24 13:44 04/20/24 13:44 04/20/24 12:38 Nebulizer 04/20/24 11:48 Room Air 0 04/20/24 11:48 Room Air 04/20/24 11:40 Room Air Laboratory Results 04/20/24 11:59 04/20/24 11:59 Diagnostic Findings Chest X-Ray 04/20/24 11:47 XR chest 1V not portable CLINICAL HISTORY: Chest pain, nonspecific COMPARISON STUDY: Chest CT August 01, 2022. Chest radiograph August 20, 2023. FINDINGS: Lung volumes are normal. Linear bibasilar densities represent atelectasis. There is no pneumothorax or pleural effusion. Cardiac size is normal. Mediastinal contours are normal. There is no evidence for pulmonary edema. IMPRESSION: No acute cardiopulmonary findings. ACT 112: Negative or not required by law. Electronically signed by: Sean Schulte M.D. 04/20/2024 12:[address] 04/20/24 16:30 CT cervical spine without IV contrast History: Pain Comparison: 11/16/2021 Technique: Using multidetector thin collimation helical acquisition technique, axial, coronal and sagittal CT images through the cervical spine were obtained without intravenous contrast. Dose reduction techniques were achieved by using automatic exposure control and/or adjustment of mA and/or kV according to patient size and/or use of iterative reconstruction technique. Findings: Degenerative related grade 1 anterolisthesis seen at C3 on C4, as well as C4 on C5. Straightened cervical lordosis. No acute fracture or subluxation. No prevertebral edema. Moderate discogenic degenerative change seen at C5-6, C6-7, and C7-8. Osteopenia. No abnormality of the paraspinous soft tissues. Impression: No acute fracture or traumatic subluxation. Electronically signed by Duke Gaytan 04-20-2024 5:[address] 04/20/24 16:30 CT head without contrast History: Trauma Comparison: 11/16/2021 Technique: Using multidetector thin collimation helical acquisition technique, axial, coronal and sagittal CT images from the skull base to the vertex were obtained without intravenous contrast. Dose reduction techniques were achieved by using automatic exposure control and/or adjustment of mA and/or kV according to patient size and/or use of iterative reconstruction technique. Findings: No intracranial hemorrhage, mass-effect, or midline shift. The ventricles are proportionate to the cerebral sulci. The chavez to white matter differentiation of the cerebral hemispheres is preserved. The basal cisterns are patent. There is mild age-related cerebral atrophy. The visualized paranasal sinuses are clear. Mastoid air cells are clear. Bilateral pseudophakia. Impression: No acute intracranial pathology. Soft tissue scalp hematoma over the high left parietal region without underlying bony abnormality. Electronically signed by Duke Gaytan 04-20-2024 5:08 PM Code Status & VTE Plan Code Status Full resuscitation VTE Prophylaxis Plan VTE Prophylaxis will be ordered: Yes Reason for no VTE drug order: Contraindicated Supervising Physician Co-Signing Physician Notes Patient was seen and examined independently I discussed the case with Jack Marroquin PAC I reviewed pertinent past medical social family history and also the plan of care and agree with the plan of care. Patient was seen and released in the ER diagnosed with human metapneumovirus. She presented with respiratory distress and some feelings of chest tightness or wheezing. Upon trying to walk out of the ER she had a mechanical fall where she turned the wrong way and fell to the ground striking the left backside of her head. She did not lose consciousness break her glasses she had mass have some mild muscle contusion on her right leg from what she says Currently she awake alert appropriate there is a hematoma on her back of her head and scalp. This is confirmed on imaging. There is no internal injury to her brain seen on CT scan. Patient be observed in our facility neurological checks if any changes will reimage patient is currently holding her Plavix but she will be maintained on her metoprolol losartan Previously the ER decided to use Augmentin for any secondary infection with the evening viruses discontinued as well as an DuoNeb as needed If the patient feels well is anticipated she might be discharged early in the 04/21/2024 Any exceptions will be noted below PG Care Time/CCT Total # of Minutes Spent Total Time Spent with Patient: Total time spent is greater than 50% in coordination of care (as documented) at patient's floor/unit and/or counseling patient: 55 minutes including review with attending physician Coding Level of Care Code 26344 INT INP/OBS CARE 2/55MIN Diagnoses Closed head injury without loss of consciousness S09.90XA Fall W19.XXXA Infection due to human metapneumovirus (hMPV) B34.8 Glaucoma H40.9 Hypertension I10 Time Spent (min) 55
[2024-04-20] MEDS ORDERED: ALBUT/IPRATROP 3MG/0.5MG NEB 3 ML VIAL NEB PRN (19:59)
[2024-04-20 20:35] VITALS: RESP 16
[2024-04-20] MEDS: ACETAMINOPHEN 325 MG TAB PO PRN (20:39)
[2024-04-20] MEDS: METOPROLOL TARTRATE 50 MG TAB PO SCH (20:40)
[2024-04-20] MEDS: BENZONATATE 100 MG CAPSULE PO PRN (22:37)
[2024-04-21 07:45] LABS: Hematocrit (blood only) 37.1 % (37.0-47.0); Hemoglobin 12.8 g/dl (12.0-16.0); Mean Corpuscular Hgb Conc 34.5 g/dL (32.0-36.0); Mean Corpuscular Volume 98.7 fL (80.0-100.0); Platelet Count 151 K/uL (130-400); RDW Coefficient of Variation 12.7 % (11.5-14.5); RDW Standard Deviation 45.5 fL (36.4-46.3); Red Blood Count 3.76 M/uL (4.20-5.40); White Blood Count 4.51 K/ul (4.8-10.8)
[2024-04-21 07:49] VITALS: BP 158/66; PULSE 74; TEMP 97.9; O2SAT 92
[2024-04-21 08:03] LABS: Calcium 9.1 mg/dl (8.6-10.3); Creatinine Clr Calc Pharmacy 32.9 ml/min; Potassium 3.8 mmol/L (3.5-5.1)
[2024-04-21] MEDS: AMOXICILLIN/CLAVULANATE 875 MG TAB PO SCH (08:45)
[2024-04-21] MEDS: LOSARTAN POTASSIUM 50 MG TAB PO SCH (08:45)
[2024-04-21] MEDS: TIMOLOL MALEATE 0.5% OP SOLN 5 ML BTL OP SCH (08:46)
[2024-04-21] MEDS: INDAPAMIDE 1.25 MG TAB PO SCH (08:47)
[2024-04-21] MEDS ORDERED: FUROSEMIDE 40 MG TAB PO SCH (09:00)
--- NOTE | 2024-04-21 11:30 | Discharge Summary ---
Discharge Summary Date of Service April 21, 2024 Principal Dx & Hospital Course #1 = Principal Diagnosis (1) Closed head injury without loss of consciousness: Mechanical fall 83-year-old female being discharged from the emergency department and had a mec hanical fall on her way to [facility]. No loss of consciousness. Patient reports that she "tripped over her own feet". No lightheadedness, dizziness, visual changes, headache, chest pain, tachyarrhythmia, chest tightness prior to fall. CT of the head was completed and shows no intracranial abnormality. Patient does have a soft tissue hematoma over the high left parietal region. Patient is on clopidogrel (Plavix) but not on any anticoagulant Will admit the patient overnight for observation There is no indication for repeat imaging at time of admitting assessment Patient was monitored overnight. Did well and was asymptomatic. No focal deficits, was ambulating independently, full strength in her arms and legs without sensory or strength change. No confusion. Cranial nerves all intact. Reviewed plan of care patient comfortable with discharge home She did show to have a minimal demand ischemia with a troponin stable at approximately 15. Was recommended to discuss this with her PCP in follow-up, this is likely stress ischemia in the setting of human metapneumovirus she did not have any ischemic EKG changes or clinical signs of angina Supportive care was recommended for metapneumovirus (2) Fall: (3) Infection due to human metapneumovirus (hMPV): (4) Glaucoma: (5) Hypertension: Discharge Exam General: A&Ox3. NAD. Cooperative. Pulm: CTAB A&P. -wheezes, -rales, -rhonchi. Symmetrical chest rise. No increased work of breathing. No respiratory distress. Cardiac: RRR, -mrg. Radial pulses intact and symmetrical. Abdominal: Nontender, nondistended, soft. BS present. Ambulating independently and moving all extremities equally day of discharge. No sensory deficits in hands or feet. Cranial nerves intact without deficits Discharge Plan Discharge Items Patient Disposition: Home - Self-Care Reason For Visit: CLOSED HEAD INJURY S/P FALL Discharge Diagnosis: Mechanical fall Condition on Discharge: Good Activity: Resume your previous activity Non-emergency contact: Primary Care Provider Follow-up/Referrals: Cherrie Burnham MD [Primary Care Provider] - Diet: Regular Addtl Attending Provider Instructions: You are seen in the hospital for mechanical fall and human metapneumovirus. You are prescribed a course of Augmentin to help prevent bacterial superinfection by the emergency department, this is continued. You were monitored overnight after your fall as you are on Plavix. You did not show any ongoing signs of bleeding or neurologic deficits. Follow-up to your primary care physician was recommended. You did have a minimally elevated troponin, a heart marker suggestive of stress that was likely due to human metapneumovirus. There were no signs of an acute heart attack on your EKG, you did not have any chest pain suggestive of a heart attack. Please discuss this test with your primary care physician at your next follow-up appointment If you develop any new or worsening symptoms including fever, chills, sweats, chest pain, chest pressure, difficulty breathing, uncontrolled nausea/vomiting, rash, wheezing, passing out or nearly passing out, bleeding, black/bloody bowel movements, or other new or concerning symptoms please call your primary care physician, or call 911 for re-evaluation in the emergency department if you are very concerned. Stand-Alone Forms: My [facility] Post-i, Smoking Cessation Medications and DC Order Prescriptions: New amoxicillin-pot clavulanate 875-125 mg tablet 1 tab PO BID 10 Days Qty: 20 0RF Continued cholecalciferol (vitamin D3) 25 mcg (1,000 unit) capsule 25 mcg PO DAILY ascorbic acid (vitamin C) 500 mg capsule 1,000 mg PO DAILY letrozole 2.5 mg tablet 2.5 mg PO DAILY mecobalamin (vitamin B12) 1,000 mcg tablet,chewable 1,000 mcg PO .3 times/week clopidogrel 75 mg tablet See Rx Instructions .ROUTE .COMPLEX Qty: 90 3RF Dose Instruction: TAKE 1 TABLET BY MOUTH EVERY MORNING Rx Instructions: TAKE 1 TABLET BY MOUTH EVERY MORNING metoprolol tartrate 50 mg tablet 50 mg PO BID Qty: 180 3RF rosuvastatin 10 mg tablet See Rx Instructions .ROUTE .COMPLEX Qty: 90 0RF Dose Instruction: TAKE 1 TABLET BY MOUTH AT BEDTIME Rx Instructions: TAKE 1 TABLET BY MOUTH AT BEDTIME furosemide 20 mg tablet 20 mg PO DAILY Qty: 30 5RF indapamide 2.5 mg tablet 2.5 mg PO QAM Qty: 90 3RF latanoprost 0.005 % drops 1 drops OP HS alendronate [Fosamax] 70 mg tablet 70 mg PO .q7days 90 Days Qty: 12 4RF Rx Instructions: Take 1 tab once weekly with 8 oz. plain water; wait 45 minutes before eating/drinking anything else. benzonatate 100 mg capsule 100 mg PO .COMPLEX PRN (Reason: cough) Qty: 30 1RF Rx Instructions: 100 mg orally 1 or 2 capsules every 8 hours as needed for cough. PRN; azelastine 137 mcg (0.1 %) aerosol,spray See Rx Instructions .ROUTE .COMPLEX Qty: 30 5RF Rx Instructions: USE 1-2 SPRAYS EACH NOSTRIL 1-2 TIMES DAILY.; administer into each nostril timolol maleate 0.5 % drops 1 drp OPB QAM losartan 100 mg tablet 100 mg PO DAILY Rx Instructions: TAKE 1 TABLET BY MOUTH DAILY EVERY MORNING Admission Data Admit Date/Time: 04/20/24 18:01 Attending Provider: Saeid Brown Admit Provider: Rom Walden Primary Care Provider: Cherrie Burnham Other Providers: Rom Walden Hospital Stay Data Consultations 04/20/24 17:30 ED Decision to Admit Stat Diagnostic Imagining Performed 04/20/24 16:30 CT cervical spine wo con Stat CT head/brain wo con Stat Discharge Instructions Given to Patient (Per Discharging Provider) You are seen in the hospital for mechanical fall and human metapneumovirus. You are prescribed a course of Augmentin to help prevent bacterial superinfection by the emergency department, this is continued. You were monitored overnight after your fall as you are on Plavix. You did not show any ongoing signs of bleeding or neurologic deficits. Follow-up to your primary care physician was recommended. You did have a minimally elevated troponin, a heart marker suggestive of stress that was likely due to human metapneumovirus. There were no signs of an acute heart attack on your EKG, you did not have any chest pain suggestive of a heart attack. Please discuss this test with your primary care physician at your next follow-up appointment If you develop any new or worsening symptoms including fever, chills, sweats, chest pain, chest pressure, difficulty breathing, uncontrolled nausea/vomiting, rash, wheezing, passing out or nearly passing out, bleeding, black/bloody bowel movements, or other new or concerning symptoms please call your primary care physician, or call 911 for re-evaluation in the emergency department if you are very concerned. Total Time Total Time Spent Total Time Spent (In Minutes): Time spend day of discharge 25 minutes including direct patient care, documentation, review of labs and images, and coordination of care. Coding Level of Care Code 97154 IN/OBS DISCH 30 MIN/LESS Diagnoses Closed head injury without loss of consciousness S09.90XA Fall W19.XXXA Infection due to human metapneumovirus (hMPV) B34.8 Glaucoma H40.9 Hypertension I10
--- NOTE | 2024-04-22 06:20 | Electrocardiogram Report ---
Test Reason : Blood Pressure : */* mmHG Vent. Rate : 68 BPM Atrial Rate : 68 BPM P-R Int : 152 ms QRS Dur : 76 ms QT Int : 414 ms P-R-T Axes : 75 73 49 degrees QTcB Int : 440 ms Sinus rhythm with Premature atrial complexes Otherwise normal ECG When compared with ECG of 07-Jul-2022 11:35, Premature atrial complexes are now Present Confirmed by Lamonte Castle ([id number]) on 04/22/2024 6:20:38 AM Referred By: Confirmed By: Lamonte Castle
== END 2024-04-21 13:13 | disposition home or self-care (01) ==
LOC: SUATTDRO → ED 11:26 → 3W 11:26 → SUATTDRO 18:01 → 3W 20:01

== ENCOUNTER 2025-03-06 00:29 | Observation (INO) ==
[2025-03-06 01:00] LABS: Hematocrit (blood only) 35.5 % (37.0-47.0); Hemoglobin 12.5 g/dL (12.0-16.0); Immature Granulocytes # (auto) 0.01 K/uL (0.01-0.20); Immature Granulocytes % (auto) 0.2 %; Mean Corpuscular Hemoglobin 33.2 pg (25.0-34.0); Mean Corpuscular Volume 94.4 fL (80.0-100.0); Platelet Count 164 K/uL (130-400); RDW Standard Deviation 40.8 fL (36.4-46.3); Red Blood Count 3.76 M/uL (4.20-5.40); White Blood Count 5.81 K/ul (4.8-10.8)
--- NOTE | 2025-03-06 01:03 | Emergency Department Note ---
Impression & Plan Atrial fibrillation with rapid ventricular response, Elevated troponin, Acute hyponatremia, Burning in the chest, JOSE (acute kidney injury) Admit to the [facility] ED Provider Note NAME: KIMBERLEE DUVAL AGE: 84 SEX: Female INFORMANT: Patient ED PROVIDER(S): Kady Alvarado DO CHIEF COMPLAINT: Chest burning and lightheadedness PLAN: Disposition: Admit to the [facility] MEDICAL DECISION MAKING: This is an 84-year-old female patient who was watching TV when she suddenly developed a chest burning sensation and lightheadedness. Patient became pale and felt unwell. Her family brought her to the emergency department. In triage, the patient was noted to be significantly tachycardic. She was brought directly back to her room and found to be in atrial fibrillation with rapid ventricular response with a rate of 156. She has no history of A-fib. Patient explained that she had been feeling well. In fact she has lost 18 pounds after being placed on a weight loss drug by her PCP. IV lock was initiated here in the department labs were drawn and the patient was medicated with IV Cardizem slowly as her blood pressure was soft with a systolic in the low 100s. After a short period of time, the rate began to come down and she converted back into a normal sinus rhythm. Laboratory studies revealed no leukocytosis or anemia. The patient's sodium was low at 130. Magnesium was low at 1.6. Potassium was slightly low at 3.3. Troponin was elevated at 34.2. Patient also has some evidence of acute kidney injury with a BUN of 44 and creatinine of 2.14. The case was discussed with the [facility] and they will evaluate for further inpatient care. Care/management discussed with: manager distribution center, the patient's and daughter who are at the bedside, the [facility] Triage Nursing notes: reviewed and agree With them. Vital Signs: reviewed and remarkable for tachycardia Additional History obtained from: patient's family is at the bedside Differential Diagnosis: SVT, A-fib with RVR, cardiac ischemia, STEMI, NSTEMI, renal insufficiency Diagnostics, independently interpreted by me: ECG: A-fib with RVR at a rate of 139. Significant ST segment depression in the inferior and lateral leads Cardiac Monitoring: A-fib with RVR at a rate of 135 Imaging studies: portable chest x-ray: Mild pulmonary vascular congestion as per my independent interpretation. HPI: 84 year old Female arrives for evaluation of Burning sensation in the chest. patient states that she was sitting at home watching night football when she developed a burning sensation in her upper chest. she notes that she was having palpitations and that her heart rate was very fast. She states that she had a similar episode many years ago which was self-limited. PAST MEDICAL HISTORY: See Below, Patient notes that she has had approximately an 18 pound weight loss recently. her PCP started her on a weight loss medication a couple of months ago. SOCIAL HISTORY: She lives with her family., The patient does not smoke HOME MEDICATIONS: See list ALLERGIES: see list VITALS: See Below PHYSICAL EXAMINATION: HEENT: Head - normocephalic and atraumatic. Pupils are equal, round, and reactive to light. Extraocular eye muscles are intact, and sclera are anicteric. Nose - moist nasal mucosa without discharge. Mouth - moist buccal mucosa. Oropharynx is nonerythematous and there is no tonsillar exudate or edema noted. Neck: Supple; no JVD, nuchal rigidity, cervical lymphadenopathy, Heart: Irregularly irregular rhythm with a tachycardic rate Lungs: Clear to auscultation bilaterally with no wheezes, rales, or rhonchi. Abdomen: Soft, completely nontender, nondistended, with good bowel sounds. There are no palpable pulsatile masses or hepatosplenomegaly. There is no guarding, rigidity, or rebound noted. Extremities: No evidence of cyanosis, clubbing, or edema. There are easily palpable peripheral pulses. Skin: warm and dry with poor turgor and no rashes. Emergency Department treatment: school lunch monitor, supplemental oxygen, IV Cardizem, Emergency Department course: The patient was evaluated in room A-4. An order was placed for continuous cardiac monitoring. The patient was in atrial fibrillation with a rapid ventricular response at a rate of 135. A twelve-lead EKG was obtained as described above. IV lock was initiated and labs were drawn as above. Patient was placed on supplemental oxygen. She was given a dose of IV Cardizem slowly to try to slow her rate. Portable chest x-ray was performed. I reviewed some of the laboratory studies with the patient and her family. Her rhythm converted on its own. I discussed the case with the [facility] Hospitalist and they will evaluate for further inpatient care. I have personally spent greater than 65minutes of critical care time in the direct management of this patient. This includes bedside care, interpretation of diagnostic studies, and testing, discussion with consultants, patient, and family members, and other required patient management activities. This 65 minutes is in excess of all separately billable procedures. Past Med/Surg History Problem List (Updated 03/07/25 @ 09:31 by Kady Alvarado DO) JOSE (acute kidney injury) (Acute) Burning in the chest (Acute) Acute hyponatremia (Acute) Elevated troponin (Acute) Atrial fibrillation with rapid ventricular response (Acute) CKD (chronic kidney disease) Non-ST elevation (NSTEMI) myocardial infarction Paroxysmal atrial fibrillation Hyponatremia Hypomagnesemia Hypokalemia Renal insufficiency Elevated troponin New onset atrial fibrillation Obesity (BMI 35.0-39.9 without comorbidity) Osteoporosis Glaucoma Carotid artery stenosis s/p bilateral CEA (2018) PAD (peripheral artery disease) Hypertension Hyperlipidemia Malignant neoplasm of lower-inner quadrant of left breast in female, estrogen receptor positive (Chronic 02/04/20) Medical History GERD (gastroesophageal reflux disease) History of fracture of clavicle (11/16/21) Mildly displaced fracture of the distal left clavicle from a fall Hyponatremia Arthritis Stress incontinence in female Retrosternal chest pain Admitted to [facility] 01/27/20-01/29/20- had full work up that was negative Mammogram abnormal Subclavian artery stenosis, left Stroke CVA per vascular note in 2018- found to have bilateral carotid stenosis - subsequently had bilateral CEAs Surgical History History of left breast biopsy (02/04/20) S/P lumpectomy, left breast (03/17/20) History of bilateral carotid endarterectomy (2017) History of vaginal surgery (1994) History of cataract surgery (2011) History of colonoscopy (2013) History of vaginal hysterectomy (1984) Family History Mother Hypertension Father No problems noted. Aunt Breast cancer, Onset Age: 70 Sister No problems noted. Son No problems noted. Daughter No problems noted. Daughter No problems noted. Other Family history of deafness or hearing loss Hyperlipidemia No family history of adverse response to anesthesia No family history of bleeding disorder Social History Smoking Status: Former smoker Tobacco Type: Cigarettes Age Started Using Tobacco: 22; Age Quit Using Tobacco: 62; packs per day: 1; Second Hand Exposure: No; Do You Dip or Chew Tobacco: No; Tobacco Cessation Education Requested by Patient: No Hx Alcohol Use: Yes Alcohol type: wine Alcohol Intake Frequency: 4 or More x per/Week Alcohol Intake Frequency Comment: 1 drink per day Hx Substance Use: No Preferred Language: Czech Communication Ability: Effective Visual Impairment: Limited Hearing Ability: Normal 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: No Beliefs That Will Affect Care: None marital status: Current Living Situation: Spouse current occupational status: retired current occupation: Retired [employer] How many Children do You have: 3 Other Information That Helps Us Care for You: No Feels Safe at Home: Yes Safety Concerns: Feels Safe At This Time Childhood Exposure to Second-Hand Smoke: Yes Diet: regular caffeine: Yes (2 cups of coffee/day ) during the past year weight has: remained stable Dental Care, Regularly: No Physical Activity Frequency: Other Physical Activity Frequency Comment: Active Lifestyle Seatbelt Use: always Sunscreen Use: Yes Assistive Devices: None Allergies Allergies Allergy/AdvReac Type Severity Reaction Status Date / Time alendronate sodium AdvReac Intermediate Diarrhea Verified 03/06/25 01:37 [From Fosamax] atorvastatin AdvReac Intermediate MUSCLE Verified 03/06/25 01:37 ACHES codeine AdvReac Intermediate HALLUCINATI Verified 03/06/25 01:37 ONS Home Meds Home Medications Medication Instructions Recorded Confirmed latanoprost 0.005 % eye drops 1 drops ophthalmic (eye) HS 01/14/19 03/06/25 timolol maleate 0.5 % eye drops 1 drp OPB QAM 01/27/20 03/06/25 ascorbic acid (vitamin C) 500 mg 1,000 mg PO DAILY 05/04/20 03/06/25 capsule cholecalciferol (vitamin D3) 25 25 mcg PO DAILY 05/04/20 03/06/25 mcg (1,000 unit) capsule letrozole 2.5 mg tablet 2.5 mg PO DAILY 10/12/20 03/06/25 calcium 600 mg (as 1 tab PO DAILY 03/06/25 03/06/25 carbonate)-vitamin D3 10 mcg (400 unit) tablet (Calcium 600 + D(3)) clopidogrel 75 mg tablet 75 mg PO QAM 03/06/25 03/06/25 multivitamin 1 tab PO DAILY 03/06/25 03/06/25 rosuvastatin 10 mg tablet 10 mg PO HS 03/06/25 03/06/25 zoledronic acid 5 mg/100 mL in 1 ea IV YEARLY 03/06/25 03/06/25 mannitol 5 %-water intravenous piggybck (Reclast) Previous Rx's Medication Instructions Recorded indapamide 2.5 mg tablet 2.5 mg PO QAM #90 tabs 04/16/24 losartan 100 mg tablet 100 mg PO DAILY #90 tabs 07/31/24 furosemide 20 mg tablet 20 mg PO DAILY #30 tabs 09/29/24 metoprolol tartrate 50 mg tablet 50 mg PO BID #180 tabs 02/16/25 phentermine 15 mg capsule 15 mg PO DAILY 30 days #30 caps 02/16/25 Results & Data (ED) Vital Signs Vital Signs - 24 hr 03/06/25 00:39 Pulse Rate 135 H Laboratory Data 03/07/25 05:54 03/07/25 05:54 Lab Results 03/06/25 03/06/25 Range/Units 00:40 02:30 WBC 5.81 (4.8-10.8) K/ul RBC 3.76 L (4.20-5.40) M/uL Hgb 12.5 (12.0-16.0) g/dL Hct 35.5 L (37.0-47.0) % MCV 94.4 (80.0-100.0) fL MCH 33.2 (25.0-34.0) pg MCHC 35.2 (32.0-36.0) g/dL RDW Std Deviation 40.8 (36.4-46.3) fL RDW Coeff of Denis 11.9 (11.5-14.5) % Plt Count 164 (130-400) K/uL MPV 9.6 (9.4-12.4) fL Immature Gran % (Auto) 0.2 % Neut % (Auto) 27.0 % Lymph % (Auto) 45.3 % Pitkin % (Auto) 18.4 % Eos % (Auto) 7.9 % Baso % (Auto) 1.2 % Neut # (Auto) 1.57 (1.40-6.50) K/uL Lymph # (Auto) 2.63 (1.20-3.40) K/uL Pitkin # (Auto) 1.07 H (0.11-0.59) K/uL Eos # (Auto) 0.46 (0.00-0.50) K/uL Baso # (Auto) 0.07 (0.00-0.20) K/uL Immature Gran # (Auto) 0.01 (0.01-0.20) K/uL Sodium 130 L (136-145) mmol/L Potassium 3.3 L (3.5-5.1) mmol/L Chloride 89 L (98-107) mmol/L Carbon Dioxide 29 (21-32) mmol/L Anion Gap 12 H (3-11) BUN 44 H (6-23) mg/dl Creatinine 2.14 H (0.6-1.2) mg/dl Est Cr Clr Drug Dosing Not Reportable eGFR 22.57 BUN/Creatinine Ratio 20.6 H (10-20) Glucose 152 H (70-99(Fasting)) mg/dl Calcium 11.0 H (8.6-10.3) mg/dl Magnesium 1.6 L (1.7-2.4) mg/dl Total Bilirubin 0.7 (0.2-1.0) mg/dl AST 23 (13-39) U/L ALT 15 (7-52) U/L Alkaline Phosphatase 76 (34-104) U/L Troponin I High Sens 34.2 H 198.9 H* D (0-14) pg/ml Total Protein 8.2 (6.0-8.3) gm/dl Albumin 4.4 (3.4-5.0) gm/dl Globulin 3.8 (2.5-4.0) gm/dl Albumin/Globulin Ratio 1.2 (0.9-2) TSH 4.789 H (0.300-4.500) uIu/ml Free T4 1.54 (0.61-1.60) ng/dl Administered Medications Apixaban (Apixaban 2.5 Mg Tab) 2.5 mg PO BID TERRY Stop: 04/05/25 20:59 Last Admin: 03/06/25 20:15 Dose: 2.5 mg Documented By: alt Clopidogrel Bisulfate (Clopidogrel Bisulfate 75 Mg Tab) 75 mg PO QAM TERRY Stop: 04/05/25 08:59 Last Admin: 03/06/25 08:38 Dose: 75 mg Documented By: ND Co-signed By: DTT Latanoprost (Latanoprost 0.005% Op Soln 2.5 Ml Btl) 1 drops OP HS TERRY Stop: 04/05/25 20:59 Last Admin: 03/06/25 22:32 Dose: 1 drops Documented By: alt Letrozole (Letrozole 2.5 Mg Tab) 2.5 mg PO DAILY TERRY Stop: 04/05/25 08:59 Last Admin: 03/06/25 08:38 Dose: 2.5 mg Documented By: ND Co-signed By: DTT Losartan Potassium (Losartan Potassium 50 Mg Tab) 100 mg PO DAILY TERRY Stop: 04/05/25 08:59 Last Admin: 03/06/25 08:38 Dose: 100 mg Documented By: ND Co-signed By: DTT Metoprolol Tartrate (Metoprolol Tartrate 50 Mg Tab) 50 mg PO BID TERRY Stop: 04/05/25 08:59 Last Admin: 03/06/25 20:15 Dose: 50 mg Documented By: alt Admin: 03/06/25 08:38 Dose: 50 mg Documented By: ND Co-signed By: DTT Rosuvastatin Calcium (Rosuvastatin Calcium 10 Mg Tab) 10 mg PO TERRY Stop: 04/05/25 20:59 Last Admin: 03/06/25 20:15 Dose: 10 mg Documented By: alt Timolol Maleate (Timolol Maleate 0.5% Op Soln 5 Ml Btl) 1 drops OPB QAM [facility] Stop: 04/05/25 08:59 Last Admin: 03/06/25 08:39 Dose: 1 drops Documented By: ND Co-signed By: DTT Discontinued Medications Apixaban (Apixaban 5 Mg Tablet) 5 mg PO ONE ONE Stop: 03/06/25 03:28 Last Admin: 03/06/25 04:26 Dose: 5 mg Documented By: LAURA Diltiazem HCl (Diltiazem Hcl 5 Mg/Ml 5 Ml Vial) 10 mg IV NOW STA Stop: 03/06/25 01:00 Last Admin: 03/06/25 01:06 Dose: 10 mg Documented By: LAURA Co-signed By: Lactated Ringer's (Lr) 1,000 mls @ 80 mls/hr IV .[id number] TERRY Stop: 03/06/25 15:44 Last Infusion: 03/06/25 17:22 Dose: Infused Documented By: Admin: 03/06/25 04:26 Dose: 80 mls/hr Documented By: LAURA Potassium Chloride (K Sudhir / Wtr) 10 meq in 100 mls @ 100 mls/hr IV Q1H TERRY Stop: 03/06/25 06:14 Last Infusion: 03/06/25 08:48 Dose: Infused Documented By: Admin: 03/06/25 06:39 Dose: 100 mls/hr Documented By: Infusion: 03/06/25 06:39 Dose: Infused Documented By: Admin: 03/06/25 05:51 Dose: 100 mls/hr Documented By: Infusion: 03/06/25 05:26 Dose: Infused Documented By: Admin: 03/06/25 04:26 Dose: 100 mls/hr Documented By: LAURA Magnesium Sulfate/Dextrose (Magnesium Sulfate / D5w) 1 gm in 100 mls @ 50 mls/hr IV Q2H TERRY Stop: 03/06/25 07:14 Last Infusion: 03/06/25 08:48 Dose: Infused Documented By: Infusion: 03/06/25 08:47 Dose: Infused Documented By: Admin: 03/06/25 06:28 Dose: 50 mls/hr Documented By: Infusion: 03/06/25 06:26 Dose: Infused Documented By: Admin: 03/06/25 04:26 Dose: 50 mls/hr Documented By: LAURA Discharge Plan Visit Data Chief Complaint: Chest Pain Stated Complaint: CHEST PAIN ED Provider: Kady Alvarado Discharge Problem: Atrial fibrillation with rapid ventricular response, Elevated troponin, Acute hyponatremia, Burning in the chest, JOSE (acute kidney injury) Patient Disposition: Admitted As Inpatient Condition: Critical Discharge Instructions Interventions: ED Discharge Assessment Last Done: 03/06/25 05:16
[2025-03-06 01:19] LABS: Alanine Aminotransferase 15 U/L (7-52); Albumin Globulin Ratio 1.2 (0.9-2); Albumin Level 4.4 gm/dl (3.4-5.0); Alkaline Phosphatase 76 U/L (34-104); Anion Gap 12 (3-11); Bilirubin,Total 0.7 mg/dl (0.2-1.0); Blood Urea Nitrogen 44 mg/dl (6-23); Calcium 11.0 mg/dl (8.6-10.3); Carbon Dioxide 29 mmol/L (21-32); Chloride 89 mmol/L (98-107); Globulin 3.8 gm/dl (2.5-4.0); Glucose 152 mg/dl (70-99(Fasting)); Magnesium 1.6 mg/dl (1.7-2.4); Potassium 3.3 mmol/L (3.5-5.1); Sodium 130 mmol/L (136-145); Total Protein 8.2 gm/dl (6.0-8.3)
[2025-03-06 01:34] LABS: Thyroid Stimulating Hormone 4.789 uIu/ml (0.300-4.500)
[2025-03-06 02:49] LABS: T4 Free Thyroxine 1.54 ng/dl (0.61-1.60)
--- NOTE | 2025-03-06 03:11 | History & Physical Report ---
Date of Service March 06, 2025 Assessment & Plan (1) New onset atrial fibrillation: (2) Elevated troponin: (3) Renal insufficiency: (4) Hypokalemia: (5) Hypomagnesemia: (6) Hyponatremia: Plan Patient is an 84-year-old female with a past medical history including GERD, PAD, HTN, HLD. Patient presented via EMS after she was watching football with her and developed burning chest pain that radiated to her back and shoulders as as well as heart palpitations, dizziness, and lightheadedness. She was found to be in A-fib with RVR (rates 130s to 150s), she converted to sinus rhythm after Cardizem 10 mg IV in the ED. She is being admitted for new onset A-fib. #new onset a fib - Converted to sinus rhythm by time of admission after Cardizem 10 mg IV in the ED. With electrolyte abnormalities noted below, TSH WNL. CXR with mild congestive changes. - [id number] score 4 - HAS-BLED score 2 = moderate risk for major bleeding - will start Eliquis 2.5mg BID (first dose on admission) given recommended to start anticoagulation [id number] > 3 - correct electrolytes - echocardiogram ordered Cardiology consulted Continue home metoprolol tartrate 50 mg twice daily - monitor on Telemetry #elevated troponin - trop 34.2, 2 hour repeat pending. Suspect demand ischemia in setting of arrhythmia and poor clearance with worsening renal function. - trend Q6H - echocardiogram ordered - EKG with CP prn #Renal insufficiency/hypokalemia/hypomagnesemia/hyponatremia Cr steadily increasing since June, NA 130, K+ 3.3, Mg 1.6. - UA ordered Hold Lasix and indapamide - LR at 80 mL/hour x 1 L 3 bags IV K rider 2G IV magnesium Repeat BMP and magnesium at 1400 #HLD/PVD continue statin and plavix #HTN holding diuretics, continue losartan and metoprolol #obesity - patient started on phentermine several months ago for weight loss. Appears as though patient has been declining with electrolyte abnormalities, renal impairment, and new onset a fib since starting. Will hold phentermine at this time Discussed with patient - could consider trailing a different agent such as a GLP-1, can discuss further with PCP VTE ppx: start Eliquis Dispo: PCU Admission and Anticipated Discharge Date Admission Date: 03/06/25 History of Present Illness Chief Complaint: chest pain Primary Care Provider: Cherrie Burnham MD Patient is an 84-year-old female with a past medical history including GERD, PAD, HTN, HLD. Patient presented via EMS after she was watching football with her and developed burning chest pain that radiated to her back and shoulders as as well as heart palpitations, dizziness, and lightheadedness. She was found to be in A-fib with RVR (rates 130s to 150s), she converted to sinus rhythm after Cardizem 10 mg IV in the ED. She is being admitted for new onset A-fib. Patient seen at bedside with her and daughter present. She stated she is watching football when she developed this burning chest pain which radiated to her back and shoulders for about 40 minutes. She endorsed her palpitations, dizziness, lightheadedness. She received 324 p.o. aspirin and route via EMS. She denies any history of A-fib or other known arrhythmias. She is currently feeling well at bedside denying any chest pain, dizziness, lightheadedness. She denies any recent flulike symptoms, nausea, vomiting, diarrhea. She denies nicotine use. She occasionally drinks alcohol. She called her evening medications last night. She wishes to be full code however would not want long- term life support. Full questions concerns answered. Discussed that her new weight loss medication, phentermine, which she started 2 months ago may be contributing to her newfound arrhythmia. It appears as though her electrolytes have been decreasing over the past few months as well as renal function has been worsening. Discussed that she may need to discontinue this, she is extremely happy with it given she has lost 18 pounds but is agreeable. She was denied GLP-1's due to insurance. Patient can have further discussion with PCP. Allergies Allergy/AdvReac Type Severity Reaction Status Date / Time alendronate sodium AdvReac Intermediate Diarrhea Verified 03/06/25 01:37 [From Fosamax] atorvastatin AdvReac Intermediate MUSCLE Verified 03/06/25 01:37 ACHES codeine AdvReac Intermediate HALLUCINATI Verified 03/06/25 01:37 ONS Home Medications Medication Instructions Recorded Confirmed Type latanoprost 0.005 % eye drops 1 drops ophthalmic (eye) HS 01/14/19 03/06/25 History timolol maleate 0.5 % eye drops 1 drp OPB QAM 01/27/20 03/06/25 History ascorbic acid (vitamin C) 500 mg 1,000 mg PO DAILY 05/04/20 03/06/25 History capsule cholecalciferol (vitamin D3) 25 25 mcg PO DAILY 05/04/20 03/06/25 History mcg (1,000 unit) capsule letrozole 2.5 mg tablet 2.5 mg PO DAILY 10/12/20 03/06/25 History indapamide 2.5 mg tablet 2.5 mg PO QAM #90 tabs 04/16/24 03/06/25 Rx losartan 100 mg tablet 100 mg PO DAILY #90 tabs 07/31/24 03/06/25 Rx furosemide 20 mg tablet 20 mg PO DAILY #30 tabs 09/29/24 03/06/25 Rx metoprolol tartrate 50 mg tablet 50 mg PO BID #180 tabs 02/16/25 03/06/25 Rx phentermine 15 mg capsule 15 mg PO DAILY 30 days #30 caps 02/16/25 03/06/25 Rx calcium 600 mg (as 1 tab PO DAILY 03/06/25 03/06/25 History carbonate)-vitamin D3 10 mcg (400 unit) tablet (Calcium 600 + D(3)) clopidogrel 75 mg tablet 75 mg PO QAM 03/06/25 03/06/25 History multivitamin 1 tab PO DAILY 03/06/25 03/06/25 History rosuvastatin 10 mg tablet 10 mg PO HS 03/06/25 03/06/25 History zoledronic acid 5 mg/100 mL in 1 ea IV YEARLY 03/06/25 03/06/25 History mannitol 5 %-water intravenous piggybck (Reclast) Past Med/Surg History Problem List (Updated 03/06/25 @ 15:02 by Eris Fernandez MD) CKD (chronic kidney disease) Non-ST elevation (NSTEMI) myocardial infarction Paroxysmal atrial fibrillation Hyponatremia Hypomagnesemia Hypokalemia Renal insufficiency Elevated troponin New onset atrial fibrillation Obesity (BMI 35.0-39.9 without comorbidity) Osteoporosis Glaucoma Carotid artery stenosis s/p bilateral CEA (2018) PAD (peripheral artery disease) Hypertension Hyperlipidemia Malignant neoplasm of lower-inner quadrant of left breast in female, estrogen receptor positive (Chronic 02/04/20) Medical History GERD (gastroesophageal reflux disease) History of fracture of clavicle (11/16/21) Mildly displaced fracture of the distal left clavicle from a fall Hyponatremia Arthritis Stress incontinence in female Retrosternal chest pain Admitted to [facility] 01/27/20-01/29/20- had full work up that was negative Mammogram abnormal Subclavian artery stenosis, left Stroke CVA per vascular note in 2018- found to have bilateral carotid stenosis - subsequently had bilateral CEAs Surgical History History of left breast biopsy (02/04/20) S/P lumpectomy, left breast (03/17/20) History of bilateral carotid endarterectomy (2017) History of vaginal surgery (1994) History of cataract surgery (2011) History of colonoscopy (2013) History of vaginal hysterectomy (1984) Family History Mother Hypertension Father No problems noted. Aunt Breast cancer, Onset Age: 70 Sister No problems noted. Son No problems noted. Daughter No problems noted. Daughter No problems noted. Other Family history of deafness or hearing loss Hyperlipidemia No family history of adverse response to anesthesia No family history of bleeding disorder Social History Smoking Status: Former smoker Tobacco Type: Cigarettes Age Started Using Tobacco: 22; Age Quit Using Tobacco: 62; packs per day: 1; Second Hand Exposure: No; Do You Dip or Chew Tobacco: No; Tobacco Cessation Education Requested by Patient: No Hx Alcohol Use: Yes Alcohol type: wine Alcohol Intake Frequency: 4 or More x per/Week Alcohol Intake Frequency Comment: 1 drink per day Hx Substance Use: No Preferred Language: Hungarian Communication Ability: Effective Visual Impairment: Limited Hearing Ability: Normal Interventionist Required: No Beliefs That Will Affect Care: None marital status: Current Living Situation: Spouse current occupational status: retired current occupation: Retired [employer] at [employer] How many Children do You have: 3 Other Information That Helps Us Care for You: No Feels Safe at Home: Yes Safety Concerns: Feels Safe At This Time Childhood Exposure to Second-Hand Smoke: Yes Diet: regular caffeine: Yes (2 cups of coffee/day ) during the past year weight has: remained stable Dental Care, Regularly: No Physical Activity Frequency: Other Physical Activity Frequency Comment: Active Lifestyle Seatbelt Use: always Sunscreen Use: Yes Assistive Devices: None Review of Systems Review of Systems: see HPI Physical Exam Physical Exam: The patient is awake, alert and oriented 3, well developed and well nourished, normocephalic and atraumatic, in no acute distress. Non-toxic appearing. HEENT- EOMI, mucous membranes moist. Hearing grossly intact. Heart-normal S1 and S2. No murmurs, rubs or gallops. Lungs-clear bilaterally, no respiratory distress, no accessory muscle use. Abdomen-normal bowel sounds and soft. No ascites noted. Non-tender. Extremities- no clubbing, cyanosis, or edema. Rheumatologic-normal range of motion. Psychiatric-normal affect. Results & Data Results & Data Vital Signs (Past 12 Hours) Vital Signs Temp Pulse Resp BP Pulse Ox O2 Del Method 03/06/25 02:15 83 20 99/56 L 96 03/06/25 02:00 78 17 100/54 L 97 03/06/25 01:45 80 20 95/62 L 98 Room Air 03/06/25 01:30 123 H 17 99/50 L 94 03/06/25 01:15 120 H 20 107/62 96 Room Air 03/06/25 01:00 120 H 20 118/70 99 Room Air 03/06/25 00:52 133 H 18 109/70 97 Room Air 03/06/25 00:47 Room Air 03/06/25 00:47 36.8 C 147 H 18 107/78 97 Room Air 03/06/25 00:39 135 H 03/06/25 00:37 135 H 18 107/78 97 Room Air Laboratory Results Reviewed CBC, CMP, magnesium, troponin, TSH Diagnostic Findings reviewed CXR Medications Administered [id number] mg p.o. aspirin edCardizem 10 mg IV Code Status & VTE Plan Code Status full code VTE Prophylaxis Plan VTE Prophylaxis will be ordered: Yes Supervising Physician Co-Signing Physician Notes Patient seen and examined, chart reviewed, case discussed with MISTI Fuller and I agree with the assessment and plan as documented above. In brief, patient is an 84-year-old female presenting with new onset atrial fibrillation Blood pressure stable. Patient with no symptoms at present. Converted to normal sinus rhythm after receiving Cardizem 10 mg IV in the ER On exam she is resting comfortably +S1/S2, regular, no murmur/rub/gallops Lungs CTA Abd soft, NT/ND Ext warm, well perfused Labs and images reviewed Assessment/Plan will initiate anticoagulation with Eliquis 2.5 mg p.o. twice daily Electrolyte repletion Check 2D echo Continue home metoprolol Cardiology consult Remainder as above PG Care Time/CCT Total # of Minutes Spent Total Time Spent with Patient: Total time spent is greater than 50% in coordination of care (as documented) at patient's floor/unit and/or counseling patient: Coding Level of Care Code 78569 INT INP/OBS CARE 3/75MIN Diagnoses New onset atrial fibrillation I48.91 Elevated troponin R79.89 Renal insufficiency N28.9 Hypokalemia E87.6 Hypomagnesemia E83.42 Hyponatremia E87.1
--- NOTE | 2025-03-06 03:43 | XRay Report ---
EXAM: XR chest 1V portable CLINICAL HISTORY: a fib TECHNIQUE: Radiograph of chest was acquired. COMPARISON: FINDINGS: Interval mild increase in ill defined haziness in left lower zone. Prominent peripheral and perihilar bronchovascular markings in bilateral lung alford are likely of congestive etiology, clinical correlation is recommended. Rest of the lungs are clear and well-expanded with no pulmonary infiltrate or pleural effusion. The cardiomediastinal silhouette is within normal limits. No acute osseous abnormality. IMPRESSION: Interval mild increase in ill defined haziness in left lower zone. Prominent peripheral and perihilar bronchovascular markings in bilateral lung alford are likely of congestive etiology, clinical correlation is recommended. Stable Electronically signed by Martir Fair 03-06-2025 03:42 AM
[2025-03-06] MEDS: APIXABAN 5 MG TABLET PO ONE (04:26)
[2025-03-06] MEDS: POTASSIUM CHLORIDE / WTR 10 MEQ/100 ML PLCT IV SCH (04:26)
[2025-03-06] MEDS: LACTATED RINGER'S 1,000 ML IV SCH (04:26)
[2025-03-06] MEDS: MAGNESIUM SULFATE / D5W 1 GM/100 ML BAG IV SCH (04:26)
[2025-03-06] MEDS ORDERED: POLYETHYLENE (MIRALAX) 17 GM PACK PO PRN (05:50)
[2025-03-06] MEDS ORDERED: MELATONIN 3 MG TAB PO PRN (05:50)
[2025-03-06] MEDS ORDERED: ONDANSETRON INJ 2 MG/ML 2 ML VIAL IV PRN (05:50)
[2025-03-06] MEDS ORDERED: ACETAMINOPHEN 325 MG TAB PO PRN (05:50)
[2025-03-06] MEDS ORDERED: DOCUSATE SODIUM 100 MG CAP PO PRN (05:50)
[2025-03-06] MEDS: LETROZOLE 2.5 MG TAB PO SCH (08:38)
[2025-03-06] MEDS: CLOPIDOGREL BISULFATE 75 MG TAB PO SCH (08:38)
[2025-03-06] MEDS: METOPROLOL TARTRATE 50 MG TAB PO SCH (08:38)
[2025-03-06] MEDS: LOSARTAN POTASSIUM 50 MG TAB PO SCH (08:38)
[2025-03-06] MEDS: TIMOLOL MALEATE 0.5% OP SOLN 5 ML BTL OPB SCH (08:39)
[2025-03-06 09:25] LABS: Appearance Urine Clear (Clear); Bacteria Urine Automated 4+ (None Seen); Epithelial Cell Urine Auto 0-2 /hpf (0-2); Glucose Urine UA Negative (Negative); RBC Urine Automated 0-2 /hpf (0-2)
--- NOTE | 2025-03-06 09:25 | Cardiology Consultation ---
Date of Consultation March 06, 2025 Assessment & Plan (1) Paroxysmal atrial fibrillation: (2) Non-ST elevation (NSTEMI) myocardial infarction: (3) Hypertension: (4) Hyperlipidemia: (5) CKD (chronic kidney disease): Plan ASSESSMENT/PLAN: 1. NSTEMI: Had angina in the setting of atrial fibrillation with high- sensitivity troponin near 1000. She likely has underlying coronary disease given known bilateral carotid artery stenosis. She did not present with acute coronary syndrome but rather likely demand ischemia in the setting of A-fib with RVR. To establish degree of CAD, could consider coronary angiography. We discussed increased risk of worsening renal function and she declines. She prefers medical therapy. Could consider myocardial perfusion study in the outpatient setting in 2 or 3 months to evaluate ischemic burden. She is chronically on antiplatelet therapy. Continue statin therapy. Continue beta- cassius and ARB. 2. Paroxysmal atrial fibrillation: We discussed the diagnosis. First documented episode and she was symptomatic with anginal type symptoms. Spontaneously converted within a few hours. Continue beta-cassius. She is well beta blocked with mild bradycardia. If she has recurrence, would consider antiarrhythmic therapy such as amiodarone. Agree with anticoagulation for stroke risk reduction. Eliquis 2.5 mg twice daily given age and creatinine greater than 1.5. Monitor CBC and renal function. Avoid alcohol which may have helped trigger her episode. 3. Hypertension: Blood pressure has been mostly normotensive. Continue home regimen. 4. Dyslipidemia: Given documented peripheral arterial disease and concern for CAD, recommend intensifying lipid management. Her most recent LDL last year was 70. Given her renal function, would not further titrate rosuvastatin and she had adverse reaction to atorvastatin (myalgia) start Zetia 10 mg daily in addition to rosuvastatin. Mediterranean diet. 5. CKD: She was unaware of abnormal renal function but her renal function has been mildly abnormal since April 2024 and intermittently abnormal in the past. Creatinine was at its highest this morning at 2.14. Workup as per primary hospitalist service. 6. Disposition: I will be away from the hospital this weekend. Please call on- call life sciences director for questions or concerns. Otherwise, cardiology outpatient office will be contacted to arrange hospital follow-up with [facility]. Patient care was communicated with Dr. Spicer, the primary hospitalist service. Thank you for allowing me to participate in the care of your patient. Please call for any other questions or concerns. Sincerely, Sergo Fernandez M.D. History of Present Illness Reason for Consultation: "new onset afib" Requesting Physician: Christina Fuller Attending Physician: Gerson Spicer MD, PhD History of Present Illness Ms. Lehman is a very pleasant 84-year-old female with a history significant for TIA, carotid artery stenosis s/p bilateral carotid endarterectomy, hypertension, dyslipidemia, and CKD. She also has a history of breast cancer s/p left lumpectomy (2019) and XRT ([id number]). She was hospitalized on 03/06/2025 with atrial fibrillation, which is a new diagnosis. She was watching [employer] game on 03/05/2025 when she developed acute chest and bilateral shoulder discomfort. She stated that it felt like "heartburn." She denied shortness of breath or diaphoresis. She noted palpitations. She was found to be in atrial fibrillation with rapid ventricular response and spontaneously converted on 03/06/2025 at 1:47 AM. She has not had any similar chest discomfort. She is able to perform her housework and go shopping without chest pain or shortness of breath. She has occasional edema if sedentary. She admits that she drank 2 beers at 3:30 PM on 03/05/2025, which is unusual for her. She has been using phentermine for weight loss. She denies melena, hematochezia, hematuria, or other bleeding. She denies syncope. Review of systems: As above. Family history: No known premature CAD. Social history: She quit smoking in the . Occasional alcohol. No drugs. Lives at home with her . Has 3 children (2 locally and 1 in [place]). She was unaccompanied. Allergies Allergy/AdvReac Type Severity Reaction Status Date / Time alendronate sodium AdvReac Intermediate Diarrhea Verified 03/06/25 01:37 [From Fosamax] atorvastatin AdvReac Intermediate MUSCLE Verified 03/06/25 01:37 ACHES codeine AdvReac Intermediate HALLUCINATI Verified 03/06/25 01:37 ONS Home Medications Medication Instructions Recorded Confirmed Type latanoprost 0.005 % eye drops 1 drops ophthalmic (eye) HS 01/14/19 03/06/25 History timolol maleate 0.5 % eye drops 1 drp OPB QAM 01/27/20 03/06/25 History ascorbic acid (vitamin C) 500 mg 1,000 mg PO DAILY 05/04/20 03/06/25 History capsule cholecalciferol (vitamin D3) 25 25 mcg PO DAILY 05/04/20 03/06/25 History mcg (1,000 unit) capsule letrozole 2.5 mg tablet 2.5 mg PO DAILY 10/12/20 03/06/25 History indapamide 2.5 mg tablet 2.5 mg PO QAM #90 tabs 04/16/24 03/06/25 Rx losartan 100 mg tablet 100 mg PO DAILY #90 tabs 07/31/24 03/06/25 Rx furosemide 20 mg tablet 20 mg PO DAILY #30 tabs 09/29/24 03/06/25 Rx metoprolol tartrate 50 mg tablet 50 mg PO BID #180 tabs 02/16/25 03/06/25 Rx phentermine 15 mg capsule 15 mg PO DAILY 30 days #30 caps 02/16/25 03/06/25 Rx calcium 600 mg (as 1 tab PO DAILY 03/06/25 03/06/25 History carbonate)-vitamin D3 10 mcg (400 unit) tablet (Calcium 600 + D(3)) clopidogrel 75 mg tablet 75 mg PO QAM 03/06/25 03/06/25 History multivitamin 1 tab PO DAILY 03/06/25 03/06/25 History rosuvastatin 10 mg tablet 10 mg PO HS 03/06/25 03/06/25 History zoledronic acid 5 mg/100 mL in 1 ea IV YEARLY 03/06/25 03/06/25 History mannitol 5 %-water intravenous piggybck (Reclast) Problem List (Updated 03/06/25 @ 15:02 by Eris Fernandez MD) CKD (chronic kidney disease) Non-ST elevation (NSTEMI) myocardial infarction Paroxysmal atrial fibrillation Hyponatremia Hypomagnesemia Hypokalemia Renal insufficiency Elevated troponin New onset atrial fibrillation Obesity (BMI 35.0-39.9 without comorbidity) Osteoporosis Glaucoma Carotid artery stenosis s/p bilateral CEA (2018) PAD (peripheral artery disease) Hypertension Hyperlipidemia Malignant neoplasm of lower-inner quadrant of left breast in female, estrogen receptor positive (Chronic 02/04/20) Patient History Medical History GERD (gastroesophageal reflux disease) History of fracture of clavicle (11/16/21) Mildly displaced fracture of the distal left clavicle from a fall Hyponatremia Arthritis Stress incontinence in female Retrosternal chest pain Admitted to [facility] 01/27/20-01/29/20- had full work up that was negative Mammogram abnormal Subclavian artery stenosis, left Stroke CVA per vascular note in 2018- found to have bilateral carotid stenosis - subsequently had bilateral CEAs Surgical History History of left breast biopsy (02/04/20) S/P lumpectomy, left breast (03/17/20) History of bilateral carotid endarterectomy (2017) History of vaginal surgery (1994) History of cataract surgery (2011) History of colonoscopy (2013) History of vaginal hysterectomy (1984) Family History Mother Hypertension Father No problems noted. Aunt Breast cancer, Onset Age: 70 Sister No problems noted. Son No problems noted. Daughter No problems noted. Daughter No problems noted. Other Family history of deafness or hearing loss Hyperlipidemia No family history of adverse response to anesthesia No family history of bleeding disorder Social History Smoking Status: Former smoker Tobacco Type: Cigarettes Age Started Using Tobacco: 22; Age Quit Using Tobacco: 62; packs per day: 1; Second Hand Exposure: No; Do You Dip or Chew Tobacco: No; Tobacco Cessation Education Requested by Patient: No Hx Alcohol Use: Yes Alcohol type: wine Alcohol Intake Frequency: 4 or More x per/Week Alcohol Intake Frequency Comment: 1 drink per day Hx Substance Use: No Preferred Language: Turkish Communication Ability: Effective Visual Impairment: Limited Hearing Ability: Normal Top Hat Body Maker Required: No Beliefs That Will Affect Care: None marital status: Current Living Situation: Spouse current occupational status: retired current occupation: Retired [employer] How many Children do You have: 3 Other Information That Helps Us Care for You: No Feels Safe at Home: Yes Safety Concerns: Feels Safe At This Time Childhood Exposure to Second-Hand Smoke: Yes Diet: regular caffeine: Yes (2 cups of coffee/day ) during the past year weight has: remained stable Dental Care, Regularly: No Physical Activity Frequency: Other Physical Activity Frequency Comment: Active Lifestyle Seatbelt Use: always Sunscreen Use: Yes Assistive Devices: None Physical Exam Physical Exam: Gen.: No acute distress. Alert and oriented. HEENT: Anicteric sclera. Neck: No JVD. No bruits. Normal carotid upstrokes bilaterally. Cardiac: Regular. Normal S1-S2. 1/6 systolic murmur. Pulmonary: Clear to auscultation bilaterally without wheezes, rales, or rhonchi. Abdomen: Soft, nontender, nondistended, with normoactive bowel sounds. No bruits noted. Extremities: 1+ right radial pulse. 2+ left radial pulse. 2+ posterior tibialis pulses bilaterally. Trace bilateral lower extremity edema. No cyanosis. Results & Data Vital Signs (Past 12 Hours) Vital Signs Temp Pulse Pulse Resp BP BP Pulse Ox 03/06/25 07:55 36.5 C 64 20 103/69 98 03/06/25 05:55 36.4 C L 58 L 18 114/71 98 03/06/25 05:51 62 03/06/25 05:16 03/06/25 05:15 58 L 18 122/74 98 03/06/25 05:00 60 18 129/80 98 03/06/25 04:45 60 20 131/60 98 03/06/25 04:30 113/60 03/06/25 04:30 80 22 113/60 98 03/06/25 04:27 62 03/06/25 04:15 60 19 88/44 L 95 03/06/25 04:00 60 17 85/44 L 95 03/06/25 03:45 74 19 93/56 L 96 03/06/25 03:30 85 20 116/57 L 98 03/06/25 03:15 82 18 117/55 L 99 03/06/25 03:00 80 18 117/58 L 97 03/06/25 02:45 80 20 114/59 L 98 03/06/25 02:30 83 20 117/63 99 03/06/25 02:15 83 20 99/56 L 96 03/06/25 02:00 78 17 100/54 L 97 03/06/25 01:45 80 20 95/62 L 98 03/06/25 01:30 123 H 17 99/50 L 94 03/06/25 01:15 120 H 20 107/62 96 03/06/25 01:00 120 H 20 118/70 99 03/06/25 00:52 133 H 18 109/70 97 03/06/25 00:47 03/06/25 00:47 36.8 C 147 H 18 107/78 97 03/06/25 00:39 135 H 03/06/25 00:37 135 H 18 107/78 97 O2 Del Method 03/06/25 07:55 Room Air 03/06/25 05:55 Room Air 03/06/25 05:51 03/06/25 05:16 Room Air 03/06/25 05:15 03/06/25 05:00 03/06/25 04:45 03/06/25 04:30 03/06/25 04:30 03/06/25 04:27 03/06/25 04:15 03/06/25 04:00 03/06/25 03:45 03/06/25 03:30 03/06/25 03:15 03/06/25 03:00 03/06/25 02:45 03/06/25 02:30 03/06/25 02:15 03/06/25 02:00 03/06/25 01:45 Room Air 03/06/25 01:30 03/06/25 01:15 Room Air 03/06/25 01:00 Room Air 03/06/25 00:52 Room Air 03/06/25 00:47 Room Air 03/06/25 00:47 Room Air 03/06/25 00:39 03/06/25 00:37 Room Air Laboratory Results Laboratory Results - last 24 hr 03/06/25 03/06/25 03/06/25 00:40 02:30 08:41 WBC 5.81 RBC 3.76 L Hgb 12.5 Hct 35.5 L MCV 94.4 MCH 33.2 MCHC 35.2 RDW Std Deviation 40.8 RDW Coeff of Denis 11.9 Plt Count 164 MPV 9.6 Immature Gran % (Auto) 0.2 Neut % (Auto) 27.0 Lymph % (Auto) 45.3 Vernon % (Auto) 18.4 Eos % (Auto) 7.9 Baso % (Auto) 1.2 Neut # (Auto) 1.57 Lymph # (Auto) 2.63 Vernon # (Auto) 1.07 H Eos # (Auto) 0.46 Baso # (Auto) 0.07 Immature Gran # (Auto) 0.01 Sodium 130 L Potassium 3.3 L Pending Chloride 89 L Carbon Dioxide 29 Anion Gap 12 H BUN 44 H Creatinine 2.14 H Est Cr Clr Drug Dosing Not Reportable eGFR 22.57 BUN/Creatinine Ratio 20.6 H Glucose 152 H Calcium 11.0 H Phosphorus Pending Magnesium 1.6 L Total Bilirubin 0.7 AST 23 ALT 15 Alkaline Phosphatase 76 Troponin I High Sens 34.2 H 198.9 H* D Pending Total Protein 8.2 Albumin 4.4 Globulin 3.8 Albumin/Globulin Ratio 1.2 TSH 4.789 H Free T4 1.54 Urine Color Urine Appearance Urine pH Ur Specific [place] Urine Protein Urine Glucose (UA) Urine Ketones Urine Blood Urine Nitrite Urine Bilirubin Urine Urobilinogen Ur Leukocyte Esterase Urine Comment 03/06/25 Unknown WBC RBC Hgb Hct MCV MCH MCHC RDW Std Deviation RDW Coeff of Denis Plt Count MPV Immature Gran % (Auto) Neut % (Auto) Lymph % (Auto) Vernon % (Auto) Eos % (Auto) Baso % (Auto) Neut # (Auto) Lymph # (Auto) Vernon # (Auto) Eos # (Auto) Baso # (Auto) Immature Gran # (Auto) Sodium Potassium Chloride Carbon Dioxide Anion Gap BUN Creatinine Est Cr Clr Drug Dosing eGFR BUN/Creatinine Ratio Glucose Calcium Phosphorus Magnesium Total Bilirubin AST ALT Alkaline Phosphatase Troponin I High Sens Total Protein Albumin Globulin Albumin/Globulin Ratio TSH Free T4 Urine Color Pending Urine Appearance Pending Urine pH Pending Ur Specific [place] Pending Urine Protein Pending Urine Glucose (UA) Pending Urine Ketones Pending Urine Blood Pending Urine Nitrite Pending Urine Bilirubin Pending Urine Urobilinogen Pending Ur Leukocyte Esterase Pending Urine Comment Diagnostic Findings Labs reviewed and notable for elevated high-sensitivity troponin (peaked at 948); hyponatremia (chronic), hypokalemia, abnormal renal function (similar to 09/11/2024), mild hypomagnesemia, normal transaminase levels, slightly abnormal TSH, normal blood counts. ECG personally reviewed 03/06/2025: A-fib with RVR [address]/T wave abnormality. History and physical report reviewed. Chest x-ray 03/06/2025 report reviewed: Ill-defined haziness left lower zone per radiology. Prominent peripheral and perihilar bronchovascular markings bilateral lung alford. ECHO 03/06/25: 1. Normal left ventricular size and systolic function. EF 60-65%. No regional wall motion abnormalities. Mild concentric left ventricular hypertrophy. 2. Mild biatrial dilation. 3. Mild mitral annular calcification. 4. Normal estimated right ventricular systolic pressure. 5. Technically difficult study, enhanced with IV Definity. 6. Sinus rhythm Telemetry personally reviewed: Atrial fibrillation with rapid ventricular response converted to sinus rhythm on 03/06/2025 at 1:47 AM. Sinus bradycardia in the 50s when evaluated this morning. Medications Administered Current Inpatient Medications Acetaminophen (Acetaminophen 325 Mg Tab) 650 mg PO Q4H PRN PRN Reason: Pain or Fever Stop: 04/05/25 05:49 Apixaban (Apixaban 2.5 Mg Tab) 2.5 mg PO BID TERRY Stop: 04/05/25 20:59 Clopidogrel Bisulfate (Clopidogrel Bisulfate 75 Mg Tab) 75 mg PO QAM TERRY Stop: 04/05/25 08:59 Last Admin: 03/06/25 08:38 Dose: 75 mg Docusate Sodium (Docusate Sodium 100 Mg Cap) 100 mg PO BID PRN PRN Reason: Constipation Stop: 04/05/25 05:49 Lactated Ringer's (Lr) 1,000 mls @ 80 mls/hr IV .[id number] TERRY Stop: 03/06/25 15:44 Last Admin: 03/06/25 04:26 Dose: 80 mls/hr Latanoprost (Latanoprost 0.005% Op Soln 2.5 Ml Btl) 1 drops OP HS TERRY Stop: 04/05/25 20:59 Letrozole (Letrozole 2.5 Mg Tab) 2.5 mg PO DAILY TERRY Stop: 04/05/25 08:59 Last Admin: 03/06/25 08:38 Dose: 2.5 mg Losartan Potassium (Losartan Potassium 50 Mg Tab) 100 mg PO DAILY TERRY Stop: 04/05/25 08:59 Last Admin: 03/06/25 08:38 Dose: 100 mg Melatonin (Melatonin 3 Mg Tab) 3 mg PO HS PRN PRN Reason: Sleep Stop: 04/05/25 05:49 Metoprolol Tartrate (Metoprolol Tartrate 50 Mg Tab) 50 mg PO BID TERRY Stop: 04/05/25 08:59 Last Admin: 03/06/25 08:38 Dose: 50 mg Ondansetron HCl (Ondansetron Inj 2 Mg/Ml 2 Ml Vial) 4 mg IV Q6H PRN PRN Reason: Nausea And Vomiting Stop: 04/05/25 05:49 Polyethylene Glycol (Polyethylene (Miralax) 17 Gm Pack) 17 gm PO DAILY PRN PRN Reason: Constipation Stop: 04/05/25 05:49 Rosuvastatin Calcium (Rosuvastatin Calcium 10 Mg Tab) 10 mg PO HS TERRY Stop: 04/05/25 20:59 Timolol Maleate (Timolol Maleate 0.5% Op Soln 5 Ml Btl) 1 drops OPB QAM [facility] Stop: 04/05/25 08:59 Last Admin: 03/06/25 08:39 Dose: 1 drops PG Care Time/CCT Total # of Minutes Spent Total Time Spent with Patient: Total time spent is greater than 50% in coordination of care (as documented) at patient's floor/unit and/or counseling patient: Coding Level of Care Code 72890 INT INP/OBS CARE 3/75MIN Diagnoses Paroxysmal atrial fibrillation I48.0 Non-ST elevation (NSTEMI) myocardial infarction I21.4 Hypertension I10 Hyperlipidemia E78.5 CKD (chronic kidney disease) N18.9
[2025-03-06 09:30] LABS: Potassium 4.1 mmol/L (3.5-5.1)
--- NOTE | 2025-03-06 09:38 | XCELERA ---
[id number]
[2025-03-06 14:45] LABS: Anion Gap 5.0 (3-11); Blood Urea Nitrogen 40.0 mg/dl (6-23); Calcium 9.8 mg/dl (8.6-10.3); Carbon Dioxide 31.0 mmol/L (21-32); Chloride 94.0 mmol/L (98-107); Creatinine Clr Calc Pharmacy 21.1 ml/min; Glucose 114.0 mg/dl (70-99(Fasting)); Potassium 3.8 mmol/L (3.5-5.1); Sodium 130.0 mmol/L (136-145)
[2025-03-06] MEDS: ROSUVASTATIN CALCIUM 10 MG TAB PO SCH (20:15)
[2025-03-06] MEDS: APIXABAN 2.5 MG TAB PO SCH (20:15)
--- NOTE | 2025-03-06 22:11 | Electrocardiogram Report ---
Test Reason : Blood Pressure : */* mmHG Vent. Rate : 139 BPM Atrial Rate : * BPM P-R Int : * ms QRS Dur : 104 ms QT Int : 258 ms P-R-T Axes : * 64 233 degrees QTcB Int : 392 ms Atrial fibrillation with rapid ventricular response Marked ST abnormality, possible inferolateral subendocardial injury Abnormal ECG When compared with ECG of 20-Apr-2024 11:56, Atrial fibrillation has replaced Sinus rhythm Vent. rate has increased by [address] now depressed in Inferolateral leads Inverted T waves have replaced nonspecific T wave abnormality in Lateral leads Confirmed by Eris Fernandez ([id number]) on 03/06/2025 10:11:36 PM Referred By: REFERRED SELF Confirmed By: Eris Fernandez
--- NOTE | 2025-03-06 22:13 | Electrocardiogram Report ---
Test Reason : Blood Pressure : */* mmHG Vent. Rate : 74 BPM Atrial Rate : 74 BPM P-R Int : 154 ms QRS Dur : 96 ms QT Int : 400 ms P-R-T Axes : 71 65 44 degrees QTcB Int : 444 ms Normal sinus rhythm Nonspecific ST abnormality Abnormal ECG When compared with ECG of 06-Mar-2025 00:36, Sinus rhythm has replaced Atrial fibrillation Vent. rate has decreased by [address] no longer depressed in Inferolateral leads T wave inversion no longer evident in Lateral leads Confirmed by Eris Fernandez ([id number]) on 03/06/2025 10:12:48 PM Referred By: REFERRED SELF Confirmed By: Eris Fernandez
[2025-03-06] MEDS: LATANOPROST 0.005% OP SOLN 2.5 ML BTL OP SCH (22:32)
[2025-03-07 06:21] LABS: Hematocrit (blood only) 31.2 % (37.0-47.0); Hemoglobin 10.8 g/dL (12.0-16.0); Immature Granulocytes # (auto) 0.01 K/uL (0.01-0.20); Immature Granulocytes % (auto) 0.2 %; Mean Corpuscular Hemoglobin 32.9 pg (25.0-34.0); Mean Corpuscular Volume 95.1 fL (80.0-100.0); Platelet Count 144 K/uL (130-400); RDW Standard Deviation 41.5 fL (36.4-46.3); Red Blood Count 3.28 M/uL (4.20-5.40); White Blood Count 5.08 K/ul (4.8-10.8)
[2025-03-07 06:37] LABS: Anion Gap 7.0 (3-11); Blood Urea Nitrogen 37.0 mg/dl (6-23); Calcium 9.4 mg/dl (8.6-10.3); Carbon Dioxide 28.0 mmol/L (21-32); Chloride 99.0 mmol/L (98-107); Creatinine Clr Calc Pharmacy 22.0 ml/min; Glucose 105.0 mg/dl (70-99(Fasting)); Magnesium 1.8 mg/dl (1.7-2.4); Potassium 3.6 mmol/L (3.5-5.1); Sodium 134.0 mmol/L (136-145)
[2025-03-07 07:49] VITALS: RESP 18
[2025-03-07 11:37] VITALS: BP 145/66; PULSE 60; TEMP 97.5; O2SAT 96
[2025-03-07] MEDS: POTASSIUM CHLORIDE CRTAB 20 MEQ TABCR PO STA (13:05)
[2025-03-07] MEDS: CEFDINIR 300 MG CAP PO STA (13:05)
--- NOTE | 2025-03-07 15:30 | Discharge Summary ---
Discharge Summary Date of Service March 07, 2025 Principal Dx & Hospital Course #1 = Principal Diagnosis (1) New onset atrial fibrillation: New onset, acute atrial fibrillation with rapid ventricular response, RESOLVED in [facility] ER after having received diltiazem 10mg IV x 1 dose (03/06/2025, 1:06am), followed by conversion back to normal sinus rhythm in [facility] ER, with etiology of new onset, acute atrial fibrillation with rapid ventricular response due to (a) acute UTI (as suggested by 03/06/2025 U/A with LE 2+, nitrite-, WBC 11-20, RBC 0-2, epithelial cells 0- 2, bacteria 4+) in patient with past medical history of metzger-sensitive E. coli UTIs (as noted on 05/24/2022, 9:56am urine culture and 06/01/2020, 10:30am urine culture) and metzger-sensitive Proteus mirabilis UTI (as noted on 10/05/2020, 9:09am urine culture) and (b) home-scheduled phentermine 15mg PO daily, given its ROAD TESTER stimulant activity. Patient underwent formal evaluation with [facility] CARDS Dr. Eris Fernandez, who opted to continue rate control (in this patient who remained in normal sinus rhythm after having received diltiazem 10mg IV x 1 dose (03/06/2025, 1:06am) in [facility] ER, followed by conversion back to normal sinus rhythm in [facility] ER) by utilizing patient's home-scheduled metoprolol tartrate 50mg PO bid. Patient will continue utilizing her home-scheduled metoprolol tartrate 50mg PO bid on hospital disch arge home on 03/07/2025. In addition, given CHADS2-VASC score = 8 points (e.g., 2 points for age > 72 years, 1 point for female sex, 1 point for CHF, 1 point for HTN, 1 point for PAD/PVD/left subclavian artery stenosis with bilateral carotid artery stenoses warranting bilateral carotid endarterectomies in 2018, 2 points for CVA in 2018), patient warrants long-term active anticoagulation utilizing apixaban 2.5mg PO q12. Hence, patient was started on apixaban 5mg PO x 1 dose (03/06/2025, 4:26am), followed by apixaban 2.5mg PO bid (03/06/2025, 8:15pm; 03/07/2025, 9:40am) while in [facility]. Patient's [facility] store [id number], [address] [place] [address], received an electronic prescription for apixaban 2.5mg PO bid, #60 tablets, no refills, on 03/07/2025, prior to hospital discharge back to home on 03/07/2025. Of final note, patient was advised to see her new CARDS Dr. Eris Fernandez within 5-7 days of hospital discharge to undergo: a. discussion of new onset, acute atrial fibrillation with rapid ventricular response, resolved in [facility] ER after having received diltiazem 10mg IV x 1 dose (03/06/2025, 1:06am), due to (a) acute UTI (as suggested by 03/06/2025 U/A with LE 2+, nitrite-, WBC 11-20, RBC 0-2, epithelial cells 0-2, bacteria 4+) in patient with past medical history of metzger-sensitive E. coli UTIs (as noted on 05/24/2022, 9:56am urine culture and 06/01/2020, 10:30am urine culture) and metzger-sensitive Proteus mirabilis UTI (as noted on 10/05/2020, 9:09am urine culture) and (b) home-scheduled phentermine 15mg PO daily, given its ROAD TESTER stimulant activity. Patient reports that she will comply with the recommendation above. In the interim, patient received antibiotic treatment for her (a) acute UTI, as described in bullet #4 below. Patient was also advised to stop taking her (b) home-scheduled phentermine 15mg PO daily, given its ROAD TESTER stimulant activity. P atient reports that she will comply with this recommendation. (2) Elevated troponin: Nominal troponin elevation with troponin-I #1 198.9 pg/mL (03/06/2025, 2:30am), troponin-I #2 948.5 pg/mL (03/06/2025, 8:41am), troponin-I #3 919.0 pg/mL (03/06/2025, 2:14pm), troponin-I #4 796.4 pg/mL (03/06/2025, 8:52pm), with etiology due to to acute type II NSTEMI (e.g., demand ischemia due to new onset acute atrial fibrillation with rapid ventricular response). cf., EKG (03/06/2025, 3:45pm): NSR @ 74, ME 154, QTC 444, no acute ST depressions/elevations (by my review). cf., TTE (03/06/2025, 6:17am): 1. LVEF 60-65%. No regional wall motion abnormalities. Mild concentric LVH. Type II diastolic dysfunction with E/E' ratio 18.1 2. RV grossly normal size. RV systolic function normal as assessed by tricuspid annular plane systolic excursion (TAPSE)(normal > 1.5 cm). 3. LA mildly dilated. RA mildly dilated. No ASD. Resolution does not allow a ssessment for PFO. 4. No . No AR. 5. No PS. No ME. 6. No MS. Trace MR. 7. Aortic root normal size. Ascending aorta normal dimension. Normal IVC size and collapsibility with sniff indicates normal RAP of 3 mm Hg. 8. No pericardial effusion. (as per CARDS Dr. Eris Fernandez). Given the absence of regional wall motion abnormalities, I surmise that patient did not sustain an acute type I NSTEMI (e.g., fransico alisia myocardial ischemia due to CAD). Hence, I have opted to observe this laboratory anomaly without further evaluation while patient remained in [facility]. (3) Chronic diastolic (congestive) heart failure: Chronic diastolic CHF with LVEF 60-65% and grade II LV diastolic dysfunction with E/E' ratio 18.1 (as noted on 03/06/2025, 6:17am TTE, CARDS Dr. Eris Fernandez), most likely due to long-standing HTN and old age of 84 years. Patient did not experience an acute exacerbation of her chronic diastolic CHF while in [facility]. Patient had no complaints of weight gain, paroxysmal nocturnal dyspnea, orthopnea, or platypnea. Hence, patient received medical management of chronic diastolic CHF by continui ng her home-scheduled metoprolol tartrate 50mg PO bid, which the patient utilizes at home to treat her long-standing HTN. Of note, there is no treatment for old age of 84 years. (4) Renal insufficiency: Acute kidney injury with admission creatinine 1.91 mg/dL, GFR 25.87 (03/06/2025, 2:14pm), with etiology due to acute UTI (as suggested by 03/06/2025 U/A with LE 2+, nitrite-, WBC 11-20, RBC 0-2, epithelial cells 0-2, bacteria 4+) in patient with past medical history of metzger-sensitive E. coli UTIs (as noted on 05/24/2022, 9:56am urine culture and 06/01/2020, 10:30am urine culture) and metzger-sensitive Proteus mirabilis UTI (as noted on 10/05/2020, 9:09am urine culture). R/O ARB-associated renal impairment utilizing home-scheduled losartan 100mg PO daily. R/O acute dehydration due to home-scheduled lasix 20mg PO daily. R/O acute dehydration due to home-scheduled indapamide 2.5mg PO daily. cf., CKD stage III with progressive increase in creatinine level from 1.28 mg/dL (04/20/2024, 11:59am) to 1.32 mg/dL (04/21/2024, 7:00am) to 1.77 mg/dL (08/12/2024, 9:16am) to 1.96 mg/dL (09/11/2024, 2:46pm), R/O MGUS (monoclonal gammopathy of unknown significance). To address acute kidney injury, patient was held OFF her home-scheduled losartan 100mg PO daily, her home-scheduled lasix 20mg PO daily, and her home-scheduled indapamide 2.5mg PO daily while in [facility]. Subsequently, acute kidney injury is RESOLVING, albeit slowly, with discharge creatinine 1.82 mg/dL, GFR 27.42 (03/07/2025, 5:54am). Subsequently, patient received cefdinir 300mg PO x 1 dose (03/07/2025, 1:05pm) to start treatment of her acute UTI (as suggested by 03/06/2025 U/A with LE 2+, nitrite-, WBC 11-20, RBC 0-2, epithelial cells 0-2, bacteria 4+). Subsequently, patient's [facility] store [id number], [address] [place] [address], received an electronic prescription for cefdinir 300mg PO q12, #5 tablets, no refills, on 03/07/2025, prior to hospital discharge back to home on 03/07/2025. Subsequently, patient was advised to see her new PCP within 5-7 days of hospital discharge to undergo: a. repeat creatinine level testing within 5-7 days of hospital discharge as patient continues to hold OFF taking her home-scheduled losartan 100mg PO daily, home-scheduled lasix 20mg PO daily, and home-scheduled indapamide 2.5mg PO daily until at least 03/14/2025. b. discussion of final urine culture (03/06/2025) result after having completed 3 day treatment with cefdinir 300mg PO q12 (day #1/3 on 03/07/2025, 12:17pm). Patient reports that she will comply with all of the above recommendations. To address CKD stage III with progressive increase in creatinine level from 1.28 mg/dL (04/20/2024, 11:59am) to 1.32 mg/dL (04/21/2024, 7:00am) to 1.77 mg/dL (08/12/2024, 9:16am) to 1.96 mg/dL (09/11/2024, 2:46pm), R/O MGUS (monoclonal gammopathy of unknown significance), patient was advised to see her [facility] Heme-Onc MsIvy Rust on Sunday (03/10/2025) to discuss: (a) the above recent decline in Hb levels, and (b) the 03/02/2025, 11:43am SPEP findings of IgG kappa monoclonal band present with serum IgG 1,979.0 mg/dL and free [place] light chain 154.2 mg/L. Patient reports that she will comply with all of the above recommendations. (5) Hyponatremia: Acute hypovolemic hyponatremia with admission Na 130 mmol/L (03/06/2025, 12:40am), with etiology due to acute UTI (as suggested by 03/06/2025 U/A with LE 2+, nitrite-, WBC 11-20, RBC 0-2, epithelial cells 0-2, bacteria 4+)-mediated natri-uresis in patient with past medical history of metzger-sensitive E. coli UTIs (as noted on 05/24/2022, 9:56am urine culture and 06/01/2020, 10:30am urine culture) and metzger-sensitive Proteus mirabilis UTI (as noted on 10/05/2020, 9:09am urine culture), RESOLVING well with discharge Na 134 mmol/L (03/07/2025, 5:54am) after having received 1 liter of lactated Ringers @ 80 mL/hr (03/06/2025, 4:26am). Observe. 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 Observe. (6) Hypokalemia: Acute hypokalemia with admission K 3.3 mmol/L (03/06/2025, 12:40am) with etiology due to acute UTI (as suggested by 03/06/2025 U/A with LE 2+, nitrite-, WBC 11-20, RBC 0-2, epithelial cells 0-2, bacteria 4+)-mediated ne-uresis in patient with past medical history of metzger-sensitive E. coli UTIs (as noted on 05/24/2022, 9:56am urine culture and 06/01/2020, 10:30am urine culture) and metzger- sensitive Proteus mirabilis UTI (as noted on 10/05/2020, 9:09am urine culture); superimposed on normal baseline K range, 3.6 - 4.3 mmol/L (01/16/2017 - 09/11/2024). Acute hypokalemia RESOLVED with repeat K 4.1 mmol/L (03/06/2025, 8:41am), repeat K 3.8 mmol/L (03/06/2025, 2:14pm), and discharge K 3.6 mmol/L (03/07/2025, 5:54am), after patient received KCl 10meq IV q1h x 3 doses (03/06/2025, 4:26am, 5:51am, 6:39am). Subsequently, given discharge K less than 4 mmol/L (03/07/2025, 5:54am), patient received KCl 40meq PO x 1 dose (03/07/2025, 1:05pm) prior to hospital discharge home on 03/07/2025. (7) Hypomagnesemia: Acute hypomagnesemia with admission Mg 1.6 mg/dL (03/06/2025, 12:40am) with etiology due to acute UTI (as suggested by 03/06/2025 U/A with LE 2+, nitrite-, WBC 11-20, RBC 0-2, epithelial cells 0-2, bacteria 4+)-mediated magne-uresis in patient with past medical history of metzger-sensitive E. coli UTIs (as noted on 05/24/2022, 9:56am urine culture and 06/01/2020, 10:30am urine culture) and metzger- sensitive Proteus mirabilis UTI (as noted on 10/05/2020, 9:09am urine culture); superimposed on normal baseline Mg range, 1.7 - 2.0 mg/dL (06/26/2017 - 07/09/2022). Acute hypomagnesemia RESOLVED with repeat Mg 2.2 mg/dL (03/06/2025, 2:14pm) and discharge Mg 1.8 mg/dL (03/07/2025, 5:54am), after patient received magnesium sulfate 1g IV x 2 doses (03/06/2025, 4:26am, 6:28am). (8) Monocytosis: Acute peripheral monocytosis with admission M% 18.4% (03/06/2025, 12:40am), with etiology due to acute UTI. 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 In both acute peripheral monocytosis and chronic peripheral monocytosis, I opted to observe these laboratory anomalies and instead, I treated the underlying etiologies of acute peripheral monocytosis and chronic peripheral monocytosis by utilizing (a) cefdinir 300mg PO x 1 dose (03/07/2025, 1:05pm) to start treatment of her acute UTI (as suggested by 03/06/2025 U/A with LE 2+, nitrite-, WBC 11- 20, RBC 0-2, epithelial cells 0-2, bacteria 4+), and by utilizing (b) home- scheduled letrozole 2.5mg PO daily, respectively. (9) Normocytic normochromic anemia: Acute normocytic, normochromic anemia with patient's Hb level declining: cf., admission Hb 12.5 g/dL, MCV 94.4, MCHC35.2 (03/06/2025, 12:40am). cf., discharge Hb 10.8 g/dL, MCV 95.1, MCHC 34.6 (03/07/2025, 5:54am). Patient reports no mucosal bleeding and remains hemodynamically stable. Etiology of 1.7 g/dL decline in Hb level noted above is probably due to (a) hemo-dilution from patient having received 1 liter of lactated Ringers @ 80 mL/hr (03/06/2025, 4:26am) and (b) multiple blood draws performed during this hospitalization. Subsequently, patient did not require or receive any packed RBC transfusion(s) while in [facility]. cf., patient's normal Hb range of 12.0 - 13.6 g/dL (01/22/2018 - 03/06/2025); R/O anemia of chronic disease (cf., CKD stage III and/or MGUS given 03/02/2025, 11:43am SPEP findings of IgG kappa monoclonal band present with serum IgG 1,979.0 mg/dL and free [place] light chain 154.2 mg/L). Subsequently, patient underwent iron studies (03/06/2025, 8:41am) involving Fe, TIBC, and ferritin, and which were pending at the time of hospital discharge on 03/07/2025, 12:44pm. Patient was advised to follow up the results of these iron studies (03/06/2025, 8:41am) involving Fe, TIBC, and ferritin, with her new PCP within 5-7 days of hospital discharge. Patient reports that she will comply with this recommendation. (10) CVD (cerebrovascular disease): Former tobacco abuse with subsequent development of CVD, s/p CVA (2018) in right-hand dominant patient with no neurologic sequelae and with bilateral carotid artery stenosis, s/p bilateral carotid endarterectomies (2018, [facility] Vascular Surgeon Dr. Yobani Zepeda), now receiving secondary prophylaxis against CVD/PVD/PAD utilizing home-scheduled plavix 75mg PO daily and home-scheduled rosuvastatin 10mg PO qhs while in [facility]. Patient will continue to utilize both home-scheduled medications on hospital discharge back to home on 03/07/2025. (11) Glaucoma: Chronic open angle glaucoma, mild degree, bilateral involvement, asymptomatic on home-scheduled timolol 0.5% ophthalmic solution, 1 gtt OU qam and home-scheduled latanoprost 0.005% ophthalmic solution, 1 gtt OU qhs while in [facility]. Patient will continue to utilize both home-scheduled medications on hospital discharge back to home on 03/07/2025. Plan Patient is an 84-year-old female with a past medical history including GERD, PAD, HTN, HLD. Patient presented via EMS after she was watching football with her and developed burning chest pain that radiated to her back and shoulders as as well as heart palpitations, dizziness, and lightheadedness. She was found to be in A-fib with RVR (rates 130s to 150s), she converted to sinus rhythm after Cardizem 10 mg IV in the ED. She is being admitted for new onset A-fib. #new onset a fib - Converted to sinus rhythm by time of admission after Cardizem 10 mg IV in the ED. With electrolyte abnormalities noted below, TSH WNL. CXR with mild congestive changes. - [id number] score 4 - HAS-BLED score 2 = moderate risk for major bleeding - will start Eliquis 2.5mg BID (first dose on admission) given recommended to start anticoagulation [id number] > 3 - correct electrolytes - echocardiogram ordered Cardiology consulted Continue home metoprolol tartrate 50 mg twice daily - monitor on Telemetry #elevated troponin - trop 34.2, 2 hour repeat pending. Suspect demand ischemia in setting of arrhythmia and poor clearance with worsening renal function. - trend Q6H - echocardiogram ordered - EKG with CP prn #Renal insufficiency/hypokalemia/hypomagnesemia/hyponatremia Cr steadily increasing since June, NA 130, K+ 3.3, Mg 1.6. - UA ordered Hold Lasix and indapamide - LR at 80 mL/hour x 1 L 3 bags IV K rider 2G IV magnesium Repeat BMP and magnesium at 1400 #HLD/PVD continue statin and plavix #HTN holding diuretics, continue losartan and metoprolol #obesity - patient started on phentermine several months ago for weight loss. Appears as though patient has been declining with electrolyte abnormalities, renal impairment, and new onset a fib since starting. Will hold phentermine at this time Discussed with patient - could consider trailing a different agent such as a GLP-1, can discuss further with PCP VTE ppx: start Eliquis Dispo: PCU Admission HPI Per Admitting Provider Patient is an 84-year-old female with a past medical history including GERD, PAD, HTN, HLD. Patient presented via EMS after she was watching football with her and developed burning chest pain that radiated to her back and shoulders as as well as heart palpitations, dizziness, and lightheadedness. She was found to be in A-fib with RVR (rates 130s to 150s), she converted to sinus rhythm after Cardizem 10 mg IV in the ED. She is being admitted for new onset A-fib. Patient seen at bedside with her and daughter present. She stated she is watching football when she developed this burning chest pain which radiated to her back and shoulders for about 40 minutes. She endorsed her palpitations, dizziness, lightheadedness. She received 324 p.o. aspirin and route via EMS. She denies any history of A-fib or other known arrhythmias. She is currently feeling well at bedside denying any chest pain, dizziness, lightheadedness. She denies any recent flulike symptoms, nausea, vomiting, diarrhea. She denies nicotine use. She occasionally drinks alcohol. She called her evening medications last night. She wishes to be full code however would not want long- term life support. Full questions concerns answered. Discussed that her new weight loss medication, phentermine, which she started 2 months ago may be contributing to her newfound arrhythmia. It appears as though her electrolytes have been decreasing over the past few months as well as renal function has been worsening. Discussed that she may need to discontinue this, she is extremely happy with it given she has lost 18 pounds but is agreeable. She was denied GLP-1's due to insurance. Patient can have further discussion with PCP. Discharge Exam Constitutional General: Comfortable, coherent, cooperative. Wide awake and alert. Not confused, lethargic, or obtunded. Patient speaks in complete, fluent, and articulate sentences without pause, interruption, cough, or wheeze. No dysarthria, facial droop, or pronator drift. HEENT: Normocephalic, atraumatic. PERRL. EOMI. No nystagmus, gaze paresis, anisocoria, miosis, mydriasis, hyphema, scleral injection, conjunctivitis, or pterygium. No otorrhea. No rhinorrhea. No pharyngeal erythema, edema, ulceration, or discharge. Neck: Supple, no stridor, bruit, or goiter. Jugular venous pressure is estimated at 3 cm above the sternal angle of Jeremias, which is 5 cm above the level of the right atrium. Lymph: No pre-auricular, post-auricular, supraclavicular, infraclavicular, axillary, epitrochlear, or inguinal adenopathy. Chest: Symmetric rise and fall with respirations. Non-tender to palpation. Heart: Regular rate and rhythm. S1 and S2 noted. No S3 or S4 summation gallop noted. Grade II/ early systolic murmur @ LLSB without radiation to the carotids, axilla, or back, and which remains invariant in regards to the respiratory cycle. Lungs: Clear to auscultation and percussion. No audible expiratory wheeze, egophony, pectoriloquy, increase in tactile fremitus, or flatness/dullness to percussion at the bases. Abdomen: Soft, non-tender, non-distended. No rebound, guarding, Chin's sign, or organomegaly. Bowel sounds auscultated in all 4 quadrants. Pelvis: Soft, non-tender, non-distended. Extremities: No clubbing, cyanosis, or edema. 2+ pedal pulses bilaterally. Skin: No decubitus ulcer, exanthem, or enanthem. Neurology: Alert and oriented in regards to person, place, time, and situation. DTR+. 5/5 motor strength in all 4 extremities, both proximally and distally. No myoclonus, tremors, or tics. Urology: No wood catheter. No diaper. No urethral discharge. Psych: Smiles appropriately. No flat affect. Discharge Plan Discharge Items Patient Disposition: Home - Self-Care Reason For Visit: NEW ONSET A FIB Discharge Diagnosis: 1. New onset, acute atrial fibrillation with rapid ventricular response, RESOLVED in [facility] ER after having received diltiazem 10mg IV x 1 dose (03/06/2025, 1:06am), followed by conversion back to normal sinus rhythm in [facility] ER, with etiology of new onset, acute atrial fibrillation with rapid ventricular response due to (a) acute UTI (as suggested by 03/06/2025 U/A with LE 2+, nitrite-, WBC 11-20, RBC 0-2, epithelial cells 0-2, bacteria 4+) in patient with past medical history of metzger-sensitive E. coli UTIs (as noted on 05/24/2022, 9:56am urine culture and 06/01/2020, 10:30am urine culture) and metzger-sensitive Proteus mirabilis UTI (as noted on 10/05/2020, 9:09am urine culture) and (b) home-scheduled phentermine 15mg PO daily, given its ROAD TESTER stimulant activity. 2. Nominal troponin elevation with troponin-I #1 198.9 pg/mL (03/06/2025, 2:30am), troponin-I #2 948.5 pg/mL (03/06/2025, 8:41am), troponin-I #3 919.0 pg/mL (03/06/2025, 2:14pm), troponin-I #4 796.4 pg/mL (03/06/2025, 8:52pm), with etiology due to to acute type II NSTEMI (e.g., demand ischemia due to new onset acute atrial fibrillation with rapid ventricular response). 3. Chronic diastolic CHF with LVEF 60-65% and grade II LV diastolic dysfunction with E/E' ratio 18.1 (as noted on 03/06/2025, 6:17am TTE, CARDS Dr. Eris Fernandez), most likely due to long-standing HTN and old age of 84 years. 4. Acute kidney injury with admission creatinine 1.91 mg/dL, GFR 25.87 (03/06/2025, 2:14pm), with etiology due to acute UTI (as suggested by 03/06/2025 U/A with LE 2+, nitrite-, WBC 11-20, RBC 0-2, epithelial cells 0-2, bacteria 4+) in patient with past medical history of metzger-sensitive E. coli UTIs (as noted on 05/24/2022, 9:56am urine culture and 06/01/2020, 10:30am urine culture) and metzger- sensitive Proteus mirabilis UTI (as noted on 10/05/2020, 9:09am urine culture); R/O ARB-associated renal impairment utilizing home-scheduled losartan 100mg PO daily; R/O acute dehydration due to home-scheduled lasix 20mg PO daily; R/O acute dehydration due to home-scheduled indapamide 2.5mg PO daily; superimposed on CKD stage III with progressive increase in creatinine level from 1.28 mg/dL (04/20/2024, 11:59am) to 1.32 mg/dL (04/21/2024, 7:00am) to 1.77 mg/dL (08/12/2024, 9:16am) to 1.96 mg/dL (09/11/2024, 2:46pm), R/O MGUS (monoclonal gammopathy of unknown significance). 5. Acute hypovolemic hyponatremia with admission Na 130 mmol/L (03/06/2025, 12: 40am), with etiology due to acute UTI (as suggested by 03/06/2025 U/A with LE 2+, nitrite-, WBC 11-20, RBC 0-2, epithelial cells 0-2, bacteria 4+) in patient with past medical history of metzger-sensitive E. 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 6. Acute hypokalemia with admission K 3.3 mmol/L (03/06/2025, 12:40am) with etiology due to acute UTI (as suggested by 03/06/2025 U/A with LE 2+, nitrite-, WBC 11-20, RBC 0-2, epithelial cells 0-2, bacteria 4+) in patient with past medical history of metzger-sensitive E. coli UTIs (as noted on 05/24/2022, 9:56am urine culture and 06/01/2020, 10:30am urine culture) and metzger-sensitive Proteus mirabilis UTI (as noted on 10/05/2020, 9:09am urine culture); superimposed on normal baseline K range, 3.6 - 4.3 mmol/L (01/16/2017 - 09/11/2024). RESOLVED with repeat K 4.1 mmol/L (03/06/2025, 8:41am), repeat K 3.8 mmol/L (03/06/2025, 2:14pm), and discharge K 3.6 mmol/L (03/07/2025, 5:54am). 7. Acute hypomagnesemia with admission Mg 1.6 mg/dL (03/06/2025, 12:40am) with etiology due to acute UTI (as suggested by 03/06/2025 U/A with LE 2+, nitrite-, WBC 11-20, RBC 0-2, epithelial cells 0-2, bacteria 4+) in patient with past medical history of metzger-sensitive E. coli UTIs (as noted on 05/24/2022, 9:56am urine culture and 06/01/2020, 10:30am urine culture) and metzger-sensitive Proteus mirabilis UTI (as noted on 10/05/2020, 9:09am urine culture); superimposed on normal baseline Mg range, 1.7 - 2.0 mg/dL (06/26/2017 - 07/09/2022). RESOLVED with repeat Mg 2.2 mg/dL (03/06/2025, 2:14pm) and discharge Mg 1.8 mg/dL (03/07/2025, 5:54am). 8. Acute peripheral monocytosis with admission M% 18.4% (03/06/2025, 12:40am), due to acute UTI; superimposed on chronic peripheral monocytosis with baseline M% range, 11.9% (01/16/2017, 9:15am) to 23.0% (09/11/2024, 2:46pm), of unclear etiology, but probably due to prior history of solid organ malignancy (cf., left BRCA (02/04/2020), s/p lumpectomy (03/17/2020), s/p XRT, now on letrozole 2.5mg PO daily (to complete 10 year course of treatment). 9. Acute normocytic, normochromic anemia with discharge Hb 10.8 g/dL, MCV 95.1, MCHC 34.6 (03/07/2025, 5:54am); superimposed on normal Hb range of 12.0 - 13.6 g/dL (01/22/2018 - 03/06/2025); R/O anemia of chronic disease (cf., CKD stage III and/or MGUS) given 03/02/2025, 11:43am SPEP findings of IgG kappa monoclonal band present with serum IgG 1,979.0 mg/dL and free [place] light chain 154.2 mg/L. 10. Former tobacco abuse with subsequent development of CVD, s/p CVA (2018) in right-hand dominant patient with no neurologic sequelae and with bilateral carotid artery stenosis, s/p bilateral carotid endarterectomies (2018, [facility] Vascular Surgeon Dr. Yobani Zepeda), now receiving secondary prophylaxis against CVD/PVD/PAD utilizing plavix 75mg PO daily and rosuvastatin 10mg PO qhs. 11. Chronic open angle glaucoma, mild degree, bilateral involvement, asymptomatic on timolol 0.5% ophthalmic solution, 1 gtt OU qam and latanoprost 0.005% ophthalmic solution, 1 gtt OU qhs. Condition on Discharge: Fair Activity: Resume your previous activity Lifting: Gradually increase as tolerated Bathing: No limitations Sexual Activity: When tolerated Exercise/Sports: Gradually increase as tolerated Driving/Machine Use: No limitations Weightbearing: Full weightbearing Non-emergency contact: Primary Care Provider Call non-emergency contact if: you have any medication questions Follow-up/Referrals: Eris Fernandez MD [Physician] - (Follow up discussion of new onset, acute atrial fibrillation with rapid ventricular response, resolved in [facility] ER after having received diltiazem 10mg IV x 1 dose (03/06/2025, 1:06am) in the setting of acute UTI (as suggested by 03/06/2025 U/A).) Cherrie Burnham MD [Primary Care Provider] - 03/16/25 1:00 pm (03/16/25 at 1:00 with Cherrie Burnham) Diet: Heart Healthy Addtl Attending Provider Instructions: 1. See your new PCP within 5-7 days of hospital discharge to undergo: a. repeat creatinine level testing within 5-7 days of hospital discharge as you continue to hold OFF taking your home-scheduled losartan 100mg PO daily, home- scheduled lasix 20mg PO daily, and home-scheduled indapamide 2.5mg PO daily until at least 03/14/2025. b. discussion of final urine culture (03/06/2025) result after having completed 3 day treatment with cefdinir 300mg PO q12 (day #1/3 on 03/07/2025, 12:17pm). c. discussion of results iron studies (03/06/2025, 8:41am) involving Fe, TIBC, and ferritin. 2. See your new CARDS Dr. Eris Fernandez within 5-7 days of hospital discharge to undergo: a. discussion of new onset, acute atrial fibrillation with rapid ventricular response, resolved in [facility] ER after having received d iltiazem 10mg IV x 1 dose (03/06/2025, 1:06am), due to (a) acute UTI (as suggested by 03/06/2025 U/A with LE 2+, nitrite-, WBC 11-20, RBC 0-2, epithelial cells 0-2, bacteria 4+) in patient with past medical history of metzger-sensitive E. coli UTIs (as noted on 05/24/2022, 9:56am urine culture and 06/01/2020, 10:30am urine culture) and metzger-sensitive Proteus mirabilis UTI (as noted on 10/05/2020, 9:09am urine culture) and (b) home-scheduled phentermine 15mg PO daily, given its ROAD TESTER stimulant activity. 3. See your [facility] Heme-Onc Ms. Rust on Sunday (03/10/2025) to discuss your recent decline in Hb levels and the 03/02/2025, 11:43am SPEP findings of IgG kappa monoclonal band present with serum IgG 1,979.0 mg/dL and free [place] light chain 154.2 mg/L. Pending Studies at Discharge: Yes Studies:: 1. See your new PCP within 5-7 days of hospital discharge to undergo: a. repeat creatinine level testing within 5-7 days of hospital discharge as you hold OFF taking your home-scheduled losartan 100mg PO daily, home-scheduled lasix 20mg PO daily, and home-scheduled indapamide 2.5mg PO daily until at least 03/14/2025. b. discussion of final urine culture (03/06/2025) result after having completed 3 day treatment with cefdinir 300mg PO q12 (day #1/3 on 03/07/2025, 12:17pm). Stand-Alone Forms: My [facility], Smoking Cessation Medications and DC Order Prescriptions: New cefdinir 300 mg Capsule 300 mg PO Q12 Qty: 5 0RF Eliquis 2.5 mg Tablet 2.5 mg PO BID Qty: 60 0RF Continued cholecalciferol (vitamin D3) 25 mcg (1,000 unit) capsule 25 mcg PO DAILY ascorbic acid (vitamin C) 500 mg capsule 1,000 mg PO DAILY letrozole 2.5 mg tablet 2.5 mg PO DAILY metoprolol tartrate 50 mg tablet 50 mg PO BID Qty: 180 3RF latanoprost 0.005 % drops 1 drops OP HS timolol maleate 0.5 % drops 1 drp OPB QAM clopidogrel 75 mg tablet 75 mg PO QAM rosuvastatin 10 mg tablet 10 mg PO HS zoledronic etlo-xftrroee-foxad [Reclast] 5 mg/100 mL piggyback 1 ea IV YEARLY multivitamin Tablet 1 tab PO DAILY calcium carbonate-vitamin D3 [Calcium 600 + D(3)] 600 mg-10 mcg (400 unit) Tablet 1 tab PO DAILY Held indapamide 2.5 mg tablet 2.5 mg PO QAM Qty: 90 3RF Hold Instructions: Resume on 03/14/25. Hold OFF indapamide 2.5mg PO daily until 03/14/2025, in order to undergo outpatient creatinine level testing within 5-7 days of hospital discharge. losartan 100 mg tablet 100 mg PO DAILY Qty: 90 3RF Hold Instructions: Resume on 03/14/25. Hold OFF losartan 100mg PO daily until at least 03/14/2025, so that you can undergo repeat creatinine level testing within 5-7 days of hospital discharge. Rx Instructions: TAKE 1 TABLET BY MOUTH DAILY EVERY MORNING furosemide 20 mg tablet 20 mg PO DAILY Qty: 30 5RF Hold Instructions: Resume on 03/14/25. Hold OFF lasix 20mg PO daily until 03/14/2025, in order to undergo outpatient creatinine level testing within 5-7 days of hospital discharge. Discontinued phentermine 15 mg capsule 15 mg PO DAILY 30 Days Qty: 30 0RF Rx Instructions: must administer 30 minutes before or 2 hours after breakfast Discharge Orders: Discharge Order (Routine); Ordered 03/07/25 Ordered By: Gerson Spicer Discharge Order- CHF (Routine); Ordered 03/07/25 Ordered By: Gerson Spicer Admission Data Admit Date/Time: 03/06/25 03:19 Attending Provider: Gerson Spicer Admit Provider: Nora Romero Primary Care Provider: Cherrie Burnham Other Providers: Nora Romero; Eris Fernandez Other Interventions: Discharge Summary Assessment (RN) Last Done: 03/07/25 12:47 Hospital Stay Data Consultations 03/06/25 02:14 ED Decision to Admit Stat 03/06/25 05:50 Consult Cardiology Routine Pending Results Patient Have Any Pending Studies at Discharge: Yes Discharge Instructions Given to Patient (Per Discharging Provider) 1. See your new PCP within 5-7 days of hospital discharge to undergo: a. repeat creatinine level testing within 5-7 days of hospital discharge as you continue to hold OFF taking your home-scheduled losartan 100mg PO daily, home- scheduled lasix 20mg PO daily, and home-scheduled indapamide 2.5mg PO daily until at least 03/14/2025. b. discussion of final urine culture (03/06/2025) result after having completed 3 day treatment with cefdinir 300mg PO q12 (day #1/3 on 03/07/2025, 12:17pm). c. discussion of results iron studies (03/06/2025, 8:41am) involving Fe, TIBC, and ferritin. 2. See your new CARDS Dr. Eris Fernandez within 5-7 days of hospital discharge to undergo: a. discussion of new onset, acute atrial fibrillation with rapid ventricular response, resolved in [facility] ER after having received diltiazem 10mg IV x 1 dose (03/06/2025, 1:06am), due to (a) acute UTI (as suggested by 03/06/2025 U/A with LE 2+, nitrite-, WBC 11-20, RBC 0-2, epithelial cells 0-2, bacteria 4+) in patient with past medical history of metzger-sensitive E. coli UTIs (as noted on 05/24/2022, 9:56am urine culture and 06/01/2020, 10:30am urine culture) and metzger-sensitive Proteus mirabilis UTI (as noted on 10/05/2020, 9:09am urine culture) and (b) home-scheduled phentermine 15mg PO daily, given its ROAD TESTER stimulant activity. 3. See your [facility] Heme-Onc Ms. Rust on Sunday (03/10/2025) to discuss your recent decline in Hb levels and the 03/02/2025, 11:43am SPEP findings of IgG kappa monoclonal band present with serum IgG 1,979.0 mg/dL and free [place] light chain 154.2 mg/L. Total Time Total Time Spent Total Time Spent (In Minutes): 35 minutes. Of this time period, 19 minutes were spent in coordinating patient's discharge. Coding Level of Care Code 43217 INP/OBS DISCH >30 MIN Diagnoses New onset atrial fibrillation I48.91 Elevated troponin R79.89 Chronic diastolic (congestive) heart failure I50.32 Renal insufficiency N28.9 Hyponatremia E87.1 Hypokalemia E87.6 Hypomagnesemia E83.42 Monocytosis D72.821 Normocytic normochromic anemia D64.9 CVD (cerebrovascular disease) I67.9 Glaucoma H40.9
[2025-03-07] MEDS ORDERED: CEFDINIR 300 MG CAP PO SCH (21:00)
[2025-03-08 08:29] LABS: Iron 75.0 mcg/dl (35-150)
[2025-03-08 08:48] LABS: Ferritin 130.0 ng/ml (8-388)
== END 2025-03-07 13:56 | disposition home or self-care (01) ==
LOC: 2S 00:29 → ED 00:29 → SUATTDRO 03:19 → 2S 05:16